=== PATIENT | female | born 1950 | race Caucasian/White ===

== ENCOUNTER 2017-09-02 15:36 | Emergency (ER) | payer MEDICARE, OTHER, SELFPAY ==
[2017-09-02 15:37] VITALS: BP 150/110; PULSE 162; RESP 16; TEMP 36.7; O2SAT 99; BMI 34.2
--- NOTE | 2017-09-02 15:49 | EKG12_ITS ---
Test Reason : Blood Pressure : / mmHG Vent. Rate : 087 BPM Atrial Rate : 087 BPM P-R Int : 168 ms QRS Dur : 088 ms QT Int : 362 ms P-R-T Axes : 056 -29 034 degrees QTc Int : 435 ms Normal sinus rhythm Normal ECG Confirmed by RADHA MELGOZA, MACKENZIE ([id number]), photo editor SARAHI RODRIGUEZ ([id number]) on 09/05/2017 1:41:24 PM Referred By: JOSE Confirmed By:MACKENZIE GARCIA MD
[2017-09-02] MEDS: Adenosine 6 MG/2 ML Syringe IV (16:01)
[2017-09-02] MEDS: Adenosine 6 MG/2 ML Syringe 12 MG IV (16:07)
[2017-09-02 16:14] VITALS: BP 166/142; PULSE 160
[2017-09-02 16:30] LABS: Anion Gap 10 (5-15); BUN 24 mg/dL (7-18); BUN/Creat Ratio 28.7 RATIO (10-20); Calcium,Total 9.4 mg/dL (8.5-10.1); Chloride 102 mmol/L (98-107); Creatinine, Serum 0.84 mg/dL (0.55-1.02); EST Glomerular Filtration Rate 73 mL/min (>60); Est Glom Filt Rate - Afr Amer 88 mL/min (>60); Estimated Creatinine Clearance 52.81 ml/min; Glucose 106 mg/dL (74-106); Potassium 4.7 mmol/L (3.5-5.1); Sodium Level 135 mmol/L (136-145)
[2017-09-02 16:52] VITALS: BP 162/90; PULSE 95; RESP 21; O2SAT 97
--- NOTE | 2017-09-02 16:57 | EKG12_ITS ---
Test Reason : Blood Pressure : / mmHG Vent. Rate : 162 BPM Atrial Rate : 166 BPM P-R Int : 000 ms QRS Dur : 120 ms QT Int : 284 ms P-R-T Axes : 000 -16 073 degrees QTc Int : 466 ms Supraventricular tachycardia Nonspecific ST and T wave abnormality Abnormal ECG Confirmed by ORTIZ MELGOZA, RUBY ([id number]), city editor SARAHI RODRIGUEZ ([id number]) on 09/08/2017 1:32:21 PM Referred By: JAMIE Confirmed By:RUBY ALCANTAR MD
[2017-09-02 17:09] VITALS: BP 147/85; PULSE 86; RESP 14; O2SAT 99
--- NOTE | 2017-09-02 17:11 | ED.VISSUMM ---
- ER Visit Summary Date of Service: 09/02/17 Chief Complaint: Palpitations that started 2-1/2 hours prior to presentation. History of Present Illness: The patient is a 67 F with palpitations. She has had this in the past. She states she has had a history of PSVT and atrial fibrillation. She is on no anticoagulant. She denies fever, chills night sweats. She denies heat or cold intolerance. She denies shortness of breath or difficulty breathing. She denies any chest discomfort of any type. She denies nausea vomiting. She denies diaphoresis. Denies orthostatic symptoms. She denies any urologic symptoms. Past medical history of arthritis, depression and PSVT Physical Examination: Blood pressure is 150/110 heart rate 162. BMI is 34.2. Head is atraumatic normocephalic. Pupils are equal round reactive. Extraocular muscles are intact. TMs are pearly white with landmarks noted. Nares patent with no drainage. Posterior pharynx without erythema or exudate. Uvula is midline. There is no dysphonia or dysphasia. Trachea is midline. There is no stridor with auscultation of the neck. Heart is regular with a normal S1 and S2. There is no murmur, gallop or rub. Heart rate is normal. Abdomen is soft nontender. There is no palpable pulsatile mass or abdominal bruit. Neuro exam is nonfocal. Test Results: BMP is unremarkable. The narrow complex tachycardia question of atrial flutter versus PSVT. Monitor revealed no flutter waves when she was given adenosine. There was a short period where she slowed down. She did not break with 6 or 12 mg of adenosine. Emergency Department Course and Treatment: AG was obtained which reveals a narrow complex tachycardia uncertain whether this represents a flutter versus PSVT. (Narrow complex reentry tachycardia) electrode panel was obtained. Since patient did not convert with adenosine she was consented for procedural sedation with propofol and cardioversion. After patient signed consent form she spontaneously converted to sinus rhythm. Repeat EKG reveals a sinus rhythm 87 and normal. Treatment Plan: To home with outpatient cardiac follow-up, Dr. Boo Centeno Disposition: Discharge to home in stable improved condition Impression: Narrow complex tachycardia, reentry This note was generated with [employer] software. It may contain incorrect words, spelling, and punctuation that were not noted in review of the chart prior to signing ED Disposition - Plan for ED Patient: Disposition: Home or Assisted Living Chief Complaint: Chest Pain Instructions: ED Tachycardia Pat PSVT Referrals: Annamarie Ho MD [Primary Care Provider] - Boo Centeno MD [STAFF PHYSICIAN] - 3-5 Days
--- NOTE | 2017-09-02 17:21 | ED.RN ---
1610 PT WAS GIVEN 2 DOSES ADENOSINE, NO CHANGE IN RHYTHM. PT AMBULATED TO BATHROOM AT THIS TIME PRIOR TO SYNCHRONIZED CONVERSION. ON RETURN PT CONVERTED TO SR BY SELF.
== END 2017-09-02 17:40 | disposition home or self-care (01) ==
PROVIDERS: Emergency Provider Emergency Medicine; Family Provider Internal Medicine; PCP Internal Medicine
DX: I47.1 Supraventricular tachycardia (principal); I10 Essential (primary) hypertension; M19.90 Unspecified osteoarthritis, unspecified site; F32.9 Major depressive disorder, single episode, unspecified; E66.9 Obesity, unspecified; Z68.34 Body mass index [BMI] 34.0-34.9, adult; Z79.899 Other long term (current) drug therapy
CPT/HCPCS: 80048; 93005; 96374; 99284; J7030; A4216; J0153

== ENCOUNTER 2017-12-18 10:11 | Emergency (ER) | payer MEDICARE, OTHER, SELFPAY ==
[2017-12-18 10:14] VITALS: BP 109/87; PULSE 167; RESP 16; TEMP 35.9; O2SAT 99; BMI 34.0
--- NOTE | 2017-12-18 10:28 | EKG12_ITS ---
Test Reason : PALPITATIONS Blood Pressure : / mmHG Vent. Rate : 158 BPM Atrial Rate : 150 BPM P-R Int : 000 ms QRS Dur : 132 ms QT Int : 292 ms P-R-T Axes : 000 -19 061 degrees QTc Int : 473 ms Supraventricular tachycardia Abnormal ECG Confirmed by RADHA MELGOZA, MACKENZIE ([id number]), staff editor SARAHI RODRIGUEZ ([id number]) on 12/24/2017 1:34:23 PM Referred By: JOSH Confirmed By:MACKENZIE GARCIA MD
--- NOTE | 2017-12-18 10:30 | RAD_ITS ---
STUDY: X-RAY CHEST REASON FOR EXAM: Female, 67 years old. Palpitations. Asthma. TECHNIQUE: Single AP portable view of the chest. COMPARISON: Comparison is made with prior examination dated November 14, 2009. FINDINGS: The lungs are clear and expanded. There is no demonstrated pleural abnormality. Normal size heart. Normal mediastinum and malini. Normal visualized pulmonary arteries. Normal visualized aortic arch and descending thoracic aorta. There are degenerative changes of the visualized thoracic spine. There is degenerative osteoarthritis of the bilateral shoulders. Findings suggestive of a hiatal hernia. RAD/Chest 1 View (Portable) IMPRESSION: No acute abnormality is seen. Electronically Signed: Rowdy Arizmendi MD at 11:00 EDT Tel [phone], Service support ,
[2017-12-18] MEDS: Adenosine 6 MG/2 ML Syringe IV (10:59)
[2017-12-18] MEDS: dilTIAZem 25 MG/5 ML Vial 20 MG IV BOLUS (10:59)
[2017-12-18] MEDS: 0.9% Normal Saline 1,000 ML 150 ML IV (10:59)
[2017-12-18 11:00] LABS: Absolute Lymphocyte Count 1.43 X10^3/ul (0.83-4.51); Absolute Neutrophil Count 5.6 X10^3/uL (2.0-7.7); Basophil# 0.05 X10^3/uL; Basophil% 0.6 % (0-1); Eosinophil# 0.23 X10^3/uL; Eosinophils% 2.9 % (0-5); Hematocrit 38.1 % (37-47); Hemoglobin 12.4 g/dl (12.0-15.0); Lymphocyte # 1.43 X10^3/ul (4.0); Lymphocyte % 17.9 % (19-41); Mean Corp Hgb Conc 32.5 g/gl (32-36); Mean Corpuscular Hgb 31.5 pg (27.0-32.0); Mean Corpuscular Volume 96.7 fL (81-99); Mean Platelet Vol. 9.6 fl (6.2-12.0); Monocyte# 0.66 X10^3/uL; Monocyte% 8.3 % (0-10); Neutrophil # 5.59 X10^3/uL (2.7-7.7); Platelet Count 237 K/mm3 (150-450); RBC Distribution Width CV 13.2 % (11.6-14.6); RBC Distribution Width SD 46.3 fl (35.1-43.9); Red Blood Count 3.94 M/mm3 (4.2-5.4)
[2017-12-18 11:03] LABS: POSITIVE COUNT NO; POSITIVE DIFFERENTIAL NO; POSITIVE MORPHOLOGY NO
[2017-12-18 11:06] VITALS: BP 128/78; PULSE 84; RESP 17; O2SAT 94
--- NOTE | 2017-12-18 11:11 | ED.RN ---
DR TIWARI NOTIFIED HR=84 AFTER 1/2ML OF CARDIZEM. EKG ORDERED
--- NOTE | 2017-12-18 11:15 | EKG12_ITS ---
Test Reason : REPEAT Blood Pressure : / mmHG Vent. Rate : 084 BPM Atrial Rate : 084 BPM P-R Int : 164 ms QRS Dur : 084 ms QT Int : 368 ms P-R-T Axes : 029 -20 022 degrees QTc Int : 434 ms Normal sinus rhythm Leftward axis Low voltage QRS Confirmed by RADHA MELGOZA, MACKENZIE ([id number]), editorial project manager SARAHI RODRIGUEZ ([id number]) on 12/24/2017 2:01:08 PM Referred By: JOSH Confirmed By:MACKENZIE GARCIA MD
[2017-12-18 11:19] LABS: Anion Gap 7 (5-15); BUN 28 mg/dL (7-18); BUN/Creat Ratio 28.3 RATIO (10-20); Calcium,Total 9.2 mg/dL (8.5-10.1); Chloride 108 mmol/L (98-107); Creatinine, Serum 0.99 mg/dL (0.55-1.02); EST Glomerular Filtration Rate 60 mL/min (>60); Est Glom Filt Rate - Afr Amer 72 mL/min (>60); Estimated Creatinine Clearance 44.81 ml/min; Glucose 107 mg/dL (74-106); Potassium 4.7 mmol/L (3.5-5.1); Sodium Level 138 mmol/L (136-145)
[2017-12-18] MEDS: Adenosine 6 MG/2 ML Syringe 12 MG IV (11:27)
--- NOTE | 2017-12-18 12:37 | ED.VISSUMM ---
- ER Visit Summary Date of Service: 12/18/17 Chief Complaint: [Tachycardia] History of Present Illness: The patient is a 67 F [presents the emergency department with racing heart that she states started sometime last night. Patient felt nauseated and just kind of feels out of it. Patient had similar episode about 4 months ago and was seen in the emergency department at that time. Patient subsequently wore a Holter monitor and is currently scheduled to follow-up with airplane electrician at [facility] to have an ablation done on January 14. Patient not on any blood thinners. Patient denies any chest pain. Patient denies recent illness.] Physical Examination: [HEENT-PERRLA, EOMI. Cranial nerves II through XII grossly intact. TMs clear. Mucous membranes moist. No adenopathy. Cardiovascular-regular and tachycardic. No murmurs. Lungs-clear to auscultation, chest wall stable without crepitus or subcu emphysema Abdomen-normoactive bowel sounds, soft, nontender, no rebound or rigidity, no peritoneal signs. Extremities-intact ?4, normal range of motion, normal pulses, atraumatic] Test Results: [EKG obtained showed supraventricular tachycardia with a ventricular rate of 158 bpm difficult to state if this is fib flutter or SVT. CBC with differential was normal. Chemistries unremarkable. Troponin was less than 0.015. Chest x-ray showed nothing acute.] Emergency Department Course and Treatment: Patient initially given adenosine 6 mg IV bolus and no resolution in her tachycardia. Patient was given a 12 mg IV bolus of adenosine and she slow down into the 120s however I did not appreciate any flutter waves and patient immediately back up into the 150s. Patient received Cardizem 20 mg IV bolus and patient converted to normal sinus rhythm with a heart rate in the 80s. [] Treatment Plan: [Patient case discussed with Dr. Boo Centeno who is patient's township clerk of record who asked that we increase her Coreg to 1-1/2 tablets twice a day and have her call the office tomorrow.] Disposition: [Discharged home in stable condition] Impression: [Supraventricular tachycardia] This note was generated with [employer] software. It may contain incorrect words, spelling, and punctuation that were not noted in review of the chart prior to signing ED Disposition - Plan for ED Patient: Chief Complaint: Palpitations Referrals: Annamarie Ho MD [Primary Care Provider] -
--- NOTE | 2017-12-18 12:40 | ED.DCSUM_ITS ---
- ER Visit Summary Date of Service: 12/18/17 Chief Complaint: [Tachycardia] History of Present Illness: The patient is a 67 F [presents the emergency department with racing heart that she states started sometime last night. Patient felt nauseated and just kind of feels out of it. Patient had similar episode about 4 months ago and was seen in the emergency department at that time. Patient subsequently wore a Holter monitor and is currently scheduled to follow-up with slots manager at [facility] to have an ablation done on January 14. Patient not on any blood thinners. Patient denies any chest pain. Patient denies recent illness.] Physical Examination: [HEENT-PERRLA, EOMI. Cranial nerves II through XII grossly intact. TMs clear. Mucous membranes moist. No adenopathy. Cardiovascular-regular and tachycardic. No murmurs. Lungs-clear to auscultation, chest wall stable without crepitus or subcu emphysema Abdomen-normoactive bowel sounds, soft, nontender, no rebound or rigidity, no peritoneal signs. Extremities-intact ?4, normal range of motion, normal pulses, atraumatic] Test Results: [EKG obtained showed supraventricular tachycardia with a ventricular rate of 158 bpm difficult to state if this is fib flutter or SVT. CBC with differential was normal. Chemistries unremarkable. Troponin was less than 0.015. Chest x-ray showed nothing acute.] Emergency Department Course and Treatment: Patient initially given adenosine 6 mg IV bolus and no resolution in her tachycardia. Patient was given a 12 mg IV bolus of adenosine and she slow down into the 120s however I did not appreciate any flutter waves and patient immediately back up into the 150s. Patient received Cardizem 20 mg IV bolus and patient converted to normal sinus rhythm with a heart rate in the 80s. [] Treatment Plan: [Patient case discussed with Dr. Boo Centeno who is patient' s high school math teacher of record who asked that we increase her Coreg to 1-1/2 tablets twice a day and have her call the office tomorrow.] Disposition: [Discharged home in stable condition] Impression: [Supraventricular tachycardia] This note was generated with [employer] software. It may contain incorrect words, spelling, and punctuation that were not noted in review of the chart prior to signing ED Disposition - Plan for ED Patient: Chief Complaint: Palpitations Referrals: Annamarie Ho MD [Primary Care Provider] -
--- NOTE | 2017-12-18 12:40 | ED.DEP ---
ED Disposition - Plan for ED Patient: Chief Complaint: Palpitations Instructions: ED Tachycardia Pat PSVT Referrals: Annamarie Ho MD [Primary Care Provider] - Additional Instructions: increase Coreg to 1 1/2 tablets twice per day and call Dr. Gutiérrez's office tomorrow for an update
[2017-12-18 12:50] VITALS: BP 122/84; PULSE 75; RESP 16; O2SAT 98
== END 2017-12-18 12:54 | disposition home or self-care (01) ==
PROVIDERS: Emergency Provider Emergency Medicine; Family Provider Internal Medicine; PCP Internal Medicine
DX: I47.1 Supraventricular tachycardia (principal); Z79.899 Other long term (current) drug therapy
CPT/HCPCS: 71045; 80048; 84484; 85025; 93005; 96361; 96374; 96375; 99284; J7030; A4216; J0153

== ENCOUNTER 2017-12-27 13:14 | Emergency (ER) | payer MEDICARE, OTHER, SELFPAY ==
[2017-12-27 13:15] VITALS: BP 117/68; PULSE 65; RESP 16; TEMP 36.2; O2SAT 96; BMI 34.3
[2017-12-27 13:43] VITALS: BP 135/66; PULSE 67; RESP 18
--- NOTE | 2017-12-27 14:00 | EKG12_ITS ---
Test Reason : DIZZINESS Blood Pressure : / mmHG Vent. Rate : 058 BPM Atrial Rate : 058 BPM P-R Int : 168 ms QRS Dur : 094 ms QT Int : 454 ms P-R-T Axes : 045 -20 016 degrees QTc Int : 445 ms Sinus bradycardia with occasional Premature ventricular complexes Otherwise normal ECG Confirmed by GREG CHAMPION ([id number]), material expeditor SARAHI RODRIGUEZ ([id number]) on 01/05/2018 6:01:08 PM Referred By: CATY Confirmed By:GREG CHAMPION
[2017-12-27] MEDS: 0.9% Normal Saline 1,000 ML 1000 ML IV (14:16)
[2017-12-27 14:21] LABS: Absolute Lymphocyte Count 0.76 X10^3/ul (0.83-4.51); Absolute Neutrophil Count 4.9 X10^3/uL (2.0-7.7); Basophil# 0.02 X10^3/uL; Basophil% 0.3 % (0-1); Eosinophil# 0.16 X10^3/uL; Eosinophils% 2.5 % (0-5); Hematocrit 34.5 % (37-47); Hemoglobin 11.2 g/dl (12.0-15.0); Lymphocyte # 0.76 X10^3/ul (4.0); Lymphocyte % 11.7 % (19-41); Mean Corp Hgb Conc 32.5 g/gl (32-36); Mean Corpuscular Hgb 31.3 pg (27.0-32.0); Mean Corpuscular Volume 96.4 fL (81-99); Mean Platelet Vol. 9.3 fl (6.2-12.0); Monocyte# 0.62 X10^3/uL; Monocyte% 9.6 % (0-10); Neutrophil # 4.91 X10^3/uL (2.7-7.7); Neutrophil % 75.7 % (47-70); Platelet Count 207 K/mm3 (150-450); RBC Distribution Width CV 13.1 % (11.6-14.6); RBC Distribution Width SD 45.8 fl (35.1-43.9); Red Blood Count 3.58 M/mm3 (4.2-5.4); White Blood Count 6.5 K/mm3 (4.4-11.0)
[2017-12-27 14:22] LABS: POSITIVE COUNT NO; POSITIVE DIFFERENTIAL NO; POSITIVE MORPHOLOGY NO
[2017-12-27 14:32] LABS: Bacteria 0 SEEN /hpf (None Seen); Mucous, Urine 0 SEEN /hpf (<or=2+); Red Blood Cells-Urine 0 SEEN /hpf (0-5); Squamous Epithelial Cells - UA 0 SEEN /hpf (5-10)
[2017-12-27 14:34] LABS: Color, Urine Yellow (Yellow); Glucose, Dipstick Normal (Normal); Ketone-Dipstick Negative (Negative); Leukocyte Esterase-Dipstick 25 /ul (Negative); Nitrite-Dipstick Negative (Negative); Occult Blood-Urine Negative /ul (Negative); Protein-Dipstick 100 mg/dl (Negative); Urine Clarity Clear (Clear); Urine Urobilinogen Normal (Normal)
[2017-12-27 14:35] LABS: Urine Bilirubin Dipstick 1 mg/dL (Negative)
[2017-12-27 14:41] LABS: White Blood Cells 0-5 SEEN /hpf (0-5)
[2017-12-27 14:43] LABS: Anion Gap 6 (5-15); BUN 40 mg/dL (7-18); BUN/Creat Ratio 30.1 RATIO (10-20); Calcium,Total 9.1 mg/dL (8.5-10.1); Chloride 106 mmol/L (98-107); Creatinine, Serum 1.33 mg/dL (0.55-1.02); EST Glomerular Filtration Rate 42 mL/min (>60); Est Glom Filt Rate - Afr Amer 51 mL/min (>60); Estimated Creatinine Clearance 33.35 ml/min; Glucose 124 mg/dL (74-106); Potassium 4.9 mmol/L (3.5-5.1); Sodium Level 137 mmol/L (136-145); Thyroid Stim Hormone (TSH) 3.22 uIU/mL (0.358-3.74)
[2017-12-27 14:47] VITALS: BP 138/59; BP 142/66; BP 144/66; PULSE 61; PULSE 64
[2017-12-27 15:57] VITALS: BP 142/70; PULSE 65; RESP 18
--- NOTE | 2017-12-27 16:04 | ED.VISSUMM ---
- ER Visit Summary Date of Service: 12/27/17 Chief Complaint: [Low blood pressure] History of Present Illness: The patient is a 67 F [presents to the emergency department with low blood pressure. She states it has been going on for the last 2 days. She is felt just generally weak and fatigued. She went to work this morning and took her blood pressure and was 88 systolic and 99 systolic. She was not dizzy or lightheaded she had no chest pain or shortness of breath. She has not been febrile she has no cough she has no abdominal pain nausea vomiting bowel movements have been normal urine is normal. She was seen in the emergency department a week ago for SVT and her Coreg was increased from 12.5 to 18 mg twice a day. I Physical Examination: [] Test Results: [] Emergency Department Course and Treatment: [EKG is sinus at a rate of 58 with a PVC no acute ischemic changes. Screening labs show anemia with a hemoglobin of 11.2 troponin is normal. Creatinine is 1.33 which is up slightly from previous. Patient's blood pressures in the emergency department was normal she was not orthostatic. Urine was normal. This time I do think the patient can likely be discharged home. He will stop her losartan. I will contact her quality analyst for follow-up. She will monitor her blood pressures daily. Will touch base with him on Friday.] Treatment Plan: [] Disposition: [Discharge] Impression: [Hypotension] This note was generated with [employer] dictation software. It may contain incorrect words, spelling, and punctuation that were not noted in review of the chart prior to signing ED Disposition - Plan for ED Patient: Chief Complaint: Hypotension Referrals: Annamarie Ho MD [Primary Care Provider] -
--- NOTE | 2017-12-27 16:11 | ED.DCSUM_ITS ---
- ER Visit Summary Date of Service: 12/27/17 Chief Complaint: [Low blood pressure] History of Present Illness: The patient is a 67 F [presents to the emergency department with low blood pressure. She states it has been going on for the last 2 days. She is felt just generally weak and fatigued. She went to work this morning and took her blood pressure and was 88 systolic and 99 systolic. She was not dizzy or lightheaded she had no chest pain or shortness of breath. She has not been febrile she has no cough she has no abdominal pain nausea vomiting bowel movements have been normal urine is normal. She was seen in the emergency department a week ago for SVT and her Coreg was increased from 12.5 to 18 mg twice a day. I Physical Examination: [] Test Results: [] Emergency Department Course and Treatment: [EKG is sinus at a rate of 58 with a PVC no acute ischemic changes. Screening labs show anemia with a hemoglobin of 11.2 troponin is normal. Creatinine is 1.33 which is up slightly from previous. Patient's blood pressures in the emergency department was normal she was not orthostatic. Urine was normal. This time I do think the patient can likely be discharged home. He will stop her losartan. I will contact her geological engineer for follow-up. She will monitor her blood pressures daily. Will touch base with him on Friday.] Treatment Plan: [] Disposition: [Discharge] Impression: [Hypotension] This note was generated with [employer]box dictation software. It may contain incorrect words, spelling, and punctuation that were not noted in review of the chart prior to signing ED Disposition - Plan for ED Patient: Chief Complaint: Hypotension Referrals: Annamarie Ho MD [Primary Care Provider] -
--- NOTE | 2017-12-27 16:16 | ED.DEP ---
ED Disposition - Plan for ED Patient: Chief Complaint: Hypotension Instructions: ED Hypotension All Causes Referrals: Boo Centeno MD [STAFF PHYSICIAN] - 12/29/17 Additional Instructions: stop Losartan
[2017-12-27 16:24] VITALS: BP 142/70; PULSE 65; RESP 18
== END 2017-12-27 16:25 | disposition home or self-care (01) ==
PROVIDERS: Emergency Provider Emergency Medicine; Family Provider Internal Medicine; PCP Internal Medicine
DX: I95.9 Hypotension, unspecified (principal); I48.91 Unspecified atrial fibrillation; I47.1 Supraventricular tachycardia; Z79.891 Long term (current) use of opiate analgesic; Z79.899 Other long term (current) drug therapy
CPT/HCPCS: 80048; 81001; 84443; 84484; 85025; 93005; 96360; 96361; 99285; J7030; A4216

== ENCOUNTER 2019-01-23 09:33 | Emergency (ER) | payer MEDICARE, OTHER, SELFPAY ==
[2018-07-02 14:19] VITALS: BMI 34.2
[2019-01-23 09:34] VITALS: BP 155/91; PULSE 77; RESP 16; TEMP 36.7; O2SAT 95; BMI 34.0
--- NOTE | 2019-01-23 10:08 | RAD_ITS ---
STUDY: X-RAY - RIGHT FOOT CLINICAL: Female, 68 years old. Surgery November 09, pain and swelling TECHNIQUE: 3 view(s) of the foot. COMPARISON: None. FINDINGS: Arthrodesis fixation hardware of the hindfoot without evidence of obvious hardware loosening. There is diffuse osteopenia. Normal metatarsi. Normal metatarsophalangeal joint of the great toe. Normal tibial and fibular sesamoid bones. Normal interphalangeal joint of the great toe. Normal phalanges of the great toe. Normal second through fifth metatarsophalangeal joints. Normal interphalangeal joints and phalanges of the lesser toes. Nonspecific soft tissue swelling of the forefoot extending into the base of the toes. RAD/Foot min 3 Views IMPRESSION: 1. No acute fracture. Operative changes/fusion of the hindfoot. 2. Soft tissue swelling of the forefoot/toes. Electronically Signed: Zhao Hyde MD at 10:38 EDT , Service support ,
--- NOTE | 2019-01-23 10:40 | ED.DCSUM_ITS ---
History of Present Illness Chief Complaint: Lower Extremity Injury Informant: Patient Onset: Today Context: Sudden Onset Timing: Continuous Quality: Pain Location: Right lateral foot Current Severity: Mild Maximum Severity: Moderate Worsened by: Attempted movement, weightbearing and touch Relieved by: Nothing Associated Symptoms: No associated symptoms Narrative: Patient is an elderly woman status post fusion of her right ankle by Dr. Cory valero a gis consultant who practices at [facility] 2 months ago. She presents after traumatic injury to the right foot yesterday. She is localizing pain to the lateral right foot over the fifth metatarsal. She denies ankle pain. She denies paresthesia or anesthesia. She denies fever or chills. Prior similar symptoms: No Recent Illness/Hospitalization: No Past Medical History - Allergies and Home Meds Allergies/Adverse Reactions: Allergies loratadine [From Claritin-D] Adverse Reaction (Verified 01/23/19 09:34) HYPERTENSION pseudoephedrine [From Claritin-D] Adverse Reaction (Verified 01/23/19 09:34) HYPERTENSION Primary Care Physician: Annamarie Ho MD [Primary Care Provider] - Prior records reviewed: Yes - Reviewed records from [facility] Surgical History: - - Fusion right ankle Lives: Spouse/ Significant Other Smoking Status: Never smoker Alcohol: None Review of Systems General: Denies: Chills, Fever, Malaise, Sweats Musculoskeletal: Reports: Extremity Pain. Denies: Myalgias, Arthralgias, Neck pain, Back pain, Swelling Skin: Denies: Rash, Wounds Neurological: Denies: Parasthesia, Numbness Hematologic: Denies: Easy bruising, Easy bleeding Allergy: Denies: Uticaria, Swelling of the mouth Physical Exam Vital Signs/Narrative: Vital Signs Temp Pulse Resp BP Pulse Ox 01/23/19 09:34 98.1 F 77 16 155/91 H 95 Inital Vital Signs reviewed: Yes General: Well nourished, Well developed, Obese, No Acute Distress Head: Normocephalic, Atraumatic Eyes: Perrl, EOMI Cardiovascular: Regular rate, Regular rhythm, No murmurs Respiratory: No distress Extremities: No edema, Tenderness, - - There is pain to palpation over the fifth metatarsal. Incisions are well-healed without evidence of infection. There is no pain palpation over the lateral malleolus.. Negative for: Nontender, Edema Skin: Normal color, No rash, No Trauma Neurological: Alert, Oriented x3, Cranial nerves II-XII grossly intact, Normal Strength, Normal Sensation Psychological: Normal affect, Normal Mood Diagnostic/Tx/Re-eval Chest X-Ray - ED: Read by ED Physician Three-view x-ray of the foot reveals fusion of the ankle with hardware noted. There is no evidence of fracture of the fifth metatarsal. There is no evidence of fracture to the tarsal bones. The joint space looks appropriate. - Medical Decision Making X-ray was ordered to evaluate for fracture of the fifth metatarsal. Patient requested an MRI. Patient was informed she has theron-criteria for MRI. She asked if an x-ray would visualize tendons and bones. She was informed the answer is no. She then asked if she may have a CAT scan. She was told since her history of trauma as the cause of the pain first radiologic study is an x- ray. Based on my experience patient's history she is not meet criteria for an emergent CAT scan of her foot. ED Disposition - Plan for ED Patient: Disposition: Home or Assisted Living Diagnosis: Contusion of right foot, initial encounter, Right foot strain Instructions: CONTUSION, Foot, Sprain Foot Prescriptions: Naproxen [Naprosyn] 500 mg PO BID #14 tab Prescription Printed Referrals: Annamarie Ho MD [Primary Care Provider] - Additional Instructions: If you have no improvement in 3 to 5 days follow-up with Dr. Crandall your gis consultant/surgeon.
== END 2019-01-23 11:22 | disposition home or self-care (01) ==
PROVIDERS: Emergency Provider Emergency Medicine; Family Provider Internal Medicine; PCP Internal Medicine
DX: S96.911A Strain of unspecified muscle and tendon at ankle and foot level, right foot, initial encounter (principal); S90.31XA Contusion of right foot, initial encounter; X58.XXXA Exposure to other specified factors, initial encounter; Y93.9 Activity, unspecified; Y92.9 Unspecified place or not applicable; Y99.9 Unspecified external cause status; Z79.899 Other long term (current) drug therapy; Z98.1 Arthrodesis status
CPT/HCPCS: 73630; 99282

== ENCOUNTER 2019-03-02 08:04 | Emergency (ER) | payer MEDICARE, OTHER, SELFPAY ==
[2019-03-02 08:05] VITALS: BP 136/86; PULSE 72; RESP 16; TEMP 36.7; O2SAT 97; BMI 32.2
--- NOTE | 2019-03-02 08:29 | ED.DCSUM_ITS ---
History of Present Illness Chief Complaint: GI Bleed Informant: Patient, Family - Nausea/Vomiting/Emesis GI Symptom: Nausea, Vomiting Onset: Yesterday Quality: Blood streaks - Diarrhea/Melena/Hematochezia GI Symptom: Hematochezia. Negative for: Diarrhea, Melena Onset: Yesterday Associated Symptoms: Negative for: Dysuria, Frequency, Hematuria, Urgency Narrative: Patient states she has been constipated for the past week. Last night, she did a suppository and she used her finger to help take herself out from her rectum, she had some rectal bleeding subsequently and has not had any since except for a small amount of blood when she wipes after urinating. She is not urinating any blood. Last night she states she also had hematemesis, and it was more than just streaking, maybe 1/4 cup of blood. She had some right lower quadrant pain for 20 minutes this morning that was not severe but that is gone. She feels malaise but no lightheadedness or near syncope. No chest pain or shortness of breath. She has a history of paroxysmal atrial fibrillation but states she takes no antiplatelet or anticoagulant, including aspirin. She recently was put on Vistaril and mirtazapine, no other new medications. She had a routine colonoscopy within the last couple years as well as an EGD, she states other than diverticulosis nothing else was found. - Past Medical History (1) Anxiety and depression Status: Chronic Past Medical History - Allergies and Home Meds Allergies/Adverse Reactions: Allergies loratadine [From Claritin-D] Adverse Reaction (Verified 01/23/19 09:34) HYPERTENSION pseudoephedrine [From Claritin-D] Adverse Reaction (Verified 01/23/19 09:34) HYPERTENSION Primary Care Physician: Annamarie Ho MD [Primary Care Provider] - Surgical History: - - Fusion right ankle Lives: Spouse/ Significant Other Smoking Status: Never smoker Drugs: None Review of Systems General: Reports: Malaise. Denies: Chills, Fever, Sweats Eyes: Denies: Visual changes - bilaterally, Diplopia ENT: Denies: Rhinorrhea, Sore throat Cardiovascular: Denies: Chest pain, Palpitations Respiratory: Denies: Dyspnea, Cough, Dyspnea on exertion Gastrointestinal: Reports: Abdominal pain - Resolved, Nausea, Vomiting, Constipation, Hematochezia. Denies: Diarrhea, Melena Genitourinary: Denies: Dysuria, Hematuria, Frequency Musculoskeletal: Denies: Back pain, Extremity Pain Skin: Denies: Rash, Wounds Neurological: Denies: Headache, Weakness, Numbness Physical Exam Vital Signs/Narrative: Vital Signs Temp Pulse Resp BP Pulse Ox 03/02/19 08:05 98.1 F 72 16 136/86 H 97 Inital Vital Signs reviewed: Yes General: Well nourished, Well developed, Obese, No Acute Distress Head: Normocephalic, Atraumatic Eyes: Perrl, EOMI ENT: Moist mucous membranes, No rhinorrhea Neck: Supple, Nontender Cardiovascular: Regular rate, Regular rhythm, No murmurs. Negative for: Tachycardia Respiratory: No distress, CTA bilaterally, Chest nontender Abdomen: Soft, Nontender, Nondistended, Normal bowel sounds Rectal: Nontender, - - Several nonthrombosed nontender external hemorrhoids. Digital rectal exam unremarkable, no tenderness, no bright red blood, light brown stool present. Back: Nontender, Normal Inspection Extremities: Nontender, No edema Skin: Normal color, No rash Neurological: Alert, Oriented x3, Cranial nerves II-XII grossly intact, Normal Strength, Normal Sensation Psychological: Normal affect, Normal Mood Diagnostic/Tx/Re-eval Laboratory Tests 03/02/19 03/02/19 03/02/19 Range/Units 10:35 08:35 08:35 WBC (4.4-11.0) K/mm3 RBC (4.2-5.4) M/mm3 Hgb (12.0-15.0) g/dL Hct (37-47) % MCV (81-99) fL MCH (27.0-32.0) pg MCHC (32-36) g/dL RDW Std Deviation (35.1-43.9) fl RDW Coeff of Eder (11.6-14.6) % Plt Count (150-450) K/mm3 MPV (6.2-12.0) fl Immature Gran % (Auto) (0.0-0.9) % Neut % (Auto) (47-70) % Lymph % (Auto) (19-41) % [place] % (Auto) (0-10) % Eos % (Auto) (0-5) % Baso % (Auto) (0-1) % Absolute Neuts (auto) (2.0-7.7) X10^3/uL Absolute Lymphs (auto) (0.83-4.51) X10^3/uL Nucleated RBC % (0-5) % Sodium 133 L (136-145) mmol/L Potassium 4.3 (3.5-5.1) mmol/L Chloride 100 (98-107) mmol/L Carbon Dioxide 26.0 (21.0-32.0) mmol/L Anion Gap 7 (5-15) BUN 15 (7-18) mg/dL Creatinine 1.03 H (0.55-1.02) mg/dL Estim Creat Clear Calc 38.07 ml/min Est GFR (MDRD) Af Amer 69 (>60) mL/min Est GFR (MDRD) Non-Af 57 L (>60) mL/min BUN/Creatinine Ratio 14.6 (10-20) RATIO Glucose 99 (74-106) mg/dL Calcium 9.5 (8.5-10.1) mg/dL Urine Color Yellow (Yellow) Urine Clarity Clear (Clear) Urine pH 7.0 (5.0 - 8.0) Ur Specific [place] 1.010 (1.002-1.030) Urine Protein Negative (Negative) mg/dl Urine Glucose (UA) Normal (Normal) mg/dl Urine Ketones Negative (Negative) mg/dl Urine Occult Blood Negative (Negative) /ul Urine Nitrite Negative (Negative) Urine Bilirubin Negative (Negative) mg/dL Urine Urobilinogen Normal (Normal) mg/dl Ur Leukocyte Esterase Negative (Negative) /ul Urine RBC 0 SEEN (0-5) /hpf Urine WBC 0 SEEN (0-5) /hpf Ur Squamous Epith Cells 0 SEEN (5-10) /hpf Urine Bacteria 0 SEEN (None Seen) /hpf Urine Mucus 0 SEEN (<or=2+) /hpf Blood Type A POSITIVE Antibody Screen NEGATIVE 03/02/19 Range/Units 08:35 WBC 6.6 (4.4-11.0) K/mm3 RBC 4.16 L (4.2-5.4) M/mm3 Hgb 12.7 (12.0-15.0) g/dL Hct 37.3 (37-47) % MCV 89.7 (81-99) fL MCH 30.5 (27.0-32.0) pg MCHC 34.0 (32-36) g/dL RDW Std Deviation 43.4 (35.1-43.9) fl RDW Coeff of Eder 13.1 (11.6-14.6) % Plt Count 214 (150-450) K/mm3 MPV 9.0 (6.2-12.0) fl Immature Gran % (Auto) 0.500 (0.0-0.9) % Neut % (Auto) 71.9 H (47-70) % Lymph % (Auto) 14.0 L (19-41) % [place] % (Auto) 10.5 H (0-10) % Eos % (Auto) 2.3 (0-5) % Baso % (Auto) 0.8 (0-1) % Absolute Neuts (auto) 4.7 (2.0-7.7) X10^3/uL Absolute Lymphs (auto) 0.92 (0.83-4.51) X10^3/uL Nucleated RBC % 0 (0-5) % Sodium (136-145) mmol/L Potassium (3.5-5.1) mmol/L Chloride (98-107) mmol/L Carbon Dioxide (21.0-32.0) mmol/L Anion Gap (5-15) BUN (7-18) mg/dL Creatinine (0.55-1.02) mg/dL Estim Creat Clear Calc ml/min Est GFR (MDRD) Af Amer (>60) mL/min Est GFR (MDRD) Non-Af (>60) mL/min BUN/Creatinine Ratio (10-20) RATIO Glucose (74-106) mg/dL Calcium (8.5-10.1) mg/dL Urine Color (Yellow) Urine Clarity (Clear) Urine pH (5.0 - 8.0) Ur Specific [place] (1.002-1.030) Urine Protein (Negative) mg/dl Urine Glucose (UA) (Normal) mg/dl Urine Ketones (Negative) mg/dl Urine Occult Blood (Negative) /ul Urine Nitrite (Negative) Urine Bilirubin (Negative) mg/dL Urine Urobilinogen (Normal) mg/dl Ur Leukocyte Esterase (Negative) /ul Urine RBC (0-5) /hpf Urine WBC (0-5) /hpf Ur Squamous Epith Cells (5-10) /hpf Urine Bacteria (None Seen) /hpf Urine Mucus (<or=2+) /hpf Blood Type Antibody Screen - Medical Decision Making Hemoglobin of 12.7, patient is not anemic. Furthermore she does not have uremia or even an elevated BUN to suggest an acute upper GI source. Her rectal bleeding could easily have been caused by her manually manipulating her anal rectal area with her finger/hand, with a minor mucosal tear. There is no bleeding grossly on exam now. She is clinically and hemodynamically stable. She was given a Protonix here. Her urinalysis is normal and shows no hematuria. I think she is stable to be discharged on Protonix and follow-up. We also discussed outpatient management of external hemorrhoids and constipation. She is comfortable with this plan all questions answered at the bedside. ED Disposition - Plan for ED Patient: Disposition: Home or Assisted Living Diagnosis: Rectal bleeding, Hematemesis of unknown cause Instructions: RECTAL BLEED, Stable, GI BLEED, Upper (Stable) Prescriptions: Pantoprazole Sodium [Protonix] 40 mg PO DAILY #30 tab Prescription Printed Referrals: Annamarie Ho MD [Primary Care Provider] - 1 Week if not improving
[2019-03-02 08:41] LABS: Absolute Lymphocyte Count 0.92 X10^3/uL (0.83-4.51); Absolute Neutrophil Count 4.7 X10^3/uL (2.0-7.7); Basophil# 0.05 X10^3/uL; Basophil% 0.8 % (0-1); Eosinophil# 0.15 X10^3/uL; Eosinophils% 2.3 % (0-5); Hematocrit 37.3 % (37-47); Hemoglobin 12.7 g/dL (12.0-15.0); Lymphocyte # 0.92 X10^3/ul (4.0); Mean Corpuscular Hgb 30.5 pg (27.0-32.0); Mean Corpuscular Volume 89.7 fL (81-99); Monocyte# 0.69 X10^3/uL; Monocyte% 10.5 % (0-10); NRBC Flagged by Analyzer 0 % (0-5); Neutrophil # 4.72 X10^3/uL (2.7-7.7); Neutrophil % 71.9 % (47-70); Platelet Count 214 K/mm3 (150-450); RBC Distribution Width CV 13.1 % (11.6-14.6); RBC Distribution Width SD 43.4 fl (35.1-43.9); Red Blood Count 4.16 M/mm3 (4.2-5.4); White Blood Count 6.6 K/mm3 (4.4-11.0)
[2019-03-02 08:55] LABS: Anion Gap 7 (5-15); BUN 15 mg/dL (7-18); BUN/Creat Ratio 14.6 RATIO (10-20); Calcium,Total 9.5 mg/dL (8.5-10.1); Chloride 100 mmol/L (98-107); Creatinine, Serum 1.03 mg/dL (0.55-1.02); EST Glomerular Filtration Rate 57 mL/min (>60); Est Glom Filt Rate - Afr Amer 69 mL/min (>60); Estimated Creatinine Clearance 38.07 ml/min; Glucose 99 mg/dL (74-106); Potassium 4.3 mmol/L (3.5-5.1); Sodium Level 133 mmol/L (136-145)
[2019-03-02] MEDS: 0.9% Normal Saline 1,000 ML 125 ML IV (09:06)
[2019-03-02] MEDS: Pantoprazole Sodium 40 MG Tablet PO (09:07)
[2019-03-02 10:04] VITALS: BP 117/43; PULSE 64; RESP 16; O2SAT 100
[2019-03-02 10:37] LABS: Bacteria 0 SEEN /hpf (None Seen); Mucous, Urine 0 SEEN /hpf (<or=2+); Red Blood Cells-Urine 0 SEEN /hpf (0-5); Squamous Epithelial Cells - UA 0 SEEN /hpf (5-10); White Blood Cells 0 SEEN /hpf (0-5)
[2019-03-02 10:38] LABS: Color, Urine Yellow (Yellow); Glucose, Dipstick Normal (Normal); Ketone-Dipstick Negative (Negative); Leukocyte Esterase-Dipstick Negative /ul (Negative); Nitrite-Dipstick Negative (Negative); Occult Blood-Urine Negative /ul (Negative); Protein-Dipstick Negative (Negative); Urine Bilirubin Dipstick Negative (Negative); Urine Clarity Clear (Clear); Urine Urobilinogen Normal (Normal)
[2019-03-02 11:18] VITALS: BP 146/60; PULSE 63; RESP 16; O2SAT 99
== END 2019-03-02 11:19 | disposition home or self-care (01) ==
PROVIDERS: Emergency Provider Emergency Medicine; Family Provider Internal Medicine; PCP Internal Medicine
DX: K92.0 Hematemesis (principal); K92.1 Melena; K64.4 Residual hemorrhoidal skin tags; K59.00 Constipation, unspecified; R10.31 Right lower quadrant pain; I48.0 Paroxysmal atrial fibrillation; F32.9 Major depressive disorder, single episode, unspecified; F41.9 Anxiety disorder, unspecified; Z79.899 Other long term (current) drug therapy
CPT/HCPCS: 80048; 81001; 85025; 86850; 86900; 96360; 96361; 99284; J7030; A4216

== ENCOUNTER 2019-03-07 17:18 | Emergency (ER) | payer MEDICARE, OTHER, SELFPAY ==
[2019-03-07 17:18] VITALS: BP 119/76; PULSE 68; RESP 19; TEMP 36.1; O2SAT 99; BMI 31.6
--- NOTE | 2019-03-07 17:38 | ED.DCSUM_ITS ---
- ER Visit Summary Date of Service: 03/07/19 Chief Complaint: Constipation History of Present Illness: The patient is a 69 F history of prior A. fib with prior ablation and hypertension. Patient was seen in the ER about 5 days ago. At that time had a negative work-up. States she has had issues with const ipation and took magnesium citrate and had loose stools and now feels constipated again. She denies any melena. Said she just feels full. Denies any fever or dysuria. Physical Examination: Older female no acute distress. Vital signs are stable and afebrile. H EENT exam unremarkable. Moist wheeze members. Neck nontender. Lungs clear to auscultation bilaterally. Heart regular rhythm no murmur. Abdomen is soft. Nondistended. Normal bowel sounds. No peritoneal signs. No signs of obstruction. No hernia or masses. No pulsatile mass. Patient is moving all 4 extremities. Right lower leg has an orthotic boot on. Neurologically she is awake alert with no focal motor deficits. Test Results: KUB shows no acute abnormality. Increased bowel gas. No obstruction. No significant amount of stool. Emergency Department Course and Treatment: Abdominal exam is benign. Single view x-rays being obtained. The x-ray with patient and her . On repeat exam at 1815 p.m. she is doing well. Abdomen is benign. Nondistended. No peritoneal signs. Patient is obviously anxious. Discussed with her repeating her labs and obtaining a CT even if clinically I do not feel that is necessary they are comfortable with the plan of not doing any other additional testing since she had a full evaluation 5 days ago and they will follow-up as needed. Treatment Plan: Plenty of fluids and increase diet slowly as tolerated. Follow- up with your doctor as needed. Disposition: Discharge Impression: Recent diarrhea and constipation resolved This note was generated with [employer] dictation software. It may contain incorrect words, spelling, and punctuation that were not noted in review of the chart prior to signing ED Disposition - Plan for ED Patient: Referrals: Annamarie Ho MD [Primary Care Provider] -
--- NOTE | 2019-03-07 17:42 | RAD_ITS ---
HISTORY:CONSTIPATION, ABDOMINAL PAIN CONSTIPATION, ABDOMINAL PAIN EXAMINATION/TECHNIQUE: XR Abdomen 1 View: COMPARISON: None FINDINGS: BOWEL GAS PATTERN: Non-obstructive. No bowel or stomach distention. FREE AIR: Not assessed on a single supine view. ORGANOMEGALY: Borderline hepatomegaly CALCIFICATIONS: No abnormal calcifications observed. LOWER CHEST: Left basilar atelectasis BONES AND SOFT TISSUES: Degenerative changes seen within the lumbar spine. There is levoscoliosis RAD/Abdomen Single View (Portable) IMPRESSION: Non-obstructive bowel gas pattern. Borderline hepatomegaly Degenerative changes of the lumbar spine at 1826 Reported and signed by: Светлана Henley DO Electronically Signed: Светлана Henley DO at 18:25 EDT Tel , Service support ,
--- NOTE | 2019-03-07 18:21 | ED.DEP ---
ED Disposition - Plan for ED Patient: Disposition: Home or Assisted Living Referrals: Annamarie Ho MD [Primary Care Provider] - 3-5 Days if not improving Additional Instructions: Fluids and rest. Increase your diet slowly as tolerated. Follow-up with your doctor if not improving.
== END 2019-03-07 18:26 | disposition home or self-care (01) ==
PROVIDERS: Emergency Provider Emergency Medicine; Family Provider Internal Medicine; PCP Internal Medicine
DX: K59.00 Constipation, unspecified (principal); R19.7 Diarrhea, unspecified; I48.91 Unspecified atrial fibrillation; I10 Essential (primary) hypertension; F41.9 Anxiety disorder, unspecified; Z79.899 Other long term (current) drug therapy
CPT/HCPCS: 74018; 99282

== ENCOUNTER 2019-03-09 11:30 | Emergency (ER) | payer MEDICARE, OTHER, SELFPAY ==
[2019-03-09 11:30] VITALS: BP 154/82; PULSE 63; RESP 17; TEMP 36.4; O2SAT 98; BMI 31.6
--- NOTE | 2019-03-09 12:04 | RAD_ITS ---
STUDY: X-RAY - ABDOMEN/PELVIS REASON FOR EXAM: Female, 69 years old. 5 day history of constipation. TECHNIQUE: Single AP view of the abdomen / pelvis. COMPARISON: Comparison is made with prior study dated March 07, 2019. FINDINGS: Normal visualized lung bases. There is an abundance of fecal material throughout the colon. The visualized liver, spleen and kidneys are grossly normal in size and morphology. Normal soft tissue structures. There are diffuse degenerative changes of the visualized lumbar spine. Levoscoliosis. RAD/Abdomen Single View IMPRESSION: A large amount of fecal material is seen throughout the colon. Electronically Signed: Rowdy Arizmendi, at 12:23 EDT , Service support ,
--- NOTE | 2019-03-09 12:41 | ED.VISSUMM ---
- ER Visit Summary Date of Service: 03/09/19 Chief Complaint: Constipation History of Present Illness: The patient is a 69 F who presents the emergency department stating that she is constipated. States she has not had a bowel movement for 5 days. Patient was seen in the emergency department and she took magnesium citrate. Apparently the magnesium citrate worked and she started having some diarrhea however then she took Imodium and took one Imodium and now is having constipation. She states she took some MiraLAX. She states she has some cramping on the right side of her abdomen. She is been passing gas. She tells me that she is able to eat food but that she eats food she cannot drink water but if she drinks water that she can eat food. States that whenever she ingests something she feels bloated. Physical Examination: Afebrile vital signs stable Gen: Well-nourished well-developed Head: Normocephalic atraumatic Eyes: Perrl EOMI ENT: TMs clear no rhinorrhea moist mucous membranes Neck: Supple no lymphadenopathy no JVD nontender CVS: Regular rate rhythm no murmurs normal S1-S2 Respiratory: No distress clear to auscultation bilaterally chest nontender Abdomen: Soft nontender nondistended normal bowel sounds no masses Back: Nontender Extremity: Nontender no edema Skin: Normal color no rash Neuro: alert orientated ?3 CN II-XII intact normal strength sensation reflexes gait cerebellar Psych: Normal affect normal mood Test Results: There is stool in the colon. No obvious impaction Emergency Department Course and Treatment: She does believe has become very fixated on her stool. She is clearly at a point where she is an imbalance. I recommend that she not take significant laxatives at this time. I recommend increasing the water in her diet which she then tells me that she cannot because she will be able to eat. She basically is having one small meal in the morning and a meal at night. Nothing in between. Told her to get a 32 ounce bottle of water and drink this throughout the day. She then asked if she only needs 32 ounces of water each day and no other liquid. I informed her know that is not what I was saying. I recommend that she try some apple juice or prune juice and a daily Colace. I do not think drinking large amounts of magnesium citrate or MiraLAX and essentially giving a colon prep is the answer for her. I recommend that she follow-up with primary care. Impression: 1. Constipation This note was generated with [employer] dictation software. It may contain incorrect words, spelling, and punctuation that were not noted in review of the chart prior to signing ED Disposition - Plan for ED Patient: Disposition: Home or Assisted Living Instructions: CONSTIPATION (Adult) Referrals: Annamarie Ho MD [Primary Care Provider] - 3-5 Days
== END 2019-03-09 12:53 | disposition home or self-care (01) ==
PROVIDERS: Emergency Provider Emergency Medicine; Family Provider Internal Medicine; PCP Internal Medicine
DX: K59.00 Constipation, unspecified (principal); I48.91 Unspecified atrial fibrillation; J45.909 Unspecified asthma, uncomplicated; F31.9 Bipolar disorder, unspecified; K21.9 Gastro-esophageal reflux disease without esophagitis; Z79.899 Other long term (current) drug therapy
CPT/HCPCS: 74018; 99282

== ENCOUNTER 2019-03-12 18:20 | Emergency (ER) | payer MEDICARE, OTHER, SELFPAY ==
[2019-03-12 18:21] VITALS: BP 137/78; PULSE 64; RESP 18; TEMP 36.1; O2SAT 98; BMI 31.2
--- NOTE | 2019-03-12 19:15 | CT_ITS ---
STUDY: CT ABDOMEN AND PELVIS WITH CONTRAST REASON FOR EXAM: Female, 69 years old. Pain. Constipation. RADIATION DOSAGE (If Supplied By Facility): CTDIvol = ( 13.48 ) mGy, DLP = ( 1694.24 ) mGycm TECHNIQUE: Transaxial images were obtained from the dome of the diaphragm to the symphysis pubis without oral contrast. 100ML IV/Oral Isovue 300 was administered. Sagittal and coronal images were reconstructed. Individualized dose optimization techniques were used for this CT. COMPARISON: None. FINDINGS: The visualized lung bases are unremarkable. The visualized portions of the heart are within normal limits. Motion artifact degrades anatomic detail. Normal liver. Normal gallbladder and extrahepatic biliary system. Normal spleen. Normal pancreas. Normal bilateral adrenal glands. Normal right kidney. Normal left kidney. There is a moderate to large hiatal hernia. Normal small intestine. There are multiple colonic diverticula consistent with diverticulosis. There is a moderate amount of stool throughout the colon. The appendix is visualized and appears normal. Normal abdominal aorta. Normal inferior vena cava. Normal retroperitoneum. Normal urinary bladder. Normal abdominal wall. There are diffuse degenerative changes of the visualized lumbar spine. There is a levoscoliosis of the lumbar spine. CT/Abdomen/Pelvis WITH Contrast IMPRESSION: Moderate amount of stool throughout the colon. Colonic diverticulosis. Hiatal hernia. Degenerative changes of the lumbar spine. Electronically Signed: Sybil Hill MD at 21:22 EDT Tel , Service support ,
[2019-03-12 19:35] LABS: Bacteria 0 SEEN /hpf (None Seen); Mucous, Urine 0 SEEN /hpf (<or=2+); Red Blood Cells-Urine 0 SEEN /hpf (0-5); Squamous Epithelial Cells - UA 0 SEEN /hpf (5-10)
[2019-03-12 19:38] LABS: Color, Urine Straw (Yellow); Glucose, Dipstick Normal (Normal); Ketone-Dipstick Negative (Negative); Leukocyte Esterase-Dipstick 25 /ul (Negative); Nitrite-Dipstick Negative (Negative); Occult Blood-Urine Negative /ul (Negative); Protein-Dipstick Negative (Negative); Urine Bilirubin Dipstick Negative (Negative); Urine Clarity Clear (Clear); Urine Urobilinogen Normal (Normal)
[2019-03-12] MEDS: 0.9% Normal Saline 1,000 ML 1000 ML IV (19:42)
[2019-03-12 19:48] LABS: White Blood Cells 0-5 SEEN /hpf (0-5)
[2019-03-12 19:55] LABS: Absolute Lymphocyte Count 1.69 X10^3/uL (0.83-4.51); Basophil# 0.03 X10^3/uL; Basophil% 0.5 % (0-1); Eosinophil# 0.16 X10^3/uL; Eosinophils% 2.5 % (0-5); Hematocrit 37.9 % (37-47); Hemoglobin 12.7 g/dL (12.0-15.0); Lymphocyte # 1.69 X10^3/ul (4.0); Lymphocyte % 25.9 % (19-41); Mean Corp Hgb Conc 33.5 g/dL (32-36); Mean Corpuscular Hgb 30.2 pg (27.0-32.0); Mean Platelet Vol. 8.9 fl (6.2-12.0); Monocyte# 0.66 X10^3/uL; Monocyte% 10.1 % (0-10); NRBC Flagged by Analyzer 0 % (0-5); Neutrophil # 3.95 X10^3/uL (2.7-7.7); Neutrophil % 60.5 % (47-70); Platelet Count 210 K/mm3 (150-450); RBC Distribution Width SD 42.8 fl (35.1-43.9); Red Blood Count 4.21 M/mm3 (4.2-5.4); White Blood Count 6.5 K/mm3 (4.4-11.0)
[2019-03-12 20:04] LABS: ALB/GLOB Ratio 1.3 RATIO (0.9-2.4); AST(SGOT) 12 U/L (15-37); Alanine Aminotransfer ALT/SGPT 16 U/L (13-56); Albumin, Serum 4.1 g/dL (3.2-5.0); Alkaline Phosphatase 76 U/L (45-117); Anion Gap 6 (5-15); BUN 14 mg/dL (7-18); BUN/Creat Ratio 13.9 RATIO (10-20); Calcium,Total 9.5 mg/dL (8.5-10.1); Chloride 96 mmol/L (98-107); Creatinine, Serum 1.01 mg/dL (0.55-1.02); EST Glomerular Filtration Rate 58 mL/min (>60); Est Glom Filt Rate - Afr Amer 70 mL/min (>60); Estimated Creatinine Clearance 38.82 ml/min; Globulin 3.1 g/dL (2.2-4.2); Glucose 95 mg/dL (74-106); Lipase 90 U/L (73-393); Potassium 3.9 mmol/L (3.5-5.1); Protein, Total 7.2 g/dL (6.4-8.2); Sodium Level 129 mmol/L (136-145)
--- NOTE | 2019-03-12 21:37 | ED.VISSUMM ---
- ER Visit Summary Date of Service: 03/12/19 Chief Complaint: Constipation History of Present Illness: The patient is a 69 F who presents with constipation that is been constant for the past 3 days. Patient states she feels like she has bloating and cramping in her abdomen. Patient states that this is worse over the lower abdomen. Patient states nothing seems to make it better or worse. Patient denies any vomiting. Patient admits to some mild nausea. Patient denies any urinary complaints. Patient states she has taken prune juice and MiraLAX with no improvement. Physical Examination: Vital signs are stable. Patient is afebrile. Patient is in no acute distress. Oral mucosa is pink and moist. Neck is supple. Trachea is midline. There is no JVD noted. Heart was regular rate and rhythm. Lungs are clear and equal bilateral. Abdomen is soft. Bowel sounds are normal. There is mild lower abdominal tenderness. There is no guarding noted. Skin is warm dry. Cranial nerves II through XII are intact. There are no focal motor or sensory deficits noted. The remaining physical exam is within normal limits. Test Results: CBC was normal. Basic metabolic profile showed slightly low sodium of 129 and chloride of 96. Urinalysis was normal. CT scan of the abdomen and pelvis shows moderate amount of stool. There is diverticulosis but no diverticulitis. Emergency Department Course and Treatment: Patient was given IV fluids. Patient was instructed to increase her MiraLAX until she has a bowel movement. Patient was requesting an enema. Patient was given a fleets enema to take at home. Patient was instructed to follow-up with her primary care physician in 3 to 5 days for further evaluation. Patient understood and was agreeable with the plan. All questions were answered. Disposition: Discharge home Impression: Constipation This note was generated with [email or web address] dictation software. It may contain incorrect words, spelling, and punctuation that were not noted in review of the chart prior to signing ED Disposition - Plan for ED Patient: Disposition: Home or Assisted Living Diagnosis: Constipation Instructions: CONSTIPATION (Adult) Referrals: Annamarie Ho MD [Primary Care Provider] - 3-5 Days Additional Instructions: Increase the frequency of your MiraLAX until you have a bowel movement then stop.
[2019-03-12] MEDS: Fleet Enema 1 ML RECTAL (22:03)
[2019-03-12 22:04] VITALS: RESP 14
== END 2019-03-12 22:04 | disposition home or self-care (01) ==
PROVIDERS: Emergency Provider Emergency Medicine; Family Provider Internal Medicine; PCP Internal Medicine
DX: K59.00 Constipation, unspecified (principal); K57.30 Diverticulosis of large intestine without perforation or abscess without bleeding; I48.91 Unspecified atrial fibrillation; E66.9 Obesity, unspecified; Z79.899 Other long term (current) drug therapy
CPT/HCPCS: 74177; 80053; 81001; 83690; 85025; 96360; 96361; 99284; J7030; Q9967

== ENCOUNTER 2019-03-19 16:51 | Emergency (ER) | payer MEDICARE, OTHER, SELFPAY ==
[2019-03-19 16:52] VITALS: BP 142/89; PULSE 66; RESP 18; TEMP 37.1; O2SAT 96; BMI 31.2
--- NOTE | 2019-03-19 17:30 | RAD_ITS ---
STUDY: X-RAY - ACUTE ABDOMINAL SERIES REASON FOR EXAM: Female, 69 years old. Constipation TECHNIQUE: Single view of the chest. Supine, 2 view(s) of the abdomen were obtained. COMPARISON: 12 March 2019 FINDINGS: The lungs are clear and expanded. Cardiac size is normal. There is no pneumothorax, pulmonary edema or pleural effusions. There is left lower lobe atelectasis. There is likely chronic left humeral fracture. This is evaluated in the limited fashion. There is no intestinal obstruction with normal distribution of gas and stool throughout the abdomen. There are degenerative changes and scoliosis in the lumbar spine. RAD/Acute Abdomen Inc Chest IMPRESSION: 1. No intestinal obstruction. 2. Unremarkable chest radiography. Electronically Signed: Stone Giles, at 17:49 EDT Tel , Service support ,
--- NOTE | 2019-03-19 19:00 | ED.VISSUMM ---
- ER Visit Summary Date of Service: 03/19/19 Chief Complaint: Constipation History of Present Illness: The patient is a [address] Ho and Keily Cabrales. She reports that she has had constipation off and on for the past 2 months. She is seeing her primary care physician and been in the emergency department multiple times for this. Reports that she has been taking MiraLAX and that her last dose was 2 days ago. Reports her last bowel movement was 2 days ago as well. She denies any blood in her stools or black tarry stools. She reports that she has cramping left upper quadrant pain that is 9 out of 10 at worst an 8 out of 10 currently. Is worsened by food and relieved by having a bowel movement. She has been nauseated, has not vomited. Patient reports that she had a colonoscopy earlier this year by Dr. Lazaro. She reports that she is tried multiple different medications for her constipation over the course of the past 2 months and has not found anything that has led her back to her typical bowel habits of going daily. She denies being on any opiate-based medications. Physical Examination: Vitals: Stable. Afebrile. General: Well-nourished and well-developed. Head: Normocephalic atraumatic. Neck: Supple, no lymphadenopathy. No JVD. Nontender. Cardiovascular: Regular rate and rhythm. No murmurs. Respiratory: No respiratory distress. Clear to auscultation bilaterally. Abdominal: Soft, mild left upper quadrant tenderness to palpation, nondistended, normal bowel sounds. No guarding, rebound, or peritoneal signs. Back: Nontender. Extremities: Nontender, no edema. Skin: Normal color, no rash. Neurologic: Alert and oriented ?3. Cranial nerves II through XII are intact. Normal strength and sensation. Psych: Normal affect. Test Results: Three-view of the abdomen shows a nonspecific bowel gas pattern. There is no evidence of a fecal impaction. Emergency Department Course and Treatment: I had a prolonged discussion the patient at this time I do not have an explanation for the change in her bowel habits. I offered to do a CT and labs. She refused this. Treatment Plan: Patient will be discharged with magnesium citrate. Instructed to follow-up with her primary care physician in 1 to 2 days if not improving. Return to the emergency department for any worsening symptoms. Disposition: To home in improved and stable condition. Impression: 1. Abdominal pain, uncertain cause. This note was generated with [employer] dictation software. It may contain incorrect words, spelling, and punctuation that were not noted in review of the chart prior to signing ED Disposition - Plan for ED Patient: Disposition: Home or Assisted Living Instructions: CONSTIPATION (Adult) Prescriptions: Magnesium Citrate [Citrate Of Magnesia] 300 ml PO X1 #1 bottle Prescription Printed Referrals: Annamarie Ho MD [Primary Care Provider] - 1-2 Days if not improving
[2019-03-19 19:23] VITALS: BP 181/88; PULSE 64; RESP 16; O2SAT 96
== END 2019-03-19 19:24 | disposition home or self-care (01) ==
LOC: ED 17:58
PROVIDERS: Emergency Provider Emergency Medicine; Family Provider Internal Medicine; PCP Internal Medicine
DX: R10.12 Left upper quadrant pain (principal); K59.00 Constipation, unspecified; I48.91 Unspecified atrial fibrillation; I10 Essential (primary) hypertension; Z79.899 Other long term (current) drug therapy
CPT/HCPCS: 74022; 99282

== ENCOUNTER 2019-03-28 18:00 | Emergency (ER) | payer MEDICARE, OTHER, SELFPAY ==
[2019-03-28 18:01] VITALS: BP 110/83; PULSE 71; RESP 18; TEMP 35.8; O2SAT 95; BMI 32.2
--- NOTE | 2019-03-28 19:00 | RAD_ITS ---
STUDY: X-RAY - ABDOMEN/PELVIS REASON FOR EXAM: Female, 69 years old. Low back pain and constipation. TECHNIQUE: 2 frontal images of the abdomen were obtained. COMPARISON: March 19, 2019 FINDINGS: Normal visualized lung bases. There is an unremarkable bowel gas pattern. There is no demonstrated free abdominal air. Normal soft tissue structures. There are diffuse degenerative changes of the visualized lumbar spine. RAD/Abdomen Single View IMPRESSION: Nonspecific bowel gas pattern. Electronically Signed: Sybil Hill MD at 19:59 EDT Tel , Service support ,
--- NOTE | 2019-03-28 20:21 | ED.DCSUM_ITS ---
History of Present Illness Chief Complaint: Back Detail of Chief Complaint: Back pain and constipation Informant: Patient Onset: Today Narrative: Patient has a history of chronic constipation. She took magnesium citrate 3 days ago and had diarrhea all day. Today she twisted while sitting in her chair and noted pain on the right side of her lower back. Later this evening she got some cramping in the left lower back. She states that she feels some pressure on her bladder and think she might be constipated again. Past Medical History - Allergies and Home Meds Allergies/Adverse Reactions: Allergies loratadine [From Claritin-D] Adverse Reaction (Verified 03/28/19 18:00) HYPERTENSION pseudoephedrine [From Claritin-D] Adverse Reaction (Verified 03/28/19 18:00) HYPERTENSION Primary Care Physician: Annamarie Ho MD [Primary Care Provider] - Prior records reviewed: Yes Past Medical History: - - Reviewed Surgical History: - - Fusion right ankle Smoking Status: Never smoker Review of Systems General: Denies: Chills, Fever Eyes: Denies: Visual changes - bilaterally ENT: Denies: Bilateral ear pain Cardiovascular: Denies: Chest pain Respiratory: Denies: Dyspnea Gastrointestinal: Reports: Abdominal pain - Pressure in lower abdomen, Constipation. Denies: Nausea, Vomiting, Diarrhea Genitourinary: Denies: Dysuria Musculoskeletal: Reports: Back pain, Extremity Pain - Recent right foot surgery Skin: Denies: Rash Physical Exam Vital Signs/Narrative: Vital Signs Temp Pulse Resp BP Pulse Ox 03/28/19 18:01 96.4 F L 71 18 110/83 H 95 Inital Vital Signs reviewed: Yes General: Well nourished, Well developed Head: Normocephalic ENT: Moist mucous membranes Cardiovascular: Regular rate, Regular rhythm Respiratory: No distress, CTA bilaterally Abdomen: Soft, Nontender, Normal bowel sounds Back: - - Mild tenderness in the left lower lumbar paraspinal region. No midline tenderness. Extremities: Nontender, - - Right foot in walking boot. Skin: Normal color, No rash Neurological: Alert, Oriented x3 Psychological: Normal affect Diagnostic/Tx/Re-eval Impressions KUB X-Ray 03/28/19 19:00 IMPRESSION: Nonspecific bowel gas pattern. Electronically Signed: Sybil Hill MD at 19:59 EDT Tel , Service support , 03/28/19 19:00 Abdomen Single View [RAD] Stat - Medical Decision Making I advised the patient did not want to give her anything stronger for her back pain would make her more constipated. I wrote a very low-dose Valium to help with muscle spasm but patient refused it here being concerned that she would not be awake enough to be able to make it to the bathroom. I advised her at this time the x-ray does not show a significant amount of stool. She is very romana rned and thinks that she might need an enema. I recommended that she continue her MiraLAX at home. I advised her to take Tylenol at home for her back pain. ED Disposition - Plan for ED Patient: Disposition: Home or Assisted Living Diagnosis: Back strain Instructions: BACK SPASM, No Trauma Referrals: Annamarie Ho MD [Primary Care Provider] - 5-7 Days
[2019-03-28 20:36] VITALS: BP 162/67; PULSE 74; RESP 16; O2SAT 96
== END 2019-03-28 20:37 | disposition home or self-care (01) ==
PROVIDERS: Emergency Provider Emergency Medicine; Family Provider Internal Medicine; PCP Internal Medicine
DX: S39.012A Strain of muscle, fascia and tendon of lower back, initial encounter (principal); X50.1XXA Overexertion from prolonged static or awkward postures, initial encounter; Y93.9 Activity, unspecified; Y92.9 Unspecified place or not applicable; Y99.9 Unspecified external cause status; K59.09 Other constipation; Z79.899 Other long term (current) drug therapy
CPT/HCPCS: 74018; 99283

== ENCOUNTER 2019-06-18 11:36 | Outpatient (RCR) | payer MEDICARE, OTHER, SELFPAY | END 2019-06-26 23:59 | LOC: WC 11:36 | PROVIDERS: Family Provider Internal Medicine; PCP Internal Medicine; Visit Provider Family Medicine | DX: Z09 Encounter for follow-up examination after completed treatment for conditions other than malignant neoplasm (principal) ==

== ENCOUNTER → 2019-12-28 05:49 | Outpatient (CLI) | payer MEDICARE, OTHER, SELFPAY ==
[2019-12-16 13:32] VITALS: BMI 36.1
--- NOTE | 2019-12-28 09:35 | STRESSREP_ITS ---
Stress Test Report Date: 12-28-2019 Procedure: Pharmacologic stress nuclear imaging study Indications: Chest pain; shortness of breath/dyspnea; SVT; status post EPS/RFA Consent: Per the patient Procedure: The patient underwent pharmacologic (Regadenoson) evaluation with a peak heart rate of 83 beats per minute (54 %predicted maximal heart rate) and a peak blood pressure of 132/84 mmHg. The baseline ECG demonstrated normal sinus rhythm. The peak pharmacologic ECG demonstrated somatic/motion artifact with no obvious ECG changes. There was a rare PVC during recovery. There was no complaint of chest discomfort during pharmacologic infusion or recovery. The examination was discontinued secondary to completion of protocol. Impression: 1. Pharmacologic (Regadenoson) evaluation 2. Peak pharmacologic ECG with somatic/motion artifact with no obvious ECG changes. 3. There was a rare PVC during recovery. 4. Nuclear images pending Myocardial perfusion imaging study: Technique: The patient was injected with 11.0 millicuries of technetium 99m Cardiolite and subsequently rest SPECT Cardiolite nuclear imaging was obtained in the horizontal long, vertical long, and short axis views. The patient underwent pharmacologic (Regadenoson) evaluation with a peak heart rate of 83 beats per minute (54 % percent predicted maximal heart rate) and a peak blood pressure of 132/84 mmHg. The patient was injected with 33.0 millicuries of technetium 99m Cardiolite and subsequently stress SPECT Cardiolite nuclear imaging was obtained in the horizontal long, vertical long, and short axis views. A gated Cardiolite study at peak stress was obtained. Interpretation: Rest and stress SPECT Cardiolite nuclear imaging status post realignment, normalization, and attenuation correction demonstrate relative uniform tracer uptake and myocardial perfusion appearing within normal limits. There are no myocardial perfusion deficits appreciated on the resting or stress polar map images. There is end systolic thickening and brightening. The gated Cardiolite study demonstrates myocardial thickening and inward wall motion. The reported LVEF is 43 %. Impression: 1. Rest and stress SPECT Cardiolite nuclear imaging demonstrate relative uniform tracer uptake and myocardial perfusion appearing within normal limits. 2. The gated Cardiolite study reports an LVEF of 43 %. This note was generated with [employer] software. It may contain incorrect words, spelling, and punctuation that were not noted in checking the note before signing.
== END ==
PROVIDERS: PCP Internal Medicine; Referring Provider Internal Medicine Cardiovascular Disease; Visit Provider Internal Medicine Cardiovascular Disease
DX: R07.9 Chest pain, unspecified (principal); R06.09 Other forms of dyspnea; I47.1 Supraventricular tachycardia; I42.8 Other cardiomyopathies; I10 Essential (primary) hypertension; R00.2 Palpitations; Z98.890 Other specified postprocedural states
CPT/HCPCS: 78452; 93017; 93225; 93226; A9500; A4216; J2785

== ENCOUNTER → 2020-03-17 17:58 | Outpatient (CLI) | payer MEDICARE, OTHER, SELFPAY ==
[2019-12-16 13:32] VITALS: BMI 36.1
== END ==
PROVIDERS: PCP Internal Medicine; Referring Provider Otolaryngology; Visit Provider Otolaryngology
DX: Z20.828 Contact with and (suspected) exposure to other viral communicable diseases (principal)
CPT/HCPCS: 87635; 94799; U0003

== ENCOUNTER → 2020-03-28 21:00 | Outpatient (CLI) | payer MEDICARE, OTHER, SELFPAY ==
[2019-12-16 13:32] VITALS: BMI 36.1
== END ==
PROVIDERS: PCP Internal Medicine; Referring Provider Internal Medicine; Visit Provider Internal Medicine
DX: G47.33 Obstructive sleep apnea (adult) (pediatric) (principal); G47.10 Hypersomnia, unspecified; I10 Essential (primary) hypertension; R53.83 Other fatigue
CPT/HCPCS: 95811

== ENCOUNTER → 2020-07-07 09:24 | Outpatient (CLI) | payer MEDICARE, OTHER, SELFPAY ==
[2020-06-28 13:20] VITALS: BMI 36.8
--- NOTE | 2020-07-07 14:42 | PFTCOMP ---
COMPLETE PULMONARY FUNCTION TEST INTERPRETATION Brief HPI: Patient is a 70 year old female, currently under the care of Dr. Rodriguez, who presents to [facility] for complete pulmonary function tests secondary to diagnosis of dyspnea. Respiratory therapist reports good effort and reproducible results. Interpretation: Forced expiration spirometry shows no large airways obstructive ventilatory defect with an FEV1 of 81% predicted. There is no significant bronchodilator response by strict ATS criteria. Spirograms are of good quality and plateau normally. The respiratory flow volume loop shows a normal pattern. Lung volumes by body plethysmography show a decreased total lung capacity at 3.46 L, 78% predicted. All other lung volumes are reduced symmetrically. Diffusion capacity by carbon monoxide is at the lower limit of normal at 70% predicted. The airway resistance is slightly elevated. No previous pulmonary function tests were available for review. Impression: Mild restrictive ventilatory defect with symmetric reduction diffusion capacity.
== END ==
PROVIDERS: PCP Internal Medicine; Referring Provider Internal Medicine Cardiovascular Disease; Visit Provider Internal Medicine Cardiovascular Disease
DX: R06.00 Dyspnea, unspecified (principal)
CPT/HCPCS: 94060; 94726; 94729

== ENCOUNTER → 2020-09-04 12:13 | Outpatient (CLI) | payer MEDICARE, OTHER, SELFPAY ==
[2020-06-28 13:20] VITALS: BMI 36.8
[2020-09-04 12:43] VITALS: PULSE 67; PULSE 70; PULSE 84; PULSE 85; PULSE 88; PULSE 89; PULSE 90; O2SAT 93; O2SAT 94; O2SAT 95; O2SAT 96; O2SAT 97
--- NOTE | 2020-09-05 08:13 | PCM.PSN.6M ---
PSN 6 Minute Walk Test - 6 Minute Walk Test 6 Minute Walk Test: 6 Minute Walk Test PSN:6-Minute Walk Test Start: 09/04/20 12:42 Freq: Status: Active Protocol: [id number].6MINW Document 09/04/20 12:43 GRETEL (Rec: 09/04/20 12:47 GRETEL [id number]) 6 Minute Walk Test Date Performed 09/04/20 Time Performed 12:30 Height 5 ft 2 in Weight: 185 lb Weight in Pounds 185.[address]: Sarath Lott Assistive device used: Cane Pre-test Oxygen Delivery Method Room Air Pulse Ox (%) 96 Pulse Rate (60-100 beats/min) 67 Dyspnea Julio Scale (0-10) 0 Exertion Julio Scale (6-20) 6 1st minute Oxygen Delivery Method Room Air Pulse Ox (%) 96 Pulse Rate (60-100 beats/min) 84 2nd minute Oxygen Delivery Method Room Air Pulse Ox (%) 96 Pulse Rate (60-100 beats/min) 85 3rd minute Oxygen Delivery Method Room Air Pulse Ox (%) 93 Pulse Rate (60-100 beats/min) 88 4th minute Oxygen Delivery Method Room Air Pulse Ox (%) 94 Pulse Rate (60-100 beats/min) 89 5th minute Oxygen Delivery Method Room Air Pulse Ox (%) 94 Pulse Rate (60-100 beats/min) 90 6th minute Oxygen Delivery Method Room Air Pulse Ox (%) 95 Pulse Rate (60-100 beats/min) 90 Dyspnea Julio Scale (0-10) 4 Exertion Julio Scale (6-20) 13 Post-test Oxygen Delivery Method Room Air Pulse Ox (%) 97 Pulse Rate (60-100 beats/min) 70 Full Laps Walked 12 Partial Lap, Number of Tiles Walked 0 Total Distance Walked (ft) 708 - Interpretation Interpretation: The patient ambulated 708 feet over the course of 6 minutes beginning on room air with the use of a cane. Pretesting oxygen saturation was noted to be 96% on room air. With ambulation, the donaldo oxygen saturation was 93%. Although there was evidence of impaired walk distance, there was no significant exertional oxygen desaturation. - Recommendations Recommendations: There is no indication for the use of supplemental oxygen at this time.
== END ==
PROVIDERS: PCP Internal Medicine; Referring Provider Internal Medicine Critical Care Medicine; Visit Provider Internal Medicine Critical Care Medicine
DX: J98.4 Other disorders of lung (principal)
CPT/HCPCS: 94618

== ENCOUNTER 2020-10-03 11:20 | Outpatient (RCR) | payer MEDICARE, SELFPAY ==
[2020-09-14 14:14] VITALS: BMI 35.8
[2020-10-03] MEDS: COVID-19 VACC, MRNA(PFIZER)/PF 30 MCG/0.3 ML SYRINGE IM (17:13)
[2020-10-24] MEDS: COVID-19 VACC, MRNA(PFIZER)/PF 30 MCG/0.3 ML SYRINGE IM (17:07)
== END 2021-01-02 23:59 ==
LOC: IMMUN 11:20
PROVIDERS: PCP Internal Medicine; Referring Provider Family Medicine; Visit Provider Family Medicine
DX: Z23 Encounter for immunization (principal)
CPT/HCPCS: 0001A; 0002A; 91300

== ENCOUNTER → 2020-10-23 14:42 | Outpatient (CLI) | payer MEDICARE, OTHER, SELFPAY ==
[2020-09-14 14:14] VITALS: BMI 35.8
[2020-10-23 17:49] LABS: Absolute Lymphocyte Count 1.13 X10^3/uL (0.83-4.51); Absolute Neutrophil Count 6.6 X10^3/uL (2.0-7.7); Basophil# 0.04 X10^3/uL; Basophil% 0.5 % (0-1); Eosinophil# 0.16 X10^3/uL; Eosinophils% 1.8 % (0-5); Hematocrit 35.8 % (37-47); Hemoglobin 10.9 g/dL (12.0-15.0); Lymphocyte # 1.13 X10^3/ul (4.0); Mean Corp Hgb Conc 30.4 g/dL (32-36); Mean Corpuscular Volume 101.7 fL (81-99); Mean Platelet Vol. 9.9 fl (6.2-12.0); Monocyte# 0.67 X10^3/uL; Monocyte% 7.7 % (0-10); NRBC Flagged by Analyzer 0 % (0-5); Neutrophil # 6.64 X10^3/uL (2.7-7.7); Neutrophil % 76.7 % (47-70); Platelet Count 241 K/mm3 (150-450); RBC Distribution Width CV 13.6 % (11.6-14.6); RBC Distribution Width SD 50.8 fl (35.1-43.9); Red Blood Count 3.52 M/mm3 (4.2-5.4); White Blood Count 8.7 K/mm3 (4.4-11.0)
[2020-10-23 17:58] LABS: Erythrocyte Sedimentation Rate 10 mm/hr (0-30)
[2020-10-23 18:05] LABS: ALB/GLOB Ratio 1.2 RATIO (0.9-2.4); AST(SGOT) 13 U/L (15-37); Alanine Aminotransfer ALT/SGPT 22 U/L (13-56); Albumin, Serum 4.1 g/dL (3.2-5.0); Alkaline Phosphatase 56 U/L (45-117); Anion Gap 5 (5-15); BUN 30 mg/dL (7-18); BUN/Creat Ratio 21.3 RATIO (10-20); CRP 4.77 mg/L (0.0-3.0); Calcium,Total 9.1 mg/dL (8.5-10.1); Chloride 107 mmol/L (98-107); Creatinine, Serum 1.41 mg/dL (0.55-1.02); EST Glomerular Filtration Rate 39 mL/min (>60); Est Glom Filt Rate - Afr Amer 48 mL/min (>60); Globulin 3.4 g/dL (2.2-4.2); Glucose 94 mg/dL (74-106); Potassium 5.2 mmol/L (3.5-5.1); Protein, Total 7.5 g/dL (6.4-8.2); Rheumatoid Factor < 10.0 IU/mL (<15); Sodium Level 138 mmol/L (136-145)
[2020-10-24 08:58] LABS: Hepatitis B Surface Antibody Non-Reactive; Hepatitis B Surface Antigen Non-Reactive (Nonreactive); Hepatitis C Antibody Non-Reactive (Nonreactive)
[2020-10-28 03:07] LABS: QNTFERON TB Mitogen Value > 10.00 IU/mL (.); QNTFERON TB Nil Value 0.02 IU/mL (.); QNTFERON TB1+ Ag Value 0.03 IU/mL (.); QNTFERON TB2+ Ag Value 0.02 IU/mL (.)
[2020-10-28 07:51] LABS: CCP IgG Antibodies 2 units (0-19); QNTIFERON TB Positive Criteria Negative (Negative)
== END ==
PROVIDERS: PCP Internal Medicine; Referring Provider Internal Medicine Rheumatology; Visit Provider Internal Medicine Rheumatology
DX: M06.09 Rheumatoid arthritis without rheumatoid factor, multiple sites (principal); M79.7 Fibromyalgia; M19.071 Primary osteoarthritis, right ankle and foot; M19.272 Secondary osteoarthritis, left ankle and foot; M19.041 Primary osteoarthritis, right hand; M19.042 Primary osteoarthritis, left hand; M48.061 Spinal stenosis, lumbar region without neurogenic claudication; I10 Essential (primary) hypertension; I48.0 Paroxysmal atrial fibrillation; I47.1 Supraventricular tachycardia; J45.909 Unspecified asthma, uncomplicated; F31.9 Bipolar disorder, unspecified; G47.33 Obstructive sleep apnea (adult) (pediatric); M81.0 Age-related osteoporosis without current pathological fracture; K21.9 Gastro-esophageal reflux disease without esophagitis; K44.9 Diaphragmatic hernia without obstruction or gangrene; I42.8 Other cardiomyopathies; Z86.79 Personal history of other diseases of the circulatory system; Z87.19 Personal history of other diseases of the digestive system
CPT/HCPCS: 36415; 80053; 85025; 85652; 86140; 86200; 86431; 86480; 86706; 86803; 87340

== ENCOUNTER → 2020-12-20 12:10 | Outpatient (CLI) | payer MEDICARE, OTHER, SELFPAY ==
[2020-12-20 11:17] VITALS: BMI 36.0
--- NOTE | 2020-12-20 12:20 | RAD_ITS ---
STUDY: X-RAY CHEST REASON FOR EXAM: Female, 70 years old. Dyspnea on exertion TECHNIQUE: PA and lateral views of the chest. COMPARISON: None. FINDINGS: There is hyperinflation of the lungs consistent with chronic obstructive lung disease (COPD). There is no demonstrated pleural abnormality. Normal size heart. There is large retrocardiac hiatal hernia. Normal visualized pulmonary arteries. Normal visualized aortic arch and descending thoracic aorta. There is a dextroscoliosis of the thoracic spine. There is degenerative change of the spine. There is stable healed left proximal humerus fracture. There is no demonstrated abnormality of the visualized soft tissue structures of the upper abdomen. RAD/Chest PA and Lateral IMPRESSION: Degenerative changes, as described above. No demonstrated acute cardiopulmonary process. Electronically Signed: Blu Hancock MD at 19:17 EDT [phone] This report is pending additional review. Service support ,
== END ==
PROVIDERS: PCP Internal Medicine; Referring Provider Physician Assistant Medical; Visit Provider Physician Assistant Medical
DX: R06.00 Dyspnea, unspecified (principal); I10 Essential (primary) hypertension; Z98.890 Other specified postprocedural states
CPT/HCPCS: 71046

== ENCOUNTER → 2020-12-27 14:12 | Outpatient (CLI) | payer MEDICARE, OTHER, SELFPAY ==
[2020-12-20 11:17] VITALS: BMI 36.0
[2020-12-27 17:41] LABS: Absolute Lymphocyte Count 0.65 X10^3/uL (0.83-4.51); Absolute Neutrophil Count 5.9 X10^3/uL (2.0-7.7); Basophil# 0.04 X10^3/uL; Basophil% 0.6 % (0-1); Eosinophil# 0.03 X10^3/uL; Eosinophils% 0.4 % (0-5); Hematocrit 36.3 % (37-47); Hemoglobin 11.4 g/dL (12.0-15.0); Lymphocyte # 0.65 X10^3/ul (0.83-4.51); Lymphocyte % 9.2 % (19-41); Mean Corp Hgb Conc 31.4 g/dL (32-36); Mean Corpuscular Hgb 30.4 pg (27.0-32.0); Mean Corpuscular Volume 96.8 fL (81-99); Mean Platelet Vol. 9.4 fl (6.2-12.0); Monocyte# 0.39 X10^3/uL; Monocyte% 5.5 % (0-10); NRBC Flagged by Analyzer 0 % (0-5); Neutrophil # 5.91 X10^3/uL (2.7-7.7); Neutrophil % 83.5 % (47-70); Platelet Count 231 K/mm3 (150-450); RBC Distribution Width CV 13.2 % (11.6-14.6); RBC Distribution Width SD 47.6 fl (35.1-43.9); Red Blood Count 3.75 M/mm3 (4.2-5.4); White Blood Count 7.1 K/mm3 (4.4-11.0)
[2020-12-27 18:01] LABS: ALB/GLOB Ratio 1.4 RATIO (0.9-2.4); AST(SGOT) 14 U/L (15-37); Alanine Aminotransfer ALT/SGPT 23 U/L (13-56); Albumin, Serum 4.1 g/dL (3.2-5.0); Alkaline Phosphatase 39 U/L (45-117); Anion Gap 9 (5-15); BUN 23 mg/dL (7-18); BUN/Creat Ratio 20.5 RATIO (10-20); Calcium,Total 8.9 mg/dL (8.5-10.1); Chloride 97 mmol/L (98-107); Creatinine, Serum 1.12 mg/dL (0.55-1.02); EST Glomerular Filtration Rate 51 mL/min (>60); Est Glom Filt Rate - Afr Amer 62 mL/min (>60); Globulin 2.9 g/dL (2.2-4.2); Glucose 103 mg/dL (74-106); Potassium 4.8 mmol/L (3.5-5.1); Sodium Level 132 mmol/L (136-145)
[2020-12-27 18:50] LABS: Prothrombin Time (Protime)PT. 12.8 SECONDS (11.7-14.9)
== END ==
PROVIDERS: Physician Assistant Medical; PCP Internal Medicine; Referring Provider Internal Medicine Rheumatology; Visit Provider Internal Medicine Rheumatology
DX: M06.09 Rheumatoid arthritis without rheumatoid factor, multiple sites (principal); M79.7 Fibromyalgia; M19.279 Secondary osteoarthritis, unspecified ankle and foot; M19.041 Primary osteoarthritis, right hand; M19.071 Primary osteoarthritis, right ankle and foot; M48.061 Spinal stenosis, lumbar region without neurogenic claudication; I47.1 Supraventricular tachycardia; G47.33 Obstructive sleep apnea (adult) (pediatric); M81.0 Age-related osteoporosis without current pathological fracture; I42.8 Other cardiomyopathies; I10 Essential (primary) hypertension; R06.00 Dyspnea, unspecified; Z98.890 Other specified postprocedural states; Z79.899 Other long term (current) drug therapy; Z86.79 Personal history of other diseases of the circulatory system
CPT/HCPCS: 36415; 80053; 85025; 85610

== ENCOUNTER 2021-01-16 07:48 | Day surgery (SDC) | payer MEDICARE, OTHER, SELFPAY ==
[2020-12-20 11:17] VITALS: BMI 36.0
[2021-01-15 09:13] VITALS: BMI 36.0
--- NOTE | 2021-01-15 17:04 | HP.PCM_ITS ---
History and Physical Date of Admission: 01/16/21 [facility] 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 It appears that her EPS/RFA procedure was performed at [facility] nt in 2018 as noted. 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 Pt still notes that she has SOB with exertion. She feels that this has gotten worse over the last 4-5 months. She feels that it has gotten worse since her stress test. Sometimes she does have chest pain with this. She did see pulmonary for this. 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 Accompanied by: None Is patient in pain?: No Allergies loratadine [From Claritin-D] Adverse Reaction (Verified 12/20/20 11:21) HYPERTENSION pseudoephedrine [From Claritin-D] Adverse Reaction (Verified 12/20/20 11:21) HYPERTENSION Medications acetaminophen 500 - 1,000 mg PO Q6H PRN PRN 09/02/17 [History Confirmed 12/20/20] hydroxychloroquine 200 mg PO BID 09/02/17 [History Confirmed 12/20/20] celecoxib 200 mg PO BID 12/27/17 [History Confirmed 12/20/20] mirtazapine 15 mg PO QHS 03/02/19 [History Confirmed 12/20/20] pantoprazole 40 mg PO DAILY #30 tab 03/02/19 [Rx Confirmed 12/20/20] denosumab 60 mg/mL subcutaneous syringe 60 mg SC [id number] 12/14/19 [History Confirmed 12/20/20] prednisone 10 mg tablet 10 mg PO DAILY PRN 12/16/19 [History Confirmed 12/20/20] quetiapine 200 mg tablet 100 mg PO QHS tab 12/16/19 [History Confirmed 12/20/20] tramadol 50 mg tablet 50 mg PO TID PRN tab 12/16/19 [History Confirmed 12/20/20] albuterol sulfate 90 mcg/actuation aerosol inhaler 2 puff INHALATION Q4H PRN #18 g 12/19/20 [Rx Confirmed 12/20/20] fluticasone furoate 100 mcg-vilanterol 25 mcg/dose inhalation powder 1 inh INHALATION DAILY #60 ea 12/19/20 [Rx Confirmed 12/20/20] carvedilol 12.5 mg tablet 12.5 mg PO TID tab 12/20/20 [History Confirmed 12/20/20] clopidogrel 75 mg tablet 75 mg PO DAILY #30 tab 12/20/20 [Rx Confirmed 12/20/20] gabapentin 100 mg capsule 300 mg PO QHS cap 12/20/20 [History Confirmed 12/20/20] Ejection fraction %: 55 to 59 PFSH Medical History (Updated 12/20/20 @ 11:46 by Pat COLLINS, PA) RODRIGUEZ (dyspnea on exertion) Essential hypertension Fibromyalgia GERD (gastroesophageal reflux disease) Nonischemic cardiomyopathy Osteoarthritis SVT (supraventricular tachycardia) Surgical History History of ankle surgery History of cardiac radiofrequency ablation (~01/14/18) History of tonsillectomy History of tubal ligation Family History Father Myocardial infarction CAD (coronary artery disease) Grandfather Cerebral embolism Sister Hypertension Social History Smoking Status: Never smoker alcohol intake: never substance use type: does not use caffeine: Yes Type: carbonated beverages Number of servings: 2 and coffee Number of servings: 2 ROS Const Const: Positive for fatigue (Hgb has been low, had labs yesterday); Negative for weakness, headache(s), frequent falls, difficulty sleeping or excessive sweating Eyes Eyes: Negative for loss of peripheral vision, transient loss of vision, blurry vision, double vision or tunnel vision ENT ENT: Positive for balance problems; Negative for headache(s), dizziness or Nosebleed/epistaxis Cardio Chest Pain: No Palpitations: Yes (Occasionally) feels like its: fast Edema: Bilateral Muscle aches with walking: None Resp Respiratory: Positive for SOB with activity; Negative for SOB at rest, SOB orthopnea\SOB lying down, Cough or paroxysmal nocturnal dyspnea GI GI: Negative nausea, vomiting, heartburn or black,tarry stools : Negative for hematuria Musc Musc: Positive for balance problems; Negative for muscle aches/ myalgia, muscle weakness or joint pain Skin Skin: Negative non-healing lesions, rash or unusual bruising Neuro Neuro: Positive for lightheadedness (Occasionally); Negative for dizziness, near syncope, syncope, frequent falls, headache(s), weakness, blurry vision, double vision or lack of coordination Ellis Hematologic/Lymphatic: Negative for easy bleeding or easy bruising Endo Endo: Positive for fatigue (Hgb has been low, had labs yesterday); Negative for excessive sweating or increased thirst/drinking Psych Psych: Negative for anxiety or depression Allergy Allergy/Immunology: Negative for hives and Negative for rash Cardiology Exam Const Appearance: cooperative, no acute distress and well developed Orientation: alert, awake and oriented x3 Head Head: normocephalic and atraumatic Mouth: moist mucous membranes Eyes General: appearance normal, both eyes and all related structures Conjunctivae: conjunctivae normal Pupils: PERRL EOM: EOM intact bilaterally Neck Neck: normal visual inspection, no lymphadenopathy and no JVD Carotids: Negative bruit Neck Mass: Negative Neck mass Chest Chest inspection: normal inspection of the chest and symmetric chest movement Auscultation: Bilateral: Clear to Auscultation Cardio Palpation: normal PMI Rate: regular rate Rhythm: regular rhythm Heart sounds: S1 normal and S2 normal; Negative rub, gallop or murmur GI GI: normal to inspection, soft, no hepatosplenomegaly and bowel sounds present; Negative tender Neuro General: patient alert, patient awake, patient oriented x3, CN's II-XI intact bilaterally and moves all extremities Extremities Pulses: Normal: Right Posterior Tibial Pulse, Left Posterior Tibial Pulse, Right Radial Pulse and Left Radial Pulse Lower Extremity Edema: None: Bilateral Psych Psychological: normal affect Assessment and Plan Assessment and Plan (1) Essential hypertension: Status: Chronic Orders: Orders: 12 Lead EKG performed by BMS Today Basic Metabolic Profile (BMP) Today Prothrombin Time w/INR Today CBC W/Diff, Automated Today Chest PA and Lateral Today Plan - Pat COLLINS PA: Blood pressure is well controlled on current medications, we do not recommend any changes at this time. (2) History of cardiac radiofrequency ablation: Status: Resolved Comment: AVNRT 01/14/18 Orders: Orders: 12 Lead EKG performed by BMS Today Basic Metabolic Profile (BMP) Today Prothrombin Time w/INR Today CBC W/Diff, Automated Today Chest PA and Lateral Today Plan - Pat COLLINS PA: Patient has not had any symptoms of arrhythmias. She will continue with her current rate limiting medication. (3) RODRIGUEZ (dyspnea on exertion): Status: Acute Orders: Orders: 12 Lead EKG performed by BMS Today Basic Metabolic Profile (BMP) Today Prothrombin Time w/INR Today CBC W/Diff, Automated Today Chest PA and Lateral Today Plan - Pat COLLINS PA: Patient continues to have symptoms of dyspnea with exertion. She does feel that this is worsened since she has had her stress test. Concerned that this could be an anginal equivalent as she underwent a pulmonary work-up and this was felt to be normal and stress test was normal. Would like to proceed with a diagnostic heart catheterization to further assess. Patient is agreeable with this. Patient Instructions: I will call you with the date an time of your heart cath Nothing to eat or drink after midnight. 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 In the morning with a small sip of water take: Carvedilol, hydroxychloroquine, pantoprazole, i will let you know if he wants to start a blood thinner prior to you heart cath. I will look for your labs at [facility] to see if they are what we need, you need to get a chest XRAY Plan Details Other Medications: New: clopidogrel (Plavix) 75 mg PO DAILY 30 tabs 3RF Follow Up: 9 Months (PFM) 12/20/20 (please obtain recent labs from [facility] and put in my box) Coding Level of Care Code Off vis,est,level 4 Diagnoses Essential hypertension I10 History of cardiac radiofrequency ablation Z98.890 RODRIGUEZ (dyspnea on exertion) R06.00 Coding Level of Care Code Off vis,est,level 4 Diagnoses Essential hypertension I10 History of cardiac radiofrequency ablation Z98.890 RODRIGUEZ (dyspnea on exertion) R06.00 Supplemental Info Supplemental Information Stress Test Report: Echocardiogram:Date: 08-24-2018: [facility] Left ventricle normal with an LVEF of 56% Left atrium moderately dilated Trivial TR Trivial to mild IA Estimated RV systolic pressure of 27 mmHg Date: 06/05/2017 Procedure: Pharmacologic stress nuclear imaging study Indications: Chest pain Consent: Per the patient Procedure: The patient underwent pharmacologic (Regadenoson) evaluation with a peak heart rate of 99 bpm (63% predicted maximal heart rate) with a peak blood pressure 166/90 mmHg. The baseline ECG demonstrated normal sinus rhythm. The peak pharmacologic ECG demonstrated no obvious ECG changes. There was a rare PVC during infusion and recovery. There was no report of chest discomfort during pharmacologic infusion or recovery. The examination was discontinued secondary to completion of protocol. Impression: 1. Pharmacologic (Regadenoson) evaluation 2. Peak pharmacologic ECG with no obvious ECG changes 3. Rare PVC during infusion and recovery 4. Nuclear images pending Myocardial perfusion imaging study: Technique: The patient was injected with 10.8 mCi of technetium 99m Cardiolite and subsequently rest SPECT Cardiolite nuclear imaging was obtained in the horizontal long, vertical long, and short axis views. The patient underwent pharmacologic (Regadenoson) evaluation with a peak heart rate of 99 bpm (63% predicted maximal heart rate) with a peak blood pressure 166/90 mmHg here the patient was injected with 32.6 mCi of technetium 99m Cardiolite and subsequently stress SPECT cardio light nuclear imaging was obtained in the horizontal long, vertical long, and short axis views. A gated Cardiolite study at peak stress was obtained. Interpretation: Rest and stress SPECT Cardiolite nuclear imaging is post realignment, normalization, and attenuation correction demonstrates the appearance of relative uniform tracer uptake and myocardial perfusion appearing within normal limits. There is end systolic thickening and brightening. The gated Cardiolite study demonstrates myocardial thickening and inward wall motion. The reported LVEF is 45%. Impression: 1. Rest and stress SPECT Cardiolite nuclear imaging demonstrate the appearance of relative uniform tracer uptake and myocardial perfusion appearing within normal limits. 2. The gated Cardiolite study reports an LVEF of 45%. Stress Test Report Date: 12-28-2019 Procedure: Pharmacologic stress nuclear imaging study Indications: Chest pain; shortness of breath/dyspnea; SVT; status post EPS/RFA Consent: Per the patient Procedure: The patient underwent pharmacologic (Regadenoson) evaluation with a peak heart rate of 83 beats per minute (54 %predicted maximal heart rate) and a peak blood pressure of 132/84 mmHg. The baseline ECG demonstrated normal sinus rhythm. The peak pharmacologic ECG demonstrated somatic/motion artifact with no obvious ECG changes. There was a rare PVC during recovery. There was no complaint of chest discomfort during pharmacologic infusion or recovery. The examination was discontinued secondary to completion of protocol. Impression: 1. Pharmacologic (Regadenoson) evaluation 2. Peak pharmacologic ECG with somatic/motion artifact with no obvious ECG changes. 3. There was a rare PVC during recovery. 4. Nuclear images pending Myocardial perfusion imaging study: Technique: The patient was injected with 11.0 millicuries of technetium 99m Cardiolite and subsequently rest SPECT Cardiolite nuclear imaging was obtained in the horizontal long, vertical long, and short axis views. The patient underwent pharmacologic (Regadenoson) evaluation with a peak heart rate of 83 beats per minute (54 % percent predicted maximal heart rate) and a peak blood pressure of 132/84 mmHg. The patient was injected with 33.0 millicuries of technetium 99m Cardiolite and subsequently stress SPECT Cardiolite nuclear imaging was obtained in the horizontal long, vertical long, and short axis views. A gated Cardiolite study at peak stress was obtained. Interpretation: Rest and stress SPECT Cardiolite nuclear imaging status post realignment, normalization, and attenuation correction demonstrate relative uniform tracer uptake and myocardial perfusion appearing within normal limits. There are no myocardial perfusion deficits appreciated on the resting or stress polar map images. There is end systolic thickening and brightening. The gated Cardiolite study demonstrates myocardial thickening and inward wall motion. The reported LVEF is 43 %. Impression: 1. Rest and stress SPECT Cardiolite nuclear imaging demonstrate relative uniform tracer uptake and myocardial perfusion appearing within normal limits. 2. The gated Cardiolite study reports an LVEF of 43 %. Holter monitor: 8-29-2017: Sinus rhythm; PACs; PVCs 30-day event monitor: August to September 2017: [facility]: Sinus rhythm; sinus bradycardia; rare isolated atrial and ventricular premature complexes; no SVT, atrial fibrillation, or complex ventricular arrhythmia; no pauses observed Labs: No Data to Display Diagnostics: Electrocardiogram Chest X-Ray Pulmonary: Pulmonary Function Test Pulmonary Exercise Test 12/20/20 1342<Electronically signed by Pat COLLINS>Date Pat COLLINS Cosigner Signature:Date (if applicable) CC: Dr. Annamarie Ho MD~ I have re-examined the patient. There are no clinical changes since date of exam.
--- NOTE | 2021-01-16 10:42 | PCM.OP.PRO ---
Procedure Report Date of Procedure: 01/16/21 Procedure performed; IFR of distal RCA. Preprocedure diagnosis 70-year-old patient, underwent cardiac catheterization today by primary automatic beading lathe operator Dr. Higgins Patient had symptoms of shortness of breath and a mild history of bronchial asthma Patient had episode of SVT/AV and RT and underwent ablation in [facility] 2018 since then she does not have any recurrence of the SVT according to history however she had symptoms of shortness of breath and had inconclusive nuclear stress test and based on clinical presentation underwent evaluation by cardiac catheterization. Her echocardiographic evaluation LV function is preserved Review of the selective cholangiography left and right coronary artery revealed intermediate lesion in the distal large dominant RCA with no significant coronary atherosclerosis noted on the left coronary system. Based on the clinical presentation and abnormal finding of the intermediate lesion in the distal RCA we proceed with IFR of the distal RCA to assess for significant coronary atherosclerosis and decide on myocardial revascularization. Consent; Risk and benefit of the procedure explained in detail to the patient she elected to proceed informed consent obtained. Access right common femoral artery approach; 1. 6 Amharic JR4 guide 2. IFR wire 3. Heparin total of 7000 units of heparin was given Patient already has been on Plavix. Heparin a total of 6000 units was given intravenously. Procedure in detail; Under fluoroscopic guidance we proceed with 6 Amharic JR4, advanced to the ascending aorta, cannulated the right coronary ostium, multiple views GABINO, BURROWS cranial and caudal views reviewed and we proceed with the IFR wire normalized and then crossed the distal RCA lesion without difficulty Finding of IFR normal, delete delete [0.93?0.94] which is normal Following this selective right common femoral artery angiography obtained and a Perclose used to close arteriotomy site with no complication in the Senior Hardware Design Engineer. Conclusion; this patient has nonobstructive/intermediate lesion involving the distal RCA with some haziness and symptoms of shortness of breath And also patient had inconclusive results of nuclear stress test The evaluation by IFR is normal Recommendations; Medical treatment. Figueroa Swartz MD,FACC,[facility]
--- NOTE | 2021-01-18 12:31 | CL.D_ITS ---
Patient Name: TAYO FELIX Study Date: 01/16/2021 Performing: Chris Rodriguez MD Ht: 61.81 inches 157 cm : 1950 Wt: 196.21 lbs 89 kg Age: 70 Gender: female BSA: 1.89 PROCEDURE(S) PERFORMED GC75-HPI/COR [id number], CORONARY OR GRAFT, INITIAL VESSEL CLINICAL PROFILE AND INDICATIONS Indications: Suspected CAD Heart Failure: None Stress/Imaging Date: 12/28/2019 Angina Classification Anginal Classification w/in 2 Weeks: Anginal Equivalent Dyspnea CAD Presentations: Other: dyspnea on exertion: angina pectoris equivalent CONCLUSIONS [place] Multivessel CAD RECOMMENDATIONS Risk factor modification Medical therapy Staged for FFR DESCRIPTION OF PROCEDURE The patient arrived to the procedure lab. The risks and benefits of the procedure as well as a full d escription of our services here and current unavailability of surgical backup were fully explained to the patient and/or their significant other prior to the catheterization. The Timeout was completed, verifying the correct patient and procedure. The patient's procedural site was prepped and draped in the usual fashion. Local anesthetic was given subcutaneously to right radial region with Lidocaine 2% . Local anesthetic was given subcutaneously to right groin region with Lidocaine 2%. Using a modified Seldinger technique, arterial access was obtained via the right radial artery, a 6Fr sheath was inse rted., arterial access was obtained via the right femoral artery, a 6Fr sheath was inserted. Left Co ronary Artery selective angiography was performed in multiple views using a 5 Fr. 4.0 [place] catheter. Right Coronary Artery selective angiography was then performed in multiple views using a 5 Fr. 4.0 [place] catheter.Contrast was injected through the sheath and the Right Iliac and Femoral art ulises were assessed for possible closure device.The arterial sheath was pulled and a Perclose closure d evice was deployed for hemostasis. The arterial sheath was pulled and a TR Band was applied for hemos tasis w/ 12ml air CORONARY ANGIOGRAPHY DOMINANCE: Right Dominant LEFT HEART ASSESSMENT Left Ventricular Ejection Fraction: Not assessed LEFT MAIN: Angiographically normal LEFT ANTERIOR DESCENDING ARTERY: Mild luminal irregularities CIRCUMFLEX ARTERY: Mild luminal irregularities RAMUS: Angiographically normal RIGHT CORONARY ARTERY: Mild luminal irregularities DISTAL RCA: eccentric: hazy: 50 - 75 % Stenosis COMPLICATIONS No Complications PROCEDURE MEDICATIONS Versed 1 mg IV Fentanyl 50 mcg IV Versed 1 mg IV Fentanyl 50 mcg IV Oxygen: 2 L/min via nasal cannula Heparin given IA 01/16/2021 09:52:56 Heparin 6000 unit(s) IV 01/16/2021 10:13:37 Verapamil 2.5mg, Ntg 100mcgs, 3000 units of Heparin given IA 01/16/2021 09:52:56 SUMMARY OF HEMODYNAMIC DATA Time AIR REST ECG 08:25:28 AO 138/70 (98) SA 09:55:54 Signed By Chris Rodriguez MD On 01/16/2021 11:35:11 Chris Rodriguez MD
== END 2021-01-16 12:48 | disposition home or self-care (01) ==
LOC: CLSP 07:49
PROVIDERS: PCP Internal Medicine; Referring Provider Internal Medicine Cardiovascular Disease; Visit Provider Internal Medicine Cardiovascular Disease
DX: I25.119 Atherosclerotic heart disease of native coronary artery with unspecified angina pectoris (principal); I10 Essential (primary) hypertension; M79.7 Fibromyalgia; K21.9 Gastro-esophageal reflux disease without esophagitis; M19.90 Unspecified osteoarthritis, unspecified site; R93.1 Abnormal findings on diagnostic imaging of heart and coronary circulation; Z79.899 Other long term (current) drug therapy; Z79.1 Long term (current) use of non-steroidal anti-inflammatories (NSAID)
CPT/HCPCS: 93454; 93458; 93571; 99152; 99153; J7040; C1760; C1769; C1887; C1894; Q9967

== ENCOUNTER → 2021-01-22 14:16 | Outpatient (CLI) | payer MEDICARE, OTHER, SELFPAY ==
[2020-12-20 11:17] VITALS: BMI 36.0
[2021-01-15 09:13] VITALS: BMI 36.0
--- NOTE | 2021-01-22 14:19 | MRI_ITS ---
STUDY: MRI LUMBAR SPINE WITHOUT CONTRAST REASON FOR EXAM: Female, 70 years old. DDD, RADICULOPATHY TECHNIQUE: Standardized fat and water weighted pulse sequences were obtained in the sagittal and axial planes. COMPARISON: 10/14/2011 FINDINGS: T12-L1: Normal endplates. Normal disc height, hydration and morphology. Normal bilateral facet joints. Normal central canal and bilateral lateral recesses. Normal bilateral intervertebral neural foramina. Normal lumbar lordosis. Mild levoscoliosis centered at L3/L4. Normal conus medullaris that terminates at the L1/L2. L1-2: No change in the mild bilobed disc protrusion produces mild spinal stenosis and mild bilateral neural foraminal stenosis. L2-3: Mild bilateral facet hypertrophy and ligament flavum hypertrophy. No change in the mild bilobed disc protrusion which produces mild spinal stenosis and mild bilateral neural foraminal stenosis. L3-4: Mild bilateral facet hypertrophy and ligament flavum hypertrophy. Loss of disc height with a mild bilobed disc protrusion produces mild spinal stenosis and mild bilateral neural foraminal stenosis similar to the prior study. L4-5: Mild bilateral facet hypertrophy and ligament flavum hypertrophy. No change in the 2 mm retrolisthesis of L4 and L5 with a mild broad disc protrusion which produces mild spinal stenosis and mild bilateral neural foraminal stenosis. L5-S1: No change in the mild broad disc protrusion which produces mild spinal stenosis and moderate bilateral neural foraminal stenosis with abutment of the L5 nerve roots bilaterally. Normal visualized sacral ala. Mild friction related edema of the posterior subcutaneous fat. MRI/Spine Lumbar (Routine) IMPRESSION: No change from 10/14/2011. Electronically Signed: Elliott Baron MD at 17:53 EDT Tel , Service support ,
== END ==
PROVIDERS: PCP Internal Medicine; Referring Provider Nurse Practitioner Family; Visit Provider Nurse Practitioner Family
DX: M51.17 Intervertebral disc disorders with radiculopathy, lumbosacral region (principal)
CPT/HCPCS: 72148

== ENCOUNTER → 2021-02-16 14:53 | Outpatient (CLI) | payer MEDICARE, OTHER, SELFPAY ==
[2021-01-15 09:13] VITALS: BMI 36.0
[2021-02-16 17:19] LABS: Absolute Lymphocyte Count 0.83 X10^3/uL (0.83-4.51); Absolute Neutrophil Count 5.3 X10^3/uL (2.0-7.7); Basophil# 0.04 X10^3/uL; Basophil% 0.6 % (0-1); Eosinophil# 0.07 X10^3/uL; Hematocrit 34.6 % (37-47); Hemoglobin 10.7 g/dL (12.0-15.0); Lymphocyte # 0.83 X10^3/ul (0.83-4.51); Lymphocyte % 11.7 % (19-41); Mean Corp Hgb Conc 30.9 g/dL (32-36); Mean Corpuscular Hgb 30.5 pg (27.0-32.0); Mean Corpuscular Volume 98.6 fL (81-99); Mean Platelet Vol. 9.9 fl (6.2-12.0); Monocyte# 0.76 X10^3/uL; Monocyte% 10.7 % (0-10); NRBC Flagged by Analyzer 0 % (0-5); Neutrophil # 5.34 X10^3/uL (2.7-7.7); Neutrophil % 75.4 % (47-70); Platelet Count 245 K/mm3 (150-450); RBC Distribution Width CV 13.8 % (11.6-14.6); RBC Distribution Width SD 50.4 fl (35.1-43.9); Red Blood Count 3.51 M/mm3 (4.2-5.4); White Blood Count 7.1 K/mm3 (4.4-11.0)
[2021-02-16 17:39] LABS: ALB/GLOB Ratio 1.4 RATIO (0.9-2.4); AST(SGOT) 17 U/L (15-37); Alanine Aminotransfer ALT/SGPT 22 U/L (13-56); Albumin, Serum 4.2 g/dL (3.2-5.0); Alkaline Phosphatase 47 U/L (45-117); Anion Gap 6 (5-15); BUN 29 mg/dL (7-18); Calcium,Total 8.6 mg/dL (8.5-10.1); Chloride 107 mmol/L (98-107); Creatinine, Serum 1.26 mg/dL (0.55-1.02); EST Glomerular Filtration Rate 45 mL/min (>60); Est Glom Filt Rate - Afr Amer 54 mL/min (>60); Globulin 2.9 g/dL (2.2-4.2); Glucose 87 mg/dL (74-106); Potassium 4.2 mmol/L (3.5-5.1); Protein, Total 7.1 g/dL (6.4-8.2); Sodium Level 140 mmol/L (136-145)
== END ==
PROVIDERS: PCP Internal Medicine; Referring Provider Internal Medicine Rheumatology; Visit Provider Internal Medicine Rheumatology
DX: M06.09 Rheumatoid arthritis without rheumatoid factor, multiple sites (principal); M79.7 Fibromyalgia; M19.279 Secondary osteoarthritis, unspecified ankle and foot; M19.041 Primary osteoarthritis, right hand; M19.071 Primary osteoarthritis, right ankle and foot; I10 Essential (primary) hypertension; I48.0 Paroxysmal atrial fibrillation; I47.1 Supraventricular tachycardia; G47.33 Obstructive sleep apnea (adult) (pediatric); J45.909 Unspecified asthma, uncomplicated; M81.0 Age-related osteoporosis without current pathological fracture; K21.9 Gastro-esophageal reflux disease without esophagitis; Z79.899 Other long term (current) drug therapy; Z86.79 Personal history of other diseases of the circulatory system; Z87.19 Personal history of other diseases of the digestive system
CPT/HCPCS: 36415; 80053; 85025

== ENCOUNTER 2021-08-23 13:22 | Outpatient (CLI) | payer MEDICARE, OTHER, SELFPAY ==
[2021-08-23 15:10] LABS: Absolute Lymphocyte Count 0.82 X10^3/uL (0.83-4.51); Absolute Neutrophil Count 6.3 X10^3/uL (2.0-7.7); Basophil# 0.06 X10^3/uL; Basophil% 0.8 % (0-1); Eosinophil# 0.11 X10^3/uL; Eosinophils% 1.4 % (0-5); Hematocrit 35.2 % (37-47); Lymphocyte # 0.82 X10^3/ul (0.83-4.51); Lymphocyte % 10.4 % (19-41); Mean Corp Hgb Conc 31.3 g/dL (32-36); Mean Corpuscular Hgb 30.1 pg (27.0-32.0); Mean Corpuscular Volume 96.2 fL (81-99); Mean Platelet Vol. 10.1 fl (6.2-12.0); Monocyte# 0.53 X10^3/uL; Monocyte% 6.7 % (0-10); NRBC Flagged by Analyzer 0 % (0-5); Neutrophil % 80.1 % (47-70); Platelet Count 229 K/mm3 (150-450); RBC Distribution Width CV 14.3 % (11.6-14.6); RBC Distribution Width SD 50.7 fl (35.1-43.9); Red Blood Count 3.66 M/mm3 (4.2-5.4); White Blood Count 7.9 K/mm3 (4.4-11.0)
[2021-08-23 15:53] LABS: AST(SGOT) 18 U/L (15-37); Alanine Aminotransfer ALT/SGPT 20 U/L (13-56); Albumin, Serum 3.6 g/dL (3.2-5.0); Alkaline Phosphatase 53 U/L (45-117); Anion Gap 7 (5-15); BUN 27 mg/dL (7-18); BUN/Creat Ratio 19.3 RATIO (10-20); Calcium,Total 9.2 mg/dL (8.5-10.1); Chloride 103 mmol/L (98-107); EST Glomerular Filtration Rate 40 mL/min (>60); Est Glom Filt Rate - Afr Amer 48 mL/min (>60); Globulin 3.5 g/dL (2.2-4.2); Glucose 99 mg/dL (74-106); Potassium 4.7 mmol/L (3.5-5.1); Protein, Total 7.1 g/dL (6.4-8.2); Sodium Level 136 mmol/L (136-145)
== END 2021-08-23 23:59 | disposition short-term general hospital (02) ==
LOC: MTLAB 13:23
PROVIDERS: PCP Internal Medicine; Referring Provider Internal Medicine Rheumatology; Visit Provider Internal Medicine Rheumatology
DX: M06.09 Rheumatoid arthritis without rheumatoid factor, multiple sites (principal); I42.8 Other cardiomyopathies; F31.9 Bipolar disorder, unspecified; I48.0 Paroxysmal atrial fibrillation; I47.1 Supraventricular tachycardia; M79.7 Fibromyalgia; M19.279 Secondary osteoarthritis, unspecified ankle and foot; M19.041 Primary osteoarthritis, right hand; M19.071 Primary osteoarthritis, right ankle and foot; M48.061 Spinal stenosis, lumbar region without neurogenic claudication; I10 Essential (primary) hypertension; J45.909 Unspecified asthma, uncomplicated; G47.33 Obstructive sleep apnea (adult) (pediatric); M81.0 Age-related osteoporosis without current pathological fracture; K21.9 Gastro-esophageal reflux disease without esophagitis; K44.9 Diaphragmatic hernia without obstruction or gangrene; Z79.899 Other long term (current) drug therapy; Z86.79 Personal history of other diseases of the circulatory system; Z87.19 Personal history of other diseases of the digestive system
CPT/HCPCS: 36415; 80053; 85025

== ENCOUNTER 2021-11-13 10:11 | Outpatient (CLI) | payer MEDICARE, OTHER, SELFPAY ==
[2021-11-13 12:20] LABS: Absolute Lymphocyte Count 0.85 X10^3/uL (0.83-4.51); Absolute Neutrophil Count 2.8 X10^3/uL (2.0-7.7); Basophil# 0.05 X10^3/uL; Basophil% 1.1 % (0-1); Eosinophil# 0.18 X10^3/uL; Hematocrit 32.8 % (37-47); Hemoglobin 10.3 g/dL (12.0-15.0); Lymphocyte # 0.85 X10^3/ul (0.83-4.51); Lymphocyte % 19.1 % (19-41); Mean Corp Hgb Conc 31.4 g/dL (32-36); Mean Corpuscular Hgb 29.6 pg (27.0-32.0); Mean Corpuscular Volume 94.3 fL (81-99); Mean Platelet Vol. 10.4 fl (6.2-12.0); Monocyte% 13.5 % (0-10); NRBC Flagged by Analyzer 0 % (0-5); Neutrophil # 2.76 X10^3/uL (2.7-7.7); Neutrophil % 61.9 % (47-70); Platelet Count 188 K/mm3 (150-450); RBC Distribution Width CV 14.6 % (11.6-14.6); RBC Distribution Width SD 50.4 fl (35.1-43.9); Red Blood Count 3.48 M/mm3 (4.2-5.4); White Blood Count 4.5 K/mm3 (4.4-11.0)
[2021-11-13 12:28] LABS: AST(SGOT) 19 U/L (15-37); Alanine Aminotransfer ALT/SGPT 20 U/L (13-56); Albumin, Serum 3.4 g/dL (3.2-5.0); Alkaline Phosphatase 60 U/L (45-117); Anion Gap 8 (5-15); BUN 24 mg/dL (7-18); BUN/Creat Ratio 19.5 RATIO (10-20); Calcium,Total 9.3 mg/dL (8.5-10.1); Chloride 105 mmol/L (98-107); Creatinine, Serum 1.23 mg/dL (0.55-1.02); EST Glomerular Filtration Rate 46 mL/min (>60); Est Glom Filt Rate - Afr Amer 56 mL/min (>60); Globulin 3.5 g/dL (2.2-4.2); Glucose 106 mg/dL (74-106); Potassium 4.3 mmol/L (3.5-5.1); Protein, Total 6.9 g/dL (6.4-8.2); Sodium Level 138 mmol/L (136-145)
== END 2021-11-13 23:59 | disposition home or self-care (01) ==
LOC: MTLAB 10:13
PROVIDERS: PCP Internal Medicine; Referring Provider Internal Medicine Rheumatology; Visit Provider Internal Medicine Rheumatology
DX: M06.00 Rheumatoid arthritis without rheumatoid factor, unspecified site (principal); F31.9 Bipolar disorder, unspecified; I48.0 Paroxysmal atrial fibrillation; I47.1 Supraventricular tachycardia; M79.7 Fibromyalgia; M19.279 Secondary osteoarthritis, unspecified ankle and foot; M19.041 Primary osteoarthritis, right hand; M19.071 Primary osteoarthritis, right ankle and foot; M48.061 Spinal stenosis, lumbar region without neurogenic claudication; I10 Essential (primary) hypertension; J45.909 Unspecified asthma, uncomplicated; G47.33 Obstructive sleep apnea (adult) (pediatric); M81.0 Age-related osteoporosis without current pathological fracture; K21.9 Gastro-esophageal reflux disease without esophagitis; Z79.899 Other long term (current) drug therapy; Z86.79 Personal history of other diseases of the circulatory system
CPT/HCPCS: 36415; 80053; 85025

== ENCOUNTER 2021-11-19 15:13 | Emergency (ER) | payer MEDICARE, OTHER, SELFPAY ==
[2021-11-19 15:14] VITALS: BP 168/81; PULSE 77; RESP 19; TEMP 37.1; O2SAT 93; BMI 40.2
--- NOTE | 2021-11-19 16:03 | EDS_ITS ---
HPI History of Present Illness Chief Complaint: Shortness of Breath Informant: patient Onset/Context/Timing Onset: Month(s) (1) Context: Gradual Onset Timing: Continuous Quality: Swelling Location: Generalized Worsened by: Walking, especially uphill Relieved by: Nothing Narrative Narrative: Patient presents with shortness of breath and swelling that has been constant for the past month. Patient states it is gradually getting worse. Patient states her breathing is worse with walking especially walking uphill. Patient states that her swelling is generalized. Patient states it is in her arms and legs and face. Patient states nothing makes it better. Patient admits to occasional chest pain. Patient states she had this evaluated by Dr. Rodriguez and it was noncardiac. Patient also states that she has occasional episodes of heart racing palpitations. Patient also admits to some mild back pain. [facility] Medical History Atherosclerotic heart disease of [place] coronary artery without angina pectoris RODRIGUEZ (dyspnea on exertion) Essential hypertension Fibromyalgia GERD (gastroesophageal reflux disease) Nonischemic cardiomyopathy Osteoarthritis SVT (supraventricular tachycardia) Home Medications acetaminophen 500 - 1,000 mg PO Q6H PRN PRN 09/02/17 [History Last Taken Unkn own] hydroxychloroquine 200 mg PO BID 09/02/17 [History Last Taken 12/27/17] celecoxib 200 mg capsule 200 mg PO BID 12/27/17 [History Last Taken 12/27/17] pantoprazole 40 mg PO DAILY #30 tab 03/02/19 [Rx Last Taken Unknown] quetiapine 200 mg tablet 100 mg PO QHS tab 12/16/19 [History Last Taken Unknown] tramadol 50 mg tablet 50 mg PO TID PRN tab 12/16/19 [History Last Taken Unknown] albuterol sulfate 90 mcg/actuation aerosol inhaler 2 puff INHALATION Q4H PRN #18 g 12/19/20 [Rx Last Taken Unknown] gabapentin 100 mg capsule 300 mg PO QHS cap 12/20/20 [History Last Taken Unknown] pravastatin 20 mg tablet 20 mg PO QHS #30 tab 02/09/21 [Rx Last Taken Unknown] amlodipine 5 mg tablet 5 mg PO DAILY #30 tab 08/10/21 [Rx Last Taken Unknown] carvedilol 25 mg tablet 25 mg PO BID #60 tab 08/22/21 [Rx Last Taken Unknown] fluticasone furoate 200 mcg-vilanterol 25 mcg/dose inhalation powder 1 inh INHALATION QDAY #60 ea 11/08/21 [Rx Last Taken Unknown] hydrochlorothiazide 12.5 mg PO DAILY 11/19/21 [History Last Taken Unknown] leflunomide 10 mg PO DAILY 11/19/21 [History Last Taken Unknown] Allergy/AdvReac Type Severity Reaction Status Date / Time atorvastatin AdvReac Severe Severe Verified 11/19/21 15:16 diarrhea loratadine [From Claritin-D] AdvReac HYPERTENSIO Verified 11/19/21 15:16 N pseudoephedrine AdvReac HYPERTENSIO Verified 11/19/21 15:16 [From Claritin-D] N Family History (Reviewed 07/11/21 @ 14:15 by Dunia Roland ENVIRONMENTAL RESOURCE SPECIALIST, ENVIRONMENTAL RESOURCE SPECIALIST-C) Father Myocardial infarction CAD (coronary artery disease) Grandfather Cerebral embolism Sister Hypertension Surgical History History of ankle surgery History of cardiac radiofrequency ablation (~01/14/18) History of left heart catheterization (LHC) (~01/16/21) History of tonsillectomy History of tubal ligation Social History Smoking Status: Never smoker alcohol intake: never substance use type: does not use caffeine: Yes Type: carbonated beverages Number of servings: 2 and coffee Number of servings: 2 ROS ROS ED Constitutional Constitutional ED: Denies chills or fever(s) Eyes Eyes: Denies blurry vision or change in vision ENT ENT ED: Denies rhinorrhea or sore throat Cardiovascular Cardiovascular: Reports chest pain and racing heartbeat Respiratory/Chest Respiratory/Chest: Reports dyspnea; Denies cough Gastrointestinal Gastrointestinal: Denies nausea or vomiting Genitourinary Genitourinary ED: Denies dysuria or hematuria Musculoskeletal Musculoskeletal: Reports back pain; Denies neck pain Integumentary Denies abscess or rash Neurologic Neurologic: Denies headache(s) or weakness Allergic/Immunologic Allergic/Immunologic ED: Denies mouth swelling or urticaria EXAM Physical Exam Const Vital Signs: 11/19/21 15:14 11/19/21 15:11/19/21 17:19 Temperature 98.8 F Temperature Source Temporal Pulse Rate 77 78 Respiratory Rate 19 H 22 H Respiratory Effort Normal Respiratory Depth Normal Blood Pressure 168/81 H Blood Pressure Mean 110 Pulse Ox 93 95 Oxygen Delivery Method Room Air Room Air Positive well nourished and well developed General Appearance ED: well developed and NAD HEENT Reports moist mucous membranes Neck supple and no JVD Resp normal respiratory effort and clear to auscultation bilaterally Cardio regular rate, regular rhythm and no murmurs GI normal to inspection, nondistended, normoactive bowel sounds and non-tender Palpation: soft Extremity normal to inspection General Extremety ED: Yes edema; Negative for tenderness General Extremity: edema Neuro oriented x3, CN's II-XII intact bilaterally and no sensory deficits noted Sensorium / Orientation: alert Motor Exam: strength 5/5 throughout Psych mental status grossly normal Skin no rashes or lesions noted MDM MDM MDM Narrative Medical decision making narrative: EKG was obtained. On my interpretation, it showed a normal sinus rhythm with a rate of 71. NC interval, QRS interval, and QTc intervals were all normal. Pax was normal. There are no acute ST or T wave changes. CBC shows a mild anemia with a hemoglobin of 10.6 and hematocrit of 34.2. Comprehensive metabolic profile shows a slightly elevated BUN of 28 and creatinine of 1.42. BNP was normal. High-sensitivity troponin was normal. Urinalysis does not show any evidence of urinary tract infection. Portable 1 view chest x-ray was obtained. On my interpretation, lung العلي are clear. There is normal cardiac silhouette. Bony thorax is normal. There is no acute process noted. Radiologist also interpreted the x-ray and agrees. D-dimer was slightly elevated at 1.90. Because of this CTA of the chest was obtained. There is no evidence of pulmonary embolism. There is no aortic dissection noted. Because of the elevated BUN and creatinine and need for CTA of the chest, patient was given IV fluid bolus. Patient was instructed to follow-up with her primary care physician in 5 to 7 days. Patient understood and was agreeable with the plan. All questions were answered. Lab Data Labs: Laboratory Results - last 24 hr 11/19/21 11/19/21 11/19/21 16:14 16:15 16:15 WBC 5.2 RBC 3.62 L Hgb 10.6 L Hct 34.2 L MCV 94.5 MCH 29.3 MCHC 31.0 L RDW Std Deviation 49.7 H RDW Coeff of Eder 14.2 Plt Count 220 MPV 9.9 Immature Gran % (Auto) 0.800 Neut % (Auto) 69.8 Lymph % (Auto) 13.8 L [place] % (Auto) 10.6 H Eos % (Auto) 4.0 Baso % (Auto) 1.0 Absolute Neuts (auto) 3.6 Absolute Lymphs (auto) 0.72 L Nucleated RBC % 0 D-Dimer Quant (PE/DVT) 1.90 H* Sodium Potassium Chloride Carbon Dioxide Anion Gap BUN Creatinine Estim Creat Clear Calc Est GFR (MDRD) Af Amer Est GFR (MDRD) Non-Af BUN/Creatinine Ratio Glucose Calcium Total Bilirubin AST ALT Alkaline Phosphatase Troponin I High Sens B-Natriuretic Peptide Total Protein Albumin Globulin Albumin/Globulin Ratio Urine Color Straw Urine Clarity Clear Urine pH 6.0 Ur Specific Raymond 1.010 Urine Protein Negative Urine Glucose (UA) Normal Urine Ketones Negative Urine Occult Blood Negative Urine Nitrite Negative Urine Bilirubin Negative Urine Urobilinogen Normal Ur Leukocyte Esterase 25 H Urine RBC 0 SEEN Urine WBC 0-5 SEEN Ur Squamous Epith Cells 0-5 SEEN Urine Bacteria 0 SEEN Urine Mucus 0 SEEN 11/19/21 11/19/21 16:15 16:15 WBC RBC Hgb Hct MCV MCH MCHC RDW Std Deviation RDW Coeff of Eder Plt Count MPV Immature Gran % (Auto) Neut % (Auto) Lymph % (Auto) [place] % (Auto) Eos % (Auto) Baso % (Auto) Absolute Neuts (auto) Absolute Lymphs (auto) Nucleated RBC % D-Dimer Quant (PE/DVT) Sodium 138 Potassium 4.6 Chloride 106 Carbon Dioxide 26.0 Anion Gap 6 BUN 28 H Creatinine 1.42 H Estim Creat Clear Calc 29.57 Est GFR (MDRD) Af Amer 47 L Est GFR (MDRD) Non-Af 39 L BUN/Creatinine Ratio 19.7 Glucose 127 H Calcium 9.4 Total Bilirubin 0.30 AST 19 ALT 20 Alkaline Phosphatase 66 Troponin I High Sens 8 B-Natriuretic Peptide 51.9 Total Protein 6.8 Albumin 3.5 Globulin 3.3 Albumin/Globulin Ratio 1.1 Urine Color Urine Clarity Urine pH Ur Specific Raymond Urine Protein Urine Glucose (UA) Urine Ketones Urine Occult Blood Urine Nitrite Urine Bilirubin Urine Urobilinogen Ur Leukocyte Esterase Urine RBC Urine WBC Ur Squamous Epith Cells Urine Bacteria Urine Mucus Radiography Chest X-Ray - ED: 1 View, Read by ED Physician, Read by Radiologist and No Acute Disease Diagnostic Testing: Clinical Impression(s) from Imaging Studies Chest X-Ray 11/19/21 16:20 IMPRESSION: Degenerative changes, as described above. No demonstrated acute cardiopulmonary process. Electronically Signed: Farshad Hylton MD at 16:42 EDT , Chest CTA 11/19/21 16:52 IMPRESSION: No demonstrated PE, or thoracic aortic aneurysm or dissection. However, the contrast bolus within the distal pulmonary arteries is not optimal, and a subtle filling defect could be present and overlooked. No acute pulmonary process, there is compressive atelectasis in the right lung base due to a large hiatal hernia. Calcified coronary vessels Degenerative bony changes Electronically Signed: Farshad Hylton MD at 17:54 EDT , Discharge Plan Triage Chief Complaint: Shortness of Breath ED Provider: Devan Magana Dx/Rx/DC Orders Clinical Impression: Edema, peripheral, Dyspnea Instructions: ED Dyspnea Prescriptions: No Action quetiapine [Seroquel] 200 mg tablet 100 mg PO QHS RF: 0 albuterol sulfate [Ventolin HFA] 90 mcg/actuation HFA aerosol inhaler 2 puff INHALATION Q4H PRN (Reason: shortness of breath or wheezing) Qty: 18 RF: 6 acetaminophen 500 MG tablet 500 - 1,000 mg PO Q6H PRN PRN (Reason: Pain) RF: 0 hydroxychloroquine 200 MG tablet 200 mg PO BID RF: 0 tramadol 50 mg tablet 50 mg PO TID PRN (Reason: Pain) RF: 0 celecoxib 200 MG capsule 200 mg PO BID RF: 0 Hold Instructions: On plavix for cath 01/16/21 gabapentin 100 mg capsule 300 mg PO QHS RF: 0 pantoprazole 40 MG tablet 40 mg PO DAILY Qty: 30 RF: 0 leflunomide 10 mg tablet 10 mg PO DAILY RF: 0 hydrochlorothiazide 12.5 mg capsule 12.5 mg PO DAILY RF: 0 pravastatin 20 mg tablet 20 mg PO QHS Qty: 30 RF: 11 amlodipine 5 mg tablet 5 mg PO DAILY Qty: 30 RF: 12 carvedilol 25 mg tablet 25 mg PO BID Qty: 60 RF: 11 Breo Ellipta 200-25 mcg/dose blister with device 1 inh inhalation QDAY Qty: 60 RF: 6 Primary Care Provider: Annamarie Ho Referrals: Annamarie Ho MD [Primary Care Provider] - 3-5 Days Disposition Disposition: Home, Self Care
--- NOTE | 2021-11-19 16:07 | EKG12_ITS ---
Test Reason : SOB Blood Pressure : / mmHG Vent. Rate : 071 BPM Atrial Rate : 071 BPM P-R Int : 174 ms QRS Dur : 098 ms QT Int : 414 ms P-R-T Axes : 041 -21 033 degrees QTc Int : 449 ms Normal sinus rhythm Normal ECG Confirmed by RADHA MELGOZA, MACKENZIE ([id number]), general expeditor KAITLYNN SABA ([id number]) on 11/20/2021 11:17:26 AM Referred By: GEORGE Confirmed By:MACKENZIE GARCIA MD
--- NOTE | 2021-11-19 16:20 | RAD_ITS ---
STUDY: X-RAY CHEST REASON FOR EXAM: Female, 71 years old. Chest pain/pressure TECHNIQUE: 2 AP portable views COMPARISON: 12/20/2020 FINDINGS: There are interstitial fibrotic changes of the lungs. There is no demonstrated pleural abnormality. Normal size heart. Normal mediastinum and malini. Normal visualized pulmonary arteries. Normal visualized aortic arch and descending thoracic aorta. There are diffuse degenerative changes of the visualized thoracic spine. There is degenerative osteoarthritis of the bilateral shoulders. Old healed left humeral fracture Stable retrocardiac hiatal hernia RAD/Chest 1 View (Portable) IMPRESSION: Degenerative changes, as described above. No demonstrated acute cardiopulmonary process. Electronically Signed: Farshad Hylton MD at 16:42 EDT ,
[2021-11-19 16:30] LABS: Bacteria 0 SEEN /hpf (None Seen); Mucous, Urine 0 SEEN /hpf (<or=2+); Red Blood Cells-Urine 0 SEEN /hpf (0-5)
[2021-11-19 16:36] LABS: Color, Urine Straw (Yellow); Glucose, Dipstick Normal (Normal); Ketone-Dipstick Negative (Negative); Leukocyte Esterase-Dipstick 25 /ul (Negative); Nitrite-Dipstick Negative (Negative); Occult Blood-Urine Negative /ul (Negative); Protein-Dipstick Negative (Negative); Urine Bilirubin Dipstick Negative (Negative); Urine Clarity Clear (Clear); Urine Urobilinogen Normal (Normal)
[2021-11-19 16:40] LABS: Absolute Lymphocyte Count 0.72 X10^3/uL (0.83-4.51); Absolute Neutrophil Count 3.6 X10^3/uL (2.0-7.7); Basophil# 0.05 X10^3/uL; Eosinophil# 0.21 X10^3/uL; Hematocrit 34.2 % (37-47); Hemoglobin 10.6 g/dL (12.0-15.0); Lymphocyte # 0.72 X10^3/ul (0.83-4.51); Lymphocyte % 13.8 % (19-41); Mean Corpuscular Hgb 29.3 pg (27.0-32.0); Mean Corpuscular Volume 94.5 fL (81-99); Mean Platelet Vol. 9.9 fl (6.2-12.0); Monocyte# 0.55 X10^3/uL; Monocyte% 10.6 % (0-10); NRBC Flagged by Analyzer 0 % (0-5); Neutrophil # 3.64 X10^3/uL (2.7-7.7); Neutrophil % 69.8 % (47-70); Platelet Count 220 K/mm3 (150-450); RBC Distribution Width CV 14.2 % (11.6-14.6); RBC Distribution Width SD 49.7 fl (35.1-43.9); Red Blood Count 3.62 M/mm3 (4.2-5.4); White Blood Count 5.2 K/mm3 (4.4-11.0)
--- NOTE | 2021-11-19 16:52 | CT_ITS ---
STUDY: CTA CHEST REASON FOR EXAM: Female, 71 years old. Elevated D-dimer, atypical chest pain RADIATION DOSAGE (If Supplied By Facility): CTDIvol = ( 11 ) mGy, DLP = ( 468.71 ) mGycm TECHNIQUE: The examination was performed with the intravenous administration of IV 100mL Isovue-370. Post-processing of the angiographic images was performed, with multiplanar reformation and 3D reconstruction. Individualized dose optimization techniques were used for this CT. COMPARISON: None. FINDINGS: Normal enhancement of the main pulmonary artery and right and left pulmonary arteries. There is limited enhancement of the bilateral peripheral pulmonary arteries. There is no demonstrated pulmonary embolism however, the contrast bolus within the distal pulmonary arteries is not optimal and a subtle filling defect could be present overlooked in the distal vessels.. Normal thoracic aorta and visualized great vessels. There is no demonstrated aortic dissection. Normal heart and pericardium. Punctate coronary artery calcifications noted. Normal mediastinum. Normal hilar regions. There is peribronchial thickening. The lungs are well expanded. No acute pulmonary process, there is compressive atelectasis in the right lung base due to a large hiatal hernia Normal pleura. Normal chest wall structures. There are degenerative changes of thoracic spine. CT/CTA Chest W/WO Contrast IMPRESSION: No demonstrated PE, or thoracic aortic aneurysm or dissection. However, the contrast bolus within the distal pulmonary arteries is not optimal, and a subtle filling defect could be present and overlooked. No acute pulmonary process, there is compressive atelectasis in the right lung base due to a large hiatal hernia. Calcified coronary vessels Degenerative bony changes Electronically Signed: Farshad Hylton MD at 17:54 EDT ,
[2021-11-19 16:56] LABS: ALB/GLOB Ratio 1.1 RATIO (0.9-2.4); AST(SGOT) 19 U/L (15-37); Alanine Aminotransfer ALT/SGPT 20 U/L (13-56); Albumin, Serum 3.5 g/dL (3.2-5.0); Alkaline Phosphatase 66 U/L (45-117); Anion Gap 6 (5-15); BUN 28 mg/dL (7-18); BUN/Creat Ratio 19.7 RATIO (10-20); Calcium,Total 9.4 mg/dL (8.5-10.1); Chloride 106 mmol/L (98-107); Creatinine, Serum 1.42 mg/dL (0.55-1.02); EST Glomerular Filtration Rate 39 mL/min (>60); Est Glom Filt Rate - Afr Amer 47 mL/min (>60); Estimated Creatinine Clearance 29.57 ml/min; Globulin 3.3 g/dL (2.2-4.2); Glucose 127 mg/dL (74-106); Potassium 4.6 mmol/L (3.5-5.1); Protein, Total 6.8 g/dL (6.4-8.2); Sodium Level 138 mmol/L (136-145); Troponin-I HS 8 pg/mL (3.0-54.0)
[2021-11-19 17:14] LABS: BNP,B-Type NATRIURETIC PEPTIDE 51.9 pg/mL (0-100)
[2021-11-19 17:19] VITALS: PULSE 78; RESP 22; O2SAT 95
[2021-11-19 17:20] LABS: Squamous Epithelial Cells - UA 0-5 SEEN /hpf (5-10); White Blood Cells 0-5 SEEN /hpf (0-5)
[2021-11-19] MEDS: 0.9% Normal Saline 1,000 ML 1000 ML IV (19:19)
--- NOTE | 2021-11-21 14:53 | CASEMGMT ---
NEEMA WANG ED f/u call: ED visit: 11/19/21 Complaint: SOB Call to pt. Pt sates she is still feeling SOB some, mostly when she is up walking around. She does state, It doesn't seem as bad as it was. Pt states she has not made appt w/PCP, as she thought PCP's office was to contact her. NEEMA WANG informed her ED visit notes will be faxed to her PCP's office, but that PCP's typically wait for the pt to call and schedule the appt. NEEMA WANG instructed pt to call PCP's office to schedule an appt to be seen this week. She voices understanding and states she will do this. She denies having any questions or concerns. Mary COTA RN, CM
== END 2021-11-19 20:33 | disposition home or self-care (01) ==
PROVIDERS: Emergency Provider Emergency Medicine; PCP Internal Medicine; Visit Provider Emergency Medicine
DX: R60.0 Localized edema (principal); R06.02 Shortness of breath; I25.10 Atherosclerotic heart disease of native coronary artery without angina pectoris; I10 Essential (primary) hypertension; K21.9 Gastro-esophageal reflux disease without esophagitis; M79.7 Fibromyalgia; Z79.899 Other long term (current) drug therapy
CPT/HCPCS: 71045; 71275; 80053; 81001; 83880; 84484; 85025; 85379; 87428; 93005; 96360; 99285; J7030; Q9967; A4216

== ENCOUNTER → 2022-01-23 | Outpatient (CLI) | payer MEDICARE, OTHER, SELFPAY ==
[2022-01-23 13:01] VITALS: PULSE 70; PULSE 71; PULSE 85; PULSE 89; PULSE 91; PULSE 92; O2SAT 87; O2SAT 91; O2SAT 94; O2SAT 96; O2SAT 97
--- NOTE | 2022-01-23 13:04 | CPS ---
Patient does not wear any oxygen at home. Resting room air reading is 96%. Patient does not have the most stable gait and was able to walk about 115 feet before needing a break. Patient stated she probably does not walk much more than that, at any one time, at home. Room air reading while walking that distance is 87%. Patient took a break and I placed her on 2 lpm O2 nasal cannula. Patient recovered quickly when she sat down. SpO2 reading on 2 lpm was 97%. Patient then walked the same distance that she walked on room air and was able to maintain an SpO2 of 91%. Patient states that she has an appointment with Dunia Roland NP on 01/30/22.
--- NOTE | 2022-01-24 07:30 | PCM.PSN.6M ---
PSN 6 Minute Walk Test 6 Minute Walk Test 6 Minute Walk Test: 6 Minute Walk Test PSN:6-Minute Walk Test Start: 01/23/22 13:00 Freq: Status: Active Protocol: [id number].6MINW Document 01/23/22 13:01 NAVICYRUS (Rec: 01/23/22 13:09 GRETEL [id number]) 6 Minute Walk Test Date Performed 01/23/22 Time Performed 12:30 Height 5 ft 2 in Weight: 220 lb Weight in Pounds 220.[address]: Sarath Lott Assistive device used: None Pre-test Oxygen Delivery Method Room Air Pulse Ox (%) 96 Pulse Rate (60-100 beats/min) 71 Dyspnea Julio Scale (0-10) 0 Exertion Julio Scale (6-20) 6 1st minute Oxygen Delivery Method Room Air Pulse Ox (%) 91 Pulse Rate (60-100 beats/min) 85 2nd minute Oxygen Delivery Method Room Air Pulse Ox (%) 87 Pulse Rate (60-100 beats/min) 91 Dyspnea Julio Scale (0-10) 4 3rd minute Oxygen Flow Rate (L/min) (L/min) 2 Oxygen Delivery Method Nasal Cannula Pulse Ox (%) 94 Pulse Rate (60-100 beats/min) 89 4th minute Oxygen Flow Rate (L/min) (L/min) 2 Oxygen Delivery Method Nasal Cannula Pulse Ox (%) 91 Pulse Rate (60-100 beats/min) 92 Dyspnea Julio Scale (0-10) 3 Post-test Oxygen Flow Rate (L/min) (L/min) 2 Oxygen Delivery Method Nasal Cannula Pulse Ox (%) 97 Pulse Rate (60-100 beats/min) 70 Full Laps Walked 4 Partial Lap, Number of Tiles Walked 0 Total Distance Walked (ft) 236 01/23/22 13:04 Cardiopulmonary Services by Hayde Le Patient does not wear any oxygen at home. Resting room air reading is 96%. Patient does not have the most stable gait and was able to walk about 115 feet before needing a break. Patient stated she probably does not walk much more than that, at any one time, at home. Room air reading while walking that distance is 87%. Patient took a break and I placed her on 2 lpm O2 nasal cannula. Patient recovered quickly when she sat down. SpO2 reading on 2 lpm was 97%. Patient then walked the same distance that she walked on room air and was able to maintain an SpO2 of 91%. Patient states that she has an appointment with Dunia Roland NP on 01/30/22. Initialized on 01/23/22 13:04 - END OF NOTE Interpretation Interpretation: The patient ambulated 236 feet over the course of 6 minutes beginning on room air without assistive devices. Pretesting oxygen saturation was noted to be 96% on room air. With ambulation, the patient desaturated to 87%. She was placed on 2 L/min of supplemental oxygen. Due to limited endurance, the patient was unable to ambulate for the last 2 minutes of the test. Recommendations Recommendations: 2 L/min of supplemental oxygen should be utilized with exertion.
== END | disposition home or self-care (01) ==
LOC: PSN 12:22
PROVIDERS: PCP Internal Medicine; Referring Provider Internal Medicine Critical Care Medicine; Visit Provider Internal Medicine Critical Care Medicine
DX: J45.909 Unspecified asthma, uncomplicated (principal)
CPT/HCPCS: 94618

== ENCOUNTER → 2022-01-24 | Outpatient (CLI) | payer MEDICARE, OTHER, SELFPAY ==
--- NOTE | 2022-01-25 06:54 | PFT ---
INTRODUCTION: The patient is a 71-year-old female that presents for pulmonary function studies secondary to a diagnosis of asthma. Respiratory therapy reported good patient effort. Bronchodilators were used during testing. INTERPRETATION: Forced expiration spirometry demonstrates no evidence of a large airways obstructive ventilatory defect. There was no significant response to aerosolized bronchodilators. Spirograms are of good quality and plateau normally. Body plethysmography was performed and revealed a decreased TLC to 3.09 L, 70% of predicted, indicative of a mild restrictive ventilatory impairment. Diffusing capacity by single breath CO is moderately reduced at 58% of predicted. IMPRESSION: Mild restrictive ventilatory impairment with moderate reduction in diffusing capacity.
== END | disposition home or self-care (01) ==
LOC: PSN 10:39
PROVIDERS: PCP Internal Medicine; Referring Provider Internal Medicine Critical Care Medicine; Visit Provider Internal Medicine Critical Care Medicine
DX: J45.909 Unspecified asthma, uncomplicated (principal)
CPT/HCPCS: 94060; 94726; 94729

== ENCOUNTER → 2022-01-29 | Outpatient (CLI) | payer MEDICARE, OTHER, SELFPAY ==
--- NOTE | 2022-01-29 13:49 | ECHOD_ITS ---
Reason For Study: DYSPENA/SOB Procedure This was a 2D Doppler, Color Flow transthoracic echocardiogram. The study was technically difficult. Exam performed in department. Left Ventricle Normal LV size. Left ventricular systolic function is normal. The estimated ejection fraction is 60 %. There is evidence of diastolic dysfunction. No regional wall motion abnormalities noted. Right Ventricle Normal RV size. Normal systolic function. Atria The left atrium is mildly enlarged. Normal right atrium. No doppler evidence for ASD. Mitral Valve There is no mitral annular calcification. Normal mitral valve. Trivial mitral valve insufficiency. Tricuspid Valve Normal tricuspid valve. Mild tricuspid valve insufficiency. Unable to estimate RV systolic pressure/pulmonary artery pressure due to technically difficult study. Aortic Valve Trisinus/trileaflet aortic valve. Normal aortic valve. Pulmonic Valve The pulmonic valve is not well visualized. Trivial pulmonic valve insufficiency. Great Vessels Normal sized aortic root. Pericardium/Pleural No pericardial effusion. Epicardial fat. MMode/2D Measurements & Calculations LVIDd: 5.7 cm IVSd: 0.72 cm Ao root diam: 3.1 cm LVPWd: 0.98 cm LVAd ap4: 30.4 cm2 SV(MOD-sp4): 51.6 ml SV(sp4-el): 54.8 ml LVLd ap4: 8.8 cm EDV(MOD-sp4): 87.3 ml EDV(sp4-el): 88.8 ml LVAs ap4: 17.4 cm2 LVLs ap4: 7.6 cm ESV(MOD-sp4): 35.7 ml ESV(sp4-el): 33.9 ml EF(MOD-sp4): 59.1 % EF(sp4-el): 61.8 % LA A4 area: 22.1 cm2 LA dimension(2D): 3.7 cm RA A4 area: 13.0 cm2 Doppler Measurements & Calculations MV E max rich: 79.3 cm/sec Lat Peak E' Rich: 7.7 cm/sec Med Peak E' Rich: 5.0 cm/sec MV A max rich: 115.9 cm/sec E/E' lat: 10.3 E/E' med: 16.0 MV E/A: 0.68 Ao V2 max: 135.9 cm/sec LV V1 max: 109.3 cm/sec PA V2 max: 93.3 cm/sec Ao max P.4 mmHg LV V1 max P.8 mmHg PI dec slope: 234.5 cm/sec2 ECHO/Echo Complete Interpretation Summary The study was technically difficult. Left ventricular systolic function is normal. The estimated ejection fraction is 60 %. The left atrium is mildly enlarged. Trivial mitral valve insufficiency. Mild tricuspid valve insufficiency. Trivial pulmonic valve insufficiency. Epicardial fat. Unable to estimate RV systolic pressure/pulmonary artery pressure due to techni melita difficult study. There is evidence of diastolic dysfunction. Ordering Physician: Chris Rodriguez Referring Physician: Chris Rodriguez Performed By: Katarzyna Smith RCS
== END | disposition home or self-care (01) ==
LOC: CVS 13:48
PROVIDERS: PCP Internal Medicine; Referring Provider Internal Medicine Cardiovascular Disease; Visit Provider Internal Medicine Cardiovascular Disease
DX: I42.8 Other cardiomyopathies (principal); R06.02 Shortness of breath; R60.9 Edema, unspecified
CPT/HCPCS: 93306

== ENCOUNTER 2022-02-22 16:29 | Outpatient (CLI) | payer MEDICARE, OTHER, SELFPAY ==
[2022-02-22 16:39] LABS: Pathologist Comment May follow
[2022-02-22 19:10] LABS: AUTO B FLUID DILUENT BKGD CT WBC <0.1 RBC <0.01 (W<.1,R<.01); Source- Body Fluid SYNOVIAL
[2022-02-22 19:11] LABS: Appearance /Synovial Fluid Sl hazy (CLEAR); Color / Synovial Fluid Yellow (Pale Yellow); Source / Synovial Fluid RT KNEE
[2022-02-22 19:13] LABS: RBC /Synovial Fluid 0.002 10^6/uL (0)
[2022-02-22 19:14] LABS: Synovial Fld Mononuclear WBC % 78.5 %; Synovial Fld Polynuclear WBC # 0.119 10^3/uL; Synovial Fld Polynuclear WBC % 21.5 %
[2022-02-22 19:15] LABS: Lymph 11 %; Monocyte /Synovial Fluid 61 %; Neutrophil 28 % (0-25); Synovial Fld Mononuclear WBC # 0.434 10^3/ul
[2022-02-22 19:16] LABS: Body Fluid QC Type(s) BF1Q,BF2Q
[2022-02-25 13:04] LABS: Pathologist Review Reviewed
== END 2022-02-22 23:59 | disposition home or self-care (01) ==
LOC: LABSPEC 16:34
PROVIDERS: PCP Internal Medicine; Referring Provider Physician Assistant Surgical; Visit Provider Physician Assistant Surgical
DX: M17.11 Unilateral primary osteoarthritis, right knee (principal)
CPT/HCPCS: 87070; 87075; 87205; 89050; 89051; 89060

== ENCOUNTER → 2022-04-04 | Outpatient (CLI) | payer MEDICARE, OTHER, SELFPAY ==
[2022-04-04 18:01] LABS: Absolute Lymphocyte Count 0.84 X10^3/uL (0.83-4.51); Absolute Neutrophil Count 3.9 X10^3/uL (2.0-7.7); Basophil# 0.08 X10^3/uL; Basophil% 1.4 % (0-1); Eosinophil# 0.12 X10^3/uL; Eosinophils% 2.1 % (0-5); Hematocrit 32.1 % (37-47); Hemoglobin 10.4 g/dL (12.0-15.0); Lymphocyte # 0.84 X10^3/ul (0.83-4.51); Lymphocyte % 14.7 % (19-41); Mean Corp Hgb Conc 32.4 g/dL (32-36); Mean Corpuscular Volume 92.5 fL (81-99); Mean Platelet Vol. 9.5 fl (6.2-12.0); Monocyte# 0.74 X10^3/uL; NRBC Flagged by Analyzer 0 % (0-5); Neutrophil # 3.91 X10^3/uL (2.7-7.7); Neutrophil % 68.4 % (47-70); Platelet Count 212 K/mm3 (150-450); RBC Distribution Width CV 14.5 % (11.6-14.6); RBC Distribution Width SD 48.9 fl (35.1-43.9); Red Blood Count 3.47 M/mm3 (4.2-5.4); White Blood Count 5.7 K/mm3 (4.4-11.0)
[2022-04-04 18:23] LABS: AST(SGOT) 21 U/L (15-37); Alanine Aminotransfer ALT/SGPT 22 U/L (13-56); Albumin, Serum 3.4 g/dL (3.2-5.0); Alkaline Phosphatase 87 U/L (45-117); Anion Gap 8 (5-15); BUN 28 mg/dL (7-18); BUN/Creat Ratio 23.1 RATIO (10-20); Chloride 94 mmol/L (98-107); Creatinine, Serum 1.21 mg/dL (0.55-1.02); EST Glomerular Filtration Rate 47 mL/min (>60); Est Glom Filt Rate - Afr Amer 57 mL/min (>60); Globulin 3.5 g/dL (2.2-4.2); Glucose 86 mg/dL (74-106); Potassium 3.6 mmol/L (3.5-5.1); Protein, Total 6.9 g/dL (6.4-8.2); Sodium Level 132 mmol/L (136-145)
== END | disposition home or self-care (01) ==
LOC: MTLAB 14:45
PROVIDERS: PCP Internal Medicine; Referring Provider Internal Medicine Rheumatology; Visit Provider Internal Medicine Rheumatology
DX: M06.00 Rheumatoid arthritis without rheumatoid factor, unspecified site (principal); I42.8 Other cardiomyopathies; F31.9 Bipolar disorder, unspecified; I48.0 Paroxysmal atrial fibrillation; I47.1 Supraventricular tachycardia; M79.7 Fibromyalgia; M19.279 Secondary osteoarthritis, unspecified ankle and foot; M18.11 Unilateral primary osteoarthritis of first carpometacarpal joint, right hand; M19.071 Primary osteoarthritis, right ankle and foot; M48.061 Spinal stenosis, lumbar region without neurogenic claudication; I10 Essential (primary) hypertension; J45.909 Unspecified asthma, uncomplicated; G47.33 Obstructive sleep apnea (adult) (pediatric); M81.0 Age-related osteoporosis without current pathological fracture; K21.9 Gastro-esophageal reflux disease without esophagitis; K44.9 Diaphragmatic hernia without obstruction or gangrene; Z79.899 Other long term (current) drug therapy; Z86.79 Personal history of other diseases of the circulatory system; Z87.19 Personal history of other diseases of the digestive system
CPT/HCPCS: 36415; 80053; 85025

== ENCOUNTER → 2022-04-25 | Outpatient (CLI) | payer MEDICARE, OTHER, SELFPAY ==
--- NOTE | 2022-04-25 10:51 | VDLE_ITS ---
Reason For Study: Pain RLE RIGHT GSV is normal. CFV is compressible, spontaneous, phasic, competent and demonstrates normal augmentation. FV is compressible, spontaneous, phasic, competent and demonstrates normal augmentation. POP V is compressible, spontaneous, phasic, competent and demonstrates normal augmentation. T/P Trunk is compressible. RT PerV is compressible. Acute deep vein thrombosis is noted in the right posterior tibial vein. Nonvascularized structure noted in thr right popliteal fossa to mid calf that measures 16.9 cm. Procedure This is a venous duplex using B-mode, color flow and spectral Doppler. Exam performed in department. A preliminary report was called and/or faxed to Ortho: Tamara, PCP: Ana. VL/Venous Duplex US, Unilateral Interpretation Summary Acute deep venous thrombosis right posterior tibial vein. Nonvascular structure right popliteal fossa to mid calf measuring 16.9 cm in [facility]. Clinical correlation would be appropriate. Patent and compressible right great saphenous vein Ordering Physician: Brian Agosto Referring Physician: Annamarie Ho M.D. Performed By: Johana Mcgowan RVT
== END | disposition home or self-care (01) ==
LOC: CVS 10:47
PROVIDERS: PCP Internal Medicine; Referring Provider Orthopaedic Surgery; Visit Provider Orthopaedic Surgery
DX: I82.441 Acute embolism and thrombosis of right tibial vein (principal); M17.11 Unilateral primary osteoarthritis, right knee
CPT/HCPCS: 93971

== ENCOUNTER 2022-04-28 12:59 | Emergency (ER) | payer MEDICARE, OTHER, SELFPAY ==
[2022-04-28 13:01] VITALS: BP 103/64; PULSE 73; RESP 18; TEMP 36.6; O2SAT 94; BMI 40.8
--- NOTE | 2022-04-28 13:20 | RAD_ITS ---
STUDY: X-RAY - RIGHT KNEE REASON FOR EXAM: Female, 72 years old. FALL X 2 DAYS PAIN, DIFFICULT TO STAND TECHNIQUE: 4 view(s) of the knee. COMPARISON: X-ray of the right knee dated NOVEMBER 27, 2015 FINDINGS: Normal visualized distal femur. Normal visualized proximal tibia and fibula. Normal proximal tibiofibular articulation. There is no demonstrated fracture. Normal medial femorotibial compartment. There is severe degenerative arthrosis of the lateral femorotibial compartment with severe joint space narrowing. There is mild degenerative arthrosis of the patellofemoral articulation. There is a soft tissue prominence in the suprapatellar region suggesting a small volume joint effusion. The soft tissue structures are unremarkable. RAD/Knee 4 or More Views IMPRESSION: 1. Degenerative arthrosis and small joint effusion. Electronically Signed: Joe Jacobs MD at 14:11 EDT ,
--- NOTE | 2022-04-28 13:20 | EX.ED.DYSGE1 ---
HPI <RAFIQ Mckeon - Last Filed: 04/28/22 14:33> History of Present Illness Chief Complaint: Lower Extremity Injury Narrative Narrative: 72-year-old female with history of arthritis, obesity, hypertension, acid reflux presents to the emergency department with ongoing right knee pain. Patient is currently seeing [facility] for her right knee, she received injections, other intervention that has not helped. Patient was told that she needs to have surgery, however during preop testing, patient does have a DVT to the right calf, she is placed on Eliquis outpatient, this is 2 days into treatment. Patient states 2 days ago, she slipped from her wheelchair to the couch. She states that she had to crawl on her knees to lift her self up. She has worsening pain to her knee, right hip. She denies any other injury. She has not missed any doses of her Eliquis, she denies any head or neck injury. [facility] <RAFIQ Mckeon - Last Filed: 04/28/22 14:33> [facility] Medical History Atherosclerotic heart disease of [place] coronary artery without angina pectoris RODRIGUEZ (dyspnea on exertion) Essential hypertension Fibromyalgia GERD (gastroesophageal reflux disease) Nonischemic cardiomyopathy Osteoarthritis SVT (supraventricular tachycardia) Home Medications acetaminophen 500 mg tablet 500 - 1,000 mg PO Q6H PRN PRN Pain 09/02/17 [History Last Taken Unknown] hydroxychloroquine 200 mg tablet 200 mg PO BID 09/02/17 [History Last Taken 12/27/17] celecoxib 200 mg capsule 200 mg PO BID 12/27/17 [History Last Taken 12/27/17] pantoprazole 40 mg tablet,delayed release 40 mg PO DAILY #30 tabs 03/02/19 [Rx Last Taken Unknown] quetiapine 200 mg tablet (Seroquel) 100 mg PO QHS 12/16/19 [History Last Taken Unknown] tramadol 50 mg tablet 50 mg PO TID PRN Pain 12/16/19 [History Last Taken Unknown] albuterol sulfate 90 mcg/actuation aerosol inhaler (Ventolin HFA) 2 puff inhalation Q4H PRN shortness of breath or wheezing #18 grams 12/19/20 [Rx Last Taken Unknown] amlodipine 5 mg tablet 5 mg PO DAILY #30 tabs 08/10/21 [Rx Last Taken Unknown] fluticasone furoate 200 mcg-vilanterol 25 mcg/dose inhalation powder (Breo Ellipta) 1 inh inhalation QDAY #60 ea 11/08/21 [Rx Last Taken Unknown] leflunomide 10 mg tablet 10 mg PO DAILY 11/19/21 [History Last Taken Unknown] gabapentin 100 mg capsule 300 mg PO TID 01/11/22 [History Last Taken Unknown] carvedilol 25 mg tablet 25 mg PO BID for next fill , pt picked up RX today #60 tabs 01/18/22 [Rx Last Taken Unknown] clotrimazole 1 % topical cream 1 applic topical 01/25/22 [History Last Taken Unknown] escitalopram oxalate 10 mg tablet 10 mg PO 01/25/22 [History Last Taken Unknown] hydrocortisone 2.5 % topical cream with perineal applicator 1 applic UT 01/25/22 [History Last Taken Unknown] ketoconazole 2 % shampoo 1 applic topical 01/25/22 [History Last Taken Unknown] ketoconazole 2 % topical cream 1 applic topical 01/25/22 [History Last Taken Unknown] sennosides 8.6 mg tablet (senna) 8.6 mg PO 01/25/22 [History Last Taken Unknown] trazodone 50 mg tablet 50 mg PO QHS 01/25/22 [History Last Taken Unknown] furosemide 20 mg tablet 20 mg PO DAILY 02/05/22 [History Last Taken Unknown] pravastatin 20 mg tablet 20 mg PO QHS #30 tabs 02/05/22 [Rx Last Taken Unknown] Allergy/AdvReac Type Severity Reaction Status Date / Time atorvastatin AdvReac Severe Severe Verified 04/28/22 13:00 diarrhea loratadine [From Claritin-D] AdvReac HYPERTENSIO Verified 04/28/22 13:00 N pseudoephedrine AdvReac HYPERTENSIO Verified 04/28/22 13:00 [From Claritin-D] N Family History (Reviewed 01/30/22 @ 14:00 by Dunia Roland ENVIRONMENTAL EDUCATION SPECIALIST, ENVIRONMENTAL EDUCATION SPECIALIST-C) Father Myocardial infarction CAD (coronary artery disease) Grandfather Cerebral embolism Sister Hypertension Surgical History (Reviewed 01/30/22 @ 14:00 by Dunia Roland ENVIRONMENTAL EDUCATION SPECIALIST, ENVIRONMENTAL EDUCATION SPECIALIST-C) History of ankle surgery History of cardiac radiofrequency ablation (~01/14/18) History of left heart catheterization (LHC) (~01/16/21) History of tonsillectomy History of tubal ligation Social History Smoking Status: Never smoker alcohol intake: never substance use type: does not use caffeine: Yes Type: carbonated beverages Number of servings: 2 and coffee Number of servings: 2 ROS <RAFIQ Mckeon - Last Filed: 04/28/22 14:33> ROS ED ROS Narrative Constitutional: Negative for fever, chills, weight loss, weakness Eyes: Negative for vision loss, vision change, double vision ENT: Negative for any sore throat, ear pain, congestion Cardiovascular: Negative for any chest pain, tightness, palpitations Respiratory: Negative for any cough, sputum production, hemoptysis, dyspnea, dyspnea on exertion, orthopnea Gastrointestinal: Negative for any abdominal pain, nausea, vomiting, diarrhea, constipation, blood in stool, blood in vomit : Negative for any urinary frequency, dysuria, retention, blood in urine Muscle skeletal: Negative for any muscle joint pain, stiffness, myalgias, arthralgias, neck pain, back pain. Positive right knee pain Neurological: Negative for any headache, syncope, numbness or tingling, dizziness Skin: Negative for any rashes, lumps, itching, abrasions, lacerations Psychiatric: Negative for any depression, anxiety, stress, suicidal ideation, homicidal ideation Hematologic: Negative for any easy bruising, excessive bruising, easy bleeding Allergies: Negative for any eczema, hives, rash EXAM <RAFIQ Mckeon - Last Filed: 04/28/22 14:33> Physical Exam Narrative Exam Narrative: Vital signs reviewed. Extremities: No peripheral edema, no signs of gross trauma or deformity. Active full range of motion of all extremities. Patient has intact extensor mechanism to the right knee, is able to passively flex and extend the right hip with no pain. Patient does have pain on palpation to the posterior knee, worsening with flexion and extension. Negative for any ecchymosis, negative for any deformity Neuro: Cranial nerves II through XII intact, no focal neurological deficits. Skin: Clean dry and intact with no rash, purpura, petechiae, vesicles or pustules. Backs/flank: No CVA tenderness, no midline spinal tenderness, no deformity. Psych: Normal mood and affect. No SI, HI or acute psychosis. Const Vital Signs: 04/28/22 13:01 Temperature 97.8 F Temperature Source Temporal Pulse Rate 73 Respiratory Rate 18 Blood Pressure 103/64 Blood Pressure Mean 77 Pulse Ox 94 Oxygen Delivery Method Room Air <Dr. Linwood Hoover MD - Last Filed: 04/28/22 14:29> Physical Exam Const Vital Signs: 04/28/22 13:01 Temperature 97.8 F Temperature Source Temporal Pulse Rate 73 Respiratory Rate 18 Blood Pressure 103/64 Blood Pressure Mean 77 Pulse Ox 94 Oxygen Delivery Method Room Air MDM <RAFIQ Mckeon - Last Filed: 04/28/22 14:33> [facility] Radiography Diagnostic Testing: Clinical Impression(s) from Imaging Studies Knee X-Ray 04/28/22 13:20 IMPRESSION: 1. Degenerative arthrosis and small joint effusion. Electronically Signed: Joe Jacobs MD at 14:11 EDT Reading Location ID and State: [facility] / [place] , Service support , Treatment and Re-Evaluation Narrative: Patient appears well, patient appears nontoxic, vital signs are stable. Patient presents to the emergency department with right knee pain following a fall on an already injured knee. Patient physical examination showed no deformity. Patient's x-ray of the right knee shows degenerative arthrosis, small joint effusion. Patient is already have a wheelchair at home, she will continue to use ice and Tylenol. She instructed to follow-up with her orthopedic as well as to continue her Eliquis as prescribed for her DVT. Patient is happy with the plan of care and is stable for discharge <Dr. Linwood Hoover MD - Last Filed: 04/28/22 14:29> [facility] Narrative Medical decision making narrative: I have personally performed a face to face assessment of the patient and have reviewed the ADRIENNE Note. I performed a substantive portion of the visit including all aspects of the following. My madera findings include: History is [72-year-old female known meniscal tear to her right knee. Seeing orthopedics. Currently on Lovenox for clots in her right leg. She took a fall on Friday. Denies hitting her head. Complaining of pain to her right knee.] Exam is [72-year-old no acute distress vital signs stable afebrile. HEENT exam unremarkable atraumatic. Lungs clear. Heart regular rhythm. Abdomen soft. Chest were nontender. Pelvic girdle intact. Right knee swelling. Tender. She is able do flexion extension. She can lift her leg off the bed. Extensor mechanism intact. Right foot dorsi plantarflexion intact. Hips nontender. Left lower extremity nontender. Upper extremities nontender. Neurologically she is awake and alert.] Medical Decision Making [x-ray obtained. No fracture. No dislocation. Small effusion. Will be discharged home. Ice and Tylenol. She has pain medication at home. She has a wheelchair at home. She will follow-up with her orthopedic physician. Her surgery is on hold at this time due to the blood clots.] Other additions or changes: [None] Radiography Diagnostic Testing: Clinical Impression(s) from Imaging Studies Knee X-Ray 04/28/22 13:20 IMPRESSION: 1. Degenerative arthrosis and small joint effusion. Electronically Signed: Joe Jacobs MD at 14:11 EDT Reading Location ID and State: [address] [place] [address] , Service support , Discharge Plan Triage Chief Complaint: Lower Extremity Injury ED Midlevel Provider: Chris Quach ED Provider: Linwood Hoover Dx/Rx/DC Orders Clinical Impression: Fall, Contusion of knee, Chronic anticoagulation Instructions: ED Contusion, Lower Extremity Prescriptions: No Action quetiapine [Seroquel] 200 mg tablet 100 mg PO QHS albuterol sulfate [Ventolin HFA] 90 mcg/actuation HFA aerosol inhaler 2 puff INHALATION Q4H PRN (Reason: shortness of breath or wheezing) Qty: 18 6RF clotrimazole 1 % cream 1 applic topical Label Comments: Apply 1 application to affected area twice daily. trazodone 50 mg tablet 50 mg PO QHS escitalopram oxalate 10 mg tablet 10 mg PO Label Comments: TAKE 1 TABLET BY MOUTH DAILY hydrocortisone 2.5 % cream with perineal applicator 1 applic UT Label Comments: apply rectally TWICE DAILY ketoconazole 2 % cream 1 applic topical ketoconazole 2 % shampoo 1 applic topical Label Comments: APPLY TO THE AFFECTED AREA(S) DAILY NEEDED. Lather and rinse after 2 (TWO) to 5 (FIVE) MINUTES sennosides [senna] 8.6 mg tablet 8.6 mg PO Label Comments: Take 1-2 tablets by mouth once daily as needed. acetaminophen 500 MG tablet 500 - 1,000 mg PO Q6H PRN PRN (Reason: Pain) hydroxychloroquine 200 MG tablet 200 mg PO BID Label Comments: tramadol 50 mg tablet 50 mg PO TID PRN (Reason: Pain) Label Comments: TAKE 1 TABLET BY MOUTH EVERY 4 HOURS NEEDED celecoxib 200 MG capsule 200 mg PO BID Hold Instructions: On plavix for cath 01/16/21 gabapentin 100 mg capsule 300 mg PO TID pantoprazole 40 MG tablet 40 mg PO DAILY Qty: 30 0RF leflunomide 10 mg tablet 10 mg PO DAILY Label Comments: TAKE 1 TABLET BY MOUTH ONCE DAILY amlodipine 5 mg tablet 5 mg PO DAILY Qty: 30 12RF Breo Ellipta 200-25 mcg/dose blister with device 1 inh inhalation QDAY Qty: 60 6RF Rx Instructions: after inhalation, rinse mouth with water and spit out; do not swallow carvedilol 25 mg tablet 25 mg PO BID Qty: 60 11RF furosemide 20 mg tablet 20 mg PO DAILY pravastatin 20 mg tablet 20 mg PO QHS Qty: 30 11RF Primary Care Provider: Annamarie Ho Referrals: Annamarie Ho MD [Primary Care Provider] - Activity Restrictions/Additional Instructions: Please ice, elevate, follow-up with orthopedics Disposition Disposition: Home, Self Care
[2022-04-28 14:34] VITALS: BP 134/78; PULSE 76; RESP 18; O2SAT 97
== END 2022-04-28 14:36 | disposition home or self-care (01) ==
PROVIDERS: Emergency Provider Emergency Medicine; PCP Internal Medicine; Visit Provider Emergency Medicine
DX: S80.01XA Contusion of right knee, initial encounter (principal); I82.461 Acute embolism and thrombosis of right calf muscular vein; Z68.41 Body mass index [BMI] 40.0-44.9, adult; W05.0XXA Fall from non-moving wheelchair, initial encounter; Y93.89 Activity, other specified; Y99.8 Other external cause status; I25.10 Atherosclerotic heart disease of native coronary artery without angina pectoris; I10 Essential (primary) hypertension; M79.7 Fibromyalgia; E66.9 Obesity, unspecified; Z79.01 Long term (current) use of anticoagulants; Z79.899 Other long term (current) drug therapy
CPT/HCPCS: 73564; 99282

== ENCOUNTER 2022-05-22 06:50 | Emergency (ER) | payer MEDICARE, OTHER, SELFPAY ==
[2022-05-22 06:51] VITALS: BP 153/71; PULSE 77; RESP 17; TEMP 36.3; O2SAT 94; BMI 41.0
--- NOTE | 2022-05-22 07:23 | VDLE_ITS ---
Reason For Study: Pain RIGHT LEFT GSV is normal. GSV is normal. CFV is compressible, spontaneous, phasic, CFV is compressible, spontaneous, phasic, competent and demonstrates normal competent, and demonstrates normal augmentation. augmentation. FV is compressible, spontaneous, phasic, FV is compressible, spontaneous, phasic, competent and demonstrates normal competent and demonstrates normal augmentation. augmentation. POP V is compressible, spontaneous, phasic, POP V is compressible, spontaneous, phasic, competent and demonstrates normal competent and demonstrates normal augmentation. augmentation. T/P Trunk is compressible. T/P Trunk is compressible. RT PerV is compressible. PTV is compressible. Acute deep vein thrombosis is noted in the LT PerV is compressible. right posterior tibial vein. Compared to 04/25/2022, no significant change. Nonvascularized structure noted in thr right popliteal fossa to mid calf. Procedure This is a venous duplex using B-mode, color flow and spectral Doppler. Exam performed portable in ED. A preliminary report was called and/or faxed to ED. VL/Venous Duplex US - Jacoby Extrem Interpretation Summary Acute deep vein thrombosis is noted in the right posterior tibial vein. Negativ e for propagation Deep veins of the left lower extremity are patent and compressible segmentally. There is no evidence of left lower extremity deep vein thrombosis. The bilateral great saphenous veins appear patent Nonvascularized structure noted in the right popliteal fossa to mid calf. Ordering Physician: Nessa Sanders Referring Physician: Annamarie Ho M.D. Performed By: Johana Mcgowan RVT
--- NOTE | 2022-05-22 07:25 | EDS_ITS ---
HPI History of Present Illness Chief Complaint: Lower Extremity Injury Detail of Chief Complaint: Patient presents with discomfort of the right leg that started last night. Informant: patient and spouse/S.O. Narrative Narrative: Patient presents the emergency department with pain in the right leg since last night. Patient has a history of a known DVT in the right leg for the last month. Patient has been on Eliquis and has been compliant with the medication. She denies any chest pain or shortness of breath. She denies any injury to the leg. Patient states she normally does not stand very well and yesterday was cooking chili and was standing longer than she was accustomed to. Patient also tells me that her vascular surgeon had recently ordered ultrasound of both lower extremities to evaluate the clot further and she has not heard back from the office to schedule that yet. Patient is concerned about the blood clot propagating as she continues have swelling in the right leg that has been there over the last month. Patient does not feel this is sciatic-like pain and describes pain mostly in the lower leg that at times shoots up towards the right hip. Patient describes it is more of a cramping and muscle spasm/charley horse. [facility] Medical History Atherosclerotic heart disease of [place] coronary artery without angina pectoris RODRIGUEZ (dyspnea on exertion) Essential hypertension Fibromyalgia GERD (gastroesophageal reflux disease) Nonischemic cardiomyopathy Osteoarthritis SVT (supraventricular tachycardia) Home Medications acetaminophen 500 mg tablet 500 - 1,000 mg PO Q6H PRN PRN Pain 09/02/17 [History Last Taken Unknown] hydroxychloroquine 200 mg tablet 200 mg PO BID 09/02/17 [History Last Taken 12/27/17] celecoxib 200 mg capsule 200 mg PO BID 12/27/17 [History Last Taken 12/27/17] pantoprazole 40 mg tablet,delayed release 40 mg PO DAILY #30 tabs 03/02/19 [Rx Last Taken Unknown] quetiapine 200 mg tablet (Seroquel) 100 mg PO QHS 12/16/19 [History Last Taken Unknown] tramadol 50 mg tablet 50 mg PO TID PRN Pain 12/16/19 [History Last Taken Unknown] albuterol sulfate 90 mcg/actuation aerosol inhaler (Ventolin HFA) 2 puff inhalation Q4H PRN shortness of breath or wheezing #18 grams 12/19/20 [Rx Last Taken Unknown] fluticasone furoate 200 mcg-vilanterol 25 mcg/dose inhalation powder (Breo Ellipta) 1 inh inhalation QDAY #60 ea 11/08/21 [Rx Last Taken Unknown] leflunomide 10 mg tablet 10 mg PO DAILY 11/19/21 [History Last Taken Unknown] gabapentin 100 mg capsule 300 mg PO TID 01/11/22 [History Last Taken Unknown] carvedilol 25 mg tablet 25 mg PO BID for next fill , pt picked up RX today #60 tabs 01/18/22 [Rx Last Taken Unknown] escitalopram oxalate 10 mg tablet 10 mg PO 01/25/22 [History Last Taken Unknown] hydrocortisone 2.5 % topical cream with perineal applicator 1 applic LA 01/25/22 [History Last Taken Unknown] ketoconazole 2 % shampoo 1 applic topical 01/25/22 [History Last Taken Unknown] ketoconazole 2 % topical cream 1 applic topical 01/25/22 [History Last Taken Unknown] sennosides 8.6 mg tablet (senna) 8.6 mg PO 01/25/22 [History Last Taken Unknown] trazodone 50 mg tablet 50 mg PO QHS 01/25/22 [History Last Taken Unknown] furosemide 20 mg tablet 20 mg PO DAILY 02/05/22 [History Last Taken Unknown] pravastatin 20 mg tablet 20 mg PO QHS #30 tabs 02/05/22 [Rx Last Taken Unknown] amlodipine 5 mg tablet 2.5 mg PO DAILY 05/16/22 [History Last Taken Unknown] apixaban 5 mg tablet 5 mg PO BID 05/16/22 [History Last Taken Unknown] clopidogrel 75 mg tablet 75 mg PO DAILY 05/16/22 [History Last Taken Unknown] methylprednisolone 4 mg tablets in a dose pack (Medrol (Dick)) 4 mg PO DAILY #21 tabs 05/22/22 [Rx Last Taken Unknown] oxycodone-acetaminophen 5 mg-325 mg tablet (Percocet) 1 tab PO Q6H PRN pain 3 days #14 tabs 05/22/22 [Rx Last Taken Unknown] Allergy/AdvReac Type Severity Reaction Status Date / Time atorvastatin AdvReac Severe Severe Verified 05/22/22 06:54 diarrhea loratadine [From Claritin-D] AdvReac HYPERTENSIO Verified 05/22/22 06:54 N pseudoephedrine AdvReac HYPERTENSIO Verified 05/22/22 06:54 [From Claritin-D] N Family History Father Myocardial infarction CAD (coronary artery disease) Grandfather Cerebral embolism Sister Hypertension Surgical History History of ankle surgery History of cardiac radiofrequency ablation (~01/14/18) History of left heart catheterization (LHC) (~01/16/21) History of tonsillectomy History of tubal ligation Social History Smoking Status: Never smoker alcohol intake: never substance use type: does not use caffeine: Yes Type: carbonated beverages Number of servings: 2 and coffee Number of servings: 2 ROS ROS ED Review of Systems ROS Unobtainable: other Constitutional Constitutional ED: Reports lethargy; Denies chills, fever(s), sweats or weight loss Eyes Eyes: Denies blurry vision, change in vision or diplopia ENT ENT ED: Denies rhinorrhea or sore throat Cardiovascular Cardiovascular: Reports chest pain and racing heartbeat; Denies orthopnea Respiratory/Chest Respiratory/Chest: Reports dyspnea and dyspnea on exertion; Denies cough, orthopnea or sputum Gastrointestinal Gastrointestinal: Denies abdominal pain, diarrhea, nausea or vomiting Genitourinary Genitourinary ED: Denies dysuria, hematuria or urinary frequency Musculoskeletal Musculoskeletal: Reports other Details: Right leg pain ; Denies arthralgias, back pain, myalgias or neck pain Integumentary Denies abscess, Abrasions or rash Neurologic Neurologic: Denies headache(s) or weakness Psychiatric Psychiatric: Denies anxiety, depression or suicidal thoughts Endocrine Endocrinology: Denies polydipsia, polyphagia or polyuria Hematologic/Lymphatic Hematologic/Lymphatic: Denies easy bleeding, easy bruising or lymphadenopathy Allergic/Immunologic Allergic/Immunologic ED: Denies mouth swelling, tongue swelling or urticaria EXAM Physical Exam Const Vital Signs: 05/22/22 06:51 Temperature 97.4 F L Temperature Source Temporal Pulse Rate 77 Respiratory Rate 17 Blood Pressure 153/71 H Blood Pressure Mean 98 Pulse Ox 94 Oxygen Delivery Method Room Air Positive well nourished and well developed General Appearance ED: well developed and NAD HEENT Reports TM's clear and moist mucous membranes normocephalic and atraumatic; Negative for trauma or tenderness Tympanic Membrane ED: Yes TM's clear Eyes PERRL and EOMs intact bilaterally General Eye ED: Negative for pale conjunctiva or scleral icterus Neck no lymphadenopathy, supple and no JVD General: Negative for tenderness Chest Wall inspection of chest normal and palpation of chest normal Chest: Negative for tenderness Resp normal respiratory effort and clear to auscultation bilaterally Effort and Inspection: Negative for respiratory distress or pain with movement Auscultation: Negative for rhonchi, wheezes or diminished lung sounds Cardio regular rate, regular rhythm, S1 normal heart sound, S2 normal heart sound and no murmurs Peripheral Pulses: pulses 2+ throughout GI normal to inspection, nondistended, normoactive bowel sounds, soft to palpation, non-tender, non-distended and no masses Back/Spine no CVA tenderness and no thoracic nor lumbar tenderness Extremity Extremity Narrative: Evaluation of the right leg reveals +1 edema mostly from the knee to the ankle. Patient with some diffuse tenderness over the right calf although no ropes or cords palpated. Patient has normal femoral, popliteal, dorsal pedal and posterior tibial pulses. The foot is warm to the touch and normal cap refill. General Extremety ED: Negative for edema General Extremity: Negative for edema Neuro oriented x3, CN's II-XII intact bilaterally, no sensory deficits noted and gait normal Sensorium / Orientation: awake, alert, oriented to person, oriented to place and oriented to time Motor Exam: strength 5/5 throughout and strength abnormal Psych mental status grossly normal Skin no rashes or lesions noted and no wounds MDM MDM MDM Narrative Medical decision making narrative: I did obtain chemistries and patient did have a potassium of 3.3 for which I did give her 40 mEq of potassium chloride p.o. Venous Doppler of both lower extremity obtained showed no evidence of clot in the left leg and the right leg continue to have a clot in the tibial vein that really has no significant change from prior study from April 25, 2022. I did give patient 1 Oxy IR tablet p.o. and she did have some relief of her pain. She is now complaining of pain into the right hip. Now she thinks that maybe this could be sciatic type discomfort. She not had any recent falls or injuries to the hip. I feel patient can be discharged home. I will start her on a Medrol Dosepak and write her prescription for oxycodone for pain. She is advised to follow-up with her primary care physician within next 3 to 5 days. There is no evidence of cauda equina. There is no weakness in the extremity. Patient advised to return if worsening pain, weakness in extremity, change in bowel or bladder function, or condition should worsen anyway. Lab Data Attestation: I reviewed the patient's lab results. Labs: Laboratory Results - last 24 hr 05/22/22 07:36 Sodium 129 L Potassium 3.3 L Chloride 91 L Carbon Dioxide 30.0 Anion Gap 8 BUN 35 H Creatinine 1.53 H Estim Creat Clear Calc 27.06 Est GFR (MDRD) Af Amer 43 L Est GFR (MDRD) Non-Af 36 L BUN/Creatinine Ratio 22.9 H Glucose 108 H Calcium 9.4 Discharge Plan Triage Chief Complaint: Lower Extremity Injury ED Provider: Nessa Sanders Dx/Rx/DC Orders Clinical Impression: Sciatica, Acute pain of right lower extremity Instructions: ED Pain, Acute, Uncertain Cause, ED Sciatica Prescriptions: New methylprednisolone [Medrol (Dick)] 4 mg tablets,dose pack 4 mg PO DAILY Qty: 21 0RF oxycodone-acetaminophen [Percocet] 5-325 mg tablet 1 tab PO Q6H PRN (Reason: pain) 3 Days Qty: 14 0RF No Action quetiapine [Seroquel] 200 mg tablet 100 mg PO QHS albuterol sulfate [Ventolin HFA] 90 mcg/actuation HFA aerosol inhaler 2 puff INHALATION Q4H PRN (Reason: shortness of breath or wheezing) Qty: 18 6RF trazodone 50 mg tablet 50 mg PO QHS escitalopram oxalate 10 mg tablet 10 mg PO Label Comments: TAKE 1 TABLET BY MOUTH DAILY hydrocortisone 2.5 % cream with perineal applicator 1 applic LA Label Comments: apply rectally TWICE DAILY ketoconazole 2 % cream 1 applic topical ketoconazole 2 % shampoo 1 applic topical Label Comments: APPLY TO THE AFFECTED AREA(S) DAILY NEEDED. Lather and rinse after 2 (TWO) to 5 (FIVE) MINUTES sennosides [senna] 8.6 mg tablet 8.6 mg PO Label Comments: Take 1-2 tablets by mouth once daily as needed. amlodipine 5 mg tablet 2.5 mg PO DAILY acetaminophen 500 MG tablet 500 - 1,000 mg PO Q6H PRN PRN (Reason: Pain) hydroxychloroquine 200 MG tablet 200 mg PO BID Label Comments: tramadol 50 mg tablet 50 mg PO TID PRN (Reason: Pain) Label Comments: TAKE 1 TABLET BY MOUTH EVERY 4 HOURS NEEDED celecoxib 200 MG capsule 200 mg PO BID Hold Instructions: On plavix for cath 01/16/21 gabapentin 100 mg capsule 300 mg PO TID pantoprazole 40 MG tablet 40 mg PO DAILY Qty: 30 0RF leflunomide 10 mg tablet 10 mg PO DAILY Label Comments: TAKE 1 TABLET BY MOUTH ONCE DAILY Breo Ellipta 200-25 mcg/dose blister with device 1 inh inhalation QDAY Qty: 60 6RF Rx Instructions: after inhalation, rinse mouth with water and spit out; do not swallow carvedilol 25 mg tablet 25 mg PO BID Qty: 60 11RF furosemide 20 mg tablet 20 mg PO DAILY pravastatin 20 mg tablet 20 mg PO QHS Qty: 30 11RF Primary Care Provider: Annamarie Ho Referrals: Annamarie Ho MD [Primary Care Provider] - 3-5 Days Disposition Disposition: Home, Self Care
[2022-05-22] MEDS: oxyCODONE 5 MG Tablet PO (07:31)
[2022-05-22 08:01] LABS: Anion Gap 8 (5-15); BUN 35 mg/dL (7-18); BUN/Creat Ratio 22.9 RATIO (10-20); Calcium,Total 9.4 mg/dL (8.5-10.1); Chloride 91 mmol/L (98-107); Creatinine, Serum 1.53 mg/dL (0.55-1.02); EST Glomerular Filtration Rate 36 mL/min (>60); Est Glom Filt Rate - Afr Amer 43 mL/min (>60); Estimated Creatinine Clearance 27.06 ml/min; Glucose 108 mg/dL (74-106); Potassium 3.3 mmol/L (3.5-5.1); Sodium Level 129 mmol/L (136-145)
[2022-05-22 09:19] VITALS: BP 124/77; PULSE 62; RESP 15; O2SAT 98
[2022-05-22] MEDS: Potassium Chloride Oral Tablet 20 MEQ 40 MEQ PO (09:21)
== END 2022-05-22 09:32 | disposition home or self-care (01) ==
PROVIDERS: Emergency Provider Emergency Medicine; PCP Internal Medicine; Visit Provider Emergency Medicine
DX: I82.441 Acute embolism and thrombosis of right tibial vein (principal); M54.30 Sciatica, unspecified side; I25.10 Atherosclerotic heart disease of native coronary artery without angina pectoris; I10 Essential (primary) hypertension; E87.6 Hypokalemia; M79.7 Fibromyalgia; Z79.01 Long term (current) use of anticoagulants; Z79.02 Long term (current) use of antithrombotics/antiplatelets; Z79.899 Other long term (current) drug therapy
CPT/HCPCS: 36415; 80048; 93970; 99283

== ENCOUNTER → 2022-07-05 | Outpatient (CLI) | payer MEDICARE, OTHER, SELFPAY ==
[2022-07-05 17:36] LABS: Absolute Lymphocyte Count 0.75 X10^3/uL (0.83-4.51); Absolute Neutrophil Count 3.8 X10^3/uL (2.0-7.7); Basophil# 0.06 X10^3/uL; Eosinophil# 0.23 X10^3/uL; Eosinophils% 3.9 % (0-5); Hematocrit 31.1 % (37-47); Hemoglobin 9.6 g/dL (12.0-15.0); Lymphocyte # 0.75 X10^3/ul (0.83-4.51); Lymphocyte % 12.7 % (19-41); Mean Corp Hgb Conc 30.9 g/dL (32-36); Mean Corpuscular Hgb 28.5 pg (27.0-32.0); Mean Corpuscular Volume 92.3 fL (81-99); Monocyte# 1.06 X10^3/uL; Monocyte% 17.9 % (0-10); NRBC Flagged by Analyzer 0 % (0-5); Neutrophil % 64.2 % (47-70); Platelet Count 239 K/mm3 (150-450); RBC Distribution Width CV 14.6 % (11.6-14.6); RBC Distribution Width SD 49.7 fl (35.1-43.9); Red Blood Count 3.37 M/mm3 (4.2-5.4); White Blood Count 5.9 K/mm3 (4.4-11.0)
[2022-07-05 18:02] LABS: ALB/GLOB Ratio 1.3 RATIO (0.9-2.4); AST(SGOT) 16 U/L (15-37); Alanine Aminotransfer ALT/SGPT 19 U/L (13-56); Albumin, Serum 3.7 g/dL (3.2-5.0); Alkaline Phosphatase 89 U/L (45-117); Anion Gap 8 (5-15); BUN 30 mg/dL (7-18); BUN/Creat Ratio 19.9 RATIO (10-20); Chloride 92 mmol/L (98-107); Creatinine, Serum 1.51 mg/dL (0.55-1.02); EST Glomerular Filtration Rate 36 mL/min (>60); Est Glom Filt Rate - Afr Amer 44 mL/min (>60); Globulin 2.9 g/dL (2.2-4.2); Glucose 86 mg/dL (74-106); Potassium 3.8 mmol/L (3.5-5.1); Protein, Total 6.6 g/dL (6.4-8.2); Sodium Level 130 mmol/L (136-145)
== END | disposition home or self-care (01) ==
LOC: MTLAB 15:03
PROVIDERS: PCP Internal Medicine; Referring Provider Internal Medicine Rheumatology; Visit Provider Internal Medicine Rheumatology
DX: Z79.899 Other long term (current) drug therapy (principal); M06.09 Rheumatoid arthritis without rheumatoid factor, multiple sites; I42.8 Other cardiomyopathies; F31.9 Bipolar disorder, unspecified; I48.0 Paroxysmal atrial fibrillation; I47.1 Supraventricular tachycardia; M79.7 Fibromyalgia; M19.279 Secondary osteoarthritis, unspecified ankle and foot; M18.11 Unilateral primary osteoarthritis of first carpometacarpal joint, right hand; M19.071 Primary osteoarthritis, right ankle and foot; M48.061 Spinal stenosis, lumbar region without neurogenic claudication; I10 Essential (primary) hypertension; Z86.79 Personal history of other diseases of the circulatory system; J45.909 Unspecified asthma, uncomplicated; G47.33 Obstructive sleep apnea (adult) (pediatric); M81.0 Age-related osteoporosis without current pathological fracture; K21.9 Gastro-esophageal reflux disease without esophagitis; Z87.19 Personal history of other diseases of the digestive system; K44.9 Diaphragmatic hernia without obstruction or gangrene
CPT/HCPCS: 36415; 80053; 85025

== ENCOUNTER → 2022-07-09 | Outpatient (CLI) | payer MEDICARE, OTHER, SELFPAY ==
[2022-07-09 14:31] LABS: Absolute Lymphocyte Count 0.73 X10^3/uL (0.83-4.51); Absolute Neutrophil Count 4.5 X10^3/uL (2.0-7.7); Basophil# 0.07 X10^3/uL; Basophil% 1.1 % (0-1); Eosinophil# 0.21 X10^3/uL; Eosinophils% 3.4 % (0-5); Hematocrit 31.5 % (37-47); Hemoglobin 10.1 g/dL (12.0-15.0); Lymphocyte # 0.73 X10^3/ul (0.83-4.51); Lymphocyte % 11.7 % (19-41); Mean Corp Hgb Conc 32.1 g/dL (32-36); Mean Corpuscular Hgb 29.8 pg (27.0-32.0); Mean Corpuscular Volume 92.9 fL (81-99); Mean Platelet Vol. 9.5 fl (6.2-12.0); Monocyte% 11.2 % (0-10); NRBC Flagged by Analyzer 0 % (0-5); Neutrophil # 4.51 X10^3/uL (2.7-7.7); Neutrophil % 72.3 % (47-70); Platelet Count 235 K/mm3 (150-450); RBC Distribution Width CV 14.8 % (11.6-14.6); RBC Distribution Width SD 51.1 fl (35.1-43.9); Red Blood Count 3.39 M/mm3 (4.2-5.4); White Blood Count 6.2 K/mm3 (4.4-11.0)
[2022-07-09 14:55] LABS: BNP,B-Type NATRIURETIC PEPTIDE 48.7 pg/mL (0-100)
[2022-07-09 15:28] LABS: BUN 33 mg/dL (7-18); Creatinine, Serum 1.63 mg/dL (0.55-1.02); EST Glomerular Filtration Rate 33 mL/min (>60); Glucose 105 mg/dL (74-106)
[2022-07-09 15:29] LABS: Anion Gap 8 (5-15); BUN/Creat Ratio 20.2 RATIO (10-20); Calcium,Total 9.1 mg/dL (8.5-10.1); Chloride 95 mmol/L (98-107); Est Glom Filt Rate - Afr Amer 40 mL/min (>60); Potassium 3.5 mmol/L (3.5-5.1); Sodium Level 132 mmol/L (136-145)
== END | disposition home or self-care (01) ==
LOC: LAB 13:40
PROVIDERS: PCP Internal Medicine; Referring Provider Nurse Practitioner Gerontology; Visit Provider Nurse Practitioner Gerontology
DX: R06.00 Dyspnea, unspecified (principal)
CPT/HCPCS: 36415; 80048; 83880; 85025

== ENCOUNTER → 2022-07-26 | Outpatient (CLI) | payer MEDICARE, OTHER, SELFPAY ==
--- NOTE | 2022-07-26 14:50 | VDLE_ITS ---
Reason For Study: Swelling RIGHT GSV is normal. CFV is compressible, spontaneous, phasic, competent and demonstrates normal augmentation. FV is compressible, spontaneous, phasic, competent and demonstrates normal augmentation. POP V is compressible, spontaneous, phasic, competent and demonstrates normal augmentation. T/P Trunk is compressible. PTV is compressible. RT PerV is compressible. Hypoechoic, non vascular structure noted Rt medial, prox calf measuring 0.67cm x 3.02cm. Procedure This is a venous duplex using B-mode, color flow and spectral Doppler. Exam performed in department. A preliminary report was called and/or faxed to [facility]. VL/Venous Duplex US, Unilateral Interpretation Summary Deep veins of the right lower extremity are patent and compressible segmentally . There is no evidence of right lower extremity deep vein thrombosis. The right great sapheno us vein appears patent and compressible segmentally. Hypoechoic, non vascular structure noted in medial, proximal calf measuring 0.6 7cm x 3.02cm. Ordering Physician: Era Romero Referring Physician: Annamarie Ho Performed By: Monie Gonzalez, RDCS, RVT
== END | disposition home or self-care (01) ==
LOC: CVS 14:45
PROVIDERS: PCP Internal Medicine; Visit Provider Physician Assistant
DX: I82.409 Acute embolism and thrombosis of unspecified deep veins of unspecified lower extremity (principal); M79.89 Other specified soft tissue disorders
CPT/HCPCS: 93971

== ENCOUNTER 2022-09-12 14:45 | Emergency (ER) | payer MEDICARE, OTHER, SELFPAY ==
[2022-09-12 14:45] VITALS: BP 129/82; PULSE 70; RESP 16; TEMP 36.6; O2SAT 97; BMI 38.7
--- NOTE | 2022-09-12 17:05 | ED.VIS.LOWEX ---
HPI History of Present Illness HPI Narrative: Complaining of right thigh not concern for DVT. Prior history of right lower leg DVT. That was 3 months ago. She is now off her blood thinner medication, Eliquis, due to the cost. Also complaining of left foot swelling. No trauma except that her dog stepped on her foot. The swelling is gotten worse over the last 3 days. Chief Complaint: Lower Extremity Injury Informant: patient Occured/Mechanism Mechanism/Context: No injury Onset/Context/Timing Onset: Days Context: Gradual Onset Timing: Continuous Quality of Pain: Dull Current Severity: Mild Maximum Severity: Mild Associated Symptoms Associated Symptoms: Negative for Parasthesia, Weakness or Loss of Funtion Narrative Narrative: 72-year-old female history of prior DVT 3 months ago in her right leg she was on Eliquis. Recently stopped Eliquis due to expense. She did discuss that with her primary care physician. She also has a history of A-fib with a prior ablation. States since has been off the Eliquis she has noticed a knot in her right lower thigh hamstring region. And has had swelling in her left foot. She is concerned she may have another blood clot. Also states that her dog had stepped on her left foot. She does not know if she could have broken a bone in her left foot. States the swelling is gotten worse last 3 days. Denies any chest pain or shortness of breath. Prior similar symptoms: Yes Recent Illness/Hospitalization: No PFSH PFSH Medical History Atherosclerotic heart disease of [place] coronary artery without angina pectoris RODRIGUEZ (dyspnea on exertion) Essential hypertension Fibromyalgia GERD (gastroesophageal reflux disease) Nonischemic cardiomyopathy Osteoarthritis SVT (supraventricular tachycardia) Home Medications acetaminophen 500 mg tablet 500 - 1,000 mg PO Q6H PRN PRN Pain 09/02/17 [History Last Taken Unknown] hydroxychloroquine 200 mg tablet 200 mg PO BID 09/02/17 [History Last Taken 12/27/17] celecoxib 200 mg capsule 200 mg PO BID 12/27/17 [History Last Taken 12/27/17] pantoprazole 40 mg tablet,delayed release 40 mg PO DAILY #30 tabs 03/02/19 [Rx Last Taken Unknown] quetiapine 200 mg tablet (Seroquel) 100 mg PO QHS 12/16/19 [History Last Taken Unknown] tramadol 50 mg tablet 50 mg PO TID PRN Pain 12/16/19 [History Last Taken Unknown] albuterol sulfate 90 mcg/actuation aerosol inhaler (Ventolin HFA) 2 puff inhalation Q4H PRN shortness of breath or wheezing #18 grams 12/19/20 [Rx Last Taken Unknown] leflunomide 10 mg tablet 10 mg PO DAILY 11/19/21 [History Last Taken Unknown] gabapentin 100 mg capsule 300 mg PO TID 01/11/22 [History Last Taken Unknown] carvedilol 25 mg tablet 25 mg PO BID for next fill , pt picked up RX today #60 tabs 01/18/22 [Rx Last Taken Unknown] escitalopram oxalate 10 mg tablet 10 mg PO 01/25/22 [History Last Taken Unknown] hydrocortisone 2.5 % topical cream with perineal applicator 1 applic [place] 01/25/22 [History Last Taken Unknown] ketoconazole 2 % shampoo 1 applic topical 01/25/22 [History Last Taken Unknown] ketoconazole 2 % topical cream 1 applic topical 01/25/22 [History Last Taken Unknown] sennosides 8.6 mg tablet (senna) 8.6 mg PO 01/25/22 [History Last Taken Unknown] trazodone 50 mg tablet 50 mg PO QHS 01/25/22 [History Last Taken Unknown] pravastatin 20 mg tablet 20 mg PO QHS #30 tabs 02/05/22 [Rx Last Taken Unknown] apixaban 5 mg tablet 5 mg PO BID 05/16/22 [History Last Taken Unknown] clopidogrel 75 mg tablet 75 mg PO DAILY 05/16/22 [History Last Taken Unknown] oxycodone-acetaminophen 5 mg-325 mg tablet (Percocet) 1 tab PO Q6H PRN pain 3 days #14 tabs 05/22/22 [Rx Last Taken Unknown] fluticasone furoate 200 mcg-vilanterol 25 mcg/dose inhalation powder (Breo Ellipta) 1 inh inhalation QDAY #60 ea 07/03/22 [Rx Last Taken Unknown] furosemide 20 mg tablet 40 mg PO DAILY 07/09/22 [History Last Taken Unknown] hydrochlorothiazide 12.5 mg tablet 12.5 mg PO DAILY 07/09/22 [History Last Taken Unknown] amlodipine 5 mg tablet 5 mg PO DAILY #90 tabs 09/09/22 [Rx Last Taken Unknown] Allergy/AdvReac Type Severity Reaction Status Date / Time atorvastatin AdvReac Severe Severe Verified 09/12/22 14:47 diarrhea loratadine [From Claritin-D] AdvReac HYPERTENSIO Verified 09/12/22 14:47 N pseudoephedrine AdvReac HYPERTENSIO Verified 09/12/22 14:47 [From Claritin-D] N Family History Father Myocardial infarction CAD (coronary artery disease) Grandfather Cerebral embolism Sister Hypertension Surgical History History of ankle surgery History of cardiac radiofrequency ablation (~01/14/18) History of left heart catheterization (LHC) (~01/16/21) History of tonsillectomy History of tubal ligation Social History Smoking Status: Never smoker alcohol intake: never substance use type: does not use caffeine: Yes Type: carbonated beverages Number of servings: 2 and coffee Number of servings: 2 ROS ROS ED ROS Narrative Denies recent illness. Review of Systems ROS Unobtainable: Denies due to encephalopathy Constitutional Constitutional ED: Denies chills or fever(s) Eyes Eyes: Denies blurry vision ENT ENT ED: Denies ear pain Cardiovascular Cardiovascular: Denies chest pain Respiratory/Chest Respiratory/Chest: Denies cough or dyspnea Gastrointestinal Gastrointestinal: Denies abdominal pain Genitourinary Genitourinary ED: Denies dysuria or hematuria Musculoskeletal Musculoskeletal: Denies arthralgias Integumentary Denies abscess Neurologic Neurologic: Denies headache(s) Psychiatric Psychiatric: Denies anxiety Endocrine Endocrinology: Denies polydipsia Hematologic/Lymphatic Hematologic/Lymphatic: Denies easy bleeding Allergic/Immunologic Allergic/Immunologic ED: Denies mouth swelling or tongue swelling EXAM Physical Exam Narrative Exam Narrative: 72-year-old female no acute distress. Vital signs stable afebrile. Pulse ox 97% on room air no signs hypoxia. H EENT exam unremarkable. Neck nontender no lymphadenopathy. Lungs clear to auscultation. Heart regular rhythm rate about 70 no murmur. Abdomen soft nontender normal bowel sounds. No peritoneal signs. Moving all 4 extremities. Neurovascular intact. Her right thigh and hamstring region just above the knee there is an area of bruising. It is about 2 inches in length. It is circular. I do not feel an obvious cord. That is her concern in her right leg. Calf is nontender. Not swollen. Right foot is neurovascular intact. She has swelling mild tenderness to her left foot. Bruising about the second toe. No gross bony deformity. Normal DP pulse. No cellulitis. Left calf is nontender trace edema in the lower leg. Neurologically she is awake and alert. Const Vital Signs: 09/12/22 14:45 Temperature 97.8 F Temperature Source Temporal Pulse Rate 70 Respiratory Rate 16 Blood Pressure 129/82 H Blood Pressure Mean 97 Pulse Ox 97 Oxygen Delivery Method Room Air Positive well nourished, well developed and obese; Negative for cachectic, contractures or unkempt General Appearance ED: well developed; Negative for unkempt, cachectic or contractures Nutritional Appearance: obese; Negative for cachectic HEENT Reports moist mucous membranes normocephalic and atraumatic; Negative for trauma or tenderness Eyes PERRL General Eye ED: Negative for other Neck full ROM and supple Thyroid: Negative for tender Lymph Lymphatic: Negative for other Chest Wall inspection of chest normal and palpation of chest normal Chest: Negative for other Resp normal respiratory effort, no retractions and clear to auscultation bilaterally Effort and Inspection: Negative for pain with movement Auscultation: Negative for rales, rhonchi or wheezes Cardio regular rate, regular rhythm, S1 normal heart sound, S2 normal heart sound and no murmurs Rate: Negative for bradycardia Rhythm: Negative for abnormal rhythm Bruits: Negative for other GI non-tender, non-distended and no masses Inspection: Negative for abdominal distention Auscultation: normoactive bowel sounds Palpation: soft; Negative for tender or guarding Back/Spine no CVA tenderness Extremity full ROM; Negative for normal to inspection Extremity Narrative: Left foot mildly swollen and tender. No deformity. Neurovascular intact with normal DP pulse. Able to wiggle her toes. No cellulitis. Bruising about the second toe. Normal touch sensation. Right distal medial thigh and hamstring there is a 2 inch bruise. No cord. Normal strength. General Extremety ED: Yes edema; Negative for cyanosis General Extremity: edema; Negative for cyanosis Neuro oriented x3, CN's II-XII intact bilaterally and moves all extremities Sensorium / Orientation: alert, oriented to person, oriented to place and oriented to time; Negative for orientation impaired, confused, lethargic or stuporous Motor Exam: strength 5/5 throughout Psych mental status grossly normal Appearance: Negative for unkempt Mood & Affect: Negative for anxious Skin no wounds Lesions: no lesions Rashes: no rashes Trauma: Negative for abrasion or laceration MDM MDM MDM Narrative Medical decision making narrative: 72-year-old with prior DVT off of Eliquis due to cost. She has a bruise in her right leg she is concerned she has another blood clot and also has swelling in her left foot she is concerned she has a blood clot there. Ultrasounds of both legs will be obtained. Also an x-ray of the left foot due to possible fracture of the foot or toes. She does not need any labs at this time. Repeat exam patient is doing well at 6:55 PM. I discussed her x-ray results with her. She will be placed in a postop shoe. Ice and elevate her foot. She is actually tolerating the pain well. She can use Tylenol. I explained to her she did not have a blood clot and she has a bruise to her right thigh. She will be discharged home with outpatient follow-up. Radiography Diagnostic Testing: Clinical Impression(s) from Imaging Studies Foot X-Ray 09/12/22 17:10 IMPRESSION: Healing fractures of the second through fourth metatarsals. There is a large amount of soft tissue swelling present. Electronically Signed: David Avila MD at 17:21 EST , Venous Duplex 09/12/22 17:26 IMPRESSION: No sonographic evidence of deep venous thrombosis. There is an echogenic focus in the subcutaneous tissues in the right knee which may represent a subcutaneous hematoma. Electronically Signed: David Avila MD at 18:44 EST , Left foot x-ray, 3 views, interpreted by the radiologist shows healing metatarsal fractures of the second third and fourth metatarsals. Venous duplex studies of both lower extremities show no DVT per the maintenance service technician. There is a small hematoma along the right knee. Discharge Plan Triage Chief Complaint: Lower Extremity Injury ED Provider: Linwood Hoover Dx/Rx/DC Orders Clinical Impression: Hematoma of right lower extremity, Fracture of metatarsal bone of left foot, History of deep vein thrombosis Instructions: ED Fracture, Foot, ED Hematoma Prescriptions: No Action quetiapine [Seroquel] 200 mg tablet 100 mg PO QHS albuterol sulfate [Ventolin HFA] 90 mcg/actuation HFA aerosol inhaler 2 puff INHALATION Q4H PRN (Reason: shortness of breath or wheezing) Qty: 18 6RF trazodone 50 mg tablet 50 mg PO QHS escitalopram oxalate 10 mg tablet 10 mg PO Label Comments: TAKE 1 TABLET BY MOUTH DAILY hydrocortisone 2.5 % cream with perineal applicator 1 applic [place] Label Comments: apply rectally TWICE DAILY ketoconazole 2 % cream 1 applic topical ketoconazole 2 % shampoo 1 applic topical Label Comments: APPLY TO THE AFFECTED AREA(S) DAILY NEEDED. Lather and rinse after 2 (TWO) to 5 (FIVE) MINUTES sennosides [senna] 8.6 mg tablet 8.6 mg PO Label Comments: Take 1-2 tablets by mouth once daily as needed. hydrochlorothiazide 12.5 mg tablet 12.5 mg PO DAILY acetaminophen 500 MG tablet 500 - 1,000 mg PO Q6H PRN PRN (Reason: Pain) hydroxychloroquine 200 MG tablet 200 mg PO BID Label Comments: tramadol 50 mg tablet 50 mg PO TID PRN (Reason: Pain) Label Comments: TAKE 1 TABLET BY MOUTH EVERY 4 HOURS NEEDED celecoxib 200 MG capsule 200 mg PO BID Hold Instructions: On plavix for cath 01/16/21 gabapentin 100 mg capsule 300 mg PO TID pantoprazole 40 MG tablet 40 mg PO DAILY Qty: 30 0RF leflunomide 10 mg tablet 10 mg PO DAILY Label Comments: TAKE 1 TABLET BY MOUTH ONCE DAILY oxycodone-acetaminophen [Percocet] 5-325 mg tablet 1 tab PO Q6H PRN (Reason: pain) 3 Days Qty: 14 0RF carvedilol 25 mg tablet 25 mg PO BID Qty: 60 11RF pravastatin 20 mg tablet 20 mg PO QHS Qty: 30 11RF fluticasone furoate-vilanterol [Breo Ellipta] 200-25 mcg/dose blister with device 1 inh inhalation QDAY Qty: 60 6RF Rx Instructions: after inhalation, rinse mouth with water and spit out; do not swallow furosemide 20 mg tablet 40 mg PO DAILY amlodipine 5 mg tablet 5 mg PO DAILY Qty: 90 3RF Rx Instructions: new dosage Primary Care Provider: Annamarie Ho Referrals: Joseph Cuellar DPM [Med Staff - Active Staff] - As Needed Annamarie Ho MD [Primary Care Provider] - As Needed Activity Restrictions/Additional Instructions: No blood clots in either leg. 3 fractures that are healing in your left foot Bruise to your right thigh. Ice and elevate the foot to decrease pain and swelling. Follow-up with the shaft repairer as needed. Disposition Disposition: Home, Self Care
--- NOTE | 2022-09-12 17:10 | RAD_ITS ---
EXAM: XR LEFT FOOT COMPLETE, 3 OR MORE VIEWS CLINICAL INDICATION: swelling TECHNIQUE: Frontal, lateral and oblique views of the left foot. This report was created using [employer] report generation technology. COMPARISON: 12-10 FINDINGS: BONES/JOINTS: There are fractures of the second third and fourth metatarsals. There is some heterotopic bone around the second and third metatarsals with a represent healing fractures. There is hardware from previous repairs of bilateral malleoli fractures. Preservation of the joint space. No sclerotic or destructive changes observed. SOFT TISSUES: There is soft tissue swelling over the dorsum of foot. No radiopaque foreign body. RAD/Foot min 3 Views IMPRESSION: Healing fractures of the second through fourth metatarsals. There is a large amount of soft tissue swelling present. Electronically Signed: David Avila MD at 17:21 EST ,
--- NOTE | 2022-09-12 17:26 | US_ITS ---
EXAM: US DUPLEX BILATERAL LOWER EXTREMITIES VEINS CLINICAL INDICATION: RT PALP KNOT MEDIAL KNEE AND LT FOOT SWELLING TECHNIQUE: Real-time duplex ultrasound scan of the bilateral lower extremity veins integrating B-mode two-dimensional vascular structure, Doppler spectral analysis, color flow Doppler imaging and compression. This report was created using [employer] report generation technology. COMPARISON: None. FINDINGS: RIGHT DEEP VEINS: Unremarkable. No DVT in the right common femoral, femoral, proximal deep femoral or popliteal veins. The veins demonstrate normal color flow, are normally compressible, with normal phasic flow and/or augmentation response. RIGHT SUPERFICIAL VEINS: Unremarkable. No thrombus in the visualized right great saphenous vein. LEFT DEEP VEINS: Unremarkable. No DVT in the left common femoral, femoral, proximal deep femoral or popliteal veins. The veins demonstrate normal color flow, are normally compressible, with normal phasic flow and/or augmentation response. LEFT SUPERFICIAL VEINS: Unremarkable. No thrombus in the visualized left great saphenous vein. SOFT TISSUES: There is a 1.1 x 0.9 1.9 cm echogenic focus in the subcutaneous tissues of the medial right knee possibly representing a hematoma. No popliteal cyst. US/Venous Duplex Imag/Jacoby Extrem IMPRESSION: No sonographic evidence of deep venous thrombosis. There is an echogenic focus in the subcutaneous tissues in the right knee which may represent a subcutaneous hematoma. Electronically Signed: David Avila MD at 18:44 EST ,
[2022-09-12 19:00] VITALS: PULSE 68; RESP 19; O2SAT 93
== END 2022-09-12 19:20 | disposition home or self-care (01) ==
PROVIDERS: Emergency Provider Emergency Medicine; PCP Internal Medicine; Visit Provider Emergency Medicine
DX: S80.11XA Contusion of right lower leg, initial encounter (principal); S92.302A Fracture of unspecified metatarsal bone(s), left foot, initial encounter for closed fracture; I25.10 Atherosclerotic heart disease of native coronary artery without angina pectoris; E66.9 Obesity, unspecified; Z86.718 Personal history of other venous thrombosis and embolism; X58.XXXA Exposure to other specified factors, initial encounter
CPT/HCPCS: 73630; 93970; 99283

== ENCOUNTER → 2022-09-26 | Outpatient (CLI) | payer MEDICARE, OTHER, SELFPAY ==
[2022-09-26 17:50] LABS: Absolute Lymphocyte Count 0.58 X10^3/uL (0.83-4.51); Absolute Neutrophil Count 5.4 X10^3/uL (2.0-7.7); Basophil# 0.04 X10^3/uL; Basophil% 0.6 % (0-1); Eosinophil# 0.03 X10^3/uL; Eosinophils% 0.4 % (0-5); Hemoglobin 9.2 g/dL (12.0-15.0); Lymphocyte # 0.58 X10^3/ul (0.83-4.51); Lymphocyte % 8.6 % (19-41); Mean Corp Hgb Conc 30.7 g/dL (32-36); Mean Corpuscular Volume 91.5 fL (81-99); Mean Platelet Vol. 9.8 fl (6.2-12.0); Monocyte# 0.71 X10^3/uL; Monocyte% 10.5 % (0-10); NRBC Flagged by Analyzer 0 % (0-5); Neutrophil # 5.39 X10^3/uL (2.7-7.7); Neutrophil % 79.5 % (47-70); POSITIVE DIFFERENTIAL YES; Platelet Count 292 K/mm3 (150-450); RBC Distribution Width CV 14.6 % (11.6-14.6); RBC Distribution Width SD 48.8 fl (35.1-43.9); Red Blood Count 3.28 M/mm3 (4.2-5.4); White Blood Count 6.8 K/mm3 (4.4-11.0)
[2022-09-26 18:18] LABS: ALB/GLOB Ratio 1.1 RATIO (0.9-2.4); AST(SGOT) 19 U/L (15-37); Alanine Aminotransfer ALT/SGPT 16 U/L (13-56); Albumin, Serum 3.6 g/dL (3.2-5.0); Alkaline Phosphatase 82 U/L (45-117); Anion Gap 8 (5-15); BUN 24 mg/dL (7-18); BUN/Creat Ratio 19.7 RATIO (10-20); Calcium,Total 9.1 mg/dL (8.5-10.1); Chloride 96 mmol/L (98-107); Creatinine, Serum 1.22 mg/dL (0.55-1.02); Differential Indicated SCAN CRITERIA MET; EST Glomerular Filtration Rate 46 mL/min (>60); Est Glom Filt Rate - Afr Amer 56 mL/min (>60); Globulin 3.4 g/dL (2.2-4.2); Glucose 110 mg/dL (74-106); Potassium 3.8 mmol/L (3.5-5.1); Sodium Level 131 mmol/L (136-145)
[2022-09-26 18:19] LABS: Differential Comment SCANNED
== END | disposition home or self-care (01) ==
LOC: MTLAB 15:54
PROVIDERS: PCP Internal Medicine; Referring Provider Internal Medicine Rheumatology; Visit Provider Internal Medicine Rheumatology
DX: M06.09 Rheumatoid arthritis without rheumatoid factor, multiple sites (principal); I42.8 Other cardiomyopathies; F31.9 Bipolar disorder, unspecified; I48.0 Paroxysmal atrial fibrillation; I47.1 Supraventricular tachycardia; Z79.899 Other long term (current) drug therapy; M79.7 Fibromyalgia; M19.279 Secondary osteoarthritis, unspecified ankle and foot; M18.11 Unilateral primary osteoarthritis of first carpometacarpal joint, right hand; M19.071 Primary osteoarthritis, right ankle and foot; M48.061 Spinal stenosis, lumbar region without neurogenic claudication; M17.0 Bilateral primary osteoarthritis of knee; Z86.79 Personal history of other diseases of the circulatory system; J45.909 Unspecified asthma, uncomplicated; G47.33 Obstructive sleep apnea (adult) (pediatric); M81.0 Age-related osteoporosis without current pathological fracture; K21.9 Gastro-esophageal reflux disease without esophagitis; Z87.19 Personal history of other diseases of the digestive system; K44.9 Diaphragmatic hernia without obstruction or gangrene; I10 Essential (primary) hypertension
CPT/HCPCS: 36415; 80053; 85025

== ENCOUNTER → 2022-12-09 | Outpatient (CLI) | payer MEDICARE, OTHER, SELFPAY ==
[2022-12-09 15:02] LABS: Absolute Lymphocyte Count 0.71 X10^3/uL (0.83-4.51); Basophil# 0.08 X10^3/uL; Basophil% 1.4 % (0-1); Eosinophil# 0.21 X10^3/uL; Eosinophils% 3.7 % (0-5); Hematocrit 35.6 % (37-47); Lymphocyte # 0.71 X10^3/ul (0.83-4.51); Lymphocyte % 12.4 % (19-41); Mean Corp Hgb Conc 30.9 g/dL (32-36); Mean Corpuscular Hgb 28.8 pg (27.0-32.0); Mean Corpuscular Volume 93.2 fL (81-99); Mean Platelet Vol. 10.3 fl (6.2-12.0); Monocyte# 0.74 X10^3/uL; Monocyte% 12.9 % (0-10); NRBC Flagged by Analyzer 0 % (0-5); Neutrophil # 3.95 X10^3/uL (2.7-7.7); Neutrophil % 69.1 % (47-70); Platelet Count 226 K/mm3 (150-450); RBC Distribution Width CV 16.9 % (11.6-14.6); RBC Distribution Width SD 57.9 fl (35.1-43.9); Red Blood Count 3.82 M/mm3 (4.2-5.4); White Blood Count 5.7 K/mm3 (4.4-11.0)
[2022-12-09 15:26] LABS: Hemoglobin A1c 5.4 % (3.8-5.6)
[2022-12-09 15:34] LABS: BUN 36 mg/dL (7-18); Creatinine, Serum 1.33 mg/dL (0.55-1.02); EST Glomerular Filtration Rate 42 mL/min (>60); Glucose 96 mg/dL (74-106)
[2022-12-09 15:35] LABS: Anion Gap 5 (5-15); BUN/Creat Ratio 27.1 RATIO (10-20); Calcium,Total 9.6 mg/dL (8.5-10.1); Chloride 100 mmol/L (98-107); Est Glom Filt Rate - Afr Amer 51 mL/min (>60); Potassium 4.5 mmol/L (3.5-5.1); Sodium Level 136 mmol/L (136-145)
== END | disposition home or self-care (01) ==
LOC: LAB 14:11
PROVIDERS: PCP Internal Medicine; Referring Provider Physician Assistant Surgical; Visit Provider Physician Assistant Surgical
DX: Z01.812 Encounter for preprocedural laboratory examination (principal); I10 Essential (primary) hypertension; N95.1 Menopausal and female climacteric states
CPT/HCPCS: 36415; 80048; 83036; 85025; 93005

== ENCOUNTER → 2022-12-09 | Outpatient (CLI) | payer MEDICARE, OTHER, SELFPAY ==
--- NOTE | 2022-12-09 13:47 | EKG12_ITS ---
Test Reason : PRE-OP Blood Pressure : / mmHG Vent. Rate : 062 BPM Atrial Rate : 062 BPM P-R Int : 174 ms QRS Dur : 092 ms QT Int : 424 ms P-R-T Axes : 029 -20 009 degrees QTc Int : 430 ms Normal sinus rhythm Normal ECG Confirmed by ORTIZ MELGOZA, RUBY ([id number]), web content editor KAITLYNN SABA ([id number]) on 12/10/2022 8:16:32 AM Referred By: Tacos Solano Confirmed By:RUBY ALCANTAR MD
== END | disposition home or self-care (01) ==
LOC: PSN 13:44
PROVIDERS: PCP Internal Medicine; Referring Provider Specialist; Visit Provider Specialist
DX: Z01.810 Encounter for preprocedural cardiovascular examination (principal)
CPT/HCPCS: 93005

== ENCOUNTER → 2022-12-12 | Outpatient (CLI) | payer MEDICARE, OTHER, SELFPAY ==
--- NOTE | 2022-12-12 08:45 | SYN_PTH ---
PATIENT: TAYO FELIX LOC: [facility] U#:[id number] AGE/SX: 72/F ROOM: RE12/12/[address]: Dr. Tacos Solano MD : [id number] BED: DIS: 12/12/2022 SPEC #: [id number] RECD: 12/12/22 15:15 STATUS: KIRK REFreddy #: [id number] CHAYITO: 12/12/22 08:[address]: Tacos Solano DEPT: SURGICAL PATHOLOGY RECD BY: Papo Valentin ENTERED: 12/13/22 07:28 SP TYPE: SYNOVIUM OTHR DR: Dr. 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 Synovial tissue right knee from grasper, biopsy: Fragments of fibroconnective tissue and synovial tissue with reactive changes, fibrinous exudation and dystrophic calcification. B. Synovial tissue right knee from trap, biopsy: Fragments of fibroconnective tissue, fibrocartilaginous tissue and synovial tissue with reactive changes, fibrinous exudation and dystrophic calcification. See comment. SJ:mike 12/16/2022 COMMENT B. Fragments of bone are also noted. MICROSCOPIC DESCRIPTION Slides are reviewed. GROSS DESCRIPTION A - Received in fixative is one container labeled with the patient's name and designated synovial tissue right knee #1. The specimen consists of multiple irregular fragments of light escalante-white soft tissue that in aggregate measure 2.0 x 1.0 x 0.2 cm. The specimen is totally submitted in one cassette. B - Received in fixative is one container labeled with the patient's name and designated synovial tissue right knee #2. The specimen consists of multiple irregular fragments of light escalante-white soft tissue that in aggregate measure 5.0 x 3.5 x 0.2 cm. The specimen is totally submitted in one cassette. / AM:mike 12/13/2022 TC:5 CPT: 64519 x2
== END | disposition home or self-care (01) ==
LOC: LABSPEC 15:44
PROVIDERS: PCP Internal Medicine; Referring Provider Specialist; Visit Provider Specialist
DX: M17.11 Unilateral primary osteoarthritis, right knee (principal); M67.261 Synovial hypertrophy, not elsewhere classified, right lower leg
CPT/HCPCS: 88305

== ENCOUNTER → 2022-12-25 | Outpatient (CLI) | payer MEDICARE, OTHER, SELFPAY ==
[2022-12-25 17:22] LABS: Absolute Lymphocyte Count 0.76 X10^3/uL (0.83-4.51); Absolute Neutrophil Count 4.8 X10^3/uL (2.0-7.7); Basophil# 0.08 X10^3/uL; Basophil% 1.2 % (0-1); Eosinophils% 4.5 % (0-5); Hematocrit 32.5 % (37-47); Hemoglobin 10.5 g/dL (12.0-15.0); Lymphocyte # 0.76 X10^3/ul (0.83-4.51); Lymphocyte % 11.3 % (19-41); Mean Corp Hgb Conc 32.3 g/dL (32-36); Mean Corpuscular Hgb 29.6 pg (27.0-32.0); Mean Corpuscular Volume 91.5 fL (81-99); Mean Platelet Vol. 9.9 fl (6.2-12.0); Monocyte# 0.78 X10^3/uL; Monocyte% 11.6 % (0-10); NRBC Flagged by Analyzer 0 % (0-5); Neutrophil # 4.79 X10^3/uL (2.7-7.7); Neutrophil % 71.1 % (47-70); Platelet Count 222 K/mm3 (150-450); RBC Distribution Width CV 16.9 % (11.6-14.6); RBC Distribution Width SD 57.3 fl (35.1-43.9); Red Blood Count 3.55 M/mm3 (4.2-5.4); White Blood Count 6.7 K/mm3 (4.4-11.0)
[2022-12-25 18:06] LABS: ALB/GLOB Ratio 1.1 RATIO (0.9-2.4); AST(SGOT) 21 U/L (15-37); Alanine Aminotransfer ALT/SGPT 18 U/L (13-56); Albumin, Serum 3.5 g/dL (3.2-5.0); Alkaline Phosphatase 74 U/L (45-117); Anion Gap 8 (5-15); BUN 40 mg/dL (7-18); BUN/Creat Ratio 26.3 RATIO (10-20); Chloride 99 mmol/L (98-107); Creatinine, Serum 1.52 mg/dL (0.55-1.02); EST Glomerular Filtration Rate 36 mL/min (>60); Est Glom Filt Rate - Afr Amer 43 mL/min (>60); Globulin 3.1 g/dL (2.2-4.2); Glucose 82 mg/dL (74-106); Potassium 4.4 mmol/L (3.5-5.1); Protein, Total 6.6 g/dL (6.4-8.2); Sodium Level 134 mmol/L (136-145)
== END | disposition home or self-care (01) ==
LOC: MTLAB 14:47
PROVIDERS: PCP Internal Medicine; Referring Provider Internal Medicine Rheumatology; Visit Provider Internal Medicine Rheumatology
DX: M06.09 Rheumatoid arthritis without rheumatoid factor, multiple sites (principal); Z79.899 Other long term (current) drug therapy
CPT/HCPCS: 36415; 80053; 85025

== ENCOUNTER → 2023-03-25 | Outpatient (CLI) | payer MEDICARE, OTHER, SELFPAY ==
[2023-03-25 12:17] LABS: Absolute Lymphocyte Count 0.57 X10^3/uL (0.83-4.51); Absolute Neutrophil Count 2.9 X10^3/uL (2.0-7.7); Basophil# 0.06 X10^3/uL; Basophil% 1.4 % (0-1); Eosinophil# 0.18 X10^3/uL; Eosinophils% 4.2 % (0-5); Hematocrit 33.7 % (37-47); Hemoglobin 10.7 g/dL (12.0-15.0); Lymphocyte # 0.57 X10^3/ul (0.83-4.51); Lymphocyte % 13.2 % (19-41); Mean Corp Hgb Conc 31.8 g/dL (32-36); Mean Corpuscular Hgb 30.9 pg (27.0-32.0); Mean Corpuscular Volume 97.4 fL (81-99); Mean Platelet Vol. 10.3 fl (6.2-12.0); Monocyte# 0.63 X10^3/uL; Monocyte% 14.6 % (0-10); NRBC Flagged by Analyzer 0 % (0-5); Neutrophil # 2.87 X10^3/uL (2.7-7.7); Neutrophil % 66.4 % (47-70); POSITIVE DIFFERENTIAL YES; Platelet Count 202 K/mm3 (150-450); RBC Distribution Width CV 14.5 % (11.6-14.6); RBC Distribution Width SD 51.8 fl (35.1-43.9); Red Blood Count 3.46 M/mm3 (4.2-5.4); White Blood Count 4.3 K/mm3 (4.4-11.0)
[2023-03-25 12:21] LABS: Differential Indicated SCAN CRITERIA MET
[2023-03-25 12:46] LABS: ALB/GLOB Ratio 1.1 RATIO (0.9-2.4); AST(SGOT) 14 U/L (15-37); Alanine Aminotransfer ALT/SGPT 16 U/L (13-56); Albumin, Serum 3.6 g/dL (3.2-5.0); Alkaline Phosphatase 74 U/L (45-117); Anion Gap 5 (5-15); BUN 30 mg/dL (7-18); BUN/Creat Ratio 22.7 RATIO (10-20); Calcium,Total 9.3 mg/dL (8.5-10.1); Chloride 103 mmol/L (98-107); Creatinine, Serum 1.32 mg/dL (0.55-1.02); EST Glomerular Filtration Rate 42 mL/min (>60); Est Glom Filt Rate - Afr Amer 51 mL/min (>60); Globulin 3.2 g/dL (2.2-4.2); Glucose 91 mg/dL (74-106); Potassium 4.6 mmol/L (3.5-5.1); Protein, Total 6.8 g/dL (6.4-8.2); Sodium Level 135 mmol/L (136-145)
[2023-03-26 12:52] LABS: Pathologist Review Reviewed
== END | disposition home or self-care (01) ==
LOC: MTLAB 10:55
PROVIDERS: PCP Internal Medicine; Referring Provider Internal Medicine Rheumatology; Visit Provider Internal Medicine Rheumatology
DX: M06.09 Rheumatoid arthritis without rheumatoid factor, multiple sites (principal); Z79.899 Other long term (current) drug therapy
CPT/HCPCS: 36415; 80053; 85025

== ENCOUNTER 2023-04-10 15:00 | Outpatient (RCR) | payer MEDICARE, OTHER, SELFPAY ==
--- NOTE | 2022-12-10 14:00 | HP.PTEVAL_ITS ---
Patient's Visit Information TAYO FELIX is a 72 year old F referred to Physical Therapy by Dr. Tacos Solano MD with a diagnosis of UNILATERAL PRIMARY OSTEOARTHRITIS ,RIGHT KNEE. Date of Evaluation: 12/10/22 Physical Therapist: Usman Mohamud, PT, Cert MDT, OCS - Visit Plan Frequency: 2-3x /Week Duration: 4-6 Weeks Plan: PT INTERVETIONS AQUATIC THERAPY FOR ROM/FLEXABLITY ,STRENGTHENING QUADS/HAMS/HIP ,ENDURANCE PROGRAM AND FUNCTIONAL STRENGTHNEING - Subjective This 72 y/o female presents to physical therapy with right knee pain. Patient has had right knee pain OA for several years . Patient seen Dr Solano then had x-rays showed DJD and MRI showed some tissue abnormality .Thus plan to have biopsy of tissue this . Dr esparza recommend TKR ,but will need to get stronger and use walker. Patient pain is described as a sharp/stabbing pain especially with walking. Patient was in PT prior and walking up 60ft with fww. Patient is unable to squat and kneeling. Patient has difficulty with steps walking side ways. Denies paresthesia/tingling. Patient also sees pain management. Patient has difficulty sleeping at night. Patient live 1 story home with 2 steps , tub/shower with seat. Patient goals to get stronger for TKR. SOCAIL: - Pain Right Knee Pain Intensity (Out of 10): 9 Pain Intensity Range: 10 Comment: walking - Objective POSTURE: forward posture knee valgus with calcaneal valgus of ankle with ER. GAIT: forward trunk posture knee valgus with calcaneal valgus of ankle with ER slow bhargav ~ 40 ft. BALANCE: fair with fww. EDEMA: 1+ edema ankle/calf. AROM: right supine knee flexion 0-105 degrees. FLEXABLITY: hamstrings min tight. MMT( peak force) quads 26.3 ,hamstrings 23.5 ,hip flexion 20.2. STAIRS : one step time with rails - Balance/Special Test Scores Lower Extremity Functional Score: 14 - Goals Goal 1:: Patient to be I with Aquatic Therapy program Goal Time Frame: 4-6 Weeks Goal 2:: Patient to demonstrate 50% improvement with improved function and less pain. Goal Time Frame: 4-6 Weeks Goal 3:: Patient to improve AROM supine knee flexion by 5-10 degrees to improve stairs Goal Time Frame: 4-6 Weeks Goal 4:: Patient to improve peak force quads/hams by 5-10 to improve gait and function. Goal Time Frame: 4-6 Weeks Goal 5:: Patient to improve LFES score by 5 -10 points to improve QOL and function Goal Time Frame: 4-6 Weeks - Rehabilitation Potential Physical Therapy Diagnosis: This patient has DJD right knee needs TKR but patient is weak ,decrease gait with fww along with pain thus needs skilled PT to address these impairments thus benefit from skilled PT Rehabilitation Potential: Good - Anticipated Interventions Patient/Client Instruction: Educate patient on: Condition, Plan of Care For the Purpose of:: To decrease pain, To increase ROM, To improve muscle performance and motor function, To improve ability to perform ADL's, To increase tolerance to activity/condition/position, To improve ability of physical actions for home/community/work/leisure, To improve gait and locomotor functions, To improve health of tissue, To decrease soft tissue restriction, To increase flexibility/ROM, To improve endurance, To improve balance Therapeutic Exercise to Include: Strength training, Endurance training, Balance training, Body mechanics, Postural training, Flexibilty training, In an aquatic setting, Active ROM For the Purpose of:: To decrease pain, To increase ROM, To improve muscle performance and motor function, To improve ability to perform ADL's, To increase tolerance to activity/condition/position, To improve ability of physical actions for home/community/work/leisure, To improve health of tissue, To decrease soft tissue restriction, To increase flexibility/ROM, To prevent re-injury Thank you for the opportunity to evaluate your patient. For Medicare and Medicare HMO plans, please review the plan of care and approve it. It will need to be FAXED BACK to us at [phone] for Medicare purposes. For Medicare only, by signing this I certify the plan of care. Please let me know if there are questions or concerns regarding this plan of care. Physician Signature: Da te:
--- NOTE | 2022-12-10 16:11 | HP.PTEVAL_ITS ---
Patient's Visit Information TAYO FELIX is a 72 year old F referred to Physical Therapy by Dr. Tacos Solano MD with a diagnosis of UNILATERAL PRIMARY OSTEOARTHRITIS ,RIGHT KNEE. Date of Evaluation: 12/10/22 Physical Therapist: Usman Mohamud, PT, Cert MDT, OCS - Visit Plan Frequency: 2-3x /Week Duration: 4-6 Weeks Plan: THERAPIST WILL NEED TO GET IN WATER. PT INTERVETIONS AQUATIC THERAPY FOR ROM/FLEXABLITY ,STRENGTHENING QUADS/HAMS/HIP ,ENDURANCE PROGRAM AND FUNCTIONAL STRENGTHNEING - Subjective This 72 y/o female presents to physical therapy with right knee pain. Patient has had right knee pain OA for several years . Patient seen Dr Solano then had x-rays showed DJD and MRI showed some tissue abnormality .Thus plan to have biopsy of tissue this . Dr esparza recommend TKR ,but will need to get stronger and use walker. Patient pain is described as a sharp/stabbing pain especially with walking. Patient was in PT prior and walking up 60ft with fww. Patient is unable to squat and kneeling. Patient has difficulty with steps walking side ways. Denies paresthesia/tingling. Patient also sees pain management. Patient has difficulty sleeping at night. Patient live 1 story home with 2 steps , tub/shower with seat. Patient goals to get stronger for TKR. SOCAIL: - Pain Right Knee Pain Intensity (Out of 10): 9 Pain Intensity Range: 10 Comment: walking - Objective POSTURE: forward posture knee valgus with calcaneal valgus of ankle with ER. GAIT: forward trunk posture knee valgus with calcaneal valgus of ankle with ER slow bhargav ~ 40 ft. BALANCE: fair with fww. EDEMA: 1+ edema ankle/calf. AROM: right supine knee flexion 0-105 degrees. FLEXABLITY: hamstrings min ti ght. MMT( peak force) quads 26.3 ,hamstrings 23.5 ,hip flexion 20.2. STAIRS : one step time with rails - Balance/Special Test Scores Lower Extremity Functional Score: 14 - Goals Goal 1:: Patient to be I with Aquatic Therapy program Goal Time Frame: 4-6 Weeks Goal 2:: Patient to demonstrate 50% improvement with improved function and less pain. Goal Time Frame: 4-6 Weeks Goal 3:: Patient to improve AROM supine knee flexion by 5-10 degrees to improve stairs Goal Time Frame: 4-6 Weeks Goal 4:: Patient to improve peak force quads/hams by 5-10 to improve gait and function. Goal Time Frame: 4-6 Weeks Goal 5:: Patient to improve LFES score by 5 -10 points to improve QOL and function Goal Time Frame: 4-6 Weeks - Rehabilitation Potential Physical Therapy Diagnosis: This patient has DJD right knee needs TKR but patient is weak ,decrease gait with fww along with pain thus needs skilled PT to address these impairments thus benefit from skilled PT Rehabilitation Potential: Good - Anticipated Interventions Patient/Client Instruction: Educate patient on: Condition, Plan of Care For the Purpose of:: To decrease pain, To increase ROM, To improve muscle performance and motor function, To improve ability to perform ADL's, To increase tolerance to activity/condition/position, To improve ability of physical actions for home/community/work/leisure, To improve gait and locomotor functions, To improve health of tissue, To decrease soft tissue restriction, To increase flexibility/ROM, To improve endurance, To improve balance Therapeutic Exercise to Include: Strength training, Endurance training, Balance training, Body mechanics, Postural training, Flexibilty training, In an aquatic setting, Active ROM For the Purpose of:: To decrease pain, To increase ROM, To improve muscle performance and motor function, To improve ability to perform ADL's, To increase tolerance to activity/condition/position, To improve ability of physical actions for home/community/work/leisure, To improve health of tissue, To decrease soft tissue restriction, To increase flexibility/ROM, To prevent re-injury Thank you for the opportunity to evaluate your patient. For Medicare and Medicare HMO plans, please review the plan of care and approve it. It will need to be FAXED BACK to us at [phone] for Medicare purposes. For Medicare only, by signing this I certify the plan of care. Please let me know if there are questions or concerns regarding this plan of care. Physician Signature: Date:
--- NOTE | 2023-02-07 14:31 | HP.PTREVAL_ITS ---
Re-Evaluation Intro: Dr. Tacos Solano MD, It has been my pleasure to treat TAYO FELIX over the last 12 visits for UNILATERAL PRIMARY OSTEOARTHRITIS ,RIGHT KNEE. Please see the progress note below for an update on the physical therapy plan of care! Subjective Subjective: Seen Dr wanda lee PT .Plan to have surgery ~ 3 months May 21 Objective Objective/Function: POSTURE: forward posture knee valgus with calcaneal valgus of ankle with ER. GAIT: forward trunk posture knee valgus with calcaneal valgus of ankle with ER slow bhargav ~ 50 ft. BALANCE: fair with fww. EDEMA: 1+ edema ankle/calf. AROM: right supine knee flexion 0-107 degrees. FLEXABLITY: hamstrings min tight. MMT( peak force) right quads 28.7 ,hamstrings 30.5 ,hip flexion 27.2. STAIRS : one step time with rails Plan Plan Plan: THERAPIST WILL NEED TO GET IN WATER PT INTERVETIONS AQUATIC THERAPY FOR ROM/FLEXABLITY ,STRENGTHENING QUADS/HAMS/HIP ,ENDURANCE PROGRAM AND FUNCTIONAL STRENGTHNEING Balance/Gait/Functional tests Balance/Special Test Scores Lower Extremity Functional Score: 14 Goals Goals Goal 1:: Patient to be I with Aquatic Therapy program Goal Time Frame: 4-6 Weeks Goal Progress: Progressing Goal 2:: Patient to demonstrate 50% improvement with improved function and less pain. Goal Time Frame: 4-6 Weeks Goal Progress: Progressing Goal 3:: Patient to improve AROM supine knee flexion by 5-10 degrees to improve stairs Goal Time Frame: 4-6 Weeks Goal Progress: Progressing Goal 4:: Patient to improve peak force quads/hams by 5-10 to improve gait and function. Goal Time Frame: 4-6 Weeks Goal Progress: Progressing Goal 5:: Patient to improve LFES score by 5 -10 points to improve QOL and funct ion Goal Time Frame: 4-6 Weeks Goal Progress: Progressing Anticipated Interventions Anticipated Interventions Patient/Client Instruction: Educate patient on: Condition and Plan of Care For the Purpose of:: To decrease pain, To increase ROM, To improve muscle performance and motor function, To improve ability to perform ADL's, To increase tolerance to activity/condition/position, To improve ability of physical actions for home/community/work/leisure, To improve gait and locomotor functions, To improve health of tissue, To decrease soft tissue restriction, To increase flexibility/ROM, To improve endurance and To improve balance Therapeutic Exercise to Include: Strength training, Endurance training, Balance training, Body mechanics, Postural training, Flexibilty training, In an aquatic setting and Active ROM For the Purpose of:: To decrease pain, To increase ROM, To improve muscle performance and motor function, To improve ability to perform ADL's, To increase tolerance to activity/condition/position, To improve ability of physical actions for home/community/work/leisure, To improve health of tissue, To decrease soft tissue restriction, To increase flexibility/ROM and To prevent re-injury Re-Evaluation Ending Re-evaluation ending: Please do not hesitate to contact me at [phone] by phone or if you have questions or concerns regarding this new plan of care! Sincerely, Usman Mohamud, PT, Cert MDT, OCS
--- NOTE | 2023-03-10 15:30 | HP.PTREVAL ---
Re-Evaluation Intro: Dr. Tacos Solano MD, It has been my pleasure to treat TAYO FELIX over the last 20 visits for UNILATERAL PRIMARY OSTEOARTHRITIS ,RIGHT KNEE. Please see the progress note below for an update on the physical therapy plan of care! Subjective Subjective: Plan to schedule May 21 for surgery Objective Objective/Function: POSTURE: forward posture knee valgus with calcaneal valgus of ankle with ER. GAIT: forward trunk posture knee valgus with calcaneal valgus of ankle with ER slow bhagrav ~ 50 ft. BALANCE: fair with fww. EDEMA: 1+ edema ankle/calf. AROM: right supine knee flexion 0-108 degrees. FLEXABLITY: hamstrings min tight. MMT( peak force) right quads 29.0 ,hamstrings 24.2 ,hip flexion 37.5. STAIRS : one step time with rails Plan Plan Plan: THERAPIST WILL NEED TO GET IN WATER PT INTERVETIONS AQUATIC THERAPY FOR ROM/FLEXABLITY ,STRENGTHENING QUADS/HAMS/HIP ,ENDURANCE PROGRAM AND FUNCTIONAL STRENGTHNEING Balance/Gait/Functional tests Balance/Special Test Scores Lower Extremity Functional Score: 14 Goals Goals Goal 1:: Patient to be I with Aquatic Therapy program Goal Time Frame: 4-6 Weeks Goal Progress: Progressing Goal 2:: Patient to demonstrate 50% improvement with improved function and less pain. Goal Time Frame: 4-6 Weeks Goal Progress: Progressing Goal 3:: Patient to improve AROM supine knee flexion by 5-10 degrees to improve stairs Goal Time Frame: 4-6 Weeks Goal Progress: Progressing Goal 4:: Patient to improve peak force quads/hams by 5-10 to improve gait and function. Goal Time Frame: 4-6 Weeks Goal Progress: Progressing Goal 5:: Patient to improve LFES score by 5 -10 points to improve QOL and function Goal Time Frame: 4-6 Weeks Goal Progress: Progressing Anticipated Interventions Anticipated Interventions Patient/Client Instruction: Educate patient on: Condition and Plan of Care For the Purpose of:: To decrease pain, To increase ROM, To improve muscle performance and motor function, To improve ability to perform ADL's, To increase tolerance to activity/condition/position, To improve ability of physical actions for home/community/work/leisure, To improve gait and locomotor functions, To improve health of tissue, To decrease soft tissue restriction, To increase flexibility/ROM, To improve endurance and To improve balance Therapeutic Exercise to Include: Strength training, Endurance training, Balance training, Body mechanics, Postural training, Flexibilty training, In an aquatic setting and Active ROM For the Purpose of:: To decrease pain, To increase ROM, To improve muscle performance and motor function, To improve ability to perform ADL's, To increase tolerance to activity/condition/position, To improve ability of physical actions for home/community/work/leisure, To improve health of tissue, To decrease soft tissue restriction, To increase flexibility/ROM and To prevent re-injury Re-Evaluation Ending Re-evaluation ending: Please do not hesitate to contact me at [phone] by phone or if you have questions or concerns regarding this new plan of care! Sincerely, Usman Mohamud, PT, Cert MDT, OCS
--- NOTE | 2023-04-10 15:25 | HP.PTDCSUM ---
Discharge Summary D/C summary: It has been my pleasure to treat TAYO FELIX referred by Dr. Tacos Solano MD, with the diagnosis of UNILATERAL PRIMARY OSTEOARTHRITIS ,RIGHT KNEE for a total of 28 visit(s). Discharge Date: 04/10/23 Please see the following information for a summary of their discharge status. Subjective Subjective: Pt still sore today. Walked alot yesterday [facility] scheduled May 21 Pain Right Knee: Pain Intensity (Out of 10): 7 Overall Improvement % Improvement: 30 Objective Objective/Function: Objective/Function: POSTURE: forward posture knee valgus with calcaneal valgus of ankle with ER. GAIT: forward trunk posture knee valgus with calcaneal valgus of ankle with ER slow bhargav ~ 30-50 ft. BALANCE: fair with fww. EDEMA: 1+ edema ankle/calf. AROM: right supine knee flexion 0-120 degrees. FLEXABLITY: hamstrings min tight. MMT( peak force) right quads 29.0 ,hamstrings 24.2 ,hip flexion 37.5. STAIRS : one step time with rails Goals Goal 1:: Patient to be I with Aquatic Therapy program Goal Progress: Progressing Goal 2:: Patient to demonstrate 50% improvement with improved function and less pain. Goal Progress: Progressing Goal 3:: Patient to improve AROM supine knee flexion by 5-10 degrees to improve stairs Goal Progress: Progressing Goal 4:: Patient to improve peak force quads/hams by 5-10 to improve gait and function. Goal Progress: Progressing Goal 5:: Patient to improve LFES score by 5 -10 points to improve QOL and function Goal Progress: Progressing Plan Plan: D/C TO [facility] D/C Information d/c sentence: If there are questions or concerns regarding this patient's physical therapy, please feel free to call me at [phone]. Thank you for the referral of this patient. Sincerely, Usman Mohamud, PT, Cert MDT, OCS Balance/Gait/Functional tests Balance/Special Test Scores Lower Extremity Functional Score: 23 Improvement % Improvement: 30
== END 2023-04-10 19:00 | disposition home or self-care (01) ==
LOC: PT 15:00
PROVIDERS: PCP Internal Medicine; Referring Provider Specialist; Visit Provider Specialist
DX: M17.11 Unilateral primary osteoarthritis, right knee (principal)
CPT/HCPCS: 97113; 97162; 97530

== ENCOUNTER → 2023-04-29 | Outpatient (CLI) | payer MEDICARE, OTHER, SELFPAY ==
--- NOTE | 2023-04-29 13:30 | EKG12_ITS ---
Test Reason : PRE OP Blood Pressure : / mmHG Vent. Rate : 066 BPM Atrial Rate : 066 BPM P-R Int : 170 ms QRS Dur : 092 ms QT Int : 396 ms P-R-T Axes : 038 -15 021 degrees QTc Int : 415 ms Normal sinus rhythm Normal ECG Confirmed by ORTIZ MELGOZA, RUBY ([id number]), film editor supervisor ANNE MICHAUD ([id number]) on 05/06/2023 7:08:37 AM Referred By: Tacos Solano Confirmed By:RUBY ALCANTAR MD
--- NOTE | 2023-04-29 13:55 | CT_ITS ---
EXAM: CT RIGHT LOWER EXTREMITY WITHOUT INTRAVENOUS CONTRAST CLINICAL INDICATION: KNEE PAIN TECHNIQUE: Helically acquired images were obtained of the right lower extremity without intravenous contrast. 2-D reformats were performed by the technologist. CTDIvol = ( 18.67 ) mGy, DLP = ( 1414.01 ) mGycm This CT exam was performed using one or more of the following dose reduction techniques: automated exposure control, adjustment of the mA and/or kV according to patient size, and/or use of iterative reconstruction technique. COMPARISON: January 25, 2022 FINDINGS: Tricompartmental osteoarthrosis, worse at the medial femorotibial compartment. Large suprapatellar joint effusion containing nodular calcific densities. This may represent a form synovitis or synovial proliferation. Small subchondral cysts are identified (with possible small erosive changes) at the lateral femorotibial articulation. MRI would be useful for further investigation. Diffuse osteopenia. Extensive postsurgical changes involving the midfoot and hindfoot with ankylosis across the talocalcaneal articulation. Noted alterations. Ankle mortise is intact. Evidence of old injuries involving the medial malleolus and lateral malleolus. Overall mild relative thinning osteoarthrosis for age. Enthesopathy along the greater trochanter. Phleboliths in the pelvis. Bladder is unremarkable. No acute fracture or malalignment. No unusual lytic or sclerotic lesions of bone. No soft tissue hemorrhage or hematoma CT/Extremity Lower without Contra IMPRESSION: 1. Preoperative planning study for presumed total knee arthroplasty. 2. Large suprapatellar joint effusion containing nodular calcific densities. This may represent a form synovitis or synovial proliferation. Small subchondral cysts are identified (with possible small erosive changes) at the lateral femorotibial articulation. MRI would be useful for further investigation. 3. Ancillary findings as above. Electronically Signed: Florentin Tao MD at 1:19 EDT ,
== END | disposition home or self-care (01) ==
LOC: CT 13:28
PROVIDERS: PCP Internal Medicine; Referring Provider Specialist; Visit Provider Specialist
DX: M17.11 Unilateral primary osteoarthritis, right knee (principal)
CPT/HCPCS: 73700; 93005

== ENCOUNTER 2023-05-21 07:19 | Inpatient (IN) | payer MEDICARE, OTHER, SELFPAY ==
[2023-04-29 14:54] LABS: Absolute Lymphocyte Count 0.74 X10^3/uL (0.83-4.51); Absolute Neutrophil Count 3.9 X10^3/uL (2.0-7.7); Basophil# 0.05 X10^3/uL; Basophil% 0.9 % (0-1); Eosinophil# 0.15 X10^3/uL; Eosinophils% 2.7 % (0-5); Hematocrit 33.9 % (37-47); Hemoglobin 10.8 g/dL (12.0-15.0); Lymphocyte # 0.74 X10^3/ul (0.83-4.51); Lymphocyte % 13.4 % (19-41); Mean Corp Hgb Conc 31.9 g/dL (32-36); Mean Corpuscular Hgb 31.3 pg (27.0-32.0); Mean Corpuscular Volume 98.3 fL (81-99); Mean Platelet Vol. 9.8 fl (6.2-12.0); Monocyte# 0.66 X10^3/uL; NRBC Flagged by Analyzer 0 % (0-5); Neutrophil # 3.89 X10^3/uL (2.7-7.7); Neutrophil % 70.6 % (47-70); Platelet Count 192 K/mm3 (150-450); RBC Distribution Width CV 13.8 % (11.6-14.6); RBC Distribution Width SD 49.6 fl (35.1-43.9); Red Blood Count 3.45 M/mm3 (4.2-5.4); White Blood Count 5.5 K/mm3 (4.4-11.0)
[2023-04-29 15:08] LABS: Prothrombin Time (Protime)PT. 13.3 SECONDS (11.7-14.9)
[2023-04-29 15:09] LABS: Partial Thromboplast Time 25.8 Seconds (24.1-36.2)
[2023-04-29 15:16] LABS: Anion Gap 4 (5-15); BUN 26 mg/dL (7-18); BUN/Creat Ratio 20.5 RATIO (10-20); Calcium,Total 9.1 mg/dL (8.5-10.1); Chloride 103 mmol/L (98-107); Creatinine, Serum 1.27 mg/dL (0.55-1.02); EST Glomerular Filtration Rate 44 mL/min (>60); Est Glom Filt Rate - Afr Amer 53 mL/min (>60); Glucose 87 mg/dL (74-106); Potassium 4.6 mmol/L (3.5-5.1); Sodium Level 136 mmol/L (136-145)
[2023-04-29 15:34] LABS: AST(SGOT) 17 U/L (15-37); Alanine Aminotransfer ALT/SGPT 21 U/L (13-56); Albumin, Serum 3.6 g/dL (3.2-5.0); Alkaline Phosphatase 67 U/L (45-117); Bilirubin, Direct 0.12 mg/dL (0.00-0.30); Magnesium 1.8 mg/dL (1.6-2.6); Protein, Total 6.6 g/dL (6.4-8.2)
--- NOTE | 2023-05-13 22:22 | HP.PCM_ITS ---
History and Physical History and Physical? Patient Name: Lydia Katz : 1950 From:? MODESTA BRUNO PA-C? DATE OF PRE-OPERATIVE EXAM: 05/12/2023 DATE OF SURGERY:? 05/21/2023 SCHEDULED PROCEDURE:? Robotic-assisted right total knee arthroplasty HISTORY OF PRESENT ILLNESS: Preoperative history and physical exam was performed on May 12, 2023.? This is a 73-year-old female who is been having ongoing pain for over a year.? Patient has had previous right knee arthroscopy by Dr. Tacos Solano on December 12, 2022 in which biopsy was performed.? Patient's pathology results from the knee arthroscopy showed fibrinous connective tissue and no evidence of malignancy.? Patient has continued to have pain in the right knee.? Her pain is been interm ittent, aching, sharp, stabbing, sore.? Patient is primarily dependent upon the wheelchair and states she only walks approximately 20 feet with use of a walker.? She has been treated with physical therapy and aquatic therapy.? She is dependent upon the wheelchair outside of the home.? She has had limited ambulation secondary to the severe knee pain.? She has fallen secondary to the pain.? She has difficulty with activities of daily living including housework and shopping.? Patient has been on oral medications including Tylenol and tramadol.? She has also been taking Celebrex.? After failing conservative measures and discussing treatment options was Dr. Tacos Solano, the patient does wish to proceed with a right total knee arthroplasty.? We have obtain surgical clearance from the primary care physician Dr. Ho and [facility].? Patient has medical history pertinent for fibromyalgia, hypertension, gastroesophageal reflux disease, sleep apnea with use of CPAP, history of DVT, history of atrial fibrillation, anemia, supraventricular tachycardia, and asthma.? Patient denies recent chest pain, shortness of breath or chills.? She has had past ablation for the atrial fibrillation.? Her past DVT was in May 2022.? She was initially treated with Eliquis but is no longer on any current anticoagulants.? Patient's preoperative lab work does reveal anemia with hemoglobin 10.8/33.9.? She has also had elevated kidney function without diagnosis of kidney disease.? Patient does report that she has required oxygen in the past but currently is not using any.? Patient does have Risk Assessment and Prediction Tool (RAPT) score of 6. REVIEW OF SYSTEMS: Review Of Systems: Constitutional: Reports anxiety, but denies anorexia, change in appetite, fever and weight change,hard of hearing, and vision problems. Cardiovasular: Reports chest pain and cough, but denies heart murmur, irregular heartbeat and peripheral vascular disease. Respiratory: Reports asthma, cough, sleep apnea and shortness of breath, but denies pneumonia, tuberculosis and wheezing. Gastrointestinal: Reports heartburn, but denies constipation, diarrhea, nausea, bloody stools and vomiting, and difficulty swallowing. Genitourinary: Denies incontinence. Musculoskeletal: Reports gait disturbance, leg swelling, pain, trouble walking and weakness. Skin: Denies Raynaud's, history of shingles and tattoo. Neurological: Reports difficulty with balance, dizziness, numbness/tingling and tremor but denies ambulatory dysfunction. Psychiatric: Reports anxiety, insomnia and stress, but denies depression. Hematologic/Lymphatic: Reports anemia, but denies bleeding/bruising tendency and past transfusion. Reviewed, no changes. 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 Right Knee Arthroscopic Diagnostic Biopsy W/ Partial Synovectomy - (12/12/2022) DR. SOLANO @ [facility]? Anesthesia Complications: None Assistive Devices: Wheel Chair, Walker, Cpap Reviewed and updated. SOCIAL HISTORY: Social History: Marital: .Occupation: Retired.Work Status: Retired.Hand Dominance: Left- Handed. Personal Habits:? Tobacco Use: Patient has never smoked.Cigarette Use: Never.Smokeless Tobacco: Never Used Smokeless Tobacco.E-Cigarette Use: Never used.Alcohol: Denies use.Drug Use: Denies Use.Enjoy Exercising: Exercises 1-3 x/month. Reviewed, no changes. VITALS: Ht: 62 Wt: 210lb Wt k.256 BMI: 38.4 BP: 138/74 Pulse: 67 T: 97.5 T: 36.4C Pain Level: 9 O2SatR: 96 ALLERGIES: Sudafed Claritin-D 12 Hour - Raised Blood Pressure Detrol Macrobid Altace Cipro? MEDICATIONS: Mupirocin 2 % use qtip and apply inside each nostril twice a day until the day of surgery, Calcium? 600 mg 2 po qday, Plaquenil 200 mg 2 PO q day, Carvedilol 12.5 mg Take 1 tablet by mouth three times daily., Tylenol Extra Strength 500 mg 2 by mouth every 8 hours PRN, Tramadol HCL 50 mg 1-2 by mouth every 6 hours as needed pain, Celecoxib 200 mg take 1 capsule by mouth twice daily, Vitamin C 500 mg Take 1 tablet by mouth twice daily., Albuterol Inhaler? 2 puffs as needed, Gabapentin 300 mg take 1 capsule by mouth three times daily, Iron (Ferrous Sulfate) 325 (65 Fe) MG 1 PO qdaily, Trazodone HCL 50 mg, Lexapro? once daily at nighttime, Seroquel 50 mg 1 tab by mouth every night at bedtime, Protonix? bid PRE-OP EXAM:? General appearance:NORMAL? ? ? Other: Eyes: Conjunctivae and lids: NORMAL? Pupils: ERR Ears, Nose, Mouth, and Throat: NORMAL? Other: Inspection of lips, teeth and gums: NORMAL? ?Other: Neck: Examination of neck: no masses noted. Respiratory: Assessment of respiratory effort: NORMAL? ?Other: ?Auscultation of lungs: clear to auscultation no wheezes, rhonchi or rales. Cardiovascular:? Auscultation of heart: regular rate and rhythm, positive systolic murmurs PHYSICAL EXAMINATION: Patient presents today in the wheelchair.? Her right knee is without erythema or signs of infection.? Previous arthroscopy incisions are well healed.? She has mild joint effusion.? Range of motion 0 extension to 100 flexion.? Sensation intact to light touch. IMAGING STUDIES: Previous x-rays and MRI show valgus alignment was severe lateral compartment disease with subchondral bony edema and erosion of the lateral compartment.? Previous MRI showed synovial hyperplasia versus metaplasia. Previous pathology results showed fibrinous connective tissue and no evidence of malignancy IMPRESSION: 1.? Severe right knee osteoarthritis 2.? Hypertension 3.? Fibromyalgia 4.? Gastroesophageal reflux disease 5.? Sleep apnea with use of CPAP 6.? History of DVT May 2022 7.? History of atrial fibrillation with previous ablation 8.? Nonischemic cardiomyopathy 9.? Anemia 10.? Asthma 11.? History of supraventricular tachycardia PLAN: Dr. Tacos Solano did discuss and review with the patient all treatment options including surgical versus nonsurgical options.? Patient does wish to proceed with the above-stated procedure.? Potential risks, benefits, and complications of the procedure were discussed in detail including but not limited to , infection, nerve and blood vessel damage, persistent pain, numbness, tingling, paresthesias, blood clot, pulmonary embolism, and requirement for possible further surgery.? The patient expressed full understanding and has no further questions for the doctor.? Patient does agree to proceed with the above-stated procedure and has signed the surgery consent form. POST-OP MEDICATION PLAN: Pain Medications: Patient is currently using Celebrex and tramadol.? Instructed to the patient that postoperatively she will be on a different narcotic and she has never to mix the tramadol with her postoperative narcotic.? She voiced understanding.? Patient does have elevated kidney function and we are reaching out to primary care physician about continuation of nonsteroidal anti- inflammatories.? Preoperatively patient does have anemia in which she is currently taking ferrous sulfate and folic acid.? She will continue with this postoperatively and eventually follow up with primary care physician.? She will also continue with the protein drinks twice daily. Patient does have Risk Assessment and Prediction Tool (RAPT) score of 6. DVT Prophylaxis: Due to patient's past history of DVT we will proceed Xarelto 10 mg once daily for the first 2 weeks.? After 2 weeks she will then be placed on aspirin 81 mg twice daily for an additional 2 weeks. This dictation was created using voice recognition software. Phonetic and/or grammatical errors may exist. ___? I have re-examined the patient.? There are no clinical changes since date of exam. ___? See progress notes for changes. ___? Dictated on admission Date: ? ? ?Time: Signature:
[2023-05-21] VITALS (18 sets, daily range): BP systolic 107–162; BP diastolic 48–106; PULSE 58–86; RESP 16–20; TEMP 36.4–37.1; O2SAT 92–100; BMI 37.9
--- NOTE | 2023-05-21 07:22 | RAD_ITS ---
STUDY: X-RAY - RIGHT KNEE REASON FOR EXAM: Female, 73 years old. Postoperative evaluation after knee replacement. TECHNIQUE: 2 view(s) of the knee. COMPARISON: None. FINDINGS: There is a 3 component total knee arthroplasty in anatomic position. There are expected post-operative findings. There are no complications. No other significant abnormality is identified. RAD/Knee 1 or 2 Views IMPRESSION: Total knee arthroplasty in anatomic alignment without complications. Electronically Signed: Bryan Burris MD at 13:42 EDT ,
[2023-05-21] MEDS: Magnesium 2 GM for ERAS IV (08:45)
[2023-05-21] MEDS: Acetaminophen 500 MG Tablet 1000 MG PO ×3 (08:55→22:10)
[2023-05-21] MEDS: Gabapentin 600 MG Tablet PO (08:55)
[2023-05-21] MEDS: Lactated Ringers 1,000 ML 15 ML IV (08:55)
[2023-05-21] MEDS: Vancomycin HCl 1,500 MG in 0.9% Normal Saline (500mL Bag) 500 ML 250 MG IV (09:27)
[2023-05-21] MEDS: Lactated Ringers 1,000 ML 999 ML IV (10:35)
--- NOTE | 2023-05-21 10:45 | SYN_PTH ---
PATIENT: TAYO FELIX LOC: [facility] U#:[id number] AGE/SX: 73/F ROOM: LA325 RE05/21/[address]: Dr. Tacos Solano MD : 1950 BED: 1 DIS: 05/25/2023 SPEC #: [id number] RECD: 05/21/23 14:51 STATUS: KIRK REFreddy #: [id number] CHAYITO: 05/21/23 10:[address]: Tacos Solano DEPT: SURGICAL PATHOLOGY RECD BY: Betsy Zapata ENTERED: 05/22/23 08:25 SP TYPE: SYNOVIUM OTHR DR: DO Dr. Shanti Barker MD Dr. Ben Weeman, MD Dr. Eric Jopperi, DO Dr. Liza D Talampas, MD Dr. Nicholas F Kotsonis, MD Tissues: A - Synovial tissue of joint, NOS B - Knee, NOS Procedures: Decalcification bone/plaque Surgery Specimen Level IV HEADER OPERATION: PANCHITO, robotic assisted right total knee arthroplasty PRE-OP DIAGNOSIS: Severe right knee osteoarthritis TISSUE SUBMITTED: A - Synovium right knee, B - Bone right knee MICROSCOPIC DIAGNOSIS A. Synovium of right knee, biopsy: Reactive changes. 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 B. Bone of right knee, total joint resection: Severe degenerative joint disease. AM:mike 05/28/2023 MICROSCOPIC DESCRIPTION Slides are reviewed. GROSS DESCRIPTION A - Received in fixative is one container labeled with the patient's name and designated synovium right knee. The specimen consists of multiple irregular fragments of white-pink, rubbery tissue ranging in size from 0.2 to 6.0 cm. Serial sections do not reveal mass lesions. [employer] sections are submitted in two cassettes. B - Received is one container designated bone right knee. The specimen consists of multiple fragments of escalante-yellow bone measuring in aggregate 14.0 x 10.0 x 2.0 cm. Also in the specimen container are multiple fragments of yellow-white soft tissue measuring in aggregate 3.0 x 2.0 x 1.0 cm. A number of bony fragments contain articular surfaces consistent with tibial plateau and femoral condyle and displaying prominent osteophyte formation, eburnation and bone erosion. [employer] sections are submitted in two cassettes as follows: 1 - soft tissue, 2 - bone after decalcification. / AM:mike 05/22/2023 TC:5 CPT: 57649 x2, 51142
[2023-05-21] MEDS: Cefazolin 2 GM in 0.9% Normal Saline (100mL Bag) 100 ML IV (10:50)
[2023-05-21] MEDS: TRANEXAMIC ACID 2,000 MG, 0.9% Normal Saline (100mL Bag) 100 ML OPERA.SITE ×2 (12:20→12:25)
[2023-05-21] MEDS: JPS (Morphine 10mg/ml) OPERA.SITE (12:25)
--- NOTE | 2023-05-21 12:25 | OP.PCM_ITS ---
Report of Operation Date of Procedure: 05/21/23 Pre-Operative Diagnosis: Right knee primary osteoarthritis Post-Operative Diagnosis: Right knee primary osteoarthritis Surgery/Procedure Performed:: Right minimally invasive robotic total knee replacement Description of Surgical Findings:: Stable knee with good patella tracking patient has stage IV osteoarthritis with severe hypoplasia of the lateral femoral condyle. Required a posterior augment. Based on the poor bone quality we did elect to cement stems for the femur and tibia. Surgeon: Tacos Solano neurosurgery research director: Mina Hall Type of Anesthesia: Spinal Anesthesiologist: Devan Borrero Special Medications: 2 g Ancef, 1 g TXA at incision, 1 g TXA closure, 10 mg Decadron, joint cocktail (5 mg Duramorph, 30 mL of 0.5% Ropivicaine, 1000 units of epinephrine, 30 mg of Toradol) Specimen's removed: Bony cuts. Synovial resection. Estimated Blood Loss (mL): 100 Fluids Replaced: 1000 mL crystalloid Description of Procedure: Implants used: 1. Padmini size 3 triathlon total stabilized distal femoral component with 15 x 50 mm cemented stem and 5 mm posterior lateral augment. 2. Padmini size 3 universal tibial baseplate 3. Vinton X3 9 mm PS polyethylene 4. Padmini X3 32 mm asymmetric patella Brief history operative indications: 73-year-old F with history of right knee osteoarthritis with radiographic findings with loss of joint space, osteophyte formation and subchondral sclerosis. Failed conservative measures as mentioned in the H&P. Discussion of total knee arthroplasty as well as risk and benefits were discussed the patient including but not limited to blood loss, DVTs, PEs, neurovascular damage, general risk of anesthesia including loss of life, and stiffness or instability were discussed with patient. Patient demonstrated understanding and was able to sign informed consent. Procedure: On the date of procedure patient's right lower extremity was marked in the preoperative area. The patient was then taken back to the operating room where the patient was placed on the table in the supine position. All bony prominences were identified a well-padded. Anesthesia assumed control of the C-spine and airway and remained controlled throughout the remainder of the procedure. A tourniquet was placed on the right upper thigh and the leg was prepped in a sterile fashion. The surgeon then scrubbed at this time .Upon reentering the room right lower extremity was draped in a standard orthopedic fashion. A timeout was then called and everyone agreed upon the side, the site, the procedure to be performed, patient's identity and antibiotics given. Esmarch bandage was used to exsanguinate the extremity and the tourniquet was placed up to 250 mmHg with the knee in flexion. A midline skin incision was made and sharp dissection was taken down through skin subcutaneous tissue and fat. The standard medial parapatellar incision was made and the patella was subluxed laterally. An Appropriate deep MCL release was done and the fat pad was resected. Based on the patient's previous imaging there was significant florid synovitis. This knee was extended and a complete synovectomy was performed. Our attention was then directed to the patella. The patella was everted and a flat resection was made. The knee was then flexed up in 2 femoral pins were placed inside the incision and 2 tibial pins were placed outside the incision in the medial tibia bicortically. Once this was completed the 2 checkpoints in the femur and tibia were placed. Knee was then flexed up and the bony landmarks were registered. Once this was completed knee was taken through range of motion and manually stressed allowing us to a plan for an appropriate tibial cut. The robotic arm was brought into the field sterilely and checkpoint and saw were registered. Based on the patient's deformity the tibial cut was made neutral to the tibial axis. At this time the tensioner was then placed in the joint and ligament tension was checked at 90 degrees and full extension. Based on the patient's ligamentous tension appropriate adjustments were made to the operative plan and ligament releases were done. Once we were happy with our operative plan with balanced flexion and extension gaps our attention was directed to the femur. The robot was brought into the field sterilely and registered. Posterior condylar cuts, anterior chamfer cuts and anterior cuts were appropriately made for a size 3 femur. In making the posterior condylar cuts with the plan as it was the severe posterior hyperplasia of the posterior lateral condyle required a 5 mm anterior shift with robotics in order to supplement for a 5 mm posterior lateral augment. When these were completed the saws were switched out in the distal femoral and posterior chamfer cuts were made. Protecting the soft tissue throughout this time. A size 3 tibial base plate was selected. the knee was flexed to 90 degrees and the soft tissues and posterior osteophytes were removed from the joint. 40 cc of the periarticular injection was injected into the posterior medial corner of the joint. The appropriate trials were then placed on the femur and tibia. And placed in the trials we did prepped the tibia for a stem and placed a trial with the stem in place. We also made the box cut for the femur and deepened it for the TS implant and used a boss reamer in preparation for the stem. A trial polyethylene was trialed to ensure proper balancing and stability of the knee. The appropriate tibial internal rotation was then marked with a bovie. Our attention was then directed to the patella. The lug holes were drilled and the patella trial was placed. Patellar tracking was checked and deemed appropriate. Final components were verified and opened, and cement was mixed in a vacuum. Nasty Gal Simplex cement was used. The wound was copiously irrigated with normal saline. When the cement was ready the components were cemented into place starting with the tibia, femur and finally press-fit the patella. The trial poly component was placed and the knee was placed in full extension. All excess cement was removed in the process. Once the cement had cured the tracking, alignment and balance were verified and a size 9 mm PS polyethylene component was placed. Once the final components were placed a 3-minute dilute Betadine lavage was performed followed by an Irrisept lavage was performed and the wound was copiously irrigated with normal saline solution and the periarticular injection was given. The wound was closed in a layer carver fashion using #1 vicryl interrupted sutures for the arthrotomy, 2-0 interrupted Vicryl suture for the subcuticular layer and maximilian for final skin closure. A sterile compressive dressing was then placed. The patient was then awakened from anesthesia, transferred to the [facility] and transferred to the PACU for recovery. Post op plan DVT ppx: ASA 81mg BID, thigh high compression stockings Follow up: in office in 2 weeks for wound check PT: to start POD #0 at hospital, outpatient PT should be arranged. My physician assistant wrestling coach was a vital part of this case. He was important in appropriate retraction during the case, and protection of soft tissues during bony cuts. His intimate knowledge of the case and my steps aided in safe and expedient completion of the procedure as well as appropriate position of the leg during the case. He was also vital in assisting with closure under my direct supervision. Due to the complexity of this case robotic arm was used to assist in the surgery to improve accuracy and clinical outcomes. Modifier 22: Based on the complexity of this case there were additional steps taken. We had to take additional steps for stemmed implants based on patient's bone quality as noted above. We had to take additional steps in order to cut for the posterior augment and prepare for the condylar constrained type implant. Finally we took additional steps in order to remove the synovium and synovium was sent for pathology. Based on this there was significant time and effort added to this case. After tourniquet time is 45 minutes this tourniquet time was over 60 this to be taken into consideration and compensation for this case. Complications No intraoperative complications Admit VTE Documentation VTE Present on Admission: No VTE Mechan Device Prophylaxis: SCD's and Thigh High ITZEL Hose VTE Pharm Prophylaxis ordered?: Yes
[2023-05-21 13:06] LABS: Bedside Glucose 92 mg/dL (74-106)
--- NOTE | 2023-05-21 13:55 | SUR.PHASEI ---
Constant dry cough which patient states she has at home. Hx asthma, states she has chronic post-nasal drainage, takes Robitussin CF routinely at home. Lungs clear throughout. Notified Dr Solano via Earl Avila RN, who ordered Robitussin. Also spoke with Dr Wills, anesthesia, Duoneb ordered. Patient also repeatedly c/o back pain which is chronic, Morphine has not been helpful per patient.
[2023-05-21] MEDS: Ipratropium/Albuterol Sulfate 3 ML AMPUL.NEB INHALATION (14:22)
[2023-05-21] MEDS: Lactated Ringers 1,000 ML 125 ML IV (14:35)
[2023-05-21] MEDS: guaiFENesin CF 120 ML PO (15:19)
[2023-05-21] MEDS: oxyCODONE 5 MG Tablet PO (16:01)
[2023-05-21] MEDS: Cefazolin 1 GM/50 ML BAG IV (18:13)
[2023-05-21] MEDS: Ensure Surgery 237 ML LIQUID PO (18:13)
[2023-05-21] MEDS: Albuterol 2.5 MG/3 ML VIAL.NEB. INHALATION ×2 (19:15→23:40)
[2023-05-21] MEDS: Budesonide Respules 0.5 MG/2 ML AMPUL.NEB. INHALATION (19:15)
--- NOTE | 2023-05-21 20:52 | PCM.PN.HOSP ---
Reason for Visit Reason for Visit: Right knee osteoarthritis Subjective Subjective Mrs. Coello is a 73-year-old white female who presented to [facility] for an elective robotic assisted right total knee arthroplasty with Dr. Solano on 05/21/2023. Patient had been having ongoing issues with her right knee for some time with declining functional status and wheelchair dependence. She was only able to walk about 20 feet utilizing a walker. She had failed outpatient conservative therapy and medications and wished to proceed with a right total knee arthroplasty. Past medical history includes fibromyalgia, orbit obesity, hypertension, GERD, SUZETTE with utilization of CPAP, history of DVT, history of atrial fibrillation, chronic anemia and asthma. We have been consulted postoperatively to assist with postoperative medical management of her chronic medical issues. She was evaluated postoperatively in the medical floor. Patient denies any current issues. She does required a couple of nebulizers due to some wheezing she has had. She does request that we make sure she has scheduled laxatives/stool softeners. Objective Data Objective Data Vital Signs: Vital Signs Temp Pulse Resp BP Pulse Ox O2 Del Method O2 Flow Rate 97.9 F 86 18 110/62 96 Nasal Cannula 2 05/21/23 18:47 05/21/23 18:47 05/21/23 18:47 05/21/23 18:47 05/21/23 18:47 05/21/23 18:47 05/21/23 18:47 Oxygen Flow Rate (L/min) 2 Oxygen Delivery Method Nasal Cannula Weight: 94 kg Body Mass Index (BMI) 37.9 Intake & Output: Intake and Output for Last 24 Hours 05/19/23 05/20/23 05/21/23 23:59 23:59 23:59 Intake Total 2944 / 2944 Balance 2944 / 2944 Lab / Micro Data 04/29/23 14:06 04/29/23 14:06 Labs: Laboratory Results - last 24 hr 05/21/23 08:39: POC Glucose 92 Micro: Microbiology 04/29/23 14:06 Swab (Method) Nasal Screen MRSA/MSSA - Final Radiography Diagnostic Testing: Radiology Impression Knee X-Ray 05/21/23 07:22 IMPRESSION: Total knee arthroplasty in anatomic alignment without complications. Electronically Signed: Bryan Burris MD at 13:42 EDT , Physical Exam Const alert, oriented x3, no apparent distress, healthy appearing and well nourished Constitutional Narrative: Obese, white female, lying in bed, appears comfortable, was sleeping on my arrival but awakens easily HEENT head/scalp atraumatic, moist oral mucous membranes and oropharynx normal HEENT Narrative: Mallampati 3, no thrush Resp normal respiratory effort, no retractions and no use of accessory muscles Resp Narrative: Mild diffuse end expiratory wheeze with no signs of respiratory distress Auscultation: wheezes; Negative for rales or rhonchi Cardio regular rate, regular rhythm, S1 normal heart sound, S2 normal heart sound, no murmurs, no rub, no gallops and no clicks GI normal to inspection, nondistended, normoactive bowel sounds, soft to palpation and non-tender Extremity no clubbing, cyanosis or edema Extremity Narrative: Right knee with polar ice in place, bilateral thigh-high ITZEL hose, pedal pulses are 2+ Neuro oriented x3 and no focal motor deficits Speech: speech normal Psych affect normal Psych Narrative: Very pleasant, appropriately interactive Assessment & Plan Assessment/Plan (1) Osteoarthritis of right knee: PLAN: Plan Right knee osteoarthritis -Postop day 0 robotic assisted right total knee arthroplasty with Dr. Solano -Management per primary -PT/OT consultation -Recommend bowel regimen -Aspirin 81 mg p.o. twice daily with thigh-high compression stockings have been recommended for DVT prophylaxis -Patient is weightbearing as tolerated and is to follow-up in 2 weeks in the office for follow-up wound check and imaging History of DVT -Patient is not on chronic anticoagulation -Aspirin twice daily and thigh-high compression stockings have been read for commended for DVT prophylaxis postoperatively Hypertension -Continue home amlodipine -Continue home carvedilol -Continue home Lasix and continue home HCTZ -PCP may want to review this as she is on 2 diuretics and reason for this is unclear Hyperlipidemia -Continue home pravastatin Neuropathy -Continue home gabapentin History of atrial fibrillation -Previous ablation with no recurrence GERD -Continue home PPI Fibromyalgia -patient is on leflunomide and hydroxychloroquine -No documented autoimmune disease found -May need reviewed as an outpatient Obesity -BMI is 37.9 -Complicates treatment, prognosis, outcomes Recommend weight loss Depression/anxiety - continue home medication DVT prophylaxis -Aspirin 81 mg p.o. twice daily per primary Charges/Coding Visit Charges Inpatient E&M: 88872 Subs Hosp L2
[2023-05-21] MEDS: Celecoxib 200 MG Capsule PO (22:05)
[2023-05-21] MEDS: traZODone 50 MG Tablet PO (22:06)
[2023-05-21] MEDS: Hydroxychloroquine 200 MG Tablet PO (22:06)
[2023-05-21] MEDS: Senna/Docusate Sodium 1 Tablet 2 TABLET PO (22:06)
[2023-05-21] MEDS: Pravastatin 20 MG Tablet PO (22:06)
[2023-05-21] MEDS: Carvedilol 12.5 MG Tablet PO (22:06)
[2023-05-21] MEDS: Pantoprazole Sodium 40 MG Tablet PO (22:06)
[2023-05-21] MEDS: QUEtiapine 25 MG Tablet 50 MG PO (22:07)
[2023-05-21] MEDS: Gabapentin 300 MG Capsule PO (22:09)
[2023-05-22] VITALS (9 sets, daily range): BP systolic 122–145; BP diastolic 67–74; PULSE 70–90; RESP 16–20; TEMP 36.6–37.3; O2SAT 94–100
[2023-05-22] MEDS: oxyCODONE 5 MG Tablet PO ×5 (01:24→21:09)
[2023-05-22] MEDS: Cefazolin 1 GM/50 ML BAG IV (03:15)
[2023-05-22] MEDS: Acetaminophen 500 MG Tablet 1000 MG PO ×3 (05:31→21:11)
[2023-05-22] MEDS: Gabapentin 300 MG Capsule PO ×3 (05:31→21:10)
[2023-05-22] MEDS: Rivaroxaban 10 MG Tablet PO (05:32)
[2023-05-22] MEDS: Budesonide Respules 0.5 MG/2 ML AMPUL.NEB. INHALATION ×2 (06:45→19:09)
[2023-05-22] MEDS: Albuterol 2.5 MG/3 ML VIAL.NEB. INHALATION ×3 (06:45→19:09)
[2023-05-22 07:04] LABS: Hematocrit 27.1 % (37-47); Hemoglobin 8.3 g/dL (12.0-15.0); Mean Corp Hgb Conc 30.6 g/dL (32-36); Mean Corpuscular Hgb 30.6 pg (27.0-32.0); Platelet Count 150 K/mm3 (150-450); RBC Distribution Width CV 13.6 % (11.6-14.6); RBC Distribution Width SD 49.1 fl (35.1-43.9); Red Blood Count 2.71 M/mm3 (4.2-5.4); White Blood Count 8.4 K/mm3 (4.4-11.0)
[2023-05-22 07:25] LABS: Anion Gap 5 (5-15); BUN 19 mg/dL (7-18); Calcium,Total 8.2 mg/dL (8.5-10.1); Chloride 100 mmol/L (98-107); Creatinine, Serum 1.27 mg/dL (0.55-1.02); EST Glomerular Filtration Rate 44 mL/min (>60); Est Glom Filt Rate - Afr Amer 53 mL/min (>60); Estimated Creatinine Clearance 32.13 ml/min; Glucose 127 mg/dL (74-106); Potassium 3.6 mmol/L (3.5-5.1); Sodium Level 133 mmol/L (136-145)
[2023-05-22] MEDS: Pantoprazole Sodium 40 MG Tablet PO ×2 (08:09→21:10)
[2023-05-22] MEDS: Leflunomide 10 MG TABLET PO (08:10)
[2023-05-22] MEDS: Senna/Docusate Sodium 1 Tablet 2 TABLET PO ×2 (08:10→21:11)
[2023-05-22] MEDS: Escitalopram Oxalate 10 MG Tablet PO (08:11)
[2023-05-22] MEDS: hydroCHLOROthiazide 12.5mg 12.5 MG PO (08:11)
[2023-05-22] MEDS: Carvedilol 12.5 MG Tablet PO ×2 (08:11→21:10)
[2023-05-22] MEDS: Hydroxychloroquine 200 MG Tablet PO ×2 (08:11→21:10)
[2023-05-22] MEDS: Famotidine 20 MG Tablet PO (08:11)
[2023-05-22] MEDS: amLODIPine 5 MG Tablet PO (08:11)
[2023-05-22] MEDS: Furosemide 20 MG Tablet PO (08:11)
[2023-05-22] MEDS: Celecoxib 200 MG Capsule PO (08:12)
[2023-05-22] MEDS: Ensure Surgery 237 ML LIQUID PO ×3 (08:13→16:30)
[2023-05-22] MEDS: Hydrocortisone 2.5% Crm 1 APPLIC TOPICAL (08:20)
--- NOTE | 2023-05-22 10:26 | CASEMGMT ---
Discharge Planning A list of SNF providers including quality and resource use data and consistent with the patient's preferred geographic region, medical needs, and insurance network was created in CarePort Guide.? This list was provided to the SW. Gauri Lopez Discharge Planning Asst.
--- NOTE | 2023-05-22 10:31 | PN.ORTHO_ITS ---
Subjective Subjective The patient was sitting in bedside chair upon examination. Patient denies any chest pain, shortness of breath, dizziness, lightheadedness, nausea or vomiting, or calf pain. Pain is controlled on medications. No adverse overnight events. Patient is currently on 2 L nasal oxygen. Patient also reports that she does require 3 L nasal oxygen throughout the day and night at home. She has oxygen tank at home. She is not always consistent with wearing her oxygen at home. She denies any chest pain or shortness of breath. Patient had significant limitations preoperatively due to the severe osteoarthritis. She was primarily wheelchair-bound with very little walking. She would walk occasionally approximately 20 feet. Patient has had some drainage with the incision overnight. The distal pin site dressing was changed. She does have history of previous DVT and is currently on Xarelto postoperatively. Patient also states she takes iron 3 times a week per her primary care physician. However this medication is not listed on her medications for home. Objective Data Objective Data Vital Signs: Vital Signs Temp Pulse Resp BP Pulse Ox O2 Del Method O2 Flow Rate 97.9 F 70 18 122/68 H 94 Room Air 1.5 05/22/23 09:21 05/22/23 09:21 05/22/23 09:21 05/22/23 09:21 05/22/23 09:21 05/22/23 09:21 05/22/23 10:19 Oxygen Flow Rate (L/min) 1.5 Oxygen Delivery Method Room Air Weight: 94 kg Body Mass Index (BMI) 37.9 Intake & Output: Intake and Output for Last 24 Hours 05/20/23 05/21/23 05/22/23 23:59 23:59 23:59 Intake Total 3944 / 3944 50 / 50 Balance 3944 / 3944 50 / 50 Lab / Micro Data 05/22/23 06:55 05/22/23 06:55 Labs: Laboratory Results - last 24 hr 05/21/23 08:39: POC Glucose 92 05/22/23 06:55: WBC 8.4, RBC 2.71 L, Hgb 8.3 L, Hct 27.1 L, MCV 100.0 H, MCH 30.6, MCHC 30.6 L, RDW Std Deviation 49.1 H, RDW Coeff of Eder 13.6, Plt Count 150, MPV 9.0, Sodium 133 L, Potassium 3.6, Chloride 100, Carbon Dioxide 28.0, Anion Gap 5, BUN 19 H, Creatinine 1.27 H, Estim Creat Clear Calc 32.13, Est GFR (MDRD) Af Amer 53 L, Est GFR (MDRD) Non-Af 44 L, BUN/Creatinine Ratio 15.0, Glucose 127 H, Calcium 8.2 L Micro: Microbiology 04/29/23 14:06 Swab (Method) Nasal Screen MRSA/MSSA - Final Radiography Diagnostic Testing: Radiology Impression Knee X-Ray 05/21/23 07:22 IMPRESSION: Total knee arthroplasty in anatomic alignment without complications. Electronically Signed: Bryan Burris MD at 13:42 EDT , Physical Exam Narrative Vital signs stable and afebrile. Currently on 1.5 L nasal oxygen SCDs and ITZEL hose are in place bilaterally Patient is able to plantarflex and dorsiflex actively. Sensation is intact to light touch to saphenous, sural, superficial and deep peroneal, and tibial distribution. Minimal drainage over the proximal pin site dressing. Trace drainage susu size over the proximal one third and distal one third. The distal pin site dressing has already been changed and new dressing is without any drainage Negative Homans bilaterally, negative signs and symptoms of DVT. Const alert, oriented x3 and no apparent distress Assessment & Plan Assessment/Plan (1) Status post total right knee replacement: PLAN: 1. S/P right total knee arthroplasty POD #1 2. Continue Pain Medications: Tylenol and oxycodone primarily. Patient takes Celebrex chronically from the primary care physician. We did reach out to the primary care physician due to chronically elevated kidney function lab work. She reports that her kidney function has improved and it is usually related to her hydration status. I do recommend that we hold off of using the Celebrex for the first 2 weeks while patient is currently on Xarelto. After that I would defer her nonsteroidal anti-inflammatory to her primary care physician. Patient also has required tramadol preoperatively which has been prescribed by her primary care physician. I did explain to her that upon discharge she is not to combine our postoperative pain medication with the tramadol at home. She voiced understanding. 3. DVT Prophylaxis: Xarelto 10 mg once daily for 2 weeks postoperatively. After 2 weeks we will switch her over to aspirin 81 mg twice daily for an additional 2 weeks. Patient does have past history of DVT. I also recommended while on the Xarelto she is not to use the Celebrex. 4. PT/OT: Weightbearing as tolerated with walker. Appreciate recommendations from therapy for discharge planning 5. Lab work has been reviewed. Patient has had chronic anemia. She states she takes iron 3 times a week per her primary care physician. However this is not listed on her medications. Preoperatively patient was 10.3/33.9 with hemoglobin/hematocrit. She is currently 8.3/27.1 postoperatively. I do believe there is some acute on chronic anemia secondary to blood loss from surgery. She is asymptomatic. I did place medication in chart for ferrous sulfate 325 mg twice daily. I also recommended to the patient that instead of using her iron 3 times a week I would recommend daily during the postoperative recovery. Ultimately I would have patient follow-up with the primary care physician for continued lab work and management of her acute on chronic anemia. 6. Continue postoperative medical management per medicine: Kidney function lab work has been stable 7. Postoperative hypoxia: Patient does have history of sleep apnea as well as restrictive airway disease. She reports that she is using 3 L nasal oxygen throughout the day and night. However she is not consistent with maintaining the use of the oxygen at home. I did encourage Incentive Spirometry. Patient will most likely require oxygen upon discharge at long term facility. 8. Disposition: Case was discussed with case management. Case management is involved with appropriate and safe discharge planning. She will require a 3 night midnight stay for discharge to long term facility. Preoperatively patient was primarily wheelchair-bound due to the pain with minimal walking of approximately 20 feet occasionally. She has also attempted conservative measures preoperatively which did not provide relief. I do feel patient will require long term facility upon discharge to appropriately rehab patient for her total knee arthroplasty. I did discuss with her her current medications above particularly the Celebrex and continued management with her primary care physician. We will repeat lab work tomorrow. I would appreciate recommendations from physical therapy for discharge planning. I have reviewed the [place] Automated Rx Reporting System (OARRS) report for this patient for refill pattern and other prescriber involvement as part of the appropriate surveillance for the provision of acute and chronic controlled medications. The report was requested and reviewed on the date of this entry and was considered in the prescribing process. This dictation was created using voice recognition software. Phonetic and/or grammatical errors may exist. (2) Restrictive airway disease: (3) Deep vein thrombosis (DVT):
--- NOTE | 2023-05-22 10:47 | CASEMGMT ---
Addendum entered by Ashley Marcos 05/22/23 14:47: NEEMA WANG sent another oxygen verification email to [employer] and they then verified that pt. is in their system for 2 LPM w/ exertion. Addendum entered by Ashley Marcos 05/22/23 12:50: NEEMA WANG contacted Dr. Lott's office to verify oxygen order. They state DME company is [employer]. Oxygen order from 01/30/2022 is 2 LPM with exertion. Original Note: NEEMA WANG Assessment: Face to Face with pt for initial transition planning/care coordination assessment. NEEMA WANG introduced self and role at [facility], pt voices understanding and consents to assessment. Pt is A&O x4 and answers all questions appropriately at this time. Pt. is sitting up in the chair at bedside during he assessment. Care providers, pharmacy, and demographics verified/updated. Admitting Dx: Robotic Assisted Total Right Knee Arthroplasty PCP: Vic Specialists: Pt. states she has seen various providers at [facility], Cali (Corporation Secretary at [facility]), Oren (Dietetic Technician Registered), Jian (Client Project Coordinator) Preferred Pharmacy: [facility] ([facility] Pt. states she formerly also used [facility], which can function as a mail order pharmacy, but they recently stopped servicing her. She asked how she can get established with another one. NEEMA WANG encouraged pt. to contact her insurance plan for further guidance on this. Pt. voiced understanding. Insurance: M[employer] A & B Prescription Benefit: yes LNOK: Haris Katz () Living Will/HCPOA: Pt. states she does not have a LW (she declines to receive information on ADs and is aware she can make an appt. with [facility] to establish a LW if she would like); is her HCPOA Living Arrangements: Pt lives with her in a ranch-style home with SU (there is a basement as well where the laundry is). 3 steps with railing to enter and 10 steps with railing to basement. Prior to this admission, pt. states she had to take the steps very slowly. States she uses a W/C often. Pt. states she is independent in ADLs and uses her W/C to assist her with cleaning dishes and dusting (states at times she does stand to do the cleaning or cooking) assists with other IADLs such as laundry. Transportation: DME: Shower bench, cane, grab bars, hand held shower, walker, W/C, 3 Lpm oxygen PRN (pt. states this is through [employer]. NEEMA WANG sent verification email to [employer] and was informed Pt. is not in their system), and CPAP. Pt. states she feels she could use a nebulizer and a pulse ox. Pt. states she has an upcoming appt. with her administrative court justice and NEEMA WANG encouraged her to discuss a nebulizer at that appt. Pt. informed she can purchase an pulse ox OTC and she states she thinks she can afford this. Pt. declines information on medical alert systems. HHC/SNF: [facility] in 2011 for SNF; [facility] in 2010 Pt states she feels she will need help from PT after discharge and is not sure if she could go home with outpatient therapy (pt. states this is her preference), or if she may need a SNF. Pt states no further concerns/needs. CM to follow. Advised pt to ask CM if any further question/concerns/needs arise, voices understanding. Pt Goal: Home with outpatient PT. Plan: Pt. would prefer to D/C with outpatient therapy but is open to considering SNF if needed. NEEMA WANG spoke with PT and PT stated that they recommend pt. will need placed. NEEMA WANG informed SW of this and SW states she will speak with pt.
[2023-05-22] MEDS: Ferrous Sulfate 325 MG Tablet PO ×2 (11:35→16:30)
[2023-05-22] MEDS: Doxycycline 100 MG CAPSULE PO ×2 (11:35→21:10)
--- NOTE | 2023-05-22 12:37 | CASEMGMT ---
Social Work BEATRIZ met with pt to discuss advance directives. Pt states she has not completed a living will or health care poa. Pt declines completing documents at this time. BEATRIZ educated pt on [facility] abilty to assist pt while in hospital or on an outpatient basis should she change her mind. AD rack card provided. TRACIE Dleaney
--- NOTE | 2023-05-22 12:57 | CASEMGMT ---
Addendum entered by Lindsay Manuel 05/22/23 15:52: Social Work TCU is able to accept pt with anticipated discharge on Friday. Pt updated and agreeable to dc plan. TRACIE Barker Original Note: Social Work SW met with pt and introduced self and role of SW. SW spoke with pt in regards to progress with therapy and recommendations to SNF. Pt agreeable to short term SNF placement. A list of SNF providers including quality and resource use data and consistent with the patient?s preferred geographic region, medical needs, and insurance network were provided from the CarePort Guide. Pt's first choice is [facility] and second choice is [facility]. Referral made to TCU. SW will await determination of acceptance. TRACIE Barker
[2023-05-22] MEDS: QUEtiapine 25 MG Tablet 50 MG PO (21:10)
[2023-05-22] MEDS: traZODone 50 MG Tablet PO (21:11)
[2023-05-22] MEDS: Pravastatin 20 MG Tablet PO (21:11)
[2023-05-23] VITALS (12 sets, daily range): BP systolic 117–150; BP diastolic 56–91; PULSE 75–100; RESP 16–20; TEMP 36.3–37.6; O2SAT 95–100
[2023-05-23] MEDS: Ondansetron 4 MG/2 ML Vial IV (04:36)
[2023-05-23] MEDS: oxyCODONE 5 MG Tablet PO ×3 (04:50→21:43)
[2023-05-23] MEDS: Acetaminophen 500 MG Tablet 1000 MG PO ×3 (04:51→21:44)
[2023-05-23] MEDS: Gabapentin 300 MG Capsule PO ×3 (04:51→21:43)
[2023-05-23] MEDS: Rivaroxaban 10 MG Tablet PO (04:51)
[2023-05-23] MEDS: Bisacodyl 5 MG Tablet 20 MG PO (05:18)
[2023-05-23] MEDS: Albuterol 2.5 MG/3 ML VIAL.NEB. INHALATION ×3 (07:22→19:44)
[2023-05-23] MEDS: Budesonide Respules 0.5 MG/2 ML AMPUL.NEB. INHALATION ×2 (07:22→19:44)
[2023-05-23 07:46] LABS: Hematocrit 24.6 % (37-47); Hemoglobin 7.7 g/dL (12.0-15.0); Mean Corp Hgb Conc 31.3 g/dL (32-36); Mean Corpuscular Hgb 30.4 pg (27.0-32.0); Mean Corpuscular Volume 97.2 fL (81-99); Mean Platelet Vol. 9.6 fl (6.2-12.0); Platelet Count 142 K/mm3 (150-450); RBC Distribution Width CV 13.4 % (11.6-14.6); RBC Distribution Width SD 47.8 fl (35.1-43.9); Red Blood Count 2.53 M/mm3 (4.2-5.4); White Blood Count 3.2 K/mm3 (4.4-11.0)
[2023-05-23] MEDS: Senna/Docusate Sodium 1 Tablet 2 TABLET PO (08:16)
[2023-05-23] MEDS: Famotidine 20 MG Tablet PO (08:16)
[2023-05-23] MEDS: Ferrous Sulfate 325 MG Tablet PO ×2 (08:16→16:33)
[2023-05-23] MEDS: Leflunomide 10 MG TABLET PO (08:16)
[2023-05-23] MEDS: Doxycycline 100 MG CAPSULE PO ×2 (08:17→21:44)
[2023-05-23] MEDS: Hydroxychloroquine 200 MG Tablet PO ×2 (08:17→21:44)
[2023-05-23] MEDS: hydroCHLOROthiazide 12.5mg 12.5 MG PO (08:17)
[2023-05-23] MEDS: Furosemide 20 MG Tablet PO (08:17)
[2023-05-23] MEDS: amLODIPine 5 MG Tablet PO (08:17)
[2023-05-23] MEDS: Escitalopram Oxalate 10 MG Tablet PO (08:17)
[2023-05-23] MEDS: Pantoprazole Sodium 40 MG Tablet PO ×2 (08:17→21:43)
[2023-05-23] MEDS: Carvedilol 12.5 MG Tablet PO ×2 (08:17→21:43)
[2023-05-23] MEDS: Ensure Surgery 237 ML LIQUID PO ×2 (08:32→11:52)
--- NOTE | 2023-05-23 12:22 | PN.ORTHO_ITS ---
Subjective Subjective Patient is s/p right sided total knee arthroplasty with Dr. Solano. Patient resting comfortably in bed. Rates pain 6/ 10 at rest. With movement 7/10. States taking Tylenol and oxycodone as needed and ice help to relieve pain. Patient has been up with therapy. Walking with the assit of a walker. Afebrile, no chest pain, shortness of breath, negative calf pain/ erythema, and no other signs of DVT. Patient also reports that she does require 3 L nasal oxygen throughout the day and night at home. She has oxygen tank at home. today patient's H&H dropped to 7.7. She remains on oxygen. Satting fine. Damaris ins asymptomatic. Objective Data Objective Data Vital Signs: Vital Signs Temp Pulse Resp BP Pulse Ox O2 Del Method O2 Flow Rate 98.1 F 91 20 H 122/62 H 99 Nasal Cannula 2 05/23/23 08:02 05/23/23 08:02 05/23/23 08:02 05/23/23 08:02 05/23/23 10:44 05/23/23 08:02 05/23/23 11:18 FiO2 97 05/23/23 07:21 Oxygen Flow Rate (L/min) 2 Oxygen Delivery Method Nasal Cannula Weight: 94 kg Body Mass Index (BMI) 37.9 Intake & Output: Intake and Output for Last 24 Hours 05/21/23 05/22/23 05/23/23 23:59 23:59 23:59 Intake Total 3944 / 3944 600 / 600 Balance 3944 / 3944 600 / 600 Lab / Micro Data 05/23/23 07:25 05/22/23 06:55 Labs: Laboratory Results - last 24 hr 05/23/23 07:25: WBC 3.2 L, RBC 2.53 L, Hgb 7.7 L, Hct 24.6 L, MCV 97.2, MCH 30.4, MCHC 31.3 L, RDW Std Deviation 47.8 H, RDW Coeff of Eder 13.4, Plt Count 142 L, MPV 9.6 05/23/23 08:56: Blood Type A POSITIVE, Antibody Screen NEGATIVE, Crossmatch See Detail Micro: Microbiology 04/29/23 14:06 Swab (Method) Nasal Screen MRSA/MSSA - Final Physical Exam Narrative 3L O2 nasal canula sitting up in bed. resting comfortably. afebrile incision with dressing inplace. small amounts of drainage from distal portion. small area of drainage of proximal pin site incision. intact to sensation throughout dorsi/plantar flexion 5/5 Assessment & Plan Assessment/Plan (1) Status post total right knee replacement: PLAN: Plan (1) Status post total right knee replacement: PLAN: 1. S/P right total knee arthroplasty POD #2 2. Continue Pain Medications: Tylenol and oxycodone primarily. Patient takes Celebrex chronically from the primary care physician. We did reach out to the primary care physician due to chronically elevated kidney function lab work. She reports that her kidney function has improved and it is usually related to her hydration status. I do recommend that we hold off of using the Celebrex for the first 2 weeks while patient is currently on Xarelto. After that I would defer her nonsteroidal anti-inflammatory to her primary care physician. Patient also has required tramadol preoperatively which has been prescribed by her primary care physician. I did explain to her that upon discharge she is not to combine our postoperative pain medication with the tramadol at home. She voiced understanding. 3. DVT Prophylaxis: Xarelto 10 mg once daily for 2 weeks postoperatively. After 2 weeks we will switch her over to aspirin 81 mg twice daily for an additional 2 weeks. Patient does have past history of DVT. I also recommended while on the Xarelto she is not to use the Celebrex. 4. PT/OT: Weightbearing as tolerated with walker. Appreciate recommendations from therapy for discharge planning 5. Lab work has been reviewed. Patient has had chronic anemia. She states she takes iron 3 times a week per her primary care physician. However this is not listed on her medications. H/H today 7.7/24.6. I do believe there is some acute on chronic anemia second priscila to blood loss from surgery. She is asymptomatic. I did place medication in chart for ferrous sulfate 325 mg twice daily. I also recommended to the patient that instead of using her iron 3 times a week I would recommend daily during the postoperative recovery. Ultimately I would have patient follow-up with the primary care physician for continued lab work and management of her acute on chronic anemia. defer to medicine for further recommendations about anemia this stay as today this is worsening. medicine to transfuse 1-2 units of RBCs today. 6. Continue postoperative medical management per medicine: Kidney function lab work has been stable 7. Postoperative hypoxia: Patient does have history of sleep apnea as well as restrictive airway disease. She reports that she is using 3 L nasal oxygen throughout the day and night. However she is not consistent with maintaining the use of the oxygen at home. I did encourage Incentive Spirometry. Patient will most likely require oxygen upon discharge at fdc facility. 8. Disposition: Case was discussed with case management. Case management is involved with appropriate and safe discharge planning. She will require a 3 night midnight stay for discharge to fdc facility. she has been accepted to [facility]. Preoperatively patient was primarily wheelchair-bound due to the pain with minimal walking of approximately 20 feet occasionally. She has also attempted conservative measures preoperatively which did not provide relief. I do feel patient will require fdc facility upon discharge to appropriately rehab patient for her total knee arthroplasty. I did discuss with her her current medications above particularly the Celebrex and continued management with her primary care physician. We will repeat lab work tomorrow. I would appreciate recommendations from physical therapy for discharge planning.
--- NOTE | 2023-05-23 13:42 | PCM.TXEXTCAR ---
Diet Diet Order/Speech Therapy: 05/21/23 17:19 Diet: Regular - General Routine Orders/Code Status O2 Liters per Minute: 3L NC as needed. O2 sats > 92% Routine Lab Work: CBC (wihtint 1-2 days of discharge. patient anemic and required transfusion. ) Wound(s) RIGHT KNEE: Wound Type: Surgical Incision RIGHT THIGH: Wound Type: Surgical Incision Therapies Weight Bearing: Full weight bearing and Weight bearing as tolerated Physical Therapy: Eval and Treat Occupational Therapy: Eval and Treat Problem/Diagnosis (1) Status post total right knee replacement: Status: Acute Code(s): Z96.651 - Presence of right artificial knee joint Plan (1) Status post total right knee replacement: PLAN: 1. S/P right total knee arthroplasty POD #2 2. Continue Pain Medications: Tylenol and oxycodone primarily. Patient takes Celebrex chronically from the primary care physician. We did reach out to the primary care physician due to chronically elevated kidney function lab work. She reports that her kidney function has improved and it is usually related to her hydration status. I do recommend that we hold off of using the Celebrex for the first 2 weeks while patient is currently on Xarelto. After that I would defer her nonsteroidal anti-inflammatory to her primary care physician. Patient also has required tramadol preoperatively which has been prescribed by her primary care physician. I did explain to her that upon discharge she is not to combine our postoperative pain medication with the tramadol at home. She voiced understanding. 3. DVT Prophylaxis: Xarelto 10 mg once daily for 2 weeks postoperatively. After 2 weeks we will switch her over to aspirin 81 mg twice daily for an additional 2 weeks. Patient does have past history of DVT. I also recommended while on the Xarelto she is not to use the Celebrex. 4. PT/OT: Weightbearing as tolerated with walker. Appreciate recommendations from therapy for discharge planning 5. Lab work has been reviewed. Patient has had chronic anemia. She states she takes iron 3 times a week per her primary care physician. However this is not listed on her medications. H/H today 7.7/.6. I do believe there is some acute on chronic anemia secondary to blood loss from surgery. She is asymptomatic. I did place medication in chart for ferrous sulfate 325 mg twice daily. I also recommended to the patient that instead of using her iron 3 times a week I would recommend daily during the postoperative recovery. Ultimately I would have patient follow-up with the primary care physician for continued lab work and management of her acute on chronic anemia. defer to medicine for further recommendations about anemia this stay as today this is worsening. medicine to transfuse 1-2 units of RBCs today. 6. Continue postoperative medical management per medicine: Kidney function lab work has been stable 7. Postoperative hypoxia: Patient does have history of sleep apnea as well as restrictive airway disease. She reports that she is using 3 L nasal oxygen throughout the day and night. However she is not consistent with maintaining the use of the oxygen at home. I did encourage Incentive Spirometry. Patient will most likely require oxygen upon [facility]. 8. Disposition: Case was discussed with case management. Case management is involved with appropriate and safe discharge planning. She will require a 3 night midnight stay for discharge to [facility]. she has been accepted to [facility]. Preoperatively patient was primarily wheelchair-bound due to the pain with minimal walking of approximately 20 feet occasionally. She has also attempted conservative measures preoperatively which did not provide relief. I do feel patient will require [facility] facility upon discharge to appropriately rehab patient for her total knee arthroplasty. I did discuss with her her current medications above particularly the Celebrex and continued management with her primary care physician. We will repeat lab work tomorrow. I would appreciate recommendations from physical therapy for discharge planning. Allergies/Procedures Done in Hospital Allergies atorvastatin Adverse Reaction (Severe, Verified 05/21/23 08:49) Severe diarrhea loratadine [From Claritin-D] Adverse Reaction (Verified 05/21/23 08:49) HYPERTENSION pseudoephedrine [From Claritin-D] Adverse Reaction (Verified 05/21/23 08:49) HYPERTENSION Type of Care/Length of Stay Estimated LOS: Convalescent Care Less Than 30 days Type of Care Needed: Skilled Rehab Potential: Good Prognosis: Good Additional Orders/Day of Discharge Day of Discharge: 05/24/23 Follow Up Care Please follow up with your Primary Care Physician in: [place] regarding post op anemia and transfusion. When: [facility] in 2 weeks in office as previously scheduled. Discharge Plan Admission Admit Date/Time: 05/21/23 07:19 Attending Provider: Tacos Solano Primary Care Provider: Annamarie Ho Consulting Providers: Jim Natarajan; Reynaldo Chilel; Shanti Vivar; Nadir Gtz; Devan Layne Discharge Orders/Prescriptions Prescriptions: No Action quetiapine [Seroquel] 200 mg tablet 50 mg PO QHS albuterol sulfate [Ventolin HFA] 90 mcg/actuation HFA aerosol inhaler 2 puff INHALATION Q4H PRN (Reason: shortness of breath or wheezing) Qty: 18 6RF escitalopram oxalate 10 mg tablet 10 mg PO DAILY Patient Comments: TAKE 1 TABLET BY MOUTH DAILY hydrocortisone 2.5 % cream with perineal applicator 1 applic NM DAILY Patient Comments: apply rectally TWICE DAILY hydrochlorothiazide 12.5 mg tablet 12.5 mg PO DAILY acetaminophen 500 MG tablet 500 - 1,000 mg PO Q6H PRN PRN (Reason: Pain) hydroxychloroquine 200 MG tablet 200 mg PO BID Patient Comments: tramadol 50 mg tablet 50 mg PO TID PRN (Reason: Pain) Patient Comments: TAKE 1 TABLET BY MOUTH EVERY 4 HOURS NEEDED celecoxib 200 MG capsule 200 mg PO BID Hold Instructions: On plavix for cath 01/16/21 gabapentin 100 mg capsule 300 mg PO TID leflunomide 10 mg tablet 10 mg PO DAILY Patient Comments: TAKE 1 TABLET BY MOUTH ONCE DAILY trazodone 100 mg tablet 50 mg PO QHS Patient Comments: Take 1 Tablet By Oral Route 1 at bedtime pantoprazole 40 MG tablet 40 mg PO BID [id number] 30-10-100 mg/5 mL syrup 5 - 10 ml PO Q6H PRN PRN (Reason: Cough/Congestion) amlodipine 5 mg tablet 5 mg PO DAILY Qty: 90 3RF Rx Instructions: new dosage furosemide 20 mg tablet 20 mg PO DAILY pravastatin 20 mg tablet 20 mg PO QHS Qty: 30 11RF carvedilol 25 mg tablet 12.5 mg PO BID Qty: 90 3RF fluticasone furoate-vilanterol [Breo Ellipta] 200-25 mcg/dose blister with device 1 inh inhalation QDAY Qty: 60 6RF Rx Instructions: after inhalation, rinse mouth with water and spit out; do not swallow Other Ambulatory Orders: 12 Lead EKG (Routine) Timeframe: [id number] Location: None Selected Ordered By: Dr. Tacos Solano Referrals / Follow Up: Annamarie Ho MD [Primary Care Provider] - Mina Hall PA-C [Med Staff - [facility]] - 06/05/23 3:00 pm
--- NOTE | 2023-05-23 13:46 | DCINST_ITS ---
Discharge Instructions Diet Discharge Diet: No restrictions Activity Weight Bearing Status: Weight bearing as tolerated and Full weight bearing Dressing / Incision Call your doctor if your incision/area has: Continuous Slow Oozing, Sudden Increased Bleeding, Increased Pain/ Swelling, Increased Redness, Foul Smelling Discharge and Swelling at the incision site Call your doctor if you observe: Fever of 101 or Higher, Dizziness, Chest pain and Calf discomfort Remove Dressing in: 5 days Cleanse incision/area with: Soap & Water and Keep Dressing Clean & Dry Follow Up Care Test Results: Test results from this visit will be discussed in further detail at your follow- up appointment, if applicable. Discharge Plan Admission Admit Date/Time: 05/21/23 07:19 Attending Provider: Tacos Solano Primary Care Provider: Annamarie Ho Consulting Providers: Jim Natarajan; Reynaldo Chilel; Shanti Vivar; Nadir Gtz; Devan Layne Discharge Orders/Prescriptions Prescriptions: No Action quetiapine [Seroquel] 200 mg tablet 50 mg PO QHS albuterol sulfate [Ventolin HFA] 90 mcg/actuation HFA aerosol inhaler 2 puff INHALATION Q4H PRN (Reason: shortness of breath or wheezing) Qty: 18 6RF escitalopram oxalate 10 mg tablet 10 mg PO DAILY Patient Comments: TAKE 1 TABLET BY MOUTH DAILY hydrocortisone 2.5 % cream with perineal applicator 1 applic ND DAILY Patient Comments: apply rectally TWICE DAILY hydrochlorothiazide 12.5 mg tablet 12.5 mg PO DAILY acetaminophen 500 MG tablet 500 - 1,000 mg PO Q6H PRN PRN (Reason: Pain) hydroxychloroquine 200 MG tablet 200 mg PO BID Patient Comments: tramadol 50 mg tablet 50 mg PO TID PRN (Reason: Pain) Patient Comments: TAKE 1 TABLET BY MOUTH EVERY 4 HOURS NEEDED celecoxib 200 MG capsule 200 mg PO BID Hold Instructions: On plavix for cath 01/16/21 gabapentin 100 mg capsule 300 mg PO TID leflunomide 10 mg tablet 10 mg PO DAILY Patient Comments: TAKE 1 TABLET BY MOUTH ONCE DAILY trazodone 100 mg tablet 50 mg PO QHS Patient Comments: Take 1 Tablet By Oral Route 1 at bedtime pantoprazole 40 MG tablet 40 mg PO BID dolveslllnjcrwj-SN-[id number] 30-10-100 mg/5 mL syrup 5 - 10 ml PO Q6H PRN PRN (Reason: Cough/Congestion) amlodipine 5 mg tablet 5 mg PO DAILY Qty: 90 3RF Rx Instructions: new dosage furosemide 20 mg tablet 20 mg PO DAILY pravastatin 20 mg tablet 20 mg PO QHS Qty: 30 11RF carvedilol 25 mg tablet 12.5 mg PO BID Qty: 90 3RF fluticasone furoate-vilanterol [Breo Ellipta] 200-25 mcg/dose blister with device 1 inh inhalation QDAY Qty: 60 6RF Rx Instructions: after inhalation, rinse mouth with water and spit out; do not swallow Other Ambulatory Orders: 12 Lead EKG (Routine) Timeframe: 20230429 Location: None Selected Ordered By: Dr. Tacos Solano Referrals / Follow Up: Annamarie Ho MD [Primary Care Provider] - Mina Hall PA-C [Med Staff - [facility]] - 06/05/23 3:00 pm
--- NOTE | 2023-05-23 15:20 | CASEMGMT ---
Social Work SW received message from Lizy in TCU that due to a change in bed availability, pt now cannot admit until Friday. SW placed call to Tyron Stuart and updated DENNIS Guzmán of change of discharge date. Pt updated. Plan: TCU, bed available on Friday TRACIE Barker
[2023-05-23] MEDS: QUEtiapine 25 MG Tablet 50 MG PO (21:43)
[2023-05-23] MEDS: traZODone 50 MG Tablet PO (21:43)
[2023-05-23] MEDS: Pravastatin 20 MG Tablet PO (21:43)
[2023-05-24] VITALS (7 sets, daily range): BP systolic 122–147; BP diastolic 57–88; PULSE 78–88; RESP 18; TEMP 36.8–37.3; O2SAT 94–96
[2023-05-24] MEDS: Rivaroxaban 10 MG Tablet PO (04:30)
[2023-05-24] MEDS: Gabapentin 300 MG Capsule PO ×3 (04:30→20:27)
[2023-05-24] MEDS: oxyCODONE 5 MG Tablet PO ×3 (04:30→20:27)
[2023-05-24] MEDS: Acetaminophen 500 MG Tablet 1000 MG PO ×3 (04:30→20:28)
[2023-05-24] MEDS: Albuterol 2.5 MG/3 ML VIAL.NEB. INHALATION ×2 (07:19→13:19)
[2023-05-24] MEDS: Budesonide Respules 0.5 MG/2 ML AMPUL.NEB. INHALATION (07:19)
[2023-05-24 08:39] LABS: Absolute Lymphocyte Count 0.37 X10^3/uL (0.83-4.51); Absolute Neutrophil Count 2.8 X10^3/uL (2.0-7.7); Basophil# 0.02 X10^3/uL; Basophil% 0.5 % (0-1); Eosinophil# 0.15 X10^3/uL; Eosinophils% 3.6 % (0-5); Hematocrit 27.8 % (37-47); Hemoglobin 8.9 g/dL (12.0-15.0); Lymphocyte # 0.37 X10^3/ul (0.83-4.51); Lymphocyte % 8.9 % (19-41); Mean Corpuscular Hgb 30.6 pg (27.0-32.0); Mean Corpuscular Volume 95.5 fL (81-99); Mean Platelet Vol. 9.6 fl (6.2-12.0); Monocyte# 0.83 X10^3/uL; Monocyte% 19.9 % (0-10); NRBC Flagged by Analyzer 0 % (0-5); Neutrophil % 66.9 % (47-70); POSITIVE DIFFERENTIAL YES; Platelet Count 161 K/mm3 (150-450); RBC Distribution Width CV 13.9 % (11.6-14.6); RBC Distribution Width SD 48.8 fl (35.1-43.9); Red Blood Count 2.91 M/mm3 (4.2-5.4); White Blood Count 4.2 K/mm3 (4.4-11.0)
[2023-05-24 08:52] LABS: Differential Indicated SCAN CRITERIA MET
[2023-05-24] MEDS: Hydroxychloroquine 200 MG Tablet PO ×2 (08:53→20:28)
[2023-05-24] MEDS: Doxycycline 100 MG CAPSULE PO ×2 (08:54→20:27)
[2023-05-24] MEDS: Famotidine 20 MG Tablet PO (08:54)
[2023-05-24] MEDS: Carvedilol 12.5 MG Tablet PO ×2 (08:54→20:28)
[2023-05-24] MEDS: Pantoprazole Sodium 40 MG Tablet PO ×2 (08:54→20:28)
[2023-05-24] MEDS: Escitalopram Oxalate 10 MG Tablet PO (08:55)
[2023-05-24] MEDS: hydroCHLOROthiazide 12.5mg 12.5 MG PO (08:55)
[2023-05-24] MEDS: Furosemide 20 MG Tablet PO (08:56)
[2023-05-24] MEDS: Leflunomide 10 MG TABLET PO (08:57)
[2023-05-24] MEDS: amLODIPine 5 MG Tablet PO (08:58)
[2023-05-24] MEDS: 0.9% Saline Lock 10 ML Syringe IV (08:58)
[2023-05-24] MEDS: guaiFENesin CF 120 ML PO ×2 (08:59→20:32)
[2023-05-24 09:05] LABS: Anion Gap 7 (5-15); BUN 19 mg/dL (7-18); BUN/Creat Ratio 17.6 RATIO (10-20); Calcium,Total 8.6 mg/dL (8.5-10.1); Chloride 96 mmol/L (98-107); Creatinine, Serum 1.08 mg/dL (0.55-1.02); EST Glomerular Filtration Rate 53 mL/min (>60); Est Glom Filt Rate - Afr Amer 64 mL/min (>60); Estimated Creatinine Clearance 37.79 ml/min; Glucose 107 mg/dL (74-106); Potassium 3.3 mmol/L (3.5-5.1); Sodium Level 131 mmol/L (136-145)
--- NOTE | 2023-05-24 09:37 | PCM.PN.ORT ---
Subjective Subjective The patient was sitting in bedside chair upon examination. Patient denies any chest pain, shortness of breath, dizziness, lightheadedness, nausea or vomiting, or calf pain. Patient is currently on room air in no distress. She does report pain in the postoperative right knee however the pain is managed on medications. She did receive 1 unit of packed red blood cells yesterday as her hemoglobin dropped to 7.7. Currently today she is 8.9. She denies any dizziness or lightheadedness. Vital signs have been stable. The plan is for patient to go to [facility] transitional care unit tomorrow. Objective Data Objective Data Vital Signs: Vital Signs Temp Pulse Resp BP Pulse Ox O2 Del Method O2 Flow Rate 98.2 F 88 18 145/69 H 95 Room Air 2 05/24/23 09:12 05/24/23 09:12 05/24/23 09:12 05/24/23 09:12 05/24/23 09:12 05/24/23 09:13 05/24/23 07:20 FiO2 97 05/23/23 07:21 Oxygen Flow Rate (L/min) 2 Oxygen Delivery Method Room Air Weight: 94 kg Body Mass Index (BMI) 37.9 Intake & Output: Intake and Output for Last 24 Hours 05/22/23 05/23/23 05/24/23 23:59 23:59 23:59 Intake Total 600 / 600 481 / 481 Balance 600 / 600 481 / 481 Lab / Micro Data 05/24/23 08:24 05/24/23 08:24 Labs: Laboratory Results - last 24 hr 05/23/23 08:56: Blood Type A POSITIVE, Antibody Screen NEGATIVE, Crossmatch See Detail 05/24/23 08:24: WBC 4.2 L, RBC 2.91 L, Hgb 8.9 L, Hct 27.8 L, MCV 95.5, MCH 30.6, MCHC 32.0, RDW Std Deviation 48.8 H, RDW Coeff of Eder 13.9, Plt Count 161, MPV 9.6, Immature Gran % (Auto) 0.200, Neut % (Auto) 66.9, Lymph % (Auto) 8.9 L, [place] % (Auto) 19.9 H, Eos % (Auto) 3.6, Baso % (Auto) 0.5, Absolute Neuts (auto) 2.8, Absolute Lymphs (auto) 0.37 L, Nucleated RBC % 0, Sodium 131 L, Potassium 3.3 L, Chloride 96 L, Carbon Dioxide 28.0, Anion Gap 7, BUN 19 H, Creatinine 1.08 H, Estim Creat Clear Calc 37.79, Est GFR (MDRD) Af Amer 64, Est GFR (MDRD) Non-Af 53 L, BUN/Creatinine Ratio 17.6, Glucose 107 H, Calcium 8.6 Micro: Microbiology 04/29/23 14:06 Swab (Method) Nasal Screen MRSA/MSSA - Final Physical Exam Narrative Vital signs stable and afebrile. SCDs and ITZEL hose are in place bilaterally Patient is able to plantarflex and dorsiflex actively. Sensation is intact to light touch to saphenous, sural, superficial and deep peroneal, and tibial distribution. Minimal drainage over the proximal pin site dressing, stable drainage over the proximal and distal Mepilex, no active drainage from the distal pin site dressing Negative Homans bilaterally, negative signs and symptoms of DVT. Const alert, oriented x3 and no apparent distress Assessment & Plan Assessment/Plan (1) Status post total right knee replacement: PLAN: Plan (1) Status post total right knee replacement: PLAN: 1. S/P right total knee arthroplasty POD #3 2. Continue Pain Medications: Tylenol and oxycodone primarily. Patient takes Celebrex chronically from the primary care physician. We did reach out to the primary care physician due to chronically elevated kidney function lab work. She reports that her kidney function has improved and it is usually related to her hydration status. I do recommend that we hold off of using the Celebrex for the first 2 weeks while patient is currently on Xarelto. After that I would defer her nonsteroidal anti-inflammatory to her primary care physician. Patient also has required tramadol preoperatively which has been prescribed by her primary care physician. I did explain to her that upon discharge she is not to combine our postoperative pain medication with the tramadol at home. She voiced understanding. 3. DVT Prophylaxis: Xarelto 10 mg once daily for 2 weeks postoperatively. After 2 weeks we will switch her over to aspirin 81 mg twice daily for an additional 2 weeks. Patient does have past history of DVT. I also recommended while on the Xarelto she is not to use the Celebrex. 4. PT/OT: Weightbearing as tolerated with walker. Appreciate recommendations from therapy for discharge planning 5. Lab work has been reviewed. Patient has had chronic anemia. She states she takes iron 3 times a week per her primary care physician. However this is not listed on her medications. H/H yesterday was 7.7/24.6. Currently now patient's hemoglobin is 8.9 after receiving 1 unit of packed red blood cells. No signs of increased swelling to the right knee. She is asymptomatic. Patient currently on ferrous sulfate 325 mg twice daily. I also recommended to the patient that instead of using her iron 3 times a week I would recommend daily during the postoperative recovery. Ultimately I would have patient follow-up with the primary care physician for continued lab work and management of her acute on chronic anemia. 6. Continue postoperative medical management per medicine: Kidney function lab work has been stable 7. Postoperative hypoxia: Patient currently on room air at 95% O2 saturation. Patient does have history of sleep apnea as well as restrictive airway disease. She reports that she is using 3 L nasal oxygen throughout the day and night. However she is not consistent with maintaining the use of the oxygen at home. I did encourage Incentive Spirometry. Recommend oxygen only if patient is dropping below 92%. 8. Currently on doxycycline for 2 weeks postoperatively due to staph screening preoperatively. I discussed with the patient potential side effects of doxycycline including sensitivity to the sunlight and increased risk of skin burn. Recommend patient take appropriate precautions. Also recommend patient to take probiotic while on the antibiotic. Patient voiced understanding agreement. 9. Disposition: Per case management patient is not able to go to the [facility] transitional care unit until tomorrow. She has been accepted. At this time we will have her continue to focus and work on exercises with physical therapy today. Appreciate any further input from medicine from their standpoint. Patient did see increase in her hemoglobin after 1 unit packed red blood cells yesterday. She is currently asymptomatic. She is also on room air in no distress. Plan will be for discharge to the transitional care unit tomorrow. Preoperatively patient was primarily wheelchair-bound due to the pain with minimal walking of approximately 20 feet occasionally. She has also attempted conservative measures preoperatively which did not provide relief. I do feel patient will require [facility] upon discharge to appropriately rehab patient for her total knee arthroplasty. This dictation was created using voice recognition software. Phonetic and/or grammatical errors may exist.
--- NOTE | 2023-05-24 10:15 | PCM.PN.HOSP ---
Subjective Subjective Doing, no issues overnight. She did get a unit of blood yesterday as her hemoglobin did drop from 10.8 on the third down to 7.7 yesterday after surgery Objective Data Objective Data Vital Signs: Vital Signs Temp Pulse Resp BP Pulse Ox O2 Del Method O2 Flow Rate 98.2 F 88 18 145/69 H 95 Room Air 2 05/24/23 09:12 05/24/23 09:12 05/24/23 09:12 05/24/23 09:12 05/24/23 09:12 05/24/23 09:13 05/24/23 07:20 FiO2 97 05/23/23 07:21 Oxygen Flow Rate (L/min) 2 Oxygen Delivery Method Room Air Weight: 207 lb 3.752 oz Body Mass Index (BMI) 37.9 Intake & Output: Intake and Output for Last 24 Hours 05/23/23 05/24/23 05/25/23 03:59 03:59 03:59 Intake Total 550 / 550 481 / 481 Balance 550 / 550 481 / 481 Lab / Micro Data 05/24/23 08:24 05/24/23 08:24 Labs: Laboratory Results - last 24 hr 05/23/23 08:56: Blood Type A POSITIVE, Antibody Screen NEGATIVE, Crossmatch See Detail 05/24/23 08:24: WBC 4.2 L, RBC 2.91 L, Hgb 8.9 L, Hct 27.8 L, MCV 95.5, MCH 30.6, MCHC 32.0, RDW Std Deviation 48.8 H, RDW Coeff of Eder 13.9, Plt Count 161, MPV 9.6, Immature Gran % (Auto) 0.200, Neut % (Auto) 66.9, Lymph % (Auto) 8.9 L, [place] % (Auto) 19.9 H, Eos % (Auto) 3.6, Baso % (Auto) 0.5, Absolute Neuts (auto) 2.8, Absolute Lymphs (auto) 0.37 L, Nucleated RBC % 0, Sodium 131 L, Potassium 3.3 L, Chloride 96 L, Carbon Dioxide 28.0, Anion Gap 7, BUN 19 H, Creatinine 1.08 H, Estim Creat Clear Calc 37.79, Est GFR (MDRD) Af Amer 64, Est GFR (MDRD) Non-Af 53 L, BUN/Creatinine Ratio 17.6, Glucose 107 H, Calcium 8.6 Micro: Microbiology 04/29/23 14:06 Swab (Method) Nasal Screen MRSA/MSSA - Final Physical Exam Narrative General: Alert, Oriented x3, Cooperative, No apparent distress HEENT: Atraumatic, PERRLA, EOMI, Normocephalic Oral: Moist Mucosa Neck: Supple, No JVD Lungs: Diminished, Normal air movement, No rhonchi, wheeze, No rales Cardiovascular: Regular rate, Regular Rhythm, Normal S1, Normal S2, No murmurs Abdomen: Soft, Non Tender, Non-Distended, No Hepato-splenomegaly Extremities: No edema, Capillary Refill Less than 3 Seconds Skin: In vision CDI Musculoskeletal: No Tenderness to Palpation of Joints or Extremities Neurological: Cranial nerves II-XII grossly intact, Motor Exam 5/5 strength throughout, Sensory exam intact to light touch and pain Psych/Mental Status: Normal Affect, Appropriate Assessment & Plan Assessment/Plan (1) Osteoarthritis of right knee: PLAN: Plan 1. Right knee osteoarthritis status post right total knee arthroplasty on 05/21/2023/postop bleeding ? Pain management per primary ? PT/OT ? Plan for discharge to TCU tomorrow ? Continue with Xarelto ? Transfused 1 unit yesterday corrected from 7.7 to 8.9 can follow lab work at TCU 2. HTN/HLD/history of A-fib ? She is status post ablation with no recurrence ? Continue home blood pressure medications, will monitor and make adjustments as necessary 3. Fibromyalgia/anxiety/depression ? Stable ? Continue with her home medications 4. GERD ? Stable ? Continue with PPI DVT: Xarelto Medicine will sign off please contact if any questions Charges/Coding Visit Charges Inpatient E&M: 69016 Subs Hosp L2
[2023-05-24 10:29] LABS: Differential Comment SCANNED
[2023-05-24] MEDS: Potassium Chloride Oral Tablet 20 MEQ 60 MEQ PO (11:35)
[2023-05-24] MEDS: Ferrous Sulfate 325 MG Tablet PO ×2 (12:50→16:30)
[2023-05-24] MEDS: QUEtiapine 25 MG Tablet 50 MG PO (20:27)
[2023-05-24] MEDS: Pravastatin 20 MG Tablet PO (20:28)
[2023-05-24] MEDS: traZODone 50 MG Tablet PO (20:28)
[2023-05-25] MEDS: oxyCODONE 5 MG Tablet PO ×3 (02:16→12:04)
[2023-05-25 02:17] VITALS: BP 125/70; PULSE 81; RESP 18; TEMP 36.6; O2SAT 94
[2023-05-25] MEDS: Acetaminophen 500 MG Tablet 1000 MG PO (06:38)
[2023-05-25] MEDS: Rivaroxaban 10 MG Tablet PO (06:38)
[2023-05-25] MEDS: Gabapentin 300 MG Capsule PO (06:38)
[2023-05-25 07:15] VITALS: PULSE 88; RESP 18; O2SAT 90
[2023-05-25] MEDS: Albuterol 2.5 MG/3 ML VIAL.NEB. INHALATION ×2 (07:15→13:13)
[2023-05-25] MEDS: Budesonide Respules 0.5 MG/2 ML AMPUL.NEB. INHALATION (07:15)
[2023-05-25 08:15] VITALS: BP 97/60; PULSE 70; RESP 20; TEMP 36.6; O2SAT 93
[2023-05-25 08:42] LABS: Absolute Lymphocyte Count 0.62 X10^3/uL (0.83-4.51); Absolute Neutrophil Count 2.9 X10^3/uL (2.0-7.7); Basophil# 0.03 X10^3/uL; Basophil% 0.7 % (0-1); Eosinophil# 0.24 X10^3/uL; Eosinophils% 5.2 % (0-5); Hematocrit 25.5 % (37-47); Hemoglobin 7.9 g/dL (12.0-15.0); Lymphocyte # 0.62 X10^3/ul (0.83-4.51); Lymphocyte % 13.5 % (19-41); Mean Corpuscular Hgb 30.4 pg (27.0-32.0); Mean Corpuscular Volume 98.1 fL (81-99); Mean Platelet Vol. 9.8 fl (6.2-12.0); Monocyte# 0.77 X10^3/uL; Monocyte% 16.8 % (0-10); NRBC Flagged by Analyzer 0 % (0-5); Neutrophil % 63.1 % (47-70); Platelet Count 175 K/mm3 (150-450); RBC Distribution Width CV 14.1 % (11.6-14.6); RBC Distribution Width SD 50.5 fl (35.1-43.9); White Blood Count 4.6 K/mm3 (4.4-11.0)
[2023-05-25 08:47] VITALS: O2SAT 93
--- NOTE | 2023-05-25 08:54 | PCM.PN.ORT ---
Subjective Subjective The patient was sitting in bed upon examination. Patient denies any chest pain, shortness of breath, dizziness, lightheadedness, nausea or vomiting, or calf pain. Pain is controlled on medications. No adverse overnight events. Patient has been on room air however at rest and nighttime she does drop with O2 saturation. Patient does report that she will intermittently use oxygen at home. She currently denies shortness of breath. She is also received 1 unit packed red blood cells postoperatively in which yesterday her hemoglobin improved to 8.9. Today it is currently 7.9. No active signs of bleeding with the knee. She is currently on Xarelto. She does have acute on chronic anemia in which preoperatively she came in at 10.3 with hemoglobin. She is currently on iron. Objective Data Objective Data Vital Signs: Vital Signs Temp Pulse Resp BP Pulse Ox O2 Del Method O2 Flow Rate 97.9 F 70 20 H 97/60 93 Room Air 2 05/25/23 08:15 05/25/23 08:15 05/25/23 08:15 05/25/23 08:15 05/25/23 08:15 05/25/23 08:15 05/24/23 07:20 FiO2 97 05/23/23 07:21 Oxygen Flow Rate (L/min) 2 Oxygen Delivery Method Room Air Weight: 94 kg Body Mass Index (BMI) 37.9 Intake & Output: Intake and Output for Last 24 Hours 05/23/23 05/24/23 05/25/23 23:59 23:59 23:59 Intake Total 481 / 481 240 / 240 Balance 481 / 481 240 / 240 Lab / Micro Data 05/25/23 08:00 05/24/23 08:24 Labs: Laboratory Results - last 24 hr 05/24/23 08:24: Differential Comment SCANNED, Diff Path Review November foll, Sodium 131 L, Potassium 3.3 L, Chloride 96 L, Carbon Dioxide 28.0, Anion Gap 7, BUN 19 H, Creatinine 1.08 H, Estim Creat Clear Calc 37.79, Est GFR (MDRD) Af Amer 64, Est GFR (MDRD) Non-Af 53 L, BUN/Creatinine Ratio 17.6, Glucose 107 H, Calcium 8.6 05/25/23 08:00: WBC 4.6, RBC 2.60 L, Hgb 7.9 L, Hct 25.5 L, MCV 98.1, MCH 30.4, MCHC 31.0 L, RDW Std Deviation 50.5 H, RDW Coeff of Eder 14.1, Plt Count 175, MPV 9.8, Immature Gran % (Auto) 0.700, Neut % (Auto) 63.1, Lymph % (Auto) 13.5 L, [place] % (Auto) 16.8 H, Eos % (Auto) 5.2 H, Baso % (Auto) 0.7, Absolute Neuts (auto) 2.9, Absolute Lymphs (auto) 0.62 L, Nucleated RBC % 0 Micro: Microbiology 04/29/23 14:06 Swab (Method) Nasal Screen MRSA/MSSA - Final Physical Exam Narrative Vital signs stable and afebrile. Patient currently on nasal oxygen as overnight she did drop in O2 saturation. SCDs and ITZEL hose are in place bilaterally Patient is able to plantarflex and dorsiflex actively. Sensation is intact to light touch to saphenous, sural, superficial and deep peroneal, and tibial distribution. Dressings have been stable from yesterday with no increased drainage. There is no signs of increased swelling with the right knee. Negative Homans bilaterally, negative signs and symptoms of DVT. Const alert, oriented x3 and no apparent distress Assessment & Plan Assessment/Plan (1) Status post total right knee replacement: PLAN: Plan (1) Status post total right knee replacement: PLAN: 1. S/P right total knee arthroplasty POD #4 2. Continue Pain Medications: Tylenol and oxycodone primarily. Patient takes Celebrex chronically from the primary care physician. We did reach out to the primary care physician due to chronically elevated kidney function lab work. She reports that her kidney function has improved and it is usually related to her hydration status. I do recommend that we hold off of using the Celebrex for the first 2 weeks while patient is currently on Xarelto. After that I would defer her nonsteroidal anti-inflammatory to her primary care physician. Patient also has required tramadol preoperatively which has been prescribed by her primary care physician. I did explain to her that upon discharge she is not to combine our postoperative pain medication with the tramadol at home. She voiced understanding. 3. DVT Prophylaxis: Xarelto 10 mg once daily for 2 weeks postoperatively. After 2 weeks we will switch her over to aspirin 81 mg twice daily for an additional 2 weeks. Patient does have past history of DVT. I also recommended while on the Xarelto she is not to use the Celebrex. 4. PT/OT: Weightbearing as tolerated with walker. Appreciate recommendations from therapy for discharge planning 5. Lab work has been reviewed. Patient has had chronic anemia. Preoperatively patient came in with hemoglobin at 10.3. She states she takes iron 3 times a week per her primary care physician. However this is not listed on her medications. Yesterday hemoglobin was 8.9 after receiving 1 unit of packed red blood cells. Today she did drop to 7.9 with her hemoglobin but clinically is asymptomatic. No signs of increased swelling to the right knee. Patient currently on ferrous sulfate 325 mg twice daily. Case was discussed with medicine and at this time plan to repeat CBC tomorrow while at the transitional care unit. If needed transfusion can occur from the TCU if hemoglobin continues to drop. I also recommended to the patient that instead of using her iron 3 times a week I would recommend daily during the postoperative recovery. Ultimately I would have patient follow-up with the primary care physician for continued lab work and management of her acute on chronic anemia. 6. Continue postoperative medical management per medicine: Kidney function lab work has been stable 7. Postoperative hypoxia: Patient does have history of sleep apnea as well as restrictive airway disease. She reports that she is using 3 L nasal oxygen throughout the day and night. However she is not consistent with maintaining the use of the oxygen at home. I did encourage Incentive Spirometry. Recommend oxygen only if patient is dropping below 92% while at the transitional care unit.. 8. Currently on doxycycline for 2 weeks postoperatively due to staph screening preoperatively. I discussed with the patient potential side effects of doxycycline including sensitivity to the sunlight and increased risk of skin burn. Recommend patient take appropriate precautions. Also recommend patient to take probiotic while on the antibiotic. Patient voiced understanding agreement. 9. Disposition: Again I did discuss case with medicine prior to discharge. Patient has had some acute on chronic anemia with current hemoglobin at 7.9. She has already received 1 unit of packed red blood cells. At this time medicine felt appropriate to monitor the hemoglobin with repeat CBC tomorrow on May 26, 2023. If needed can proceed with transfusion while at the transitional care unit if needed. Otherwise I did discuss all medications with the patient. Patient is aware that she should be following up upon discharge from the hospital with her primary care physician for the continued management of her chronic anemia. I also recommend that she hold off of any Celebrex until she is finished with the Xarelto for DVT prophylaxis. Patient has had elevated kidney functions that has been monitored by the primary care physician and I will ultimately leave it up to the PCP whether she continue on this medication. I did voice my concerns with her elevated kidney function and taking nonsteroidal anti-inflammatories. Patient voiced understanding. She will follow-up per postoperative instructions. Patient will need to be seen in our office for her normal 2-week postoperative follow-up for suture removal and x-rays. Plan will be for discharge to the transitional care unit today. I do also recommend using supplemental nasal oxygen as needed maintaining O2 saturation greater than 92%. Patient has required ongoing oxygen at home in which she states she uses 3 L as needed. I have reviewed the [place] Automated Rx Reporting System (OARRS) report for this patient for refill pattern and other prescriber involvement as part of the appropriate surveillance for the provision of acute and chronic controlled medications. The report was requested and reviewed on the date of this entry and was considered in the prescribing process. This dictation was created using voice recognition software. Phonetic and/or grammatical errors may exist.
[2023-05-25] MEDS: Famotidine 20 MG Tablet PO (09:01)
[2023-05-25] MEDS: Escitalopram Oxalate 10 MG Tablet PO (09:01)
[2023-05-25] MEDS: Pantoprazole Sodium 40 MG Tablet PO (09:01)
[2023-05-25] MEDS: Carvedilol 12.5 MG Tablet PO (09:03)
[2023-05-25] MEDS: Hydroxychloroquine 200 MG Tablet PO (09:03)
[2023-05-25] MEDS: amLODIPine 5 MG Tablet PO (09:04)
[2023-05-25] MEDS: Furosemide 20 MG Tablet PO (09:04)
[2023-05-25] MEDS: Doxycycline 100 MG CAPSULE PO (09:04)
[2023-05-25] MEDS: hydroCHLOROthiazide 12.5mg 12.5 MG PO (09:05)
[2023-05-25] MEDS: Leflunomide 10 MG TABLET PO (09:06)
--- NOTE | 2023-05-25 09:08 | PCM.TXEXTCAR ---
Diet Diet Order/Speech Therapy: 05/21/23 17:19 Diet: Regular - General Routine Orders/Code Status O2 Frequency: PRN (As needed nasal O2 maintaining O2 saturation greater than 92%. Patient uses chronic oxygen at home on intermittent basis.) Keep PO Greater than or Equal to (%): 92 Routine Lab Work: CBC (Repeat CBC on May 26, 2023. Patient has acute on chronic anemia and required transfusion on May 23, 2023. ) Code Status: Full Code Wound(s) RIGHT KNEE: Wound Type: Surgical Incision Dressing Change: Remove dressings on May 27, 2023 RIGHT THIGH: Wound Type: Surgical Incision Therapies Weight Bearing: Weight bearing as tolerated (With walker) Physical Therapy: Eval and Treat Occupational Therapy: Eval and Treat Problem/Diagnosis (1) Status post total right knee replacement: Status: Acute Code(s): Z96.651 - Presence of right artificial knee joint Plan (1) Status post total right knee replacement: PLAN: 1. S/P right total knee arthroplasty POD #4 2. Continue Pain Medications: Tylenol and oxycodone primarily. Patient takes Celebrex chronically from the primary care physician. We did reach out to the primary care physician due to chronically elevated kidney function lab work. She reports that her kidney function has improved and it is usually related to her hydration status. I do recommend that we hold off of using the Celebrex for the first 2 weeks while patient is currently on Xarelto. After that I would defer her nonsteroidal anti-inflammatory to her primary care physician. Patient also has required tramadol preoperatively which has been prescribed by her primary care physician. I did explain to her that upon discharge she is not to combine our postoperative pain medication with the tramadol at home. She voiced understanding. 3. DVT Prophylaxis: Xarelto 10 mg once daily for 2 weeks postoperatively. After 2 weeks we will switch her over to aspirin 81 mg twice daily for an additional 2 weeks. Patient does have past history of DVT. I also recommended while on the Xarelto she is not to use the Celebrex. 4. PT/OT: Weightbearing as tolerated with walker. Appreciate recommendations from therapy for discharge planning 5. Lab work has been reviewed. Patient has had chronic anemia. Preoperatively patient came in with hemoglobin at 10.3. She states she takes iron 3 times a week per her primary care physician. However this is not listed on her medications. Yesterday hemoglobin was 8.9 after receiving 1 unit of packed red blood cells. Today she did drop to 7.9 with her hemoglobin but clinically is asymptomatic. No signs of increased swelling to the right knee. Patient currently on ferrous sulfate 325 mg twice daily. Case was discussed with medicine and at this time plan to repeat CBC tomorrow while at the transitional care unit. If needed transfusion can occur from the TCU if hemoglobin continues to drop. I also recommended to the patient that instead of using her iron 3 times a week I would recommend daily during the postoperative recovery. Ultimately I would have patient follow-up with the primary care physician for continued lab work and management of her acute on chronic anemia. 6. Continue postoperative medical management per medicine: Kidney function lab work has been stable 7. Postoperative hypoxia: Patient does have history of sleep apnea as well as restrictive airway disease. She reports that she is using 3 L nasal oxygen throughout the day and night. However she is not consistent with maintaining the use of the oxygen at home. I did encourage Incentive Spirometry. Recommend oxygen only if patient is dropping below 92% while at the transitional care unit.. 8. Currently on doxycycline for 2 weeks postoperatively due to staph screening preoperatively. I discussed with the patient potential side effects of doxycycline including sensitivity to the sunlight and increased risk of skin burn. Recommend patient take appropriate precautions. Also recommend patient to take probiotic while on the antibiotic. Patient voiced understanding agreement. 9. Disposition: Again I did discuss case with medicine prior to discharge. Patient has had some acute on chronic anemia with current hemoglobin at 7.9. She has already received 1 unit of packed red blood cells. At this time medicine felt appropriate to monitor the hemoglobin with repeat CBC tomorrow on May 26, 2023. If needed can proceed with transfusion while at the transitional care unit if needed. Otherwise I did discuss all medications with the patient. Patient is aware that she should be following up upon discharge from the hospital with her primary care physician for the continued management of her chronic anemia. I also recommend that she hold off of any Celebrex until she is finished with the Xarelto for DVT prophylaxis. Patient has had elevated kidney functions that has been monitored by the primary care physician and I will ultimately leave it up to the PCP whether she continue on this medication. I did voice my concerns with her elevated kidney function and taking nonsteroidal anti-inflammatories. Patient voiced understanding. She will follow-up per postoperative instructions. Patient will need to be seen in our office for her normal 2-week postoperative follow-up for suture removal and x-rays. Plan will be for discharge to the transitional care unit today. I do also recommend using supplemental nasal oxygen as needed maintaining O2 saturation greater than 92%. Patient has required ongoing oxygen at home in which she states she uses 3 L as needed. I have reviewed the [place] Automated Rx Reporting System (OARRS) report for this patient for refill pattern and other prescriber involvement as part of the appropriate surveillance for the provision of acute and chronic controlled medications. The report was requested and reviewed on the date of this entry and was considered in the prescribing process. This dictation was created using voice recognition software. Phonetic and/or grammatical errors may exist. Allergies/Procedures Done in Hospital Allergies atorvastatin Adverse Reaction (Severe, Verified 05/21/23 08:49) Severe diarrhea loratadine [From Claritin-D] Adverse Reaction (Verified 05/21/23 08:49) HYPERTENSION pseudoephedrine [From Claritin-D] Adverse Reaction (Verified 05/21/23 08:49) HYPERTENSION Procedures: Blood transfusion (Received 1 unit packed red blood cells on May 23, 2023) Type of Care/Length of Stay Estimated LOS: Convalescent Care Less Than 30 days Type of Care Needed: Skilled Rehab Potential: Good Prognosis: Good Additional Orders/Day of Discharge Additional Orders: 1. Okay to remove dressings on May 27, 2023. After removal of dressings do not use any adhesives on the skin. Can use ABD underneath the ITZEL hose. Patient is okay to shower and get dressings and incision wet. Day of Discharge: 05/24/23 Follow Up Care Please follow up with your Primary Care Physician in: [place] regarding post op anemia and transfusion. Discharge Plan Admission Admit Date/Time: 05/21/23 07:19 Attending Provider: Tacos Solano Primary Care Provider: Annamarie Ho Consulting Providers: Jim Natarajan; Reynaldo Chilel; Shanti Vivar; Nadir Gtz; Devan Layne Discharge Orders/Prescriptions Prescriptions: New acetaminophen 500 mg Tablet 1,000 mg PO Q8 30 Days Qty: 180 0RF Rx Instructions: Do not take more than 3000 mg Tylenol in a 24-hour period. doxycycline monohydrate 100 mg Capsule 100 mg PO BID 14 Days Qty: 28 0RF Rx Instructions: Continue with doxycycline postoperatively for 2 weeks. Stop date June 04, 2023 ferrous sulfate [FeroSul] 325 mg (65 mg iron) Tablet 325 mg PO 1200,1700 14 Days Qty: 28 0RF Rx Instructions: Continue postoperatively due to chronic anemia. Follow-up with primary care physician upon discharge oxycodone 5 mg Tablet 5 - 10 mg PO Q4H PRN PRN (Reason: Pain Score 4-10) 3 Days Qty: 30 0RF Xarelto 10 mg Tablet 10 mg PO DAILY@0600 14 Days Qty: 0 0RF Rx Instructions: Continue Xarelto 2 weeks postoperatively for DVT prophylaxis with stop date June 04, 2023. After finishing Xarelto at 2 weeks will begin aspirin 81 mg twice daily for an additional 2 weeks Continued quetiapine [Seroquel] 200 mg tablet 50 mg PO QHS albuterol sulfate [Ventolin HFA] 90 mcg/actuation HFA aerosol inhaler 2 puff INHALATION Q4H PRN (Reason: shortness of breath or wheezing) Qty: 18 6RF escitalopram oxalate 10 mg tablet 10 mg PO DAILY Patient Comments: TAKE 1 TABLET BY MOUTH DAILY hydrocortisone 2.5 % cream with perineal applicator 1 applic [place] DAILY Patient Comments: apply rectally TWICE DAILY hydrochlorothiazide 12.5 mg tablet 12.5 mg PO DAILY hydroxychloroquine 200 MG tablet 200 mg PO BID Patient Comments: gabapentin 100 mg capsule 300 mg PO TID leflunomide 10 mg tablet 10 mg PO DAILY Patient Comments: TAKE 1 TABLET BY MOUTH ONCE DAILY trazodone 100 mg tablet 50 mg PO QHS Patient Comments: Take 1 Tablet By Oral Route 1 at bedtime pantoprazole 40 MG tablet 40 mg PO BID [id number] 30-10-100 mg/5 mL syrup 5 - 10 ml PO Q6H PRN PRN (Reason: Cough/Congestion) amlodipine 5 mg tablet 5 mg PO DAILY Qty: 90 3RF Rx Instructions: new dosage furosemide 20 mg tablet 20 mg PO DAILY pravastatin 20 mg tablet 20 mg PO QHS Qty: 30 11RF carvedilol 25 mg tablet 12.5 mg PO BID Qty: 90 3RF fluticasone furoate-vilanterol [Breo Ellipta] 200-25 mcg/dose blister with device 1 inh inhalation QDAY Qty: 60 6RF Rx Instructions: after inhalation, rinse mouth with water and spit out; do not swallow Discontinued acetaminophen 500 MG tablet 500 - 1,000 mg PO Q6H PRN PRN (Reason: Pain) tramadol 50 mg tablet 50 mg PO TID PRN (Reason: Pain) Hold Instructions: for 6 weeks post op Patient Comments: TAKE 1 TABLET BY MOUTH EVERY 4 HOURS NEEDED celecoxib 200 MG capsule 200 mg PO BID Hold Instructions: for 2 weeks. ok to resume when off xarelto and renal functions ok. Other Ambulatory Orders: 12 Lead EKG (Routine) Timeframe: [id number] Location: None Selected Ordered By: Dr. Tacos Solano Referrals / Follow Up: Annamarie Ho MD [Primary Care Provider] - Mina Hall PA-C [Med Staff - [facility] Practice Prof] - 06/05/23 3:00 pm Disposition Disposition (needs filled in before D/C Order can be placed): Intermediate Facility
--- NOTE | 2023-05-25 09:21 | DS.PCM_ITS ---
Providers Date of Admission: 05/21/23 Date of Discharge: 05/25/23 Primary Care Physician: Dr. Annamarie Ho MD Consultations 05/21/23 07:20 Consult: Hospitalist Routine Consulting Provider: [facility] Reason for Consult: post op med management EMERGENT Consult: No MD Notified: Yes Date Notified: 05/21/23 Time Notified: 18:00 Method of Notification: Text Reason For Visit: ROBOTIC ASSISTED RIGHT TOTAL KNEE ARTHROPLASTY Diagnosis Discharge Diagnosis (1) Status post total right knee replacement: Status: Acute Code(s): Z96.651 - Presence of right artificial knee joint Plan (1) Status post total right knee replacement: PLAN: 1. S/P right total knee arthroplasty POD #4 2. Continue Pain Medications: Tylenol and oxycodone primarily. Patient takes Celebrex chronically from the primary care physician. We did reach out to the primary care physician due to chronically elevated kidney function lab work. She reports that her kidney function has improved and it is usually related to her hydration status. I do recommend that we hold off of using the Celebrex for the first 2 weeks while patient is currently on Xarelto. After that I would defer her nonsteroidal anti-inflammatory to her primary care physician. Patient also has required tramadol preoperatively which has been prescribed by her primary care physician. I did explain to her that upon discharge she is not to combine our postoperative pain medication with the tramadol at home. She voiced understanding. 3. DVT Prophylaxis: Xarelto 10 mg once daily for 2 weeks postoperatively. After 2 weeks we will switch her over to aspirin 81 mg twice daily for an addit ional 2 weeks. Patient does have past history of DVT. I also recommended while on the Xarelto she is not to use the Celebrex. 4. PT/OT: Weightbearing as tolerated with walker. Appreciate recommendations from therapy for discharge planning 5. Lab work has been reviewed. Patient has had chronic anemia. Preoperatively patient came in with hemoglobin at 10.3. She states she takes iron 3 times a week per her primary care physician. However this is not listed on her medications. Yesterday hemoglobin was 8.9 after receiving 1 unit of packed red blood cells. Today she did drop to 7.9 with her hemoglobin but clinically is asymptomatic. No signs of increased swelling to the right knee. Patient currently on ferrous sulfate 325 mg twice daily. Case was discussed with medicine and at this time plan to repeat CBC tomorrow while at the transitional care unit. If needed transfusion can occur from the TCU if hemoglobin continues to drop. I also recommended to the patient that instead of using her iron 3 times a week I would recommend daily during the postoperative recovery. Ultimately I would have patient follow-up with the primary care physician for continued lab work and management of her acute on chronic anemia. 6. Continue postoperative medical management per medicine: Kidney function lab work has been stable 7. Postoperative hypoxia: Patient does have history of sleep apnea as well as restrictive airway disease. She reports that she is using 3 L nasal oxygen throughout the day and night. However she is not consistent with maintaining the use of the oxygen at home. I did encourage Incentive Spirometry. Recommend oxygen only if patient is dropping below 92% while at the transitional care unit.. 8. Currently on doxycycline for 2 weeks postoperatively due to staph screening preoperatively. I discussed with the patient potential side effects of doxycycline including sensitivity to the sunlight and increased risk of skin burn. Recommend patient take appropriate precautions. Also recommend patient to take probiotic while on the antibiotic. Patient voiced understanding agreement. 9. Disposition: Again I did discuss case with medicine prior to discharge. Patient has had some acute on chronic anemia with current hemoglobin at 7.9. She has already received 1 unit of packed red blood cells. At this time medicine felt appropriate to monitor the hemoglobin with repeat CBC tomorrow on May 26, 2023. If needed can proceed with transfusion while at the transitional care unit if needed. Otherwise I did discuss all medications with the patient. Patient is aware that she should be following up upon discharge from the hospital with her primary care physician for the continued management of her chronic anemia. I also recommend that she hold off of any Celebrex until she is finished with the Xarelto for DVT prophylaxis. Patient has had elevated kidney functions that has been monitored by the primary care physician and I will ultimately leave it up to the PCP whether she continue on this medication. I did voice my concerns with her elevated kidney function and taking nonsteroidal anti-inflammatories. Patient voiced understanding. She will follow-up per postoperative instructions. Patient will need to be seen in our office for her normal 2-week postoperative follow-up for suture removal and x- rays. Plan will be for discharge to the transitional care unit today. I do also recommend using supplemental nasal oxygen as needed maintaining O2 saturation greater than 92%. Patient has required ongoing oxygen at home in which she states she uses 3 L as needed. I have reviewed the [place] Automated Rx Reporting System (OARRS) report for this patient for refill pattern and other prescriber involvement as part of the appropriate surveillance for the provision of acute and chronic controlled medications. The report was requested and reviewed on the date of this entry and was considered in the prescribing process. This dictation was created using voice recognition software. Phonetic and/or grammatical errors may exist. Medications at Discharge Home Medications hydroxychloroquine 200 mg tablet 200 mg PO BID 09/02/17 quetiapine 200 mg tablet (Seroquel) 50 mg PO QHS 12/16/19 albuterol sulfate 90 mcg/actuation aerosol inhaler (Ventolin HFA) 2 puff inhalation Q4H PRN shortness of breath or wheezing #18 grams 12/19/20 leflunomide 10 mg tablet 10 mg PO DAILY 11/19/21 gabapentin 100 mg capsule 300 mg PO TID 01/11/22 escitalopram oxalate 10 mg tablet 10 mg PO DAILY 01/25/22 hydrocortisone 2.5 % topical cream with perineal applicator 1 applic [place] DAILY 01/25/22 hydrochlorothiazide 12.5 mg tablet 12.5 mg PO DAILY 07/09/22 amlodipine 5 mg tablet 5 mg PO DAILY #90 tabs 09/09/22 furosemide 20 mg tablet 20 mg PO DAILY 01/07/23 pravastatin 20 mg tablet 20 mg PO QHS #30 tabs 02/05/23 carvedilol 25 mg tablet 12.5 mg (1/2 x 25 mg) PO BID #90 tabs 03/03/23 fluticasone furoate 200 mcg-vilanterol 25 mcg/dose inhalation powder (Breo Ellipta) 1 inh inhalation QDAY #60 ea 03/04/23 pantoprazole 40 mg tablet,delayed release 40 mg PO BID 04/25/23 trazodone 100 mg tablet 50 mg PO QHS 04/25/23 ucpqxfemnrpoxvb-GV-afawdsakwqb 30 mg-10 mg-100 mg/5 mL oral syrup 5 - 10 ml PO Q6H PRN PRN Cough/Congestion 05/21/23 acetaminophen 500 mg tablet 1,000 mg (2 x 500 mg) PO Q8 30 days #180 tabs 05/25/23 doxycycline monohydrate 100 mg capsule 100 mg PO BID 14 days #28 caps 05/25/23 ferrous sulfate 325 mg (65 mg iron) tablet (FeroSul) 325 mg PO 1200,1700 14 days #28 tabs 05/25/23 oxycodone 5 mg tablet 5 - 10 mg (1 - 2 x 5 mg) PO Q4H PRN PRN Pain Score 4-10 3 days #30 tabs 05/25/23 rivaroxaban 10 mg tablet (Xarelto) 10 mg PO DAILY@0600 14 days #0 tabs 05/25/23 Hospital Course Operations total knee replacement (Robotic assisted right total knee arthroplasty) Procedures Blood transfusion (Received 1 unit packed red blood cells on May 23, 2023) Summary of Care Provided Hospital Course: Patient is a 73-year-old female who has had ongoing pain in her right knee for over a year. She has had previous right knee arthroscopy. 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 After failing conservative measures, the patient opted to proceed with a robotic assisted right total knee arthroplasty. The patient underwent the above-stated procedure on May 21, 2023. Patient did receive perioperative antibiotics. Intraoperatively was uneventful. For details please see dictated operative note. The patient was placed in thigh-high teds, bilateral SCDs, remained stable in recovery. Patient was admitted to the 3rd floor at [facility]. Medicine was consulted for postoperative assistance with care. Patient did require transfusion on May 23, 2023 with 1 unit of packed red blood cells. Patient preoperatively came in with chronic anemia with her hemoglobin at 10.3. She reports that she takes iron on her own 3 times weekly. Patient's CBC was monitored during her stay. Upon discharge she is currently at 7.9 with her h emoglobin and asymptomatic. Case was discussed with medicine and okay for discharge with continued monitoring of her hemoglobin while at the transitional care unit. If needed consideration of possible transfusion in the future depending upon lab work. Patient is aware that she will need to continue to follow with her primary care physician upon discharge for her chronic anemia. The patient's pain was managed with the use of IV and p.o. pain medications. Patient participated in physical therapy. Patient was discharged on postoperative day #4 to [facility] transitional care unit. Patient will continue with doxycycline 2 weeks postoperatively due to positive staph screening preoperatively. Stop date for the doxycycline should be June 04, 2023. Patient will also continue with as needed supplemental oxygen if her O2 saturation drops below 93%. Patient reports that she uses 3 L nasal oxygen at home intermittently as needed. She is also currently on Xarelto for 2 weeks postoperatively due to past history of DVT. Stop date for the Xarelto will be June 04, 2023. After finishing Xarelto she will then begin aspirin 81 mg twice daily for an additional 2 weeks for DVT prophylaxis. Patient has been taking Celebrex chronically from her primary care physician however she has had some elevated kidney function. I recommend that she not use the Celebrex while on the Xarelto. After finishing with Xarelto I will leave it up to patient's primary care physician whether they want her to continue with this medication due to her elevated kidney function. Patient was given medications stated below. Patient will follow up with [facility] per postop in structions for reassessment. Weight / BMI Weight Weight: 94 kg Body Mass Index (BMI) 37.9 ABG / Lab / Microbiology Data 05/25/23 08:00 05/24/23 08:24 Laboratory: Laboratory Results - last 24 hr 05/24/23 08:24: Differential Comment SCANNED, Diff Path Review November05/25/23 08:00: WBC 4.6, RBC 2.60 L, Hgb 7.9 L, Hct 25.5 L, MCV 98.1, MCH 30.4, MCHC 31.0 L, RDW Std Deviation 50.5 H, RDW Coeff of Eder 14.1, Plt Count 175, MPV 9.8, Immature Gran % (Auto) 0.700, Neut % (Auto) 63.1, Lymph % (Auto) 13.5 L, Mckinley % (Auto) 16.8 H, Eos % (Auto) 5.2 H, Baso % (Auto) 0.7, Absolute Neuts (auto) 2.9, Absolute Lymphs (auto) 0.62 L, Nucleated RBC % 0 Microbiology: Microbiology 04/29/23 14:06 Swab (Method) Nasal Screen MRSA/MSSA - Final D/C Instructions Discharge Diet: No restrictions Weight Bearing Status: Weight bearing as tolerated and Full weight bearing Call your doctor if your incision/area has: Continuous Slow Oozing, Sudden Increased Bleeding, Increased Pain/ Swelling, Increased Redness, Foul Smelling D ischarge and Swelling at the incision site Call your doctor if you observe: Fever of 101 or Higher, Dizziness, Chest pain and Calf discomfort Cleanse incision/area with: Soap & Water and Keep Dressing Clean & Dry Meaningful Use Info Meaningful Use Diagnoses (Choose all that apply): None applicable Discharge Plan Admission Admit Date/Time: 05/21/23 07:19 Attending Provider: Tacos Solano Primary Care Provider: Annamarie Ho Consulting Providers: Jim Natarajan; Reynaldo Chilel; Shanti Vivar; Nadir Gtz; Devan Layne Discharge Orders/Prescriptions Prescriptions: New acetaminophen 500 mg Tablet 1,000 mg PO Q8 30 Days Qty: 180 0RF Rx Instructions: Do not take more than 3000 mg Tylenol in a 24-hour period. doxycycline monohydrate 100 mg Capsule 100 mg PO BID 14 Days Qty: 28 0RF Rx Instructions: Continue with doxycycline postoperatively for 2 weeks. Stop date June 04, 2023 ferrous sulfate [FeroSul] 325 mg (65 mg iron) Tablet 325 mg PO 1200,1700 14 Days Qty: 28 0RF Rx Instructions: Continue postoperatively due to chronic anemia. Follow-up with primary care physician upon discharge oxycodone 5 mg Tablet 5 - 10 mg PO Q4H PRN PRN (Reason: Pain Score 4-10) 3 Days Qty: 30 0RF Xarelto 10 mg Tablet 10 mg PO DAILY@0600 14 Days Qty: 0 0RF Rx Instructions: Continue Xarelto 2 weeks postoperatively for DVT prophylaxis with stop date June 04, 2023. After finishing Xarelto at 2 weeks will begin aspirin 81 mg twice daily for an additional 2 weeks Continued quetiapine [Seroquel] 200 mg tablet 50 mg PO QHS albuterol sulfate [Ventolin HFA] 90 mcg/actuation HFA aerosol inhaler 2 puff INHALATION Q4H PRN (Reason: shortness of breath or wheezing) Qty: 18 6RF escitalopram oxalate 10 mg tablet 10 mg PO DAILY Patient Comments: TAKE 1 TABLET BY MOUTH DAILY hydrocortisone 2.5 % cream with perineal applicator 1 applic [place] DAILY Patient Comments: apply rectally TWICE DAILY hydrochlorothiazide 12.5 mg tablet 12.5 mg PO DAILY hydroxychloroquine 200 MG tablet 200 mg PO BID Patient Comments: gabapentin 100 mg capsule 300 mg PO TID leflunomide 10 mg tablet 10 mg PO DAILY Patient Comments: TAKE 1 TABLET BY MOUTH ONCE DAILY trazodone 100 mg tablet 50 mg PO QHS Patient Comments: Take 1 Tablet By Oral Route 1 at bedtime pantoprazole 40 MG tablet 40 mg PO BID [id number]-VZ-twgzuosyzfz 30-10-100 mg/5 mL syrup 5 - 10 ml PO Q6H PRN PRN (Reason: Cough/Congestion) amlodipine 5 mg tablet 5 mg PO DAILY Qty: 90 3RF Rx Instructions: new dosage furosemide 20 mg tablet 20 mg PO DAILY pravastatin 20 mg tablet 20 mg PO QHS Qty: 30 11RF carvedilol 25 mg tablet 12.5 mg PO BID Qty: 90 3RF fluticasone furoate-vilanterol [Breo Ellipta] 200-25 mcg/dose blister with device 1 inh inhalation QDAY Qty: 60 6RF Rx Instructions: after inhalation, rinse mouth with water and spit out; do not swallow Discontinued acetaminophen 500 MG tablet 500 - 1,000 mg PO Q6H PRN PRN (Reason: Pain) tramadol 50 mg tablet 50 mg PO TID PRN (Reason: Pain) Hold Instructions: for 6 weeks post op Patient Comments: TAKE 1 TABLET BY MOUTH EVERY 4 HOURS NEEDED celecoxib 200 MG capsule 200 mg PO BID Hold Instructions: for 2 weeks. ok to resume when off xarelto and renal functions ok. Other Ambulatory Orders: 12 Lead EKG (Routine) Timeframe: [id number] Location: None Selected Ordered By: Dr. Tacos Solano Referrals / Follow Up: Annamarie Ho MD [Primary Care Provider] - Mina Hall PA-C [Med Staff - [facility]] - 06/05/23 3:00 pm Disposition Disposition (needs filled in before D/C Order can be placed): [facility]
[2023-05-25] MEDS: Ferrous Sulfate 325 MG Tablet PO (11:56)
[2023-05-25 13:15] VITALS: PULSE 89; RESP 18
[2023-05-27 10:05] LABS: Pathologist Review Reviewed
== END 2023-05-25 13:28 | DRG 470 ==
LOC: SDC 16:45 → AC 16:46 → SDC 16:46 → MS3 16:46
PROVIDERS: Anesthesiology; Family Medicine; Admitting Provider Specialist; PCP Internal Medicine; Referring Provider Specialist; Visit Provider Specialist
PROC: 0SRC0JZ Replacement of Right Knee Joint with Synthetic Substitute, Open Approach (ICD-10-PCS; CPT 27447; principal; 2023-05-21 10:15)
DX: M17.11 Unilateral primary osteoarthritis, right knee (principal); D62 Acute posthemorrhagic anemia; Z99.81 Dependence on supplemental oxygen; F32.A Depression, unspecified; I10 Essential (primary) hypertension; F17.220 Nicotine dependence, chewing tobacco, uncomplicated; E78.00 Pure hypercholesterolemia, unspecified; K21.9 Gastro-esophageal reflux disease without esophagitis; M79.7 Fibromyalgia; G47.33 Obstructive sleep apnea (adult) (pediatric); G62.9 Polyneuropathy, unspecified; F41.9 Anxiety disorder, unspecified; E66.9 Obesity, unspecified; Z68.37 Body mass index [BMI] 37.0-37.9, adult; Z79.01 Long term (current) use of anticoagulants; Z79.891 Long term (current) use of opiate analgesic; Z79.899 Other long term (current) drug therapy; Z86.718 Personal history of other venous thrombosis and embolism
CPT/HCPCS: 36415; 73560; 80048; 80076; 82962; 83735; 85025; 85027; 85610; 85730; 86850; 86900; 86901; 86920; 86922; 87077; 87081; 88305; 88311; 94640; 94668; 97110; 97116; 97162; 97166; 97530; 97535; 99252; C1776; J7040; J7120; P9016; A4216; G0463; J2405

== ENCOUNTER 2023-05-25 13:37 | Inpatient (IN) | payer MEDICARE, OTHER, SELFPAY ==
[2023-05-25 13:46] VITALS: BP 128/66; PULSE 80; RESP 16; TEMP 36.8; O2SAT 93; BMI 38.8
[2023-05-25 14:24] VITALS: BMI 38.9
--- NOTE | 2023-05-25 15:35 | RAD_ITS ---
EXAM: XR CHEST, 2 VIEWS CLINICAL INDICATION: cough TECHNIQUE: Frontal and lateral views of the chest. COMPARISON: 11/19/2021 FINDINGS: LUNGS AND PLEURAL SPACES: Unremarkable. No consolidation or edema. No pneumothorax. No effusion. HEART: Enlarged heart. MEDIASTINUM: Hiatal hernia. BONES/JOINTS: Unremarkable. SOFT TISSUES: Unremarkable. RAD/Chest PA and Lateral IMPRESSION: No acute findings in the chest. Electronically Signed: Perze Mosher MD at 16:52 EDT ,
--- NOTE | 2023-05-25 15:37 | NURSING ---
dr strong notified of pt with harsh productive cough, clear thick mucus. pt takes sdntbqzfsyhcxmn-ED-mobndkfdnyn liquid q6hrs PRN. new order for PRN robitussin for cough, chest xray, & test for covid
--- NOTE | 2023-05-25 16:32 | PCM.HP.STD ---
HPI - General General Date of Admission: 05/25/23 Date of Service: 05/26/23 Chief Complaint: Here for rehabilitation. HPI Narrative 05/21/2023 TAYO FELIX, is a 73 Female who presents with following. Admit to [facility]. 05/21/2023 Dr. Solano performs right total knee replacement. 05/21/2023 PT/OT, Pain control, bowel regimen. Aspirin 81mg bid for DVT prophylaxis. 05/22/2023 Sitting in chair, pain controlled Tylenol, Oxycodone. Oxygen 2 liters per nasal cannula, on chronic 3 liters oxygen at home. Wheelchair bound prior to surgery. Xarelto 10mg daily x 2 weeks, then Aspirin 81mg twice daily x 2 weeks for DVT prophylaxis. Ferrous sulfate 325mg bid for anemia. PT/OT for SNF. 05/23/2023 Pain 6/10 at rest, 7/10 with movement. Oxygen 3 liters at home. Hemoglobin 7.7, transfuse 1 unit PRBC. PT/OT for SNF. 05/24/2023 Hemoglobin 8.9. Xarelto for DVT prophylaxis. 05/25/2023 Hemoglobin 7.9, Transfuse as necessary. Doxycycline for ID prophylaxis. 05/25/2023 Admit to TCU with debility, here for rehabilitation, strengthening, prior to discharge home with . [facility] Medical History (Updated 05/25/23 @ 16:[address] Wilberto Muller MD) Anemia Atherosclerotic heart disease of [place] coronary artery without angina pectoris Bipolar disorder Bladder prolapse Cardiology follow-up encounter CPAP (continuous positive airway pressure) dependence Depression RODRIGUEZ (dyspnea on exertion) DVT (deep venous thrombosis) Essential hypertension Fibromyalgia Gastric reflux GERD (gastroesophageal reflux disease) High cholesterol History of atrial fibrillation History of diverticulitis History of echocardiogram History of edema History of hiatal hernia History of Holter monitoring History of scoliosis History of stress test Hypertension Non-smoker Nonischemic cardiomyopathy On home oxygen therapy Osteoarthritis Rheumatoid arthritis Shortness of breath on exertion Sleep apnea SVT (supraventricular tachycardia) Uses wheelchair Home Medications hydroxychloroquine 200 mg tablet 200 mg PO BID Arthritis 09/02/17 [History Last Taken 05/25/23] quetiapine 200 mg tablet (Seroquel) 50 mg PO QHS Mood 12/16/19 [History Last Taken Unknown] albuterol sulfate 90 mcg/actuation aerosol inhaler (Ventolin HFA) 2 puff inhalation Q4H PRN shortness of breath or wheezing #18 grams 12/19/20 [Rx Last Taken Unknown] leflunomide 10 mg tablet 10 mg PO DAILY Arthritis 11/19/21 [History Last Taken 05/25/23] gabapentin 100 mg capsule 300 mg PO TID Neuropathy 01/11/22 [History Last Taken 05/25/23] escitalopram oxalate 10 mg tablet 10 mg PO DAILY Antidepressant 01/25/22 [History Last Taken 05/25/23] hydrocortisone 2.5 % topical cream with perineal applicator 1 applic [place] DAILY Hemorrhoids 01/25/22 [History Last Taken Unknown] hydrochlorothiazide 12.5 mg tablet 12.5 mg PO DAILY Swelling 07/09/22 [History Last Taken 05/25/23] amlodipine 5 mg tablet 5 mg PO DAILY Blood Pressure #90 tabs 09/09/22 [Rx Last Taken 05/25/23] furosemide 20 mg tablet 20 mg PO DAILY Swelling 01/07/23 [History Last Taken 05/25/23] pravastatin 20 mg tablet 20 mg PO QHS Cholesterol #30 tabs 02/05/23 [Rx Last Taken 05/24/23] carvedilol 25 mg tablet 12.5 mg (1/2 x 25 mg) PO BID Blood Pressure #90 tabs 03/03/23 [Rx Last Taken 05/25/23] fluticasone furoate 200 mcg-vilanterol 25 mcg/dose inhalation powder (Breo Ellipta) 1 inh inhalation QDAY Lungs #60 ea 03/04/23 [Rx Last Taken Unknown] pantoprazole 40 mg tablet,delayed release 40 mg PO BID Acid Reflux 04/25/23 [History Last Taken 05/25/23] trazodone 100 mg tablet 50 mg PO QHS Sleep 04/25/23 [History Last Taken 05/24/23] [id number] 30 mg-10 mg-100 mg/5 mL oral syrup 5 - 10 ml PO Q6H PRN PRN Cough/Congestion 05/21/23 [History Last Taken 05/19/23] acetaminophen 500 mg tablet 1,000 mg (2 x 500 mg) PO Q8 Pain 30 days #180 tabs 05/25/23 [Rx Last Taken 05/25/23] doxycycline monohydrate 100 mg capsule 100 mg PO BID Post-op preventative 14 days #28 caps 05/25/23 [Rx Last Taken 05/25/23] ferrous sulfate 325 mg (65 mg iron) tablet (FeroSul) 325 mg PO 1200,1700 Anemia 14 days #28 tabs 05/25/23 [Rx Last Taken 05/24/23] oxycodone 5 mg tablet 5 - 10 mg (1 - 2 x 5 mg) PO Q4H PRN PRN Pain Score 4-10 3 days #30 tabs 05/25/23 [Rx Last Taken 05/25/23] rivaroxaban 10 mg tablet (Xarelto) 10 mg PO DAILY@0600 Blood thinner 14 days #0 tabs 05/25/23 [Rx Last Taken Unknown] Allergy/AdvReac Type Severity Reaction Status Date / Time atorvastatin AdvReac Severe Severe Verified 05/21/23 08:49 diarrhea loratadine [From Claritin-D] AdvReac HYPERTENSIO Verified 05/21/23 08:49 N pseudoephedrine AdvReac HYPERTENSIO Verified 05/21/23 08:49 [From Claritin-D] N Family History Father Myocardial infarction CAD (coronary artery disease) Grandfather Cerebral embolism Sister Hypertension Surgical History History of ankle surgery History of cardiac radiofrequency ablation (~01/14/18) History of colonoscopy History of esophagogastroduodenoscopy (EGD) History of left heart catheterization (LHC) (~01/16/21) History of tonsillectomy History of tubal ligation Social History (Updated 05/25/23 @ 16:[address] Wilberto Muller MD) household members: spouse Smoking Status: Never smoker alcohol intake: never substance use type: does not use caffeine: Yes Type: carbonated beverages Number of servings: 2 and coffee Number of servings: 2 ROS Constitutional Constitutional: Denies chills, fever(s) or weight gain ENT HEENT: Denies headache(s), nasal congestion or nasal discharge Cardiovascular Cardiovascular: Denies chest pain or palpitations Respiratory/Chest Respiratory/Chest: Denies cough, excessive phlegm production or shortness of breath with exertion Gastrointestinal Gastrointestinal: Denies abdominal pain, nausea or vomiting Genitourinary Genitourinary: Denies dysuria Musculoskeletal Musculoskeletal: Denies joint pain or joint swelling Integumentary Integumentary: Denies rash or wounds Neurologic Neurologic: Denies focal weakness, numbness or tingling Psychiatric Psychiatric: Denies anxiety, auditory hallucinations, depression, homicidal ideation or suicidal ideation Vital Signs Vital Signs Vital Signs: 05/25/23 13:46 05/25/23 13:46 Temperature 98.3 F Temperature Source Temporal Pulse Rate 80 Pulse Rhythm Regular Pulse Strength Normal (2+) Respiratory Rate 16 16 Respiratory Effort Normal Non-Labored Respiratory Depth Normal Respiratory Pattern Normal Blood Pressure 128/66 H Blood Pressure Mean 86 Blood Pressure Source Monitor Blood Pressure Position Semi-Fowlers Blood Pressure Location Left Arm Pulse Ox 93 93 Oxygen Delivery Method Room Air Room Air Weight Weight: 96.57 kg Body Mass Index (BMI) 38.9 Physical Exam Const alert General Appearance: cooperative HEENT normocephalic Eyes PERRL and EOMs intact bilaterally Neck supple, no JVD and no carotid bruits Resp normal respiratory effort, normal air movement and clear to auscultation bilaterally Cardio regular rate and regular rhythm GI normal to inspection, nondistended, normoactive bowel sounds, non-tender and non-distended Extremity normal capillary refill General Extremity: Negative for edema Skin no rashes or lesions noted General Skin Exam: no breakdown Psych affect normal Appearance: appropriate Results Lab / Micro Data 05/26/23 05:49 05/26/23 05:49 Micro: Microbiology 05/25/23 15:21 Nasal Secretion SARS-CoV-2 Antigen (Rapid) - Final Assessment & Plan Assessment/Plan (1) Debility: (2) Status post total right knee replacement: (3) Respiratory failure with hypoxia: (4) Postoperative anemia: (5) Fibromyalgia: (6) Hypertension: (7) GERD (gastroesophageal reflux disease): (8) Sleep apnea: (9) Deep vein thrombosis (DVT): (10) Atrial fibrillation: (11) SVT (supraventricular tachycardia): (12) Asthma: QUALIFIERS: Asthma complication type: unspecified Asthma persistence: unspecified Asthma severity: unspecified severity Qualified Code(s): J45.909 - Unspecified asthma, uncomplicated (13) Bipolar disorder: (14) Rheumatoid arthritis: PLAN: Plan 73 year old female with below past medical history underwent right total knee replacement 05/21/[address] Solano, postoperative course complicated by anemia requiring transfusion, acute on chronic respiratory failure with hypoxia, admitted to TCU with debility, here for rehabilitation, strengthening, prior to discharge home with . Debility - PT/OT. Pain - Tylenol 1000mg q8, Oxycodone 5-10mg q4h prn. Bowel - Miralax 17gm daily, Senna/colace 2 tablets bid, Magnesium citrate 300ml daily prn. Adult immunization - Administer pneumonia vaccine, covid19 vaccine, flu vaccine as appropriate. DVT prophylaxis - Xarelto 10mg daily thru 06/04/2023, then Aspirin 81mg twice daily thru 06/19/2023. Asthma - Advair 1 puff q12h, Albuterol MDI 2 puffs q4h prn. Hypertension - Coreg 12.5mg bid, Amlodipine 5mg daily, HCTZ 12.5mg daily. ID prophylaxis - Doxycycline 100mg bid thru 06/04/2023. Depression - Lexapro 10mg daily, stable chronic prison use, GDR not recommended. Iron deficiency anemia - Ferrous sulfate 325mg bid. Edema - Furosemide 20mg daily. Fibromyalgia - Gabapentin 300mg tid. Cough - Robitussin DM 10ml q6h prn. Skin irritation - HC 2.5% topical daily, Calmoseptine topical bid. Rheumatoid arthritis - Plaquenil 200mg bid, Leflunomide 10mg daily. GERD - Pantoprazole 40mg bid. Hyperlipidemia - Pravastatin 20mg qhs. Bipolar disorder - Seroquel 50mg qhs, stable chronic termite technician use, GDR not recommended. Insomnia - Trazodone 50mg qhs, stable chronic termite technician use, GDR not recommended.
[2023-05-25] MEDS: Ferrous Sulfate 325 MG Tablet PO (17:57)
[2023-05-25] MEDS: oxyCODONE 5 MG Tablet PO (18:00)
[2023-05-25] MEDS: guaiFENesin Dm 10 ML UDC PO (18:04)
[2023-05-25 20:45] VITALS: BP 115/76; PULSE 92; RESP 20; TEMP 36.8; O2SAT 95
[2023-05-25] MEDS: Fluticasone/Salmeterol 232-14 Inhaler 1 PUFF INHALATION (21:13)
[2023-05-25] MEDS: Carvedilol 12.5 MG Tablet PO (21:13)
[2023-05-25] MEDS: traZODone 50 MG Tablet PO (21:14)
[2023-05-25] MEDS: Senna/Docusate Sodium 1 Tablet 2 TABLET PO (21:14)
[2023-05-25] MEDS: QUEtiapine 25 MG Tablet 50 MG PO (21:14)
[2023-05-25] MEDS: Pantoprazole Sodium 40 MG Tablet PO (21:15)
[2023-05-25] MEDS: Acetaminophen 500 MG Tablet 1000 MG PO (21:16)
[2023-05-25] MEDS: Doxycycline 100 MG CAPSULE PO (21:16)
[2023-05-25] MEDS: Hydroxychloroquine 200 MG Tablet PO (21:16)
[2023-05-25] MEDS: Pravastatin 20 MG Tablet PO (21:17)
[2023-05-25] MEDS: Gabapentin 300 MG Capsule PO (21:21)
[2023-05-25] MEDS: Menthol/Lanolin/Calamine/Znox 113 GM Tube 1 APPLIC TOPICAL (21:21)
[2023-05-26 06:02] LABS: Absolute Lymphocyte Count 0.96 X10^3/uL (0.83-4.51); Absolute Neutrophil Count 3.5 X10^3/uL (2.0-7.7); Basophil# 0.05 X10^3/uL; Basophil% 0.9 % (0-1); Eosinophil# 0.22 X10^3/uL; Eosinophils% 3.9 % (0-5); Hematocrit 26.8 % (37-47); Hemoglobin 8.5 g/dL (12.0-15.0); Lymphocyte # 0.96 X10^3/ul (0.83-4.51); Lymphocyte % 17.1 % (19-41); Mean Corp Hgb Conc 31.7 g/dL (32-36); Mean Corpuscular Hgb 30.2 pg (27.0-32.0); Mean Corpuscular Volume 95.4 fL (81-99); Mean Platelet Vol. 8.8 fl (6.2-12.0); Monocyte# 0.83 X10^3/uL; Monocyte% 14.8 % (0-10); NRBC Flagged by Analyzer 0 % (0-5); Neutrophil # 3.47 X10^3/uL (2.7-7.7); Neutrophil % 61.7 % (47-70); Platelet Count 207 K/mm3 (150-450); RBC Distribution Width CV 13.9 % (11.6-14.6); RBC Distribution Width SD 49.1 fl (35.1-43.9); Red Blood Count 2.81 M/mm3 (4.2-5.4); White Blood Count 5.6 K/mm3 (4.4-11.0)
[2023-05-26] MEDS: Gabapentin 300 MG Capsule PO ×3 (06:19→20:36)
[2023-05-26] MEDS: Rivaroxaban 10 MG Tablet PO (06:20)
[2023-05-26] MEDS: Acetaminophen 500 MG Tablet 1000 MG PO ×3 (06:20→20:36)
[2023-05-26] MEDS: oxyCODONE 5 MG Tablet PO ×4 (06:24→21:10)
[2023-05-26 06:59] LABS: Anion Gap 5 (5-15); BUN 32 mg/dL (7-18); BUN/Creat Ratio 27.1 RATIO (10-20); Chloride 99 mmol/L (98-107); Creatinine, Serum 1.18 mg/dL (0.55-1.02); EST Glomerular Filtration Rate 48 mL/min (>60); Est Glom Filt Rate - Afr Amer 58 mL/min (>60); Estimated Creatinine Clearance 34.59 ml/min; Glucose 104 mg/dL (74-106); Potassium 3.4 mmol/L (3.5-5.1); Sodium Level 135 mmol/L (136-145)
--- NOTE | 2023-05-26 07:53 | PHA.CONS_ITS ---
TCU RX Drug Regimen Review Subjective/Objective Subjective/Objective: Subjective: 73 year old female with below past medical history underwent right total knee replacement 05/21/[address] Solano, postoperative course complicated by anemia requiring transfusion, acute on chronic respiratory failu re with hypoxia, admitted to TCU with debility, here for rehabilitation, strengthening, prior to discharge home with . Objective: Allergies atorvastatin Adverse Reaction (Severe, Verified 05/21/23 08:49) Severe diarrhea loratadine [From Claritin-D] Adverse Reaction (Verified 05/21/23 08:49) HYPERTENSION pseudoephedrine [From Claritin-D] Adverse Reaction (Verified 05/21/23 08:49) HYPERTENSION Current Medications Generic Name Dose Route Start Last Admin Trade Name Freq PRN Reason Stop Dose Admin Acetaminophen 1,000 mg 05/25/23 22:00 05/26/23 06:20 Acetaminophen 500 Mg Tablet PO 1,000 mg Q8 ABIGAIL Administration Albuterol Sulfate 2 puff 05/25/23 14:30 Albuterol Ih (6.7 Gm) 1 Puff Inhaler INHALATION Q4H PRN shortness of breath or wheezing Amlodipine Besylate 5 mg 05/26/23 10:00 Amlodipine 5 Mg Tablet PO DAILY [facility] Protocol Aspirin 81 mg 06/05/23 10:00 Aspirin 81 Mg Tab.Chew PO 06/19/23 22:00 BID [facility] Calamine/Phenol 1 applic 05/25/23 22:00 05/25/23 21:21 Menthol/Lanolin/Calamine/Znox 113 Gm Tube TOPICAL 1 applic BID ABIGAIL Administration Protocol Carvedilol 12.5 mg 05/25/23 22:00 05/25/23 21:13 Carvedilol 12.5 Mg Tablet PO 12.5 mg BID ABIGAIL Administration Protocol Doxycycline Monohydrate 100 mg 05/25/23 22:00 05/25/23 21:16 Doxycycline 100 Mg Capsule PO 06/04/23 22:00 100 mg BID ABIGAIL Administration Escitalopram Oxalate 10 mg 05/26/23 10:00 Escitalopram Oxalate 10 Mg Tablet PO DAILY [facility] Ferrous Sulfate 325 mg 05/25/23 17:00 05/25/23 17:57 Ferrous Sulfate 325 Mg Tablet PO 325 mg 1200,1700 ABIGAIL Administration Furosemide 20 mg 05/26/23 10:00 Furosemide 20 Mg Tablet PO DAILY [facility] Protocol Gabapentin 300 mg 05/25/23 22:00 05/26/23 06:19 Gabapentin 300 Mg Capsule PO 300 mg TID ABIGAIL Administration Guaifenesin 10 ml 05/25/23 15:25 05/25/23 18:04 Guaifenesin Dm 10 Ml Udc PO 10 ml Q6H PRN PRN Administration COUGH/CONGESTION Hydrochlorothiazide 12.5 mg 05/26/23 10:00 Hydrochlorothiazide 12.5mg PO DAILY [facility] Protocol Hydrocortisone 1 applic 05/26/23 10:00 Hydrocortisone 2.5% Crm TOPICAL DAILY [facility] Hydroxychloroquine Sulfate 200 mg 05/25/23 22:00 05/25/23 21:16 Hydroxychloroquine 200 Mg Tablet PO 200 mg BID [facility] Administration Leflunomide 10 mg 05/26/23 10:00 Leflunomide 10 Mg Tablet PO DAILY [facility] Magnesium Citrate 300 ml 05/25/23 17:04 Magnesium Citrate 300 Ml PO DAILY PRN Constipation Oxycodone HCl 5 - 10 mg 05/25/23 14:18 05/26/23 06:24 Oxycodone 5 Mg Tablet PO 5 mg Q4H PRN PRN Administration Pain Score 4-10 Pantoprazole Sodium 40 mg 05/25/23 22:00 05/25/23 21:15 Pantoprazole Sodium 40 Mg Tablet PO 40 mg BID [facility] Administration Polyethylene Glycol 17 gm 05/26/23 10:00 Polyethylene Glycol 3350 17 Gm Packet PO DAILY [facility] Potassium Chloride 40 meq 05/26/23 08:00 Potassium Chloride Oral Tablet 20 Meq PO 05/26/23 08:01 X1 ONE Pravastatin Sodium 20 mg 05/25/23 22:00 05/25/23 21:17 Pravastatin 20 Mg Tablet PO 20 mg QHS ABIGAIL Administration Quetiapine Fumarate 50 mg 05/25/23 22:00 05/25/23 21:14 Quetiapine 25 Mg Tablet PO 50 mg QHS [facility] Administration Rivaroxaban 10 mg 05/26/23 06:00 05/26/23 06:20 Rivaroxaban 10 Mg Tablet PO 06/04/23 06:00 10 mg DAILY@0600 ABIGAIL Administration Fluticasone/Salmeterol 1 puff 05/25/23 22:00 05/25/23 21:13 Fluticasone/Salmeterol 232-14 Inhaler INHALATION 1 puff Q12 ABIGAIL Administration Senna/Docusate Sodium 2 tablet 05/25/23 22:00 05/25/23 21:14 Senna/Docusate Sodium 1 Tablet PO 1 tablet BID ABIGAIL Administration Trazodone HCl 50 mg 05/25/23 22:00 05/25/23 21:14 Trazodone 50 Mg Tablet PO 50 mg QHS ABIGAIL Administration Tuberculin PPD 0.1 ml 06/02/23 10:00 Tuberculin,Purif.Prot.Deriv. 50 Tu/Ml Vial ID 06/02/23 10:01 X1 ONE Tuberculin PPD 0.1 ml 05/26/23 10:00 Tuberculin,Purif.Prot.Deriv. 50 Tu/Ml Vial ID 05/26/23 10:01 X1 ONE Problem List (Updated 05/25/23 @ 16:[address] Wilberto Muller MD) Rheumatoid arthritis (Acute) Bipolar disorder (Acute) Atrial fibrillation (Acute) Sleep apnea (Acute) Hypertension (Chronic) Fibromyalgia (Acute) Postoperative anemia (Acute) Debility (Acute) Status post total right knee replacement (Acute) Deep vein thrombosis (DVT) (Acute) Respiratory failure with hypoxia (Chronic) Asthma (Acute) GERD (gastroesophageal reflux disease) (Chronic) SVT (supraventricular tachycardia) (Acute) Vital Signs Temp Pulse Resp BP Pulse Ox O2 Del Method 98.3 F 80 16 128/66 H 93 Room Air 05/25/23 13:46 05/25/23 13:46 05/25/23 13:46 05/25/23 13:46 05/25/23 13:46 05/25/23 13:46 Oxygen Delivery Method Room Air Weight: 96.57 kg Body Mass Index (BMI) 38.9 Sodium 135 mmol/L (136-145) L 05/26/23 05:49 Potassium 3.4 mmol/L (3.5-5.1) L 05/26/23 05:49 Chloride 99 mmol/L (98-107) 05/26/23 05:49 Carbon Dioxide 31.0 mmol/L (21.0-32.0) 05/26/23 05:49 Anion Gap 5 (5-15) 05/26/23 05:49 BUN 32 mg/dL (7-18) H 05/26/23 05:49 Creatinine 1.18 mg/dL (0.55-1.02) H 05/26/23 05:49 Est GFR (MDRD) Af Amer 58 mL/min (>60) L 05/26/23 05:49 Est GFR (MDRD) Non-Af 48 mL/min (>60) L 05/26/23 05:49 BUN/Creatinine Ratio 27.1 RATIO (10-20) H 05/26/23 05:49 Glucose 104 mg/dL (74-106) 05/26/23 05:49 Assessment/Plan: 1. Pain: acetaminophen 1000 mg PO Q8H, oxycodone 5-10 mg PO Q4H PRN pain. The patient has used 2 PRN doses of oxycodone so far this admission. Please continue to monitor pain levels, PRN medication usage, LFTs (AST/ALT = 17/21 U/L on 04/29/23), for constipation, drowsiness/dizziness, respiratory depression, and syncope/ataxia/falls. 2. Bowel: polyethylene glycol 17 grams PO daily, senna/docusate 2 tablets PO BID, magnesium citrate 300 mL PO daily PRN constipation. The patient has not required any PRN doses of magnesium citrate so far this admission and her last bowel movement was on 05/24/23. Please continue to monitor PRN medication usage, for diarrhea and for constipation. 3. DVT prophylaxis: rivaroxaban 10 mg PO daily through 06/04/23, then aspirin 81 mg PO BID 06/05/23 - 06/19/23. Please continue to monitor for s/s of a DVT including pain/erythema/swelling in the lower extremity as well as for s/s of bleeding/excessive bruising, hemoglobin levels (Hgb = 8.5 g/dL on 05/26/23), platelet counts (PLT = 207 K/mm3 on 05/26/23), renal function (serum creatinine = 1.18 mg/dL with creatinine clearance ~ 35 mL/min on 05/26/23), and for GI distress that could indicate an ulcer while taking aspirin. If GI distress occurs with aspirin administration please consider administering that medication with food. 4. Asthma: albuterol inhaler 2 puffs Q4H PRN shortness of breath, fluticasone/salmeterol inhaler 1 puff Q12H. The patient has not required any PRN doses of albuterol so far this admission. Please continue to monitor for s/s of an asthma exacerbation such as shortness of breath, respiratory rates (recent range = 16-20 breaths/min), O2 saturation (recent range = 90-95%), heart rates (recent range = 70-92 beats/min), for s/s of thrush, for heart palpitations, for s/s of pneumonia and for headache. To reduce the risk of developing thrush, please rinse the patients mouth out after every use of fluticasone/salmeterol. 5. Hypertension/edema: amlodipine 5 mg PO daily, carvedilol 12.5 mg PO daily, hydrochlorothiazide 12.5 mg PO daily, furosemide 20 mg PO daily. Please continue to monitor blood pressures (recent range = 97-147/57-88 mmHg), heart rates (recent range = 70-92 beats/min), for lower extremity edema/resolution of edema, for fatigue, sodium levels (Na = 135 mmol/L on 05/26/23), potassium levels (K = 3.4 mmol/L on 05/26/23), renal function (serum creatinine = 1.18 mg/dL with creatinine clearance ~ 35 mL/min on 05/26/23), for s/s of dehydration,for skin rash, and for s/s of gout. 6. Infection prophylaxis: doxycycline 100 mg PO BID through 06/04/23. Please continue to monitor for s/s of infection including fever (recent temps = 97.9- 99.4 F), for chills, white blood cell counts (WBC = 5.6 K/mm3 on 05/26/23), for erythema of the area, for photosensitivity, and for GI distress with doxycycline administration. 7. Iron deficiency anemia: ferrous sulfate 325 mg PO daily. Please continue to monitor hemoglobin levels (Hgb = 8.5 g/dL on 05/26/23), iron levels (no recent iron levels documented), and for constipation. Please consider ordering iron levels to assess the patient's repletion status if clinically indicated. 8. Hyperlipidemia: pravastatin 20 mg PO QHS. Please continue to monitor lipid levels (cholesterol = 198 mg/dL with LDL = 90 mg/dL on 09/05/14), LFTs (AST/ALT = 17/21 U/L on 04/29/23), and for myopathies. The patient's last documented lipid levels are from 8 years ago, please consider re-ordering a lipid panel if clinically indicated. 9. Rheumatoid arthritis: hydroxychloroquine 200 mg PO BID, leflunomide 10 mg PO daily. Please continue to monitor for s/s of a rheumatoid flare, blood sugars (BG = 104 mg/dL on 05/26/23), for eye issues, for skin rash, diarrhea, white blood cell count (WBC = 5.6 K/mm3 on 05/26/23), red blood cell counts (RBC = 2.81 M/mm3 on 05/26/23), LFTs (AST/ALT = 17/21 U/L on 04/29/23), renal function (serum creatinine = 1.18 mg/dL with creatinine clearance ~ 35 mL/min on 05/26/23), for s/s of infection such as fever/chills, and for neuropathy. 10. GERD: pantoprazole 40 mg PO BID. Please continue to monitor for s/s of GERD, for diarrhea that could indicate a clostridium difficile infection, and for s/s of bone resorption including bone fractures. 11. Cough: guaifenesin/dextromethorphan 10 mL PO Q6H PRN cough. The patient has used 1 dose of PRN guaifenesin so far this admission. Please continue to monitor for cough, PRN medication usage, for drowsiness, rash, and restlessness. 12. Skin irritation: hydrocortisone 2.5% 1 application daily, calmoseptine 1 application BID. Please continue to monitor for skin irritation. 13. Insomnia: trazodone 50 mg PO QHS. Please continue to monitor for insomnia, for s/s of serotonin syndrome, for s/s of orthostasis, and for SI. Assessment/Plan for indications treated with psychotropic medications: 1. Depression: escitalopram 10 mg PO daily. Please see provider notes regarding stable long-term chronic therapy GDR not recommended. Please continue to monitor for s/s of depression, SI, sodium levels (Na = 135 mmol/L on 05/26/23), for s/s of serotonin syndrome, and for diarrhea and drowsiness. 2. Fibromyalgia: gabapentin 300 mg PO TID. Stable chronic therapy GDR not recommended. Please continue to monitor for nerve pain, renal function (serum creatinine = 1.18 mg/dL with creatinine clearance ~ 35 mL/min on 05/26/23), for respiratory depression, drowsiness, SI, and lower extremity edema. 3. Bipolar disorder: quetiapine 50 mg PO QHS. 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 Please continue to monitor for s/s fo bipolar depression and bipolar hernando, for anticholinergic effects including dry mouth, dry eyes, constipation and delirium, blood glucose levels (BG = 104 mg/dL on 05/26/23), and for s/s of orthostasis. Medical chart and medication regimen reviewed. The following medication irregularities or issues were identified: 1. Iron deficiency anemia: ferrous sulfate 325 mg PO daily. Please consider ordering iron levels to assess the patient's repletion status if clinically indicated. 2. Hyperlipidemia: pravastatin 20 mg PO QHS. The patient's last documented lipid levels are from 8 years ago, please consider re-ordering a lipid panel if clinically indicated. Date Date of Note:: 05/26/23
[2023-05-26] MEDS: Doxycycline 100 MG CAPSULE PO ×2 (10:07→20:35)
[2023-05-26] MEDS: Carvedilol 12.5 MG Tablet PO ×2 (10:08→21:08)
[2023-05-26] MEDS: Hydroxychloroquine 200 MG Tablet PO ×2 (10:08→20:36)
[2023-05-26] MEDS: Senna/Docusate Sodium 1 Tablet 2 TABLET PO (10:08)
[2023-05-26] MEDS: Leflunomide 10 MG TABLET PO (10:08)
[2023-05-26] MEDS: Ferrous Sulfate 325 MG Tablet PO ×2 (10:08→17:02)
[2023-05-26] MEDS: amLODIPine 5 MG Tablet PO (10:08)
[2023-05-26] MEDS: Pantoprazole Sodium 40 MG Tablet PO ×2 (10:08→20:36)
[2023-05-26] MEDS: hydroCHLOROthiazide 12.5mg 12.5 MG PO (10:08)
[2023-05-26] MEDS: Escitalopram Oxalate 10 MG Tablet PO (10:08)
[2023-05-26] MEDS: Furosemide 20 MG Tablet PO (10:08)
[2023-05-26] MEDS: Fluticasone/Salmeterol 232-14 Inhaler 1 PUFF INHALATION ×2 (10:09→20:35)
[2023-05-26] MEDS: Hydrocortisone 2.5% Crm 1 APPLIC TOPICAL (10:09)
[2023-05-26] MEDS: Menthol/Lanolin/Calamine/Znox 113 GM Tube 1 APPLIC TOPICAL ×2 (10:10→20:34)
[2023-05-26] MEDS: Potassium Chloride Oral Tablet 20 MEQ 40 MEQ PO (10:14)
[2023-05-26] MEDS: Tuberculin,Purif.prot.deriv. 50 TU/ML Vial 0.1 ML ID (10:19)
[2023-05-26] MEDS: guaiFENesin Dm 10 ML UDC PO ×2 (10:30→17:04)
--- NOTE | 2023-05-26 11:56 | CASEMGMT ---
Social Work Met with patient to complete initial assessment. Introduced self and role. Verified contacts. Pt wishes to complete advanced directives. SW to complete prior to DC as time allows. Verified code status - full code. Educated to Medicare benefit and copay coverage. Pt's goal is to return home better than PLOF as pt was prohibited from independence d/t knee pain. SW will continue to follow for DC planning. ROCCO DillardW
[2023-05-26 14:28] VITALS: BP 158/76; PULSE 78; RESP 16; TEMP 36.3; O2SAT 95
--- NOTE | 2023-05-26 14:48 | NURSING ---
Biom[employer] Technician Note; Activity Asset; Complete Lydia is independent in her choice of daily activities. She stated she prefers to visit with family only and rest when not in therapy. She has her books, smartphone and her will bring in her word search books and anything else she may need. Staff will remind her of daily activities and offer her in room activities and respect her right to say no.
[2023-05-26] MEDS: traZODone 50 MG Tablet PO (20:35)
[2023-05-26] MEDS: QUEtiapine 25 MG Tablet 50 MG PO (20:36)
[2023-05-26] MEDS: Pravastatin 20 MG Tablet PO (20:36)
[2023-05-26 21:19] VITALS: BP 152/73; PULSE 82
[2023-05-27] MEDS: oxyCODONE 5 MG Tablet PO ×3 (05:36→22:03)
[2023-05-27] MEDS: Gabapentin 300 MG Capsule PO ×3 (05:36→22:05)
[2023-05-27] MEDS: Acetaminophen 500 MG Tablet 1000 MG PO ×3 (05:37→21:57)
[2023-05-27] MEDS: Rivaroxaban 10 MG Tablet PO (05:39)
[2023-05-27] MEDS: guaiFENesin Dm 10 ML UDC PO ×3 (05:48→22:02)
[2023-05-27 05:50] LABS: Hematocrit 26.8 % (37-47); Hemoglobin 8.4 g/dL (12.0-15.0)
[2023-05-27 06:29] LABS: Anion Gap 2 (5-15); BUN 22 mg/dL (7-18); BUN/Creat Ratio 19.8 RATIO (10-20); Calcium,Total 9.1 mg/dL (8.5-10.1); Chloride 98 mmol/L (98-107); Creatinine, Serum 1.11 mg/dL (0.55-1.02); EST Glomerular Filtration Rate 52 mL/min (>60); Est Glom Filt Rate - Afr Amer 62 mL/min (>60); Estimated Creatinine Clearance 36.77 ml/min; Glucose 100 mg/dL (74-106); Potassium 3.2 mmol/L (3.5-5.1); Sodium Level 132 mmol/L (136-145)
[2023-05-27] MEDS: Menthol/Lanolin/Calamine/Znox 113 GM Tube 1 APPLIC TOPICAL ×2 (09:43→22:08)
[2023-05-27] MEDS: Carvedilol 12.5 MG Tablet PO ×2 (09:43→21:58)
[2023-05-27] MEDS: Doxycycline 100 MG CAPSULE PO ×2 (09:44→21:57)
[2023-05-27] MEDS: Fluticasone/Salmeterol 232-14 Inhaler 1 PUFF INHALATION ×2 (09:44→22:09)
[2023-05-27] MEDS: Hydroxychloroquine 200 MG Tablet PO ×2 (09:44→21:58)
[2023-05-27] MEDS: hydroCHLOROthiazide 12.5mg 12.5 MG PO (09:45)
[2023-05-27] MEDS: amLODIPine 5 MG Tablet PO (09:45)
[2023-05-27] MEDS: Leflunomide 10 MG TABLET PO (09:46)
[2023-05-27] MEDS: Furosemide 20 MG Tablet PO (09:46)
[2023-05-27] MEDS: Pantoprazole Sodium 40 MG Tablet PO ×2 (09:47→21:58)
[2023-05-27] MEDS: Senna/Docusate Sodium 1 Tablet 2 TABLET PO (09:47)
[2023-05-27] MEDS: Potassium Chloride Oral Tablet 20 MEQ PO ×2 (09:50→17:20)
[2023-05-27] MEDS: COVID VAC 23-24(12UP)(ANDU)/PF 50 MCG/0.5 ML SYRINGE IM (09:52)
[2023-05-27] MEDS: Ferrous Sulfate 325 MG Tablet PO ×2 (13:27→17:20)
[2023-05-27 14:00] VITALS: BMI 38.0
[2023-05-27 14:43] VITALS: BP 149/73; PULSE 87; RESP 20; TEMP 36.3; O2SAT 94
--- NOTE | 2023-05-27 15:20 | CASEMGMT ---
Social Work SW completed advanced directives with pt. Original and copy provided to pt. Copies placed on chart. Amie Valdez, HEAD OF CYTOGENETICS [employer]TER
[2023-05-27 21:55] VITALS: BP 155/64; PULSE 92; RESP 18; TEMP 36.8; O2SAT 94
[2023-05-27] MEDS: Escitalopram Oxalate 10 MG Tablet PO (21:57)
[2023-05-27] MEDS: Pravastatin 20 MG Tablet PO (21:57)
[2023-05-27] MEDS: traZODone 50 MG Tablet PO (21:57)
[2023-05-27] MEDS: QUEtiapine 25 MG Tablet 50 MG PO (21:57)
[2023-05-28] MEDS: Gabapentin 300 MG Capsule PO ×3 (06:54→22:06)
[2023-05-28] MEDS: Acetaminophen 500 MG Tablet 1000 MG PO ×3 (06:54→22:10)
[2023-05-28] MEDS: oxyCODONE 5 MG Tablet PO ×5 (06:54→23:16)
[2023-05-28] MEDS: Rivaroxaban 10 MG Tablet PO (06:55)
[2023-05-28] MEDS: Potassium Chloride Oral Tablet 20 MEQ PO ×2 (08:45→16:49)
[2023-05-28] MEDS: Carvedilol 12.5 MG Tablet PO ×2 (08:46→22:10)
[2023-05-28] MEDS: Doxycycline 100 MG CAPSULE PO ×2 (08:46→22:11)
[2023-05-28] MEDS: hydroCHLOROthiazide 12.5mg 12.5 MG PO (08:47)
[2023-05-28] MEDS: Fluticasone/Salmeterol 232-14 Inhaler 1 PUFF INHALATION ×2 (08:47→22:12)
[2023-05-28] MEDS: amLODIPine 5 MG Tablet PO (08:50)
[2023-05-28] MEDS: Furosemide 20 MG Tablet PO (08:50)
[2023-05-28] MEDS: Leflunomide 10 MG TABLET PO (08:50)
[2023-05-28] MEDS: Pantoprazole Sodium 40 MG Tablet PO ×2 (08:51→22:11)
[2023-05-28] MEDS: Hydroxychloroquine 200 MG Tablet PO ×2 (08:51→22:10)
[2023-05-28] MEDS: Senna/Docusate Sodium 1 Tablet 2 TABLET PO (08:51)
[2023-05-28] MEDS: Menthol/Lanolin/Calamine/Znox 113 GM Tube 1 APPLIC TOPICAL ×2 (08:52→22:08)
[2023-05-28] MEDS: guaiFENesin Dm 10 ML UDC PO (09:01)
--- NOTE | 2023-05-28 10:28 | CASEMGMT ---
Social Work IDT met with patient and for care plan meeting. Discussed patient's progress in PT/OT/SN. Educated to Medicare benefit and copay coverage. Offered for pt and to notify this worker when pt is ready to DC home. Pt was mainly w/c level prior. SW will continue to follow for DC planning. Amie Valdez, ROCCO PINONW
[2023-05-28] MEDS: Ferrous Sulfate 325 MG Tablet PO ×2 (11:24→16:50)
--- NOTE | 2023-05-28 11:44 | NURSING ---
Patient reports severe pain to right knee, PRN oxycodone 5 mg given after attempts to use ice pack to affected area, distraction, and repositioning.
[2023-05-28 14:22] VITALS: BP 148/77; PULSE 91; RESP 16; TEMP 36.1; O2SAT 95
[2023-05-28] MEDS: Pravastatin 20 MG Tablet PO (22:10)
[2023-05-28] MEDS: traZODone 50 MG Tablet PO (22:11)
[2023-05-28] MEDS: QUEtiapine 25 MG Tablet 50 MG PO (22:11)
[2023-05-28] MEDS: Escitalopram Oxalate 10 MG Tablet PO (22:12)
[2023-05-28 22:26] VITALS: PULSE 88; RESP 16
[2023-05-29] MEDS: oxyCODONE 5 MG Tablet PO ×3 (06:37→21:40)
[2023-05-29] MEDS: Gabapentin 300 MG Capsule PO ×3 (06:37→21:40)
[2023-05-29] MEDS: Rivaroxaban 10 MG Tablet PO (06:39)
[2023-05-29] MEDS: Acetaminophen 500 MG Tablet 1000 MG PO ×3 (06:39→21:31)
[2023-05-29 06:52] VITALS: PULSE 77; RESP 18; O2SAT 95
--- NOTE | 2023-05-29 06:57 | NURSING ---
Adventitious lung sounds auscultated to anterior lower lobes bilat, all other lobes clear/diminished A&P, Spo2 @95% on RA, per patient wears CPAP at home at times but does not like to wear at facility, accepts 2L O2 @[facility]. Slight non-productive cough, no resp distress. No c/o SOB. Written communication left for Dr. Muller.
[2023-05-29 06:59] LABS: Anion Gap 7 (5-15); BUN 24 mg/dL (7-18); Calcium,Total 8.8 mg/dL (8.5-10.1); Chloride 94 mmol/L (98-107); EST Glomerular Filtration Rate 47 mL/min (>60); Est Glom Filt Rate - Afr Amer 57 mL/min (>60); Estimated Creatinine Clearance 34.01 ml/min; Glucose 96 mg/dL (74-106); Potassium 3.8 mmol/L (3.5-5.1); Sodium Level 134 mmol/L (136-145)
--- NOTE | 2023-05-29 08:40 | RAD_ITS ---
STUDY: X-RAY CHEST REASON FOR EXAM: Female, 73 years old. Cough. TECHNIQUE: PA and lateral views of the chest. COMPARISON: Comparison is made with prior study dated May 25, 2003. FINDINGS: Hyperinflation. Scattered calcified granulomas. There is no demonstrated pleural abnormality. Normal size heart. Normal mediastinum and malini. Normal visualized pulmonary arteries. There is atherosclerotic calcification of the aortic arch with tortuosity. There are diffuse degenerative changes of the visualized thoracic spine. Dextroscoliosis There is degenerative osteoarthritis of the bilateral shoulders. Deformity of the left humeral neck suggestive of old injury. Large hiatal hernia. RAD/Chest PA and Lateral IMPRESSION: Hyperinflation. No acute infiltrate is seen. Large hiatal hernia. Electronically Signed: Rowdy Arizmendi MD at 11:11 EDT ,
[2023-05-29] MEDS: amLODIPine 5 MG Tablet PO (09:07)
[2023-05-29] MEDS: Leflunomide 10 MG TABLET PO (09:07)
[2023-05-29] MEDS: Senna/Docusate Sodium 1 Tablet 2 TABLET PO (09:07)
[2023-05-29] MEDS: Carvedilol 12.5 MG Tablet PO ×2 (09:07→21:32)
[2023-05-29] MEDS: Potassium Chloride Oral Tablet 20 MEQ PO ×2 (09:07→16:23)
[2023-05-29] MEDS: Doxycycline 100 MG CAPSULE PO ×2 (09:07→21:31)
[2023-05-29] MEDS: hydroCHLOROthiazide 12.5mg 12.5 MG PO (09:08)
[2023-05-29] MEDS: Furosemide 20 MG Tablet PO (09:08)
[2023-05-29] MEDS: Hydroxychloroquine 200 MG Tablet PO ×2 (09:08→21:31)
[2023-05-29] MEDS: Pantoprazole Sodium 40 MG Tablet PO ×2 (09:08→21:31)
[2023-05-29] MEDS: Fluticasone/Salmeterol 232-14 Inhaler 1 PUFF INHALATION ×2 (09:08→21:32)
[2023-05-29] MEDS: Menthol/Lanolin/Calamine/Znox 113 GM Tube 1 APPLIC TOPICAL ×2 (09:12→21:31)
[2023-05-29 09:14] VITALS: BP 101/57; PULSE 84
[2023-05-29] MEDS: Ferrous Sulfate 325 MG Tablet PO ×2 (11:20→16:23)
[2023-05-29 14:59] VITALS: BP 136/74; PULSE 78; RESP 16; TEMP 36; O2SAT 90
[2023-05-29] MEDS: guaiFENesin Dm 10 ML UDC PO (15:12)
[2023-05-29 16:00] VITALS: BP 136/74; PULSE 78; RESP 16; TEMP 36; O2SAT 90
[2023-05-29] MEDS: QUEtiapine 25 MG Tablet 50 MG PO (21:31)
[2023-05-29] MEDS: traZODone 50 MG Tablet PO (21:31)
[2023-05-29] MEDS: Escitalopram Oxalate 10 MG Tablet PO (21:31)
[2023-05-29] MEDS: Pravastatin 20 MG Tablet PO (21:31)
[2023-05-30 06:14] LABS: Anion Gap 5 (5-15); BUN 24 mg/dL (7-18); BUN/Creat Ratio 21.6 RATIO (10-20); Calcium,Total 8.5 mg/dL (8.5-10.1); Chloride 95 mmol/L (98-107); Creatinine, Serum 1.11 mg/dL (0.55-1.02); EST Glomerular Filtration Rate 52 mL/min (>60); Est Glom Filt Rate - Afr Amer 62 mL/min (>60); Estimated Creatinine Clearance 36.77 ml/min; Glucose 93 mg/dL (74-106); Potassium 3.8 mmol/L (3.5-5.1); Sodium Level 134 mmol/L (136-145)
[2023-05-30] MEDS: Rivaroxaban 10 MG Tablet PO (06:51)
[2023-05-30] MEDS: Acetaminophen 500 MG Tablet 1000 MG PO ×3 (06:51→21:37)
[2023-05-30] MEDS: Gabapentin 300 MG Capsule PO ×3 (06:51→21:35)
[2023-05-30] MEDS: Fluticasone/Salmeterol 232-14 Inhaler 1 PUFF INHALATION ×2 (08:24→21:35)
[2023-05-30] MEDS: Doxycycline 100 MG CAPSULE PO ×2 (08:25→21:38)
[2023-05-30] MEDS: Carvedilol 12.5 MG Tablet PO ×2 (08:25→21:38)
[2023-05-30] MEDS: Pantoprazole Sodium 40 MG Tablet PO ×2 (08:25→21:38)
[2023-05-30] MEDS: Leflunomide 10 MG TABLET PO (08:25)
[2023-05-30] MEDS: Furosemide 20 MG Tablet PO (08:26)
[2023-05-30] MEDS: Hydrocortisone 2.5% Crm 1 APPLIC TOPICAL (08:26)
[2023-05-30] MEDS: amLODIPine 5 MG Tablet PO (08:26)
[2023-05-30] MEDS: Hydroxychloroquine 200 MG Tablet PO ×2 (08:27→21:38)
[2023-05-30] MEDS: Potassium Chloride Oral Tablet 20 MEQ PO ×2 (08:27→17:51)
[2023-05-30] MEDS: hydroCHLOROthiazide 12.5mg 12.5 MG PO (08:28)
[2023-05-30] MEDS: oxyCODONE 5 MG Tablet PO ×3 (09:23→21:35)
[2023-05-30] MEDS: Senna/Docusate Sodium 1 Tablet 2 TABLET PO ×2 (09:23→21:38)
[2023-05-30] MEDS: guaiFENesin Dm 10 ML UDC PO ×2 (09:26→23:57)
[2023-05-30 10:00] VITALS: PULSE 86; RESP 20; O2SAT 96
[2023-05-30] MEDS: Ferrous Sulfate 325 MG Tablet PO ×2 (12:00→17:51)
--- NOTE | 2023-05-30 12:39 | MDS.RN ---
Pain interview for mds completed.
[2023-05-30 15:06] VITALS: BP 130/64; PULSE 79; RESP 16; TEMP 36.7; O2SAT 91
[2023-05-30 15:20] VITALS: PULSE 84; RESP 24; O2SAT 93
[2023-05-30] MEDS: Albuterol 2.5 MG/3 ML VIAL.NEB. INHALATION (15:20)
--- NOTE | 2023-05-30 15:20 | CPS ---
Pt has a continuous cough, has crackles throughout lung العلي. RT discussed pt w/RN. RN will call Dr Muller.
[2023-05-30] MEDS: Furosemide 40 MG Tablet PO (15:53)
--- NOTE | 2023-05-30 16:30 | CASEMGMT ---
Social Work BIMS () and PHQ-2 () completed for MDS assessment. Amie Valdez MSW MEDICAL LABORATORY TECHNICIAN
[2023-05-30] MEDS: Menthol/Lanolin/Calamine/Znox 113 GM Tube 1 APPLIC TOPICAL (21:34)
[2023-05-30] MEDS: Escitalopram Oxalate 10 MG Tablet PO (21:38)
[2023-05-30] MEDS: traZODone 50 MG Tablet PO (21:39)
[2023-05-30] MEDS: QUEtiapine 25 MG Tablet 50 MG PO (21:39)
[2023-05-30] MEDS: Pravastatin 20 MG Tablet PO (21:39)
[2023-05-30 21:44] VITALS: BP 153/74; PULSE 80; RESP 16
[2023-05-31] MEDS: Gabapentin 300 MG Capsule PO ×3 (05:39→21:57)
[2023-05-31] MEDS: oxyCODONE 5 MG Tablet PO ×4 (05:39→22:01)
[2023-05-31] MEDS: Acetaminophen 500 MG Tablet 1000 MG PO ×3 (05:40→21:57)
[2023-05-31] MEDS: Rivaroxaban 10 MG Tablet PO (05:40)
[2023-05-31 07:30] VITALS: O2SAT 94
[2023-05-31] MEDS: Fluticasone/Salmeterol 232-14 Inhaler 1 PUFF INHALATION ×2 (08:45→21:56)
[2023-05-31] MEDS: Potassium Chloride Oral Tablet 20 MEQ PO ×2 (08:45→16:56)
[2023-05-31] MEDS: Carvedilol 12.5 MG Tablet PO ×2 (08:46→22:00)
[2023-05-31] MEDS: hydroCHLOROthiazide 12.5mg 12.5 MG PO (08:46)
[2023-05-31] MEDS: Furosemide 20 MG Tablet PO (08:46)
[2023-05-31] MEDS: Doxycycline 100 MG CAPSULE PO ×2 (08:46→22:00)
[2023-05-31] MEDS: amLODIPine 5 MG Tablet PO (08:46)
[2023-05-31] MEDS: Leflunomide 10 MG TABLET PO (08:46)
[2023-05-31] MEDS: Pantoprazole Sodium 40 MG Tablet PO ×2 (08:47→21:59)
[2023-05-31] MEDS: Hydroxychloroquine 200 MG Tablet PO ×2 (08:47→21:59)
[2023-05-31] MEDS: Senna/Docusate Sodium 1 Tablet 2 TABLET PO (08:47)
[2023-05-31 09:08] VITALS: BP 138/59; PULSE 84
[2023-05-31 09:45] LABS: Anion Gap 7 (5-15); BUN 31 mg/dL (7-18); BUN/Creat Ratio 22.5 RATIO (10-20); Calcium,Total 8.7 mg/dL (8.5-10.1); Chloride 92 mmol/L (98-107); Creatinine, Serum 1.38 mg/dL (0.55-1.02); EST Glomerular Filtration Rate 40 mL/min (>60); Est Glom Filt Rate - Afr Amer 48 mL/min (>60); Estimated Creatinine Clearance 29.57 ml/min; Glucose 137 mg/dL (74-106); Potassium 3.4 mmol/L (3.5-5.1); Sodium Level 133 mmol/L (136-145)
[2023-05-31 10:00] VITALS: O2SAT 96
[2023-05-31] MEDS: Ferrous Sulfate 325 MG Tablet PO ×2 (11:07→16:56)
[2023-05-31] MEDS: Potassium Chloride Oral Tablet 20 MEQ 40 MEQ PO (11:26)
[2023-05-31 14:43] VITALS: BP 107/65; PULSE 75; RESP 16; TEMP 35.7; O2SAT 95
[2023-05-31 15:18] VITALS: PULSE 84; RESP 18
[2023-05-31] MEDS: Albuterol 2.5 MG/3 ML VIAL.NEB. INHALATION (15:18)
[2023-05-31] MEDS: traZODone 50 MG Tablet PO (21:58)
[2023-05-31] MEDS: Pravastatin 20 MG Tablet PO (21:58)
[2023-05-31] MEDS: QUEtiapine 25 MG Tablet 50 MG PO (21:59)
[2023-05-31] MEDS: Escitalopram Oxalate 10 MG Tablet PO (22:00)
[2023-05-31] MEDS: guaiFENesin Dm 10 ML UDC PO (22:09)
[2023-06-01 06:00] VITALS: BMI 37.2
[2023-06-01 06:14] LABS: Anion Gap 8 (5-15); BUN 31 mg/dL (7-18); BUN/Creat Ratio 23.7 RATIO (10-20); Calcium,Total 8.5 mg/dL (8.5-10.1); Chloride 96 mmol/L (98-107); Creatinine, Serum 1.31 mg/dL (0.55-1.02); EST Glomerular Filtration Rate 43 mL/min (>60); Est Glom Filt Rate - Afr Amer 51 mL/min (>60); Estimated Creatinine Clearance 31.15 ml/min; Glucose 99 mg/dL (74-106); Potassium 3.5 mmol/L (3.5-5.1); Sodium Level 137 mmol/L (136-145)
[2023-06-01] MEDS: Acetaminophen 500 MG Tablet 1000 MG PO ×3 (06:17→20:04)
[2023-06-01] MEDS: Gabapentin 300 MG Capsule PO ×3 (06:18→20:05)
[2023-06-01] MEDS: oxyCODONE 5 MG Tablet PO ×3 (06:18→20:05)
[2023-06-01] MEDS: Rivaroxaban 10 MG Tablet PO (06:22)
[2023-06-01] MEDS: Fluticasone/Salmeterol 232-14 Inhaler 1 PUFF INHALATION ×2 (09:02→20:02)
[2023-06-01] MEDS: Petrolatum 33% Tube 1 APPLIC TOPICAL ×2 (09:02→20:09)
[2023-06-01] MEDS: hydroCHLOROthiazide 12.5mg 12.5 MG PO (09:03)
[2023-06-01] MEDS: amLODIPine 5 MG Tablet PO (09:03)
[2023-06-01] MEDS: Senna/Docusate Sodium 1 Tablet 2 TABLET PO (09:03)
[2023-06-01] MEDS: Carvedilol 12.5 MG Tablet PO ×2 (09:03→20:05)
[2023-06-01] MEDS: Potassium Chloride Oral Tablet 20 MEQ PO ×2 (09:03→17:01)
[2023-06-01] MEDS: Doxycycline 100 MG CAPSULE PO ×2 (09:03→20:04)
[2023-06-01] MEDS: Furosemide 20 MG Tablet PO (09:03)
[2023-06-01] MEDS: Hydroxychloroquine 200 MG Tablet PO ×2 (09:03→20:03)
[2023-06-01] MEDS: Pantoprazole Sodium 40 MG Tablet PO ×2 (09:04→20:03)
[2023-06-01] MEDS: Leflunomide 10 MG TABLET PO (09:04)
[2023-06-01] MEDS: Ferrous Sulfate 325 MG Tablet PO ×2 (11:54→17:01)
[2023-06-01 14:57] VITALS: BP 120/68; PULSE 72; RESP 18; TEMP 37.2; O2SAT 93
[2023-06-01 20:00] VITALS: BP 142/67; PULSE 83
[2023-06-01] MEDS: Pravastatin 20 MG Tablet PO (20:03)
[2023-06-01] MEDS: QUEtiapine 25 MG Tablet 50 MG PO (20:03)
[2023-06-01] MEDS: Escitalopram Oxalate 10 MG Tablet PO (20:04)
[2023-06-01] MEDS: traZODone 50 MG Tablet PO (20:04)
[2023-06-02] MEDS: Acetaminophen 500 MG Tablet 1000 MG PO ×3 (05:43→21:32)
[2023-06-02] MEDS: Rivaroxaban 10 MG Tablet PO (05:43)
[2023-06-02] MEDS: Gabapentin 300 MG Capsule PO ×3 (05:44→21:30)
[2023-06-02] MEDS: oxyCODONE 5 MG Tablet PO ×4 (05:44→21:30)
[2023-06-02 05:47] LABS: Absolute Lymphocyte Count 1.43 X10^3/uL (0.83-4.51); Absolute Neutrophil Count 4.2 X10^3/uL (2.0-7.7); Basophil# 0.06 X10^3/uL; Basophil% 0.9 % (0-1); Eosinophil# 0.27 X10^3/uL; Hematocrit 30.6 % (37-47); Hemoglobin 9.4 g/dL (12.0-15.0); Lymphocyte # 1.43 X10^3/ul (0.83-4.51); Lymphocyte % 21.1 % (19-41); Mean Corp Hgb Conc 30.7 g/dL (32-36); Mean Corpuscular Hgb 30.6 pg (27.0-32.0); Mean Corpuscular Volume 99.7 fL (81-99); Mean Platelet Vol. 8.7 fl (6.2-12.0); Monocyte# 0.65 X10^3/uL; Monocyte% 9.6 % (0-10); NRBC Flagged by Analyzer 0 % (0-5); Neutrophil % 61.9 % (47-70); Platelet Count 343 K/mm3 (150-450); RBC Distribution Width CV 14.7 % (11.6-14.6); RBC Distribution Width SD 52.7 fl (35.1-43.9); Red Blood Count 3.07 M/mm3 (4.2-5.4); White Blood Count 6.8 K/mm3 (4.4-11.0)
[2023-06-02 06:41] LABS: Anion Gap 7 (5-15); BUN 28 mg/dL (7-18); BUN/Creat Ratio 20.1 RATIO (10-20); Calcium,Total 8.9 mg/dL (8.5-10.1); Chloride 96 mmol/L (98-107); Creatinine, Serum 1.39 mg/dL (0.55-1.02); EST Glomerular Filtration Rate 40 mL/min (>60); Est Glom Filt Rate - Afr Amer 48 mL/min (>60); Estimated Creatinine Clearance 29.36 ml/min; Glucose 103 mg/dL (74-106); Potassium 3.9 mmol/L (3.5-5.1); Sodium Level 135 mmol/L (136-145)
[2023-06-02 07:33] VITALS: O2SAT 94
--- NOTE | 2023-06-02 08:53 | NURSING ---
Aerodynamics Professor Note; MDS for 06/01/2023 Complete
[2023-06-02] MEDS: amLODIPine 5 MG Tablet PO (09:25)
[2023-06-02] MEDS: Polyethylene Glycol 3350 17 GM PACKET PO (09:25)
[2023-06-02] MEDS: Potassium Chloride Oral Tablet 20 MEQ PO ×2 (09:26→16:38)
[2023-06-02] MEDS: Furosemide 20 MG Tablet PO (09:26)
[2023-06-02] MEDS: Hydroxychloroquine 200 MG Tablet PO ×2 (09:26→21:34)
[2023-06-02] MEDS: Senna/Docusate Sodium 1 Tablet 2 TABLET PO (09:26)
[2023-06-02] MEDS: Pantoprazole Sodium 40 MG Tablet PO ×2 (09:26→21:33)
[2023-06-02] MEDS: Hydrocortisone 2.5% Crm 1 APPLIC TOPICAL (09:27)
[2023-06-02] MEDS: Fluticasone/Salmeterol 232-14 Inhaler 1 PUFF INHALATION ×2 (09:27→21:32)
[2023-06-02] MEDS: Doxycycline 100 MG CAPSULE PO ×2 (09:27→21:32)
[2023-06-02] MEDS: Leflunomide 10 MG TABLET PO (09:27)
[2023-06-02] MEDS: hydroCHLOROthiazide 12.5mg 12.5 MG PO (09:27)
[2023-06-02] MEDS: Carvedilol 12.5 MG Tablet PO ×2 (09:27→21:34)
[2023-06-02] MEDS: Petrolatum 33% Tube 1 APPLIC TOPICAL ×2 (09:34→21:30)
[2023-06-02] MEDS: Tuberculin,Purif.prot.deriv. 50 TU/ML Vial 0.1 ML ID (10:22)
[2023-06-02] MEDS: Ferrous Sulfate 325 MG Tablet PO ×2 (11:12→16:37)
[2023-06-02] MEDS: guaiFENesin Dm 10 ML UDC PO (13:45)
[2023-06-02 14:03] VITALS: BP 131/70; PULSE 70; RESP 20; TEMP 37.1; O2SAT 91
[2023-06-02] MEDS: QUEtiapine 25 MG Tablet 50 MG PO (21:32)
[2023-06-02] MEDS: traZODone 50 MG Tablet PO (21:32)
[2023-06-02] MEDS: Pravastatin 20 MG Tablet PO (21:33)
[2023-06-02] MEDS: Escitalopram Oxalate 10 MG Tablet PO (21:34)
[2023-06-03] MEDS: Acetaminophen 500 MG Tablet 1000 MG PO ×3 (05:41→21:38)
[2023-06-03] MEDS: Gabapentin 300 MG Capsule PO ×3 (05:41→21:36)
[2023-06-03] MEDS: oxyCODONE 5 MG Tablet PO ×5 (05:41→22:54)
[2023-06-03] MEDS: Rivaroxaban 10 MG Tablet PO (05:41)
[2023-06-03] MEDS: Potassium Chloride Oral Tablet 20 MEQ PO ×2 (09:10→17:39)
[2023-06-03] MEDS: Doxycycline 100 MG CAPSULE PO ×2 (09:10→21:38)
[2023-06-03] MEDS: Carvedilol 12.5 MG Tablet PO ×2 (09:10→21:37)
[2023-06-03] MEDS: hydroCHLOROthiazide 12.5mg 12.5 MG PO (09:11)
[2023-06-03] MEDS: Fluticasone/Salmeterol 232-14 Inhaler 1 PUFF INHALATION ×2 (09:11→21:39)
[2023-06-03] MEDS: Petrolatum 33% Tube 1 APPLIC TOPICAL ×2 (09:11→21:36)
[2023-06-03] MEDS: Leflunomide 10 MG TABLET PO (09:16)
[2023-06-03] MEDS: Furosemide 20 MG Tablet PO (09:16)
[2023-06-03] MEDS: Pantoprazole Sodium 40 MG Tablet PO ×2 (09:17→21:37)
[2023-06-03] MEDS: amLODIPine 5 MG Tablet PO (09:17)
[2023-06-03] MEDS: Senna/Docusate Sodium 1 Tablet 2 TABLET PO ×2 (09:17→21:37)
[2023-06-03] MEDS: Hydroxychloroquine 200 MG Tablet PO ×2 (09:17→21:37)
[2023-06-03] MEDS: guaiFENesin Dm 10 ML UDC PO ×2 (09:26→17:40)
[2023-06-03 10:18] VITALS: BMI 37.3
--- NOTE | 2023-06-03 10:45 | MDS.RN ---
Information for the mds was obtained from review of the clinical record, interview of resident, staff, and direct observation of resident's care.
[2023-06-03 12:48] VITALS: BP 105/47; PULSE 79; RESP 16; TEMP 36; O2SAT 96
[2023-06-03] MEDS: Ferrous Sulfate 325 MG Tablet PO ×2 (13:31→17:39)
--- NOTE | 2023-06-03 15:11 | CASEMGMT ---
Social Work SW spoke with pt to discuss request to DC 06/05 prior to f/u appt. IDT agreeable. Confirmed pt would like outpatient PT at [facility] and has no DME needs. to transport. SW faxed referral to [facility] and they will contact pt to schedule appt. Plan: DC home with 06/05, [facility] PT Amie Valdez, ROCCO PINONW
--- NOTE | 2023-06-03 15:41 | DS.PCM_ITS ---
Providers Date of Admission: 05/25/23 Primary Care Physician: Dr. Annamarie Ho MD Reason For Visit: ROBOTIC ASSISTED RIGHT TOTAL KNEE Diagnosis Discharge Diagnosis (1) Debility: Status: Acute Code(s): R53.81 - Other malaise (2) Status post total right knee replacement: Status: Acute Code(s): Z96.651 - Presence of right artificial knee joint (3) Respiratory failure with hypoxia: Status: Chronic Code(s): J96.91 - Respiratory failure, unspecified with hypoxia (4) Postoperative anemia: Status: Acute Code(s): D64.9 - Anemia, unspecified (5) Fibromyalgia: Status: Acute Code(s): M79.7 - Fibromyalgia (6) Hypertension: Status: Chronic Code(s): I10 - Essential (primary) hypertension (7) GERD (gastroesophageal reflux disease): Status: Chronic Code(s): K21.9 - Gastro-esophageal reflux disease without esophagitis (8) Sleep apnea: Status: Acute Code(s): G47.30 - Sleep apnea, unspecified (9) Deep vein thrombosis (DVT): Status: Acute Code(s): I82.409 - Acute embolism and thrombosis of unspecified deep veins of unspecified lower extremity (10) Atrial fibrillation: Status: Acute Code(s): I48.91 - Unspecified atrial fibrillation (11) SVT (supraventricular tachycardia): Status: Acute Code(s): I47.1 - Supraventricular tachycardia (12) Asthma: Status: Acute Code(s): J45.909 - Unspecified asthma, uncomplicated Qualifiers: Asthma severity: unspecified severity Asthma persistence: unspecified Asthma complication type: unspecified Qualified Code(s): J45.909 - Unspecified asthma, uncomplicated (13) Bipolar disorder: Status: Acute Code(s): F31.9 - Bipolar disorder, unspecified (14) Rheumatoid arthritis: Status: Acute Code(s): M06.9 - Rheumatoid arthritis, unspecified Plan 73 year old female with below past medical history underwent right total knee re placement 05/21/[address] Solano, postoperative course complicated by anemia requiring transfusion, acute on chronic respiratory failure with hypoxia, admitted to TCU with debility, here for rehabilitation, strengthening, prior to discharge home with . * Debility - PT/OT. * Pain - Tylenol 1000mg q8, Oxycodone 5-10mg q4h prn. * Bowel - Miralax 17gm daily, Senna/colace 2 tablets bid, Magnesium citrate 300ml daily prn. * Adult immunization - Administer pneumonia vaccine, covid19 vaccine, flu vaccine as appropriate. * DVT prophylaxis - Xarelto 10mg daily thru 06/04/2023, then Aspirin 81mg twice daily thru 06/19/2023. * Asthma - Advair 1 puff q12h, Albuterol MDI 2 puffs q4h prn. * Hypertension - Coreg 12.5mg bid, Amlodipine 5mg daily, HCTZ 12.5mg daily. * ID prophylaxis - Doxycycline 100mg bid thru 06/04/2023. * Depression - Lexapro 10mg daily, stable chronic halfway use, GDR not recomm ended. * Iron deficiency anemia - Ferrous sulfate 325mg bid. * Edema - Furosemide 20mg daily. * Fibromyalgia - Gabapentin 300mg tid. * Cough - Robitussin DM 10ml q6h prn. * Skin irritation - HC 2.5% topical daily, Calmoseptine topical bid. * Rheumatoid arthritis - Plaquenil 200mg bid, Leflunomide 10mg daily. * GERD - Pantoprazole 40mg bid. * Hyperlipidemia - Pravastatin 20mg qhs. * Bipolar disorder - Seroquel 50mg qhs, stable chronic halfway use, GDR not recommended. * Insomnia - Trazodone 50mg qhs, stable chronic termite helper use, GDR not recommended. Medications at Discharge Home Medications hydroxychloroquine 200 mg tablet 200 mg PO BID Arthritis 09/02/17 quetiapine 200 mg tablet (Seroquel) 50 mg PO QHS Mood 12/16/19 albuterol sulfate 90 mcg/actuation aerosol inhaler (Ventolin HFA) 2 puff inhalation Q4H PRN shortness of breath or wheezing #18 grams 12/19/20 leflunomide 10 mg tablet 10 mg PO DAILY Arthritis 11/19/21 gabapentin 100 mg capsule 300 mg PO TID Neuropathy 01/11/22 escitalopram oxalate 10 mg tablet 10 mg PO DAILY Antidepressant 01/25/22 hydrocortisone 2.5 % topical cream with perineal applicator [address] DAILY Hemorrhoids 01/25/22 hydrochlorothiazide 12.5 mg tablet 12.5 mg PO DAILY Swelling 07/09/22 amlodipine 5 mg tablet 5 mg PO DAILY Blood Pressure #90 tabs 09/09/22 furosemide 20 mg tablet 20 mg PO DAILY Swelling 01/07/23 pravastatin 20 mg tablet 20 mg PO QHS Cholesterol #30 tabs 02/05/23 carvedilol 25 mg tablet 12.5 mg (1/2 x 25 mg) PO BID Blood Pressure #90 tabs 03/03/23 fluticasone furoate 200 mcg-vilanterol 25 mcg/dose inhalation powder (Breo Ellipta) 1 inh inhalation QDAY Lungs #60 ea 03/04/23 pantoprazole 40 mg tablet,delayed release 40 mg PO BID Acid Reflux 04/25/23 trazodone 100 mg tablet 50 mg PO QHS Sleep 04/25/23 ddniajqyzhjloka-SI-nhlpgyvmdrb 30 mg-10 mg-100 mg/5 mL oral syrup 5 - 10 ml PO Q6H PRN PRN Cough/Congestion 05/21/23 acetaminophen 500 mg tablet 1,000 mg (2 x 500 mg) PO Q8 Pain 30 days #180 tabs 05/25/23 doxycycline monohydrate 100 mg capsule 100 mg PO BID Post-op preventative 14 days #28 caps 05/25/23 ferrous sulfate 325 mg (65 mg iron) tablet (FeroSul) 325 mg PO 1200,1700 Anemia 14 days #28 tabs 05/25/23 oxycodone 5 mg tablet 5 - 10 mg (1 - 2 x 5 mg) PO Q4H PRN PRN Pain Score 4-10 3 days #30 tabs 05/25/23 rivaroxaban 10 mg tablet (Xarelto) 10 mg PO DAILY@0600 Blood thinner 14 days #0 tabs 05/25/23 acetaminophen 500 mg tablet 1,000 mg (2 x 500 mg) PO Q8 #0 tabs 06/03/23 amlodipine 5 mg tablet 5 mg PO DAILY 30 days #30 tabs 06/03/23 aspirin 81 mg chewable tablet 81 mg PO BID 14 days #0 tabs 06/03/23 dextromethorphan-guaifenesin 10 mg-100 mg/5 mL oral syrup 10 ml PO Q6H PRN PRN COUGH/CONGESTION #0 mL 11/07/23 furosemide 20 mg tablet 20 mg PO DAILY 30 days #30 tabs 06/03/23 hydrochlorothiazide 12.5 mg capsule 12.5 mg PO DAILY 30 days #30 caps 06/03/23 hydrocortisone 2.5 % topical cream 1 applic topical DAILY 30 days #30 grams 06/03/23 oxycodone 5 mg tablet 5 - 10 mg (1 - 2 x 5 mg) PO Q4H PRN PRN Pain Score 4-10 7 days #42 tabs 06/03/23 polyethylene glycol 3350 17 gram oral powder packet 17 g PO DAILY 30 days #30 ea 06/03/23 potassium chloride 20 mEq tablet,extended release(part/cryst) (Klor-Con M) 20 meq PO BIDCM 30 days #60 tabs 06/03/23 sennosides 8.6 mg-docusate sodium 50 mg tablet (Stool Softener-Stimulant La xative) 2 tab PO BID 30 days #120 tabs 06/03/23 Hospital Course Operations total knee replacement (Right.) Procedures None Summary of Care Provided Minutes Spent on Discharge: 35 Hospital Course: 73 year old female with below past medical history underwent right total knee replacement 05/21/[address] Solano, postoperative course complicated by anemia requiring transfusion, acute on chronic respiratory failure with hypoxia, admitted to TCU with debility, here for rehabilitation, strengthening, prior to discharge home with . Discharge home with 06/05/2023, [facility]. Physical Exam Const alert General Appearance: cooperative HEENT normocephalic Eyes PERRL and EOMs intact bilaterally Neck supple, no JVD and no carotid bruits Resp normal respiratory effort, normal air movement and clear to auscultation bilater ally Cardio regular rate and regular rhythm GI normal to inspection, nondistended, normoactive bowel sounds, non-tender and non-distended Extremity normal capillary refill General Extremity: Negative for edema Skin no rashes or lesions noted General Skin Exam: no breakdown Psych affect normal Appearance: appropriate Weight / BMI Weight Weight: 92.76 kg Body Mass Index (BMI) 37.3 ABG / Lab / Microbiology Data 06/02/23 05:39 06/02/23 05:39 Microbiology: Microbiology 05/28/23 06:57 Nasal Secretion SARS-CoV-2 Antigen (Rapid) - Final 05/25/23 15:21 Nasal Secretion SARS-CoV-2 Antigen (Rapid) - Final D/C Instructions Discharge Diet: No restrictions Discharge Activity: Return to Normal Activity, May Shower and Use Walker Weight Bearing Status: Weight bearing as tolerated Call your doctor if you observe: Fever of 101 or Higher, Inability to urinate, Inability to have a bowel movement, Shortness of breath, Dizziness, Fainting spells, Swelling in the ankles, Chest pain and Uncontrolled pain Additional Instructions: Discharge home with 06/05/2023, [facility] PT. Please Follow Up With: Mina Hall PA-C When: As scheduled. Meaningful Use Info Meaningful Use Diagnoses (Choose all that apply): None applicable Discharge Plan Admission Admit Date/Time: 05/25/23 13:37 Primary Reason for Your Visit: Debility. Attending Provider: Wilberto Muller Chi Primary Care Provider: Annamarie Ho Instructions Additional Instructions / Restrictions: Discharge home with 06/05/2023, [facility] PT. Discharge Orders/Prescriptions Prescriptions: New acetaminophen 500 mg Tablet 1,000 mg PO Q8 Qty: 0 0RF amlodipine 5 mg Tablet 5 mg PO DAILY 30 Days Qty: 30 0RF hydrochlorothiazide 12.5 mg Capsule 12.5 mg PO DAILY 30 Days Qty: 30 0RF hydrocortisone 2.5 % Cream 1 applic topical DAILY 30 Days Qty: 30 0RF furosemide 20 mg Tablet 20 mg PO DAILY 30 Days Qty: 30 0RF aspirin 81 mg Tablet,Chewable 81 mg PO BID 14 Days Qty: 0 0RF oxycodone 5 mg Tablet 5 - 10 mg PO Q4H PRN PRN (Reason: Pain Score 4-10) 7 Days Qty: 42 0RF dextromethorphan-guaifenesin 10-100 mg/5 mL Syrup 10 ml PO Q6H PRN PRN (Reason: COUGH/CONGESTION) Qty: 0 0RF polyethylene glycol 3350 17 gram Powder In Packet 17 g PO DAILY 30 Days Qty: 30 0RF sennosides-docusate sodium [Stool Softener-Stimulant Laxat] 8.6-50 mg Tablet 2 tab PO BID 30 Days Qty: 120 0RF potassium chloride [Klor-Con M20] 20 mEq Tablet,Er Particles/Crystals 20 meq PO BIDCM 30 Days Qty: 60 0RF Continued quetiapine [Seroquel] 200 mg tablet 50 mg PO QHS albuterol sulfate [Ventolin HFA] 90 mcg/actuation HFA aerosol inhaler 2 puff INHALATION Q4H PRN (Reason: shortness of breath or wheezing) Qty: 18 6RF escitalopram oxalate 10 mg tablet 10 mg PO DAILY Patient Comments: TAKE 1 TABLET BY MOUTH DAILY hydroxychloroquine 200 MG tablet 200 mg PO BID Patient Comments: gabapentin 100 mg capsule 300 mg PO TID leflunomide 10 mg tablet 10 mg PO DAILY Patient Comments: TAKE 1 TABLET BY MOUTH ONCE DAILY trazodone 100 mg tablet 50 mg PO QHS Patient Comments: Take 1 Tablet By Oral Route 1 at bedtime pantoprazole 40 MG tablet 40 mg PO BID ferrous sulfate [FeroSul] 325 mg (65 mg iron) Tablet 325 mg PO 1200,1700 14 Days Qty: 28 0RF Rx Instructions: Continue postoperatively due to chronic anemia. Follow-up with primary care physician upon discharge pravastatin 20 mg tablet 20 mg PO QHS Qty: 30 11RF carvedilol 25 mg tablet 12.5 mg PO BID Qty: 90 3RF fluticasone furoate-vilanterol [Breo Ellipta] 200-25 mcg/dose blister with device 1 inh inhalation QDAY Qty: 60 6RF Rx Instructions: after inhalation, rinse mouth with water and spit out; do not swallow No Action hydrocortisone 2.5 % cream with perineal applicator [address] DAILY Patient Comments: apply rectally TWICE DAILY hydrochlorothiazide 12.5 mg tablet 12.5 mg PO DAILY rifmjndnantmbgd-QT-vbjjgdvsfwo 30-10-100 mg/5 mL syrup 5 - 10 ml PO Q6H PRN PRN (Reason: Cough/Congestion) acetaminophen 500 mg Tablet 1,000 mg PO Q8 30 Days Qty: 180 0RF Rx Instructions: Do not take more than 3000 mg Tylenol in a 24-hour period. doxycycline monohydrate 100 mg Capsule 100 mg PO BID 14 Days Qty: 28 0RF Rx Instructions: Continue with doxycycline postoperatively for 2 weeks. Stop date June 04, 2023 oxycodone 5 mg Tablet 5 - 10 mg PO Q4H PRN PRN (Reason: Pain Score 4-10) 3 Days Qty: 30 0RF Xarelto 10 mg Tablet 10 mg PO DAILY@0600 14 Days Qty: 0 0RF Rx Instructions: Continue Xarelto 2 weeks postoperatively for DVT prophylaxis with stop date June 04, 2023. After finishing Xarelto at 2 weeks will begin aspirin 81 mg twice daily for an additional 2 weeks amlodipine 5 mg tablet 5 mg PO DAILY Qty: 90 3RF Rx Instructions: new dosage furosemide 20 mg tablet 20 mg PO DAILY Referrals / Follow Up: Annamarie Ho MD [Primary Care Provider] - 06/10/23 11:00 am Mina Hall PA-C [Med Staff - [facility]] - 06/05/23 3:00 pm Disposition Disposition (needs filled in before D/C Order can be placed): Home, Self Care
[2023-06-03] MEDS: QUEtiapine 25 MG Tablet 50 MG PO (21:37)
[2023-06-03] MEDS: Pravastatin 20 MG Tablet PO (21:38)
[2023-06-03] MEDS: Escitalopram Oxalate 10 MG Tablet PO (21:39)
[2023-06-03 21:44] VITALS: BP 137/60; PULSE 89; RESP 16
[2023-06-03] MEDS: traZODone 50 MG Tablet PO (22:54)
[2023-06-04] MEDS: Gabapentin 300 MG Capsule PO ×3 (05:52→21:27)
[2023-06-04] MEDS: Acetaminophen 500 MG Tablet 1000 MG PO ×3 (05:53→21:27)
[2023-06-04] MEDS: Rivaroxaban 10 MG Tablet PO (05:53)
[2023-06-04] MEDS: oxyCODONE 5 MG Tablet PO ×3 (06:11→18:56)
[2023-06-04 06:56] VITALS: O2SAT 95
[2023-06-04] MEDS: Carvedilol 12.5 MG Tablet PO ×2 (08:37→21:27)
[2023-06-04] MEDS: Potassium Chloride Oral Tablet 20 MEQ PO ×2 (08:37→17:25)
[2023-06-04] MEDS: Hydroxychloroquine 200 MG Tablet PO ×2 (08:37→21:27)
[2023-06-04] MEDS: Leflunomide 10 MG TABLET PO (08:37)
[2023-06-04] MEDS: Senna/Docusate Sodium 1 Tablet 2 TABLET PO ×2 (08:37→21:27)
[2023-06-04] MEDS: hydroCHLOROthiazide 12.5mg 12.5 MG PO (08:37)
[2023-06-04] MEDS: Doxycycline 100 MG CAPSULE PO ×2 (08:37→21:27)
[2023-06-04] MEDS: Pantoprazole Sodium 40 MG Tablet PO ×2 (08:38→21:27)
[2023-06-04] MEDS: Furosemide 20 MG Tablet PO (08:38)
[2023-06-04] MEDS: amLODIPine 5 MG Tablet PO (08:38)
[2023-06-04] MEDS: Fluticasone/Salmeterol 232-14 Inhaler 1 PUFF INHALATION ×2 (08:39→21:26)
[2023-06-04] MEDS: Petrolatum 33% Tube 1 APPLIC TOPICAL (08:39)
[2023-06-04 08:42] VITALS: BP 143/70; PULSE 90
[2023-06-04] MEDS: Polyethylene Glycol 3350 17 GM PACKET PO (11:56)
[2023-06-04] MEDS: Ferrous Sulfate 325 MG Tablet PO ×2 (11:56→17:26)
[2023-06-04 12:02] VITALS: PULSE 89; RESP 16
[2023-06-04] MEDS: Albuterol 2.5 MG/3 ML VIAL.NEB. INHALATION (12:02)
[2023-06-04 14:30] VITALS: BP 129/69; PULSE 87; RESP 16; TEMP 36.9; O2SAT 94
[2023-06-04] MEDS: guaiFENesin Dm 10 ML UDC PO (17:30)
[2023-06-04 21:00] VITALS: PULSE 86; RESP 16; O2SAT 94
[2023-06-04] MEDS: Pravastatin 20 MG Tablet PO (21:27)
[2023-06-04] MEDS: QUEtiapine 25 MG Tablet 50 MG PO (21:27)
[2023-06-04] MEDS: Escitalopram Oxalate 10 MG Tablet PO (21:27)
[2023-06-04] MEDS: traZODone 50 MG Tablet PO (21:28)
[2023-06-05] MEDS: Acetaminophen 500 MG Tablet 1000 MG PO ×2 (05:33→13:11)
[2023-06-05] MEDS: Gabapentin 300 MG Capsule PO (05:33)
[2023-06-05] MEDS: oxyCODONE 5 MG Tablet PO ×2 (05:36→14:01)
[2023-06-05 06:09] VITALS: PULSE 73; RESP 16; O2SAT 95
[2023-06-05 08:31] VITALS: PULSE 86; TEMP 35.7; O2SAT 98
[2023-06-05] MEDS: Potassium Chloride Oral Tablet 20 MEQ PO (08:40)
[2023-06-05] MEDS: Carvedilol 12.5 MG Tablet PO (08:40)
[2023-06-05] MEDS: Aspirin 81 MG TAB.CHEW PO (08:40)
[2023-06-05] MEDS: Fluticasone/Salmeterol 232-14 Inhaler 1 PUFF INHALATION (08:41)
[2023-06-05] MEDS: hydroCHLOROthiazide 12.5mg 12.5 MG PO (08:42)
[2023-06-05] MEDS: Furosemide 20 MG Tablet PO (08:43)
[2023-06-05] MEDS: Polyethylene Glycol 3350 17 GM PACKET PO (08:44)
[2023-06-05] MEDS: Leflunomide 10 MG TABLET PO (08:44)
[2023-06-05] MEDS: amLODIPine 5 MG Tablet PO (08:44)
[2023-06-05] MEDS: Pantoprazole Sodium 40 MG Tablet PO (08:45)
[2023-06-05] MEDS: Senna/Docusate Sodium 1 Tablet 2 TABLET PO (08:45)
[2023-06-05] MEDS: Hydroxychloroquine 200 MG Tablet PO (08:45)
[2023-06-05] MEDS: Petrolatum 33% Tube 1 APPLIC TOPICAL (08:46)
[2023-06-05] MEDS: Ferrous Sulfate 325 MG Tablet PO (13:10)
[2023-06-05 14:25] VITALS: BP 119/69; PULSE 98; RESP 18; TEMP 36.2; O2SAT 96
== END 2023-06-05 14:32 | disposition home or self-care (01) | DRG 560 ==
PROVIDERS: Admitting Provider Family Medicine Geriatric Medicine; PCP Internal Medicine; Referring Provider Family Medicine Geriatric Medicine; Visit Provider Family Medicine Geriatric Medicine
DX: Z47.1 Aftercare following joint replacement surgery (principal); I42.8 Other cardiomyopathies; J96.11 Chronic respiratory failure with hypoxia; I47.10 Supraventricular tachycardia, unspecified; F31.9 Bipolar disorder, unspecified; I48.91 Unspecified atrial fibrillation; M06.9 Rheumatoid arthritis, unspecified; D50.9 Iron deficiency anemia, unspecified; I10 Essential (primary) hypertension; J45.909 Unspecified asthma, uncomplicated; E78.00 Pure hypercholesterolemia, unspecified; M79.7 Fibromyalgia; K21.9 Gastro-esophageal reflux disease without esophagitis; G47.30 Sleep apnea, unspecified; I25.10 Atherosclerotic heart disease of native coronary artery without angina pectoris; Z79.01 Long term (current) use of anticoagulants; Z79.51 Long term (current) use of inhaled steroids; Z96.651 Presence of right artificial knee joint; Z79.899 Other long term (current) drug therapy; G47.00 Insomnia, unspecified; Z23 Encounter for immunization
CPT/HCPCS: 36415; 71046; 80048; 85014; 85018; 85025; 87811; 90480; 94640; 97110; 97116; 97162; 97166; 97530; 97535; 97802; 91322

== ENCOUNTER → 2023-06-10 | Outpatient (CLI) | payer MEDICARE, OTHER, SELFPAY ==
[2023-06-10 17:36] LABS: Absolute Lymphocyte Count 0.91 X10^3/uL (0.83-4.51); Absolute Neutrophil Count 2.8 X10^3/uL (2.0-7.7); Basophil# 0.09 X10^3/uL; Eosinophil# 0.23 X10^3/uL; Hematocrit 30.8 % (37-47); Hemoglobin 9.3 g/dL (12.0-15.0); Lymphocyte # 0.91 X10^3/ul (0.83-4.51); Lymphocyte % 19.7 % (19-41); Mean Corp Hgb Conc 30.2 g/dL (32-36); Mean Corpuscular Volume 99.4 fL (81-99); Mean Platelet Vol. 9.5 fl (6.2-12.0); Monocyte# 0.58 X10^3/uL; Monocyte% 12.6 % (0-10); NRBC Flagged by Analyzer 0 % (0-5); Neutrophil # 2.78 X10^3/uL (2.7-7.7); Neutrophil % 60.3 % (47-70); Platelet Count 286 K/mm3 (150-450); RBC Distribution Width CV 14.9 % (11.6-14.6); RBC Distribution Width SD 54.1 fl (35.1-43.9); White Blood Count 4.6 K/mm3 (4.4-11.0)
[2023-06-10 18:20] LABS: AST(SGOT) 16 U/L (15-37); Alanine Aminotransfer ALT/SGPT 17 U/L (13-56); Albumin, Serum 3.3 g/dL (3.2-5.0); Alkaline Phosphatase 77 U/L (45-117); Anion Gap 8 (5-15); BUN 23 mg/dL (7-18); BUN/Creat Ratio 17.4 RATIO (10-20); Calcium,Total 8.9 mg/dL (8.5-10.1); Chloride 100 mmol/L (98-107); Creatinine, Serum 1.32 mg/dL (0.55-1.02); EST Glomerular Filtration Rate 42 mL/min (>60); Est Glom Filt Rate - Afr Amer 51 mL/min (>60); Globulin 3.2 g/dL (2.2-4.2); Glucose 139 mg/dL (74-106); Potassium 3.9 mmol/L (3.5-5.1); Protein, Total 6.5 g/dL (6.4-8.2); Sodium Level 134 mmol/L (136-145)
== END | disposition home or self-care (01) ==
LOC: MTLAB 15:08
PROVIDERS: PCP Internal Medicine; Referring Provider Internal Medicine Rheumatology; Visit Provider Internal Medicine Rheumatology
DX: M06.09 Rheumatoid arthritis without rheumatoid factor, multiple sites (principal); M79.7 Fibromyalgia; Z79.899 Other long term (current) drug therapy
CPT/HCPCS: 36415; 80053; 85025

== ENCOUNTER → 2023-06-11 | Outpatient (CLI) | payer MEDICARE, OTHER, SELFPAY ==
--- NOTE | 2023-06-11 14:25 | VDLE_ITS ---
Reason For Study: Right leg pain RIGHT LEFT GSV is normal. CFV is compressible, spontaneous, phasic, CFV is compressible, spontaneous, phasic, competent, and demonstrates normal competent and demonstrates normal augmentation. augmentation. FV is compressible, spontaneous, phasic, competent and demonstrates normal augmentation. POP V is compressible, spontaneous, phasic, competent and demonstrates normal augmentation. T/P Trunk is compressible. PTV is compressible. RT PerV is compressible. Procedure This is a venous duplex using B-mode, color flow and spectral Doppler. Exam performed in department. A preliminary report was called and/or faxed to Dr. Solano. VL/Venous Duplex US, Unilateral Interpretation Summary There is no evidence of right lower extremity deep vein thrombosis. Right great saphenous vein appears patent and compressible segmentally. Normal flow patterns left common f emoral vein Ordering Physician: Tacos Solano Referring Physician: Annamarie Ho M.D. Performed By: Johana Mcgowan RVT
== END | disposition home or self-care (01) ==
LOC: CVS 14:22
PROVIDERS: PCP Internal Medicine; Referring Provider Specialist; Visit Provider Specialist
DX: M79.661 Pain in right lower leg (principal)
CPT/HCPCS: 93971

== ENCOUNTER → 2023-08-18 | Outpatient (CLI) | payer MEDICARE, OTHER, SELFPAY ==
[2023-08-18 17:51] LABS: Absolute Lymphocyte Count 1.09 X10^3/uL (0.83-4.51); Absolute Neutrophil Count 3.4 X10^3/uL (2.0-7.7); Basophil% 1.7 % (0-1); Eosinophil# 0.25 X10^3/uL; Eosinophils% 4.3 % (0-5); Hematocrit 34.1 % (37-47); Hemoglobin 10.6 g/dL (12.0-15.0); Lymphocyte # 1.09 X10^3/ul (0.83-4.51); Lymphocyte % 18.8 % (19-41); Mean Corp Hgb Conc 31.1 g/dL (32-36); Mean Corpuscular Hgb 29.1 pg (27.0-32.0); Mean Corpuscular Volume 93.7 fL (81-99); Mean Platelet Vol. 10.5 fl (6.2-12.0); Monocyte# 1.01 X10^3/uL; Monocyte% 17.4 % (0-10); NRBC Flagged by Analyzer 0 % (0-5); Neutrophil # 3.35 X10^3/uL (2.7-7.7); Neutrophil % 57.6 % (47-70); Platelet Count 221 K/mm3 (150-450); RBC Distribution Width CV 13.4 % (11.6-14.6); RBC Distribution Width SD 45.9 fl (35.1-43.9); Red Blood Count 3.64 M/mm3 (4.2-5.4); White Blood Count 5.8 K/mm3 (4.4-11.0)
[2023-08-18 18:16] LABS: ALB/GLOB Ratio 1.1 RATIO (0.9-2.4); AST(SGOT) 19 U/L (15-37); Alanine Aminotransfer ALT/SGPT 16 U/L (13-56); Albumin, Serum 3.6 g/dL (3.2-5.0); Alkaline Phosphatase 78 U/L (45-117); Anion Gap 8 (5-15); BUN 38 mg/dL (7-18); BUN/Creat Ratio 22.9 RATIO (10-20); Calcium,Total 8.9 mg/dL (8.5-10.1); Chloride 99 mmol/L (98-107); Creatinine, Serum 1.66 mg/dL (0.55-1.02); EST Glomerular Filtration Rate 32 mL/min (>60); Est Glom Filt Rate - Afr Amer 39 mL/min (>60); Globulin 3.4 g/dL (2.2-4.2); Glucose 78 mg/dL (74-106); Potassium 4.3 mmol/L (3.5-5.1); Sodium Level 133 mmol/L (136-145)
== END | disposition home or self-care (01) ==
LOC: MTLAB 15:34
PROVIDERS: PCP Internal Medicine; Referring Provider Internal Medicine Rheumatology; Visit Provider Internal Medicine Rheumatology
DX: M06.09 Rheumatoid arthritis without rheumatoid factor, multiple sites (principal); M79.7 Fibromyalgia; Z79.899 Other long term (current) drug therapy
CPT/HCPCS: 36415; 80053; 85025

== ENCOUNTER → 2023-10-01 | Outpatient (CLI) | payer MEDICARE, OTHER, SELFPAY ==
[2023-10-01 17:40] LABS: Absolute Lymphocyte Count 0.92 X10^3/uL (0.83-4.51); Absolute Neutrophil Count 3.8 X10^3/uL (2.0-7.7); Basophil# 0.08 X10^3/uL; Basophil% 1.4 % (0-1); Eosinophil# 0.27 X10^3/uL; Eosinophils% 4.7 % (0-5); Hematocrit 33.9 % (37-47); Hemoglobin 10.7 g/dL (12.0-15.0); Lymphocyte # 0.92 X10^3/ul (0.83-4.51); Lymphocyte % 16.1 % (19-41); Mean Corp Hgb Conc 31.6 g/dL (32-36); Mean Corpuscular Hgb 28.9 pg (27.0-32.0); Mean Corpuscular Volume 91.6 fL (81-99); Mean Platelet Vol. 10.1 fl (6.2-12.0); Monocyte# 0.67 X10^3/uL; Monocyte% 11.7 % (0-10); NRBC Flagged by Analyzer 0 % (0-5); Neutrophil # 3.76 X10^3/uL (2.7-7.7); Neutrophil % 65.9 % (47-70); Platelet Count 167 K/mm3 (150-450); RBC Distribution Width CV 14.1 % (11.6-14.6); RBC Distribution Width SD 47.6 fl (35.1-43.9); White Blood Count 5.7 K/mm3 (4.4-11.0)
[2023-10-01 18:17] LABS: Anion Gap 5 (5-15); BUN 29 mg/dL (7-18); BUN/Creat Ratio 19.5 RATIO (10-20); Calcium,Total 9.3 mg/dL (8.5-10.1); Chloride 100 mmol/L (98-107); Creatinine, Serum 1.49 mg/dL (0.55-1.02); EST Glomerular Filtration Rate 37 mL/min (>60); Est Glom Filt Rate - Afr Amer 44 mL/min (>60); Glucose 87 mg/dL (74-106); Potassium 4.5 mmol/L (3.5-5.1); Sodium Level 131 mmol/L (136-145)
== END | disposition home or self-care (01) ==
PROVIDERS: PCP Internal Medicine; Referring Provider Physician Assistant Surgical; Visit Provider Physician Assistant Surgical
DX: Z01.818 Encounter for other preprocedural examination (principal)
CPT/HCPCS: 36415; 80048; 85025

== ENCOUNTER → 2023-11-11 | Outpatient (CLI) | payer MEDICARE, OTHER, SELFPAY ==
[2023-11-11 15:17] LABS: Absolute Lymphocyte Count 0.69 X10^3/uL (0.83-4.51); Absolute Neutrophil Count 3.6 X10^3/uL (2.0-7.7); Basophil# 0.04 X10^3/uL; Basophil% 0.8 % (0-1); Eosinophil# 0.18 X10^3/uL; Eosinophils% 3.5 % (0-5); Hematocrit 33.8 % (37-47); Hemoglobin 10.9 g/dL (12.0-15.0); Lymphocyte # 0.69 X10^3/ul (0.83-4.51); Lymphocyte % 13.3 % (19-41); Mean Corp Hgb Conc 32.2 g/dL (32-36); Mean Corpuscular Hgb 30.1 pg (27.0-32.0); Mean Corpuscular Volume 93.4 fL (81-99); Mean Platelet Vol. 9.7 fl (6.2-12.0); Monocyte# 0.63 X10^3/uL; Monocyte% 12.2 % (0-10); NRBC Flagged by Analyzer 0 % (0-5); Neutrophil # 3.61 X10^3/uL (2.7-7.7); Neutrophil % 69.8 % (47-70); Platelet Count 213 K/mm3 (150-450); RBC Distribution Width CV 15.3 % (11.6-14.6); RBC Distribution Width SD 52.9 fl (35.1-43.9); Red Blood Count 3.62 M/mm3 (4.2-5.4); White Blood Count 5.2 K/mm3 (4.4-11.0)
[2023-11-11 16:08] LABS: ALB/GLOB Ratio 1.1 RATIO (0.9-2.4); AST(SGOT) 18 U/L (15-37); Alanine Aminotransfer ALT/SGPT 18 U/L (13-56); Albumin, Serum 3.4 g/dL (3.2-5.0); Alkaline Phosphatase 81 U/L (45-117); Anion Gap 5 (5-15); BUN 30 mg/dL (7-18); BUN/Creat Ratio 20.4 RATIO (10-20); Calcium,Total 8.7 mg/dL (8.5-10.1); Chloride 101 mmol/L (98-107); Creatinine, Serum 1.47 mg/dL (0.55-1.02); EST Glomerular Filtration Rate 37 mL/min (>60); Est Glom Filt Rate - Afr Amer 45 mL/min (>60); Glucose 106 mg/dL (74-106); Potassium 4.6 mmol/L (3.5-5.1); Protein, Total 6.4 g/dL (6.4-8.2); Sodium Level 133 mmol/L (136-145)
== END | disposition home or self-care (01) ==
LOC: MTLAB 13:38
PROVIDERS: PCP Internal Medicine; Referring Provider Internal Medicine Rheumatology; Visit Provider Internal Medicine Rheumatology
DX: M06.09 Rheumatoid arthritis without rheumatoid factor, multiple sites (principal); M79.7 Fibromyalgia; Z79.899 Other long term (current) drug therapy
CPT/HCPCS: 36415; 80053; 85025

== ENCOUNTER → 2024-01-06 | Outpatient (CLI) | payer MEDICARE, OTHER, SELFPAY ==
[2024-01-06 16:10] LABS: Absolute Lymphocyte Count 0.91 X10^3/uL (0.83-4.51); Absolute Neutrophil Count 3.6 X10^3/uL (2.0-7.7); Basophil# 0.07 X10^3/uL; Basophil% 1.3 % (0-1); Eosinophil# 0.17 X10^3/uL; Eosinophils% 3.1 % (0-5); Hematocrit 36.1 % (37-47); Hemoglobin 11.2 g/dL (12.0-15.0); Lymphocyte # 0.91 X10^3/ul (0.83-4.51); Lymphocyte % 16.4 % (19-41); Mean Corpuscular Hgb 29.9 pg (27.0-32.0); Mean Corpuscular Volume 96.3 fL (81-99); Monocyte# 0.75 X10^3/uL; Monocyte% 13.5 % (0-10); NRBC Flagged by Analyzer 0 % (0-5); Neutrophil # 3.64 X10^3/uL (2.7-7.7); Neutrophil % 65.3 % (47-70); Platelet Count 201 K/mm3 (150-450); RBC Distribution Width CV 14.1 % (11.6-14.6); RBC Distribution Width SD 49.6 fl (35.1-43.9); Red Blood Count 3.75 M/mm3 (4.2-5.4); White Blood Count 5.6 K/mm3 (4.4-11.0)
[2024-01-06 16:37] LABS: BNP,B-Type NATRIURETIC PEPTIDE 36.8 pg/mL (0-100)
[2024-01-06 17:03] LABS: Anion Gap 7 (5-15); BUN 34 mg/dL (7-18); Calcium,Total 9.6 mg/dL (8.5-10.1); Chloride 99 mmol/L (98-107); Creatinine, Serum 1.36 mg/dL (0.55-1.02); EST Glomerular Filtration Rate 41 mL/min (>60); Est Glom Filt Rate - Afr Amer 49 mL/min (>60); Glucose 88 mg/dL (74-106); Magnesium 1.7 mg/dL (1.6-2.6); Potassium 4.7 mmol/L (3.5-5.1); Sodium Level 133 mmol/L (136-145); T4 Free Direct 0.95 ng/dL (0.76-1.46); Thyroid Stim Hormone (TSH) 1.86 uIU/mL (0.358-3.74)
== END | disposition home or self-care (01) ==
LOC: LAB 15:22
PROVIDERS: PCP Internal Medicine; Referring Provider Nurse Practitioner Family; Visit Provider Nurse Practitioner Family
DX: I25.10 Atherosclerotic heart disease of native coronary artery without angina pectoris (principal); R06.09 Other forms of dyspnea; Z98.890 Other specified postprocedural states; R00.2 Palpitations
CPT/HCPCS: 36415; 80048; 83735; 83880; 84439; 84443; 85025

== ENCOUNTER → 2024-02-03 | Outpatient (CLI) | payer MEDICARE, OTHER, SELFPAY ==
--- NOTE | 2024-02-03 17:56 | STRESSREP ---
Stress Test Report Pharmacologic myocardial perfusion stress test. 73-year-old lady with a history of shortness of breath Resting EKG demonstrates sinus rhythm with a rate of 60 bpm. Resting blood pressure is 130/80 mmHg. 0.4 mg of regadenoson was infused per usual protocol followed by rapid intravenous saline flush injection. Continuous EKG monitoring was performed. The maximum heart rate was 89 bpm which was 59% of max impacted heart rate the maximum workload was 1 metabolic equivalent. At rest there were no ST or T wave changes noted to suggest ischemia and at peak infusion nonspecific ST changes were noted which did not meet the criteria for ischemia. No clinical angina is noted. The final blood pressure was 145/66 mmHg. Myocardial perfusion protocol. 11 point mCi of technetium 99m sestamibi was injected at rest. 0.4 mg of regadenoson was infused per usual protocol. At peak infusion 34 point mCi of technetium 99m sestamibi was injected stress images were obtained stress and rest images were reconstructed and compared in the short axis vertical long and horizontal long axis. Gated images were also obtained. Perfusion SPECT analysis: Review of the stress images demonstrate normal uptake of tracer noted in all areas of the myocardium. The resting images similar demonstrated normal uptake of tracer noted in all areas of the myocardium. No areas of reversibility are noted to suggest ischemia and no previous infarct is noted. Gated SPECT analysis: The gated ejection fraction is 66%. Conclusion: Normal pharmacologic myocardial perfusion stress test. Preserved ejection fraction.
== END | disposition home or self-care (01) ==
LOC: CVS 07:12
PROVIDERS: PCP Internal Medicine; Referring Provider Nurse Practitioner Family; Visit Provider Nurse Practitioner Family
DX: R06.00 Dyspnea, unspecified (principal); I25.10 Atherosclerotic heart disease of native coronary artery without angina pectoris
CPT/HCPCS: 78452; 93017; A9500; A4216; J2785

== ENCOUNTER → 2024-02-24 | Outpatient (CLI) | payer MEDICARE, OTHER, SELFPAY ==
[2024-02-24 12:37] LABS: Absolute Lymphocyte Count 0.86 X10^3/uL (0.83-4.51); Absolute Neutrophil Count 2.7 X10^3/uL (2.0-7.7); Basophil# 0.07 X10^3/uL; Basophil% 1.5 % (0-1); Eosinophils% 4.4 % (0-5); Hemoglobin 10.8 g/dL (12.0-15.0); Lymphocyte # 0.86 X10^3/ul (0.83-4.51); Mean Corp Hgb Conc 30.9 g/dL (32-36); Mean Corpuscular Hgb 29.2 pg (27.0-32.0); Mean Corpuscular Volume 94.6 fL (81-99); Mean Platelet Vol. 10.7 fl (6.2-12.0); Monocyte% 15.5 % (0-10); NRBC Flagged by Analyzer 0 % (0-5); Neutrophil # 2.68 X10^3/uL (2.7-7.7); Neutrophil % 59.4 % (47-70); Platelet Count 201 K/mm3 (150-450); RBC Distribution Width CV 13.4 % (11.6-14.6); RBC Distribution Width SD 46.8 fl (35.1-43.9); White Blood Count 4.5 K/mm3 (4.4-11.0)
[2024-02-24 12:46] LABS: AST(SGOT) 20 U/L (15-37); Alanine Aminotransfer ALT/SGPT 19 U/L (13-56); Albumin, Serum 3.5 g/dL (3.2-5.0); Alkaline Phosphatase 88 U/L (45-117); Anion Gap 5 (5-15); BUN 27 mg/dL (7-18); BUN/Creat Ratio 19.3 RATIO (10-20); Calcium,Total 9.4 mg/dL (8.5-10.1); Chloride 102 mmol/L (98-107); EST Glomerular Filtration Rate 39 mL/min (>60); Est Glom Filt Rate - Afr Amer 48 mL/min (>60); Globulin 3.4 g/dL (2.2-4.2); Glucose 98 mg/dL (74-106); Potassium 5.1 mmol/L (3.5-5.1); Protein, Total 6.9 g/dL (6.4-8.2); Sodium Level 135 mmol/L (136-145)
== END | disposition home or self-care (01) ==
LOC: MTLAB 10:09
PROVIDERS: PCP Internal Medicine; Referring Provider Internal Medicine Rheumatology; Visit Provider Internal Medicine Rheumatology
DX: M06.09 Rheumatoid arthritis without rheumatoid factor, multiple sites (principal); M79.7 Fibromyalgia; Z79.899 Other long term (current) drug therapy
CPT/HCPCS: 36415; 80053; 85025

== ENCOUNTER 2024-03-22 16:00 | Outpatient (RCR) | payer MEDICARE, OTHER, SELFPAY ==
--- NOTE | 2024-02-04 16:13 | HP.PTEVAL ---
Patient's Visit Information Visit Information Visit Information: TAYO FELIX is a 73 year old F referred to Physical Therapy by Dr. Tacos Solano MD with a diagnosis of AFTERCARE FOLLOWING JOINT REPLACEMENT SURGERY ,PRESENCE RIGHT TKA. Date of Evaluation: 02/04/24 Physical Therapist: Usman Mohamud, PT, Cert MDT, OCS Visit Plan Frequency: 2x /Week Duration: 4 Weeks Plan: H/O RIGHT TKA MAY 20 2023 PT INTERVENTIONS ROM ,STRENGTHENING EX'S QUADS/HAMS/HIP ,CORE STRENGTHENING ,FUNCTIONAL STRENGTHENING ,AND ENDURANCE PROGRAM Subjective Subjective: This 73 y/o female presents to physical therapy with right MARCIE done on May [address] Solano. Patient has [address] [facility].Most recently seen Dr Solano and recommended Aquatic therapy. Patient is able walk 250 ft with FWW. Patient has no pain just back pain when walking. Denies paresthesia/tingling -. Patient stated knee is doing great but would like to walk without walker and improve condition. Patient lives in [place] 3 [place] with rail. Patient tube/shower with slide tub seat. Patient sleeping okay on right . Patient uses w/c alot at home with cooking but encouraged to use walker at home . Patient condition affects QOL and function/gait . Patient goals to walk without walker.mediaction for back tramodol SOCIAL: VOCATION: retired Pain Right Knee: Pain Intensity (Out of 10): 0 Pain Intensity Range: 10 Objective Objective: POSTURE: trunk flexed forward hps/knees slightly flexed GAIT: ambulates with fww hips/knees flexed slow bhargav ~ 200ft decrease step length BALANCE: fair + with fww PALAPTION: unremarkable EDEMA: absent AROM: right knee supine flexion 0-120 degrees FLEXABILITY: hamstrings min tight MMT: ( peak force) quads right 27.6 ,left 29.3 ,hamstrings 19.1 right ,left 18.2 ,hip flexion right 17.2 ,left 19.9 Balance/Special Test Scores Lower Extremity Functional Score: 19 TUG Test Time Seconds: 28.7 Goals Goal 1:: Patient to be I with Aquatic therapy program Goal Time Frame: 4-6 Weeks Goal 2:: Patient to demonstrate 50% improvement with less pain and improved function. Goal Time Frame: 4-6 Weeks Goal 3:: Patient to improve peak force quads/hams/hip by 5-10 # strength to improve gait and function. Goal Time Frame: 4-6 Weeks Goal 4:: Patient to improve ability to ambulate 400 ft > to improve function with endurance . Goal Time Frame: 4-6 Weeks Rehabilitation Potential Physical Therapy Diagnosis: This patient had Right TKA Apr 2023 along with comorbities and back pain influences patient condition with weakness ,decrease gait and endurance thus benefit from Aquatic therapy Rehabilitation Potential: Good Anticipated Interventions Patient/Client Instruction: Educate patient on: Condition and Plan of Care For the Purpose of:: To decrease pain, To increase ROM, To improve muscle performance and motor function, To improve ability to perform ADL's, To increase tolerance to activity/condition/position, To improve performance and independence with ADL's, To improve ability of physical actions for home/community/work/leisure, To improve health of tissue, To decrease soft tissue restriction, To increase flexibility/ROM, To improve endurance, To improve balance and To improve tolerance to ADL's Therapeutic Exercise to Include: Strength training, Endurance training, Balance training, Flexibilty training, In an aquatic setting, Passive ROM and Active ROM Comment: QUADS/HAMS/HIP For the Purpose of:: To decrease pain, To increase ROM, To improve muscle performance and motor function, To improve ability to perform ADL's, To increase tolerance to activity/condition/position, To improve ability of physical actions for home/community/work/leisure, To improve gait and locomotor functions, To improve health of tissue, To decrease soft tissue restriction, To increase flexibility/ROM, To improve endurance, To improve balance and To improve tolerance to ADL's Text: Thank you for the opportunity to evaluate your patient. For Medicare and Medicare HMO plans, please review the plan of care and approve it. It will need to be FAXED BACK to us at [phone] for Medicare purposes. For Medicare only, by signing this I certify the plan of care. Please let me know if there are questions or concerns regarding this plan of care. Physician Signature: Date:
--- NOTE | 2024-02-23 15:42 | HP.PTREVAL_ITS ---
Re-Evaluation Intro: Dr. Tacos Solano MD, It has been my pleasure to treat TAYO FELIX over the last 7 visits for AFTERCARE FOLLOWING JOINT REPLACEMENT SURGERY ,PRESENCE RIGHT T. Please see the progress note below for an update on the physical therapy plan of care! Subjective Subjective: Received new order to continue with PT Objective Objective/Function: Patient is unsafe to use cane too weak poor balance and u nsteady POSTURE: trunk flexed forward hps/knees slightly flexed GAIT: ambulates with fww hips/knees flexed slow bhargav ~ 200ft decrease step length BALANCE: fair + with fww PALAPTION: unremarkable EDEMA: absent AROM: right knee supine flexion 0-120 degrees FLEXABILITY: hamstrings min tight MMT: ( peak force) quads right 31.7 ,left 29.3 ,hamstrings 20.1 right ,left 21.2 ,hip flexion right 20.2 ,left 19.9 Plan Plan Plan: H/O RIGHT TKA MAY 20 2023 PT INTERVENTIONS ROM ,STRENGTHENING EX'S QUADS/HAMS/HIP ,CORE STRENGTHENING ,FUNCTIONAL STRENGTHENING ,AND ENDURANCE PROGRAM Balance/Gait/Functional tests Balance/Special Test Scores Lower Extremity Functional Score: 19 TUG Test Time Seconds: 28.7 Tug Test: 20-30sec.=variable mobility Goals Goals Goal 1:: Patient to be I with Aquatic therapy program Goal Time Frame: 4-6 Weeks Goal Progress: Progressing Goal 2:: Patient to demonstrate 60% improvement with less pain and improved function. ( NEW GOAL) Goal Time Frame: 4-6 Weeks Goal 3:: Patient to improve peak force quads/hams/hip by 5-10 # strength to improve gait and function. Goal Time Frame: 4-6 Weeks Goal Progress: Progressing Goal 4:: Patient to improve ability to ambulate 400 ft > to improve function with endurance . Goal Time Frame: 4-6 Weeks Goal Progress: Progressing Anticipated Interventions Anticipated Interventions Patient/Client Instruction: Educate patient on: Condition and Plan of Care For the Purpose of:: To decrease pain, To increase ROM, To improve muscle performance and motor function, To improve ability to perform ADL's, To increase tolerance to activity/condition/position, To improve performance and independence with ADL's, To improve ability of physical actions for home/community/work/leisure, To improve health of tissue, To decrease soft tissue restriction, To increase flexibility/ROM, To improve endurance, To improve balance and To improve tolerance to ADL's Therapeutic Exercise to Include: Strength training, Endurance training, Balance training, Flexibilty training, In an aquatic setting, Passive ROM and Active ROM Comment: QUADS/HAMS/HIP For the Purpose of:: To decrease pain, To increase ROM, To improve muscle performance and motor function, To improve ability to perform ADL's, To increase tolerance to activity/condition/position, To improve ability of physical actions for home/community/work/leisure, To improve gait and locomotor functions, To improve health of tissue, To decrease soft tissue restriction, To increase flexibility/ROM, To improve endurance, To improve balance and To improve tolerance to ADL's Re-Evaluation Ending Re-evaluation ending: Please do not hesitate to contact me at [phone] by phone or if you have questions or concerns regarding this new plan of care! Sincerely, Usman Mohamud, PT, Cert MDT, OCS
--- NOTE | 2024-03-22 16:39 | HP.PTDCSUM ---
Discharge Summary D/C summary: It has been my pleasure to treat TAYO FELIX referred by Dr. Tacos Solano MD, with the diagnosis of AFTERCARE FOLLOWING JOINT REPLACEMENT SURGERY ,PRESENCE RIGHT T for a total of 15 visit(s). Discharge Date: 03/22/24 Please see the following information for a summary of their discharge status. Subjective Subjective: No pain in knee and walking better but limited with back pain impairs walking along with balance Plan to see DR for back and balance Pain Right Knee: Pain Intensity (Out of 10): 0 BACK: Pain Intensity (Out of 10): 5 L shoulder: Pain Intensity (Out of 10): 0 Overall Improvement % Improvement: 70 Objective Objective/Function: POSTURE: trunk flexed forward hps/knees slightly flexed GAIT: ambulates with fww hips/knees flexed slow bhargav ~ 200ft decrease step length but needs rest by sitting BALANCE: fair + with fww PALAPTION: unremarkable EDEMA: absent AROM: right knee supine flexion 0-120 degrees FLEXABILITY: hamstrings min tight MMT: ( peak force) quads right 51.7 ,left 42.1 ,hamstrings 37.1 right ,left 28.2 ,hip flexion right 28.2 ,left 24.9 Goals Goal 1:: Patient to be I with Aquatic therapy program Goal Progress: Goal Met Goal 2:: Patient to demonstrate 60% improvement with less pain and improved function. ( NEW GOAL) Goal Progress: Goal Met Goal 3:: Patient to improve peak force quads/hams/hip by 5-10 # strength to improve gait and function. Goal Progress: Goal Met Goal 4:: Patient to improve ability to ambulate 400 ft > to improve function with endurance . limited by back pain Goal Progress: Progressing Plan Plan: D/C TO GYM D/C Information Discharge Comments: Aquatic therapy d/c sentence: If there are questions or concerns regarding this patient's physical therapy, please feel free to call me at [phone]. Thank you for the referral of this patient. Sincerely, Usman Mohamud, PT, Cert MDT, OCS Balance/Gait/Functional tests Balance/Special Test Scores Lower Extremity Functional Score: 36 TUG Test Time Seconds: 28.7 Tug Test: 20-30sec.=variable mobility Improvement % Improvement: 70
== END 2024-03-22 19:00 | disposition home or self-care (01) ==
LOC: PT 16:00
PROVIDERS: PCP Internal Medicine; Visit Provider Specialist
DX: M18.11 Unilateral primary osteoarthritis of first carpometacarpal joint, right hand (principal); G56.01 Carpal tunnel syndrome, right upper limb; M17.11 Unilateral primary osteoarthritis, right knee; Z96.651 Presence of right artificial knee joint; Z47.1 Aftercare following joint replacement surgery
CPT/HCPCS: 97113; 97162; 97530

== ENCOUNTER → 2024-05-20 | Outpatient (CLI) | payer MEDICARE, OTHER, SELFPAY ==
[2024-05-20 11:58] LABS: Absolute Lymphocyte Count 0.79 X10^3/uL (0.83-4.51); Absolute Neutrophil Count 3.1 X10^3/uL (2.0-7.7); Basophil# 0.06 X10^3/uL; Basophil% 1.2 % (0-1); Eosinophil# 0.22 X10^3/uL; Eosinophils% 4.5 % (0-5); Hematocrit 34.9 % (37-47); Hemoglobin 10.9 g/dL (12.0-15.0); Lymphocyte # 0.79 X10^3/ul (0.83-4.51); Lymphocyte % 16.3 % (19-41); Mean Corp Hgb Conc 31.2 g/dL (32-36); Mean Corpuscular Hgb 29.5 pg (27.0-32.0); Mean Corpuscular Volume 94.3 fL (81-99); Mean Platelet Vol. 9.9 fl (6.2-12.0); Monocyte# 0.65 X10^3/uL; Monocyte% 13.4 % (0-10); NRBC Flagged by Analyzer 0 % (0-5); Neutrophil % 64.2 % (47-70); Platelet Count 194 K/mm3 (150-450); RBC Distribution Width CV 13.6 % (11.6-14.6); RBC Distribution Width SD 46.9 fl (35.1-43.9); White Blood Count 4.8 K/mm3 (4.4-11.0)
[2024-05-20 12:21] LABS: Vitamin B12 409 pg/mL (211-911)
[2024-05-20 12:32] LABS: ALB/GLOB Ratio 1.3 RATIO (0.9-2.4); AST(SGOT) 15 U/L (15-37); Alanine Aminotransfer ALT/SGPT 17 U/L (13-56); Albumin, Serum 3.8 g/dL (3.2-5.0); Alkaline Phosphatase 94 U/L (45-117); Anion Gap 7 (5-15); BUN 30 mg/dL (7-18); BUN/Creat Ratio 22.2 RATIO (10-20); Chloride 104 mmol/L (98-107); Creatinine, Serum 1.35 mg/dL (0.55-1.02); EST Glomerular Filtration Rate 41 mL/min (>60); Est Glom Filt Rate - Afr Amer 50 mL/min (>60); Ferritin 33 ng/mL (8-252); Glucose 97 mg/dL (74-106); Iron 73 ug/dL (50-170); Iron Binding Capacity,Total 399 ug/dL (250-450); PERCENT IRON SATURATION 18.3 % (15.0-55.0); Protein, Total 6.8 g/dL (6.4-8.2); Sodium Level 135 mmol/L (136-145)
== END | disposition home or self-care (01) ==
PROVIDERS: PCP Internal Medicine; Referring Provider Internal Medicine; Visit Provider Internal Medicine
DX: M06.09 Rheumatoid arthritis without rheumatoid factor, multiple sites (principal); M79.7 Fibromyalgia; D64.9 Anemia, unspecified; Z79.899 Other long term (current) drug therapy
CPT/HCPCS: 36415; 80053; 82607; 82728; 83540; 83550; 85025

== ENCOUNTER 2024-07-29 11:45 | Emergency (ER) | payer MEDICARE, OTHER, SELFPAY ==
[2024-07-29 11:45] VITALS: BP 110/64; PULSE 62; RESP 16; TEMP 36.4; O2SAT 93
--- NOTE | 2024-07-29 11:49 | RAD_ITS ---
STUDY: X-RAY - LEFT KNEE REASON FOR EXAM: Female, 74 years old. FALL TECHNIQUE: 4 views of the left knee. COMPARISON: None. FINDINGS: Normal visualized distal femur. There is a 1.4 cm region of sclerosis in the proximal medial tibia, which could represent a bone island. Normal visualized proximal fibula. Normal proximal tibiofibular articulation. Normal medial femorotibial compartment. Normal lateral femorotibial compartment. Normal patellofemoral articulation. There is a small knee joint effusion. The soft tissue structures are unremarkable. RAD/Knee 4 or More Views IMPRESSION: Suspected 1.4 cm bone island in the proximal medial tibia. Small knee joint effusion. Electronically Signed: Dickson Elkins MD at 12:44 EST ,
--- NOTE | 2024-07-29 15:11 | EDS_ITS ---
HPI History of Present Illness Chief Complaint: Lower Extremity Injury [facility] Medical History Bipolar disorder Depression Uses wheelchair Rheumatoid arthritis Bladder prolapse Anemia High cholesterol DVT (deep venous thrombosis) History of scoliosis History of hiatal hernia History of diverticulitis Gastric reflux Non-smoker On home oxygen therapy CPAP (continuous positive airway pressure) dependence Sleep apnea Shortness of breath on exertion History of edema Hypertension History of atrial fibrillation History of echocardiogram History of Holter monitoring History of stress test Cardiology follow-up encounter 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 RODRIGUEZ (dyspnea on exertion) Osteoarthritis Fibromyalgia GERD (gastroesophageal reflux disease) SVT (supraventricular tachycardia) Nonischemic cardiomyopathy Essential hypertension Home Medications ?Medication ?Instructions ?Recorded ?Last Taken ?Type hydroxychloroquine 200 mg tablet 200 mg PO BID Arthritis 09/02/17 05/25/23 History quetiapine 200 mg tablet (Seroquel) 50 mg PO QHS Mood 12/16/19 Unknown History albuterol sulfate 90 mcg/actuation 2 puff inhalation Q4H PRN 12/19/20 Unknown Rx aerosol inhaler (Ventolin HFA) shortness of breath or wheezing #18 grams leflunomide 10 mg tablet 10 mg PO DAILY Arthritis 11/19/21 05/25/23 History escitalopram oxalate 10 mg tablet 10 mg PO DAILY Antidepressant 01/25/22 05/25/23 History hydrocortisone 2.5 % topical cream 1 applic SC DAILY Hemorrhoids 01/25/22 Unknown History with perineal applicator fluticasone furoate 200 1 inh inhalation QDAY Lungs #60 ea 03/04/23 Unknown Rx mcg-vilanterol 25 mcg/dose inhalation powder (Breo Ellipta) pantoprazole 40 mg tablet,delayed 40 mg PO BID Acid Reflux 04/25/23 05/25/23 History release acetaminophen 500 mg tablet 1,000 mg (2 x 500 mg) PO Q8 Pain 05/25/23 05/25/23 Rx 30 days #180 tabs dextromethorphan-guaifenesin 10 10 ml PO Q6H PRN PRN 06/03/23 Unknown Rx mg-100 mg/5 mL oral syrup COUGH/CONGESTION #0 mL hydrochlorothiazide 12.5 mg capsule 12.5 mg PO DAILY 30 days #30 caps 06/03/23 Unknown Rx celecoxib 200 mg capsule 200 mg PO BID 12/11/23 Unknown History ferrous sulfate 325 mg (65 mg 325 mg PO MOWEFR Anemia 07/07/23 Unknown History iron) tablet (FeroSul) gabapentin 300 mg capsule 300 mg PO TID 07/07/23 Unknown History trazodone 50 mg tablet 50 mg PO QHS 07/07/23 Unknown History carvedilol 25 mg tablet 25 mg PO BID #180 tabs 08/25/23 Unknown Rx furosemide 20 mg tablet 20 mg PO DAILY #90 tabs 08/25/23 Unknown Rx amlodipine 5 mg tablet 5 mg PO DAILY #90 tabs 09/22/23 Unknown Rx tramadol 50 mg tablet 50 mg PO TID 01/06/24 Unknown History pravastatin 20 mg tablet 20 mg PO QHS Cholesterol #30 tabs 03/01/24 Unknown Rx Allergy/AdvReac Type Severity Reaction Status Date / Time atorvastatin AdvReac Severe Severe Verified 07/29/24 11:49 diarrhea loratadine (From Claritin-D) AdvReac HYPERTENSIO Verified 07/29/24 11:49 N pseudoephedrine (From AdvReac HYPERTENSIO Verified 07/29/24 11:49 Claritin-D) N Family History Father Myocardial infarction CAD (coronary artery disease) Grandfather Cerebral embolism Sister Hypertension Surgical History History of total right knee replacement (~04/2023) History of esophagogastroduodenoscopy (EGD) History of colonoscopy History of left heart catheterization (LHC) (~01/16/21) History of tonsillectomy History of ankle surgery History of tubal ligation History of cardiac radiofrequency ablation (~01/14/18) Social History household members: spouse Smoking Status: Never smoker alcohol intake: never substance use type: does not use caffeine: Yes Type: carbonated beverages Number of servings: 2 and coffee Number of servings: 2 EXAM Physical Exam Const Vital Signs: 07/29/24 11:45 07/29/24 15:45 Temperature 97.5 F L Temperature Source Oral Pulse Rate 62 75 Respiratory Rate 16 18 Blood Pressure 110/64 Blood Pressure Mean 79 Pulse Ox 93 97 Oxygen Delivery Method Room Air Room Air [facility] Narrative Medical decision making narrative: HISTORY OF PRESENT ILLNESS: 74-year-old female presents with left knee pain. Notes she fell into the toilet on [address] and as she was trying to rise from a squatting position she felt pain in her left knee. Notes she injured her left knee. She notes the tramadol and Tylenol 1 hour ago. REVIEW OF SYSTEMS: Pertinent positives: Left knee Pertinent negatives: Leg swelling PHYSICAL EXAM: Nursing triage notes reviewed, Vital signs reviewed Constitutional: please see mdm Extremities: Left knee with slight edema, palpable joint effusion but no warmth. There is slight range of motion decree secondary to pain however the patient has flexion extension left knee. She has no obvious ligamentous laxity. She is intact quadriceps tendon complex. She is intact pulses in the left lower extremity. Her compartments are soft. Neuro: Intact sensation L1-S1 dermatomal distributions. Intact 5/5 strength in hip flexion (T12-L3). Knee extension (L2-L4). Ankle dorsiflexion (L4-L5). Ankle plantar flexion (S1). Great toe extension (L5). 2+ patellar and Achilles DTRs. Skin: No rash or lesions noted MEDICAL DECISION MAKING: Chief Complaint: Left knee pain External records reviewed: Reviewed prior allergies, problem list Factors affecting care: Rheumatoid arthritis, DVT, fibromyalgia Social determinants of health: none History obtained from others: none Consults: none [place] Narrative: The patient was initially hemodynamically stable, afebrile and nontoxic- appearing. Exam with bilateral lower extremity pain but no obvious deformities. X-ray of the left knee was placed per triage. I considered the following differential diagnosis: Knee fracture, dislocation, patellar dislocation, quadriceps tendon rupture ALL IMAGES (IF OBTAINED) HAVE BEEN PERSONALLY REVIEWED AND INTERPRETED BY MYSELF. X-ray was read reviewed personally myself showed no evidence of obvious bony fracture, dislocation, there was a lesion noted in the medial proximal tibia. Radiology notes this is a bone island. Clinical significance is undetermined. There is no evidence of acute fracture dislocation as such no evidence for emergent orthopedic evaluation. Patient had no fever, pain out of portion to exam or significant decreased range of motion to suggest septic arthritis. Her history is more consistent with traumatic mechanism. The patient is already on Tylenol and tramadol at home encouraged to continue this as well as add ibuprofen or other NSAID as needed for further pain control. Orthopedic follow-up was arranged. The patient and/or family, caregivers express understanding. The patient and/or family, caregivers agrees with the plan. Shared decision making: I will have a discussion with the patient and or visitors regarding risk/benefits of further testing or admission. They will be made aware of of the risk/benefits inherent in this decision they will be given the opportunity to voice understanding. Total critical care time today provided was at least 0 minutes. This excludes separately billable procedures. Critical care time (if documented) is secondary to the patient having high probability of clinically significant/life threatening deterioration in the patient's condition which required my urgent intervention. Impression: 1. Acute left knee pain 2. Left knee contusion Dispo: Discharge This note was generated with Intrakr dictation software. It may contain incorrect words, spelling, and punctuation that were not noted in review of the chart prior to signing. Radiography Diagnostic Testing: Clinical Impression(s) from Imaging Studies Knee X-Ray 07/29/24 11:49 IMPRESSION: Suspected 1.4 cm bone island in the proximal medial tibia. Small knee joint effusion. Electronically Signed: Dickson Elkins MD at 12:44 EST , Discharge Plan Triage Chief Complaint: Lower Extremity Injury ED Provider: Jeff Evans Dx/Rx/DC Orders Instructions: ED Knee Sprain Prescriptions: No Action quetiapine [Seroquel] 200 mg tablet 50 mg PO QHS albuterol sulfate [Ventolin HFA] 90 mcg/actuation HFA aerosol inhaler 2 puff INHALATION Q4H PRN (Reason: shortness of breath or wheezing) Qty: 18 6RF escitalopram oxalate 10 mg tablet 10 mg PO DAILY Patient Comments: TAKE 1 TABLET BY MOUTH DAILY hydrocortisone 2.5 % cream with perineal applicator 1 applic SC DAILY Patient Comments: apply rectally TWICE DAILY ferrous sulfate [FeroSul] 325 mg (65 mg iron) tablet 325 mg PO MOWEFR gabapentin 300 mg capsule 300 mg PO TID Patient Comments: TAKE 1 CAPSULE BY MOUTH THREE TIMES DAILY trazodone 50 mg tablet 50 mg PO QHS Patient Comments: TAKE 1 TABLET BY MOUTH DAILY AT BEDTIME celecoxib 200 mg capsule 200 mg PO BID Patient Comments: Take 1 capsule by mouth twice daily. tramadol 50 mg tablet 50 mg PO TID Patient Comments: TAKE 1 TABLET BY MOUTH EVERY DAY IN THE MORNING, THEN TAKE 1 TABLET EVERY DAY IN THE AFTERNOON, AND THEN TAKE 2 TABLETS BY MOUTH EVERY NIGHT AT BEDTIME FOR 90 DAYS. hydroxychloroquine 200 MG tablet 200 mg PO BID Patient Comments: leflunomide 10 mg tablet 10 mg PO DAILY Patient Comments: TAKE 1 TABLET BY MOUTH ONCE DAILY pantoprazole 40 MG tablet 40 mg PO BID acetaminophen 500 mg Tablet 1,000 mg PO Q8 30 Days Qty: 180 0RF Rx Instructions: Do not take more than 3000 mg Tylenol in a 24-hour period. hydrochlorothiazide 12.5 mg Capsule 12.5 mg PO DAILY 30 Days Qty: 30 0RF dextromethorphan-guaifenesin 10-100 mg/5 mL Syrup 10 ml PO Q6H PRN PRN (Reason: COUGH/CONGESTION) Qty: 0 0RF fluticasone furoate-vilanterol [Breo Ellipta] 200-25 mcg/dose blister with device 1 inh inhalation QDAY Qty: 60 6RF Rx Instructions: after inhalation, rinse mouth with water and spit out; do not swallow carvedilol 25 mg tablet 25 mg PO BID Qty: 180 3RF Rx Instructions: must administer with a meal/food furosemide 20 mg tablet 20 mg PO DAILY Qty: 90 3RF amlodipine 5 mg tablet 5 mg PO DAILY Qty: 90 3RF pravastatin 20 mg tablet 20 mg PO QHS Qty: 30 11RF Primary Care Provider: Annamarie Ho Referrals: Ana Jamison MD [Med Staff - Active Staff] - Usman Arriaga DO [Med Staff - Active Staff] - Annamarie Ho MD [Primary Care Provider] - Activity Restrictions/Additional Instructions: Thank you for trusting us with your care today! The x-ray of your left knee did not show evidence of fracture or dislocation Please take Tylenol (2 pills, 650 mg), ibuprofen (2 pills, 400 mg) every 6 hours as needed for pain and fever control. Please continue take your already prescribed tramadol as needed for breakthrough pain Please return to the emergency department if your symptoms change or worsen. Please follow with your primary care physician for further outpatient evaluation and management. Print Language: Kinyarwanda Disposition Disposition: Home, Self Care Discharge Date/Time: 07/29/24 16:04
[2024-07-29 15:45] VITALS: PULSE 75; RESP 18; O2SAT 97
[2024-07-29] MEDS: predniSONE 20 MG Tablet 40 MG PO (15:55)
[2024-07-29] MEDS: oxyCODONE 5 MG Tablet PO (15:55)
== END 2024-07-29 16:04 | disposition home or self-care (01) ==
LOC: ED 15:39
PROVIDERS: Emergency Provider Emergency Medicine; PCP Internal Medicine; Referring Provider Emergency Medicine; Visit Provider Emergency Medicine
DX: S80.02XA Contusion of left knee, initial encounter (principal); W18.39XA Other fall on same level, initial encounter; I25.10 Atherosclerotic heart disease of native coronary artery without angina pectoris; I10 Essential (primary) hypertension; E78.00 Pure hypercholesterolemia, unspecified; Z79.899 Other long term (current) drug therapy
CPT/HCPCS: 73564; 99283

== ENCOUNTER → 2024-09-08 | Outpatient (CLI) | payer MEDICARE, SELFPAY ==
[2024-09-08 12:40] LABS: Absolute Lymphocyte Count 0.93 X10^3/uL (0.83-4.51); Absolute Neutrophil Count 2.3 X10^3/uL (2.0-7.7); Basophil# 0.07 X10^3/uL; Basophil% 1.7 % (0-1); Eosinophil# 0.18 X10^3/uL; Eosinophils% 4.4 % (0-5); Hematocrit 33.9 % (37-47); Hemoglobin 10.7 g/dL (12.0-15.0); Lymphocyte # 0.93 X10^3/ul (0.83-4.51); Lymphocyte % 22.6 % (19-41); Mean Corp Hgb Conc 31.6 g/dL (32-36); Mean Corpuscular Hgb 29.7 pg (27.0-32.0); Mean Corpuscular Volume 94.2 fL (81-99); Mean Platelet Vol. 10.7 fl (6.2-12.0); Monocyte% 14.6 % (0-10); NRBC Flagged by Analyzer 0 % (0-5); Neutrophil # 2.32 X10^3/uL (2.7-7.7); Neutrophil % 56.5 % (47-70); Platelet Count 186 K/mm3 (150-450); RBC Distribution Width CV 14.3 % (11.6-14.6); RBC Distribution Width SD 49.2 fl (35.1-43.9); White Blood Count 4.1 K/mm3 (4.4-11.0)
[2024-09-08 13:18] LABS: ALB/GLOB Ratio 1.2 RATIO (0.9-2.4); AST(SGOT) 17 U/L (15-37); Alanine Aminotransfer ALT/SGPT 17 U/L (13-56); Albumin, Serum 3.6 g/dL (3.2-5.0); Alkaline Phosphatase 84 U/L (45-117); Anion Gap 8 (5-15); BUN 21 mg/dL (7-18); BUN/Creat Ratio 17.4 RATIO (10-20); Calcium,Total 9.7 mg/dL (8.5-10.1); Chloride 101 mmol/L (98-107); Creatinine, Serum 1.21 mg/dL (0.55-1.02); EST Glomerular Filtration Rate 46 mL/min (>60); Est Glom Filt Rate - Afr Amer 56 mL/min (>60); Globulin 3.1 g/dL (2.2-4.2); Glucose 95 mg/dL (74-106); Potassium 4.9 mmol/L (3.5-5.1); Protein, Total 6.7 g/dL (6.4-8.2); Sodium Level 133 mmol/L (136-145)
== END | disposition home or self-care (01) ==
LOC: MTLAB 09:34
PROVIDERS: PCP Internal Medicine; Referring Provider Internal Medicine Rheumatology; Visit Provider Internal Medicine Rheumatology
DX: M06.09 Rheumatoid arthritis without rheumatoid factor, multiple sites (principal); Z79.899 Other long term (current) drug therapy; M79.7 Fibromyalgia
CPT/HCPCS: 36415; 80053; 85025

== ENCOUNTER 2024-10-05 15:00 | Outpatient (RCR) | payer MEDICARE, OTHER, SELFPAY ==
--- NOTE | 2024-05-14 15:47 | HP.PTREVAL ---
Re-Evaluation Intro: Dr. Tacos Solano MD, It has been my pleasure to treat TAYO FELIX over the last 8 visits for LBP. Please see the progress note below for an update on the physical therapy plan of care! Subjective Subjective: I am sore. I am getting getting better with PT Objective Objective/Function: LBP ranges from 6-8/10 L LE radiculopathy is still present, but pt notes it bothers her less then it did prior to PT Pt is able to ambulate 198 feet until needing to rest secondary to LBP Pt has made significant gains with gait tolerance, but still c/o L LE radiculopathy and LBP which limit her ADL's Plan Plan Plan: 05/14/24- Cont with SKTC/DKTC, core strengthening ex's, nustep, and HEP. Try to transition patient to LRD as tolerated with gait. Balance/Gait/Functional tests Balance/Special Test Scores Quick DASH Score: 47.7250 Goals Goals Goal 1:: Decrease LBP x 50% to aid with sleep Goal Time Frame: 4-6 Weeks Goal Progress: Progressing Goal 2:: Decrease L LE radiculopathy x 50% to aid with ambulation Goal Time Frame: 4-6 Weeks Goal Progress: Progressing Goal 3:: Pt will be able to ambulate greater than 200 feet to aid with community ambulation Goal Time Frame: 4-6 Weeks Goal Progress: Progressing Goal 4:: I with HEP Goal Time Frame: 4-6 Weeks Goal Progress: Progressing Anticipated Interventions Anticipated Interventions Patient/Client Instruction: Educate patient on: Condition and Plan of Care For the Purpose of:: To improve self management Therapeutic Exercise to Include: Strength training, Postural training, Flexibilty training, Gait and locomotor training and Dynamic Lumbar Stabilization For the Purpose of:: To decrease pain, To improve muscle performance and motor function and To increase tolerance to activity/condition/position Re-Evaluation Ending Re-evaluation ending: Please do not hesitate to contact me at [phone] by phone or if you have questions or concerns regarding this new plan of care! Sincerely, Perez Billingsley, PT, ATC
--- NOTE | 2024-06-11 15:39 | HP.PTREVAL ---
Re-Evaluation Intro: Dr. Tacos Solano MD, It has been my pleasure to treat TAYO FELIX over the last 16 visits for LBP. Please see the progress note below for an update on the physical therapy plan of care! Subjective Subjective: Pt reports she continues to have LBP Objective Objective/Function: LBP is about the same at this time. 40% better, but still limiting at her worst L LE radiculopathy has improved x 10 % at this time Gait: Pt is able to ambulate 150 feet until needing to rest secondary to fatigue Pt has made significant progress, but continues to be limited with functional gait and mobility at this time. Plan Plan Plan: 06/11/24- Cont with SKTC/DKTC, core strengthening ex's, nustep, and HEP. Try to transition patient to LRD as tolerated with gait. Balance/Gait/Functional tests Balance/Special Test Scores Oswestry Low Back Score: 30 Quick DASH Score: 47.7250 Goals Goals Goal 1:: Decrease LBP x 50% to aid with sleep Goal Time Frame: 4-6 Weeks Goal Progress: Progressing Goal 2:: Decrease L LE radiculopathy x 50% to aid with ambulation Goal Time Frame: 4-6 Weeks Goal Progress: Progressing Goal 3:: Pt will be able to ambulate greater than 200 feet to aid with community ambulation Goal Time Frame: 4-6 Weeks Goal Progress: Progressing Goal 4:: I with HEP Goal Time Frame: 4-6 Weeks Goal Progress: Progressing Goal 5:: Pt will be able to ambulate with a standard cane 100 feet Goal Progress: New goal Anticipated Interventions Anticipated Interventions Patient/Client Instruction: Educate patient on: Condition and Plan of Care For the Purpose of:: To improve self management Therapeutic Exercise to Include: Strength training, Postural training, Flexibilty training, Gait and locomotor training and Dynamic Lumbar Stabilization For the Purpose of:: To decrease pain, To improve muscle performance and motor function and To increase tolerance to activity/condition/position Re-Evaluation Ending Re-evaluation ending: Please do not hesitate to contact me at [phone] by phone or if you have questions or concerns regarding this new plan of care! Sincerely, Perez Billingsley, PT, ATC
--- NOTE | 2024-08-24 15:23 | HP.PTREVAL ---
Re-Evaluation Intro: Dr. Tacos Solano MD, It has been my pleasure to treat TAYO FELIX over the last 26 visits for LBP. Please see the progress note below for an update on the physical therapy plan of care! Subjective Subjective: Pt. reports overall being ~50% better overall. She is still having trouble with her back and trouble walking. Pt. is using FWW, but has been using SPC here in clinic. She reports frequent weakness with her LLE causing difficulty with walking. Objective Objective/Function: TUG: with FWW 27.1sec, with SPC 58.9sec. Pt. required CGA with SPC, SBA with FWW. 30sec sit to stand test 11 with use of UEs. Pt. reports frequent fatigue with BLEs and with lumbar spine gait: pt. ambulated 87feet with SPC, 218feet with FWW. Pt. has marked decreased B step length. Pt. has marked weakness with LLE especially in SLS, this results decreased step length. MMT: RLE: knee ext 4/5, flexion 4/5; hip: flexion 3+/5, abd 3+/5. LLE: knee: ext 3+/5, flexion 4/5; hip: flexion 3+/5, abd 3+/5. Plan Plan Plan: I am extending her POC, focus on gait progression with FWW and with SPC. Add in BLE strengthening and core strengthening. Balance/Gait/Functional tests Balance/Special Test Scores Oswestry Low Back Score: 29 Quick DASH Score: 47.7250 30 Second Chair Rise Test Seconds: 12 Goals Goals Goal 1:: Decrease LBP x 50% to aid with sleep Goal Time Frame: 4-6 Weeks Goal Progress: Goal Met Goal 2:: Decrease L LE radiculopathy x 50% to aid with ambulation Goal Time Frame: 4-6 Weeks Goal Progress: Progressing Goal 3:: Pt will be able to ambulate greater than 200 feet to aid with community ambulation Goal Time Frame: 4-6 Weeks Goal Progress: Progressing Goal 4:: I with HEP Goal Time Frame: 4-6 Weeks Goal Progress: Progressing Goal 5:: Pt will be able to ambulate with a standard cane 100 feet Goal Progress: Progressing Goal 6:: LTG: Pt. to complete TUG with FWW with in 30sec. Goal Time Frame: 4-6 Weeks Goal Progress: Progressing Anticipated Interventions Anticipated Interventions Patient/Client Instruction: Educate patient on: Condition and Plan of Care For the Purpose of:: To improve self management Therapeutic Exercise to Include: Strength training, Postural training, Flexibilty training, Gait and locomotor training and Dynamic Lumbar Stabilization For the Purpose of:: To decrease pain, To improve muscle performance and motor function and To increase tolerance to activity/condition/position Re-Evaluation Ending Re-evaluation ending: Please do not hesitate to contact me at [phone] by phone or if you have questions or concerns regarding this new plan of care! Sincerely, IMANI MercadoT
--- NOTE | 2024-09-17 16:04 | HP.PTREVAL_ITS ---
Re-Evaluation Intro: Dr. Tacos Solano MD, It has been my pleasure to treat TAYO FELIX over the last 33 visits for LBP. Please see the progress note below for an update on the physical therapy plan of care! Subjective Subjective: I am getting better, but I am not there yet Objective Objective/Function: LBP rated at 6/10 L LE radiculopathy is 45% improved Pt is able to ambulate 250 feet with Ww. Plan Plan Plan: 09-17-24-Cont with gait training and LE strengthening Balance/Gait/Functional tests Balance/Special Test Scores Oswestry Low Back Score: 33 Quick DASH Score: 47.7250 TUG Test Time Seconds: 16.46 Tug Test: <20 sec.=mostly independent 30 Second Chair Rise Test Seconds: 13 Goals Goals Goal 1:: Decrease LBP x 50% to aid with sleep Goal Time Frame: 4-6 Weeks Goal Progress: Goal Met Goal 2:: Decrease L LE radiculopathy x 50% to aid with ambulation Goal Time Frame: 4-6 Weeks Goal Progress: Progressing Goal 3:: Pt will be able to ambulate greater than 200 feet to aid with community ambulation Goal Time Frame: 4-6 Weeks Goal Progress: Goal Met Goal 4:: I with HEP Goal Time Frame: 4-6 Weeks Goal Progress: Progressing Goal 5:: Pt will be able to ambulate with a standard cane 100 feet Goal Progress: Progressing Goal 6:: LTG: Pt. to complete TUG with FWW with in 30sec. Goal Time Frame: 4-6 Weeks Goal Progress: Progressing Anticipated Interventions Anticipated Interventions Patient/Client Instruction: Educate patient on: Condition and Plan of Care For the Purpose of:: To improve self management Therapeutic Exercise to Include: Strength training, Postural training, Fl exibilty training, Gait and locomotor training and Dynamic Lumbar Stabilization For the Purpose of:: To decrease pain, To improve muscle performance and motor function and To increase tolerance to activity/condition/position Re-Evaluation Ending Re-evaluation ending: Please do not hesitate to contact me at [phone] by phone or if you have questions or concerns regarding this new plan of care! Sincerely, Perez Billingsley, PT, ATC
== END 2024-10-05 19:00 | disposition home or self-care (01) ==
LOC: PT 15:00
PROVIDERS: PCP Internal Medicine; Referring Provider Specialist; Visit Provider Specialist
DX: M48.061 Spinal stenosis, lumbar region without neurogenic claudication (principal); M47.896 Other spondylosis, lumbar region; M54.16 Radiculopathy, lumbar region; M18.11 Unilateral primary osteoarthritis of first carpometacarpal joint, right hand; G56.01 Carpal tunnel syndrome, right upper limb
CPT/HCPCS: 97110; 97116; 97161; 97530

== ENCOUNTER → 2024-10-27 | Outpatient (CLI) | payer MEDICARE, SELFPAY | END | disposition home or self-care (01) | PROVIDERS: PCP Internal Medicine; Referring Provider Nurse Practitioner Acute Care; Visit Provider Nurse Practitioner Acute Care | DX: J45.909 Unspecified asthma, uncomplicated (principal) | CPT/HCPCS: 94060; 94726; 94729 ==

== ENCOUNTER → 2024-11-18 | Outpatient (CLI) | payer MEDICARE, SELFPAY ==
[2024-11-18 13:46] VITALS: PULSE 65; PULSE 69; PULSE 70; PULSE 76; PULSE 82; PULSE 85; PULSE 92; PULSE 94; O2SAT 93; O2SAT 94; O2SAT 95; O2SAT 96; O2SAT 97
--- NOTE | 2024-11-19 12:15 | PCM.PSN.6M ---
PSN 6 Minute Walk Test 6 Minute Walk Test 6 Minute Walk Test: 6 Minute Walk Test PSN:6-Minute Walk Test Start: 11/18/24 13:46 Freq: Status: Active Protocol: RESP.6MINW Document 11/18/24 13:46 NAVICYRUS (Rec: 11/18/24 13:48 [email or web address] [id number]) 6 Minute Walk Test Date Performed 11/18/24 Time Performed 13:30 Height 5 ft 2 in Weight: 190 lb Weight in Pounds 190.[address]: Dunia Roland STUDENT DEVELOPMENT ADVISOR Assistive device Walker used: Pre-test Oxygen Delivery Room Air Method Pulse Ox (%) 95 Pulse Rate (60-100 65 beats/min) Dyspnea Julio Scale ( 0 0-10) Exertion Julio Scale 6 (6-20) 1st minute Oxygen Delivery Room Air Method Pulse Ox (%) 94 Pulse Rate (60-100 69 beats/min) 2nd minute Oxygen Delivery Room Air Method Pulse Ox (%) 97 Pulse Rate (60-100 76 beats/min) 3rd minute Oxygen Delivery Room Air Method Pulse Ox (%) 94 Pulse Rate (60-100 82 beats/min) Number of Rests 1 Taken 4th minute Oxygen Delivery Room Air Method Pulse Ox (%) 95 Pulse Rate (60-100 85 beats/min) 5th minute Oxygen Delivery Room Air Method Pulse Ox (%) 93 Pulse Rate (60-100 92 beats/min) 6th minute Oxygen Delivery Room Air Method Pulse Ox (%) 93 Pulse Rate (60-100 94 beats/min) Dyspnea Julio Scale ( 3 0-10) Exertion Julio Scale 13 (6-20) Post-test Oxygen Delivery Room Air Method Pulse Ox (%) 96 Pulse Rate (60-100 70 beats/min) Full Laps Walked 7 Partial Lap, Number 65 of Tiles Walked Total Distance 478 Walked (ft) Interpretation Interpretation: The patient ambulated 478 feet over the course of 6 minutes beginning on room air with the use of a walker. Pretesting oxygen saturation was noted to be 95% on room air. With ambulation, the donaldo oxygen saturation was 93%. Although there was evidence of impaired walk distance, there was no significant exertional oxygen desaturation. Recommendations Recommendations: There is no indication for the use of supplemental oxygen at this time.
== END | disposition home or self-care (01) ==
LOC: PSN 13:11
PROVIDERS: PCP Internal Medicine; Referring Provider Nurse Practitioner Acute Care; Visit Provider Nurse Practitioner Acute Care
DX: J98.4 Other disorders of lung (principal)
CPT/HCPCS: 94618

== ENCOUNTER 2024-11-23 15:00 | Outpatient (RCR) | payer MEDICARE, SELFPAY ==
--- NOTE | 2024-10-20 16:00 | HP.PTREVAL ---
Re-Evaluation Intro: Dr. Tacos Solano MD, It has been my pleasure to treat TAYO FELIX over the last 41 visits for LBP. Please see the progress note below for an update on the physical therapy plan of care! Subjective Subjective: Pt reports she feels significantly improved at this time. She is able to ambulate much further with a cane. Objective Objective/Function: TU.62 sec L LE radiculopathy has not been present lately Gait: Pt is able to ambulate 240 ft with WW and CGAx1. Pt is able to ambulate 170' with cane and CGAx1, both until having to sit secondary to pain Pt is showing excellent progress with tolerance for ambulation. Pt is still very unsteady with cane ambulation which she needs for I at home. Plan Plan Plan: 10-20-24 with gait training and LE strengthening Balance/Gait/Functional tests Balance/Special Test Scores Lower Extremity Functional Score: 22 Goals Goals Goal 1:: Perform TUG in under 20 seconds Goal Time Frame: 2-4 Weeks Goal Progress: Progressing Goal 2:: Decrease R LE radiculopathy x 50% to aid with ambulation Goal Time Frame: 2-4 Weeks Goal Progress: Goal Met Goal 3:: I with HEP Goal Time Frame: 2-4 Weeks Goal Progress: Goal Met Goal 4:: Pt will be able to ambulate greater than 340 feet to aid with community ambulation with WW Goal Progress: Goal Met Anticipated Interventions Re-Evaluation Ending Re-evaluation ending: Please do not hesitate to contact me at [phone] by phone or if you have questions or concerns regarding this new plan of care! Sincerely, Perez Billingsley, PT, ATC
--- NOTE | 2024-11-23 15:57 | HP.PTDCSUM ---
Discharge Summary D/C summary: It has been my pleasure to treat TAYO FELIX referred by Dr. Tacos Solano MD, with the diagnosis of LBP for a total of 49 visit(s). Discharge Date: Please see the following information for a summary of their discharge status. Subjective Subjective: Pt reports she has improved a lot. Pt is able to ambulate with a cane now. Balance has improved, but pt still feels like there is room for improvement. Pain LBP: Pain Intensity (Out of 10): 3 Overall Improvement % Improvement: 70 Objective Objective/Function: Pt reports no R LE radiculopathy at this time. Pt is I with HEP TU.73 sec Gait: Pt is able to ambulate 340 feet with WW requiring one rest break in the middle Goals Goal 1:: Perform TUG in under 20 seconds Goal Progress: Progressing Goal 2:: Decrease R LE radiculopathy x 50% to aid with ambulation Goal Progress: Goal Met Goal 3:: I with HEP Goal Progress: Goal Met Goal 4:: Pt will be able to ambulate greater than 340 feet to aid with community ambulation with WW Goal Progress: Goal Met Plan Plan: Discharge to [facility] D/C Information d/c sentence: If there are questions or concerns regarding this patient's physical therapy, please feel free to call me at [phone]. Thank you for the referral of this patient. Sincerely, Perez Billingsley, PT, ATC Balance/Gait/Functional tests Balance/Special Test Scores Lower Extremity Functional Score: 23 TUG Test Time Seconds: 15.16 Tug Test: <20 sec.=mostly independent Improvement % Improvement: 70
== END 2024-11-23 19:00 | disposition home or self-care (01) ==
LOC: PT 15:00
PROVIDERS: PCP Internal Medicine; Referring Provider Specialist; Visit Provider Specialist
DX: M18.11 Unilateral primary osteoarthritis of first carpometacarpal joint, right hand (principal); G56.01 Carpal tunnel syndrome, right upper limb; M48.061 Spinal stenosis, lumbar region without neurogenic claudication; M47.896 Other spondylosis, lumbar region; M54.16 Radiculopathy, lumbar region; M16.12 Unilateral primary osteoarthritis, left hip; M70.72 Other bursitis of hip, left hip
CPT/HCPCS: 97110; 97530

== ENCOUNTER → 2024-11-30 | Outpatient (CLI) | payer MEDICARE, SELFPAY ==
[2024-11-30 17:49] LABS: Absolute Lymphocyte Count 1.03 X10^3/uL (0.83-4.51); Absolute Neutrophil Count 4.9 X10^3/uL (2.0-7.7); Basophil# 0.07 X10^3/uL; Eosinophil# 0.25 X10^3/uL; Eosinophils% 3.5 % (0-5); Hematocrit 33.9 % (37-47); Hemoglobin 10.9 g/dL (12.0-15.0); Lymphocyte # 1.03 X10^3/ul (0.83-4.51); Lymphocyte % 14.4 % (19-41); Mean Corp Hgb Conc 32.2 g/dL (32-36); Mean Corpuscular Hgb 30.8 pg (27.0-32.0); Mean Corpuscular Volume 95.8 fL (81-99); Mean Platelet Vol. 10.2 fl (6.2-12.0); Monocyte% 12.6 % (0-10); NRBC Flagged by Analyzer 0 % (0-5); Neutrophil # 4.87 X10^3/uL (2.7-7.7); Neutrophil % 67.8 % (47-70); Platelet Count 200 K/mm3 (150-450); RBC Distribution Width CV 14.1 % (11.6-14.6); RBC Distribution Width SD 49.8 fl (35.1-43.9); Red Blood Count 3.54 M/mm3 (4.2-5.4); White Blood Count 7.2 K/mm3 (4.4-11.0)
[2024-11-30 19:10] LABS: ALB/GLOB Ratio 1.7 RATIO (0.9-2.4); AST(SGOT) 17 U/L (<=31); Alanine Aminotransfer ALT/SGPT 13 U/L (<=34); Albumin, Serum 4.2 g/dL (3.4-4.8); Alkaline Phosphatase 68 U/L (35-104); Anion Gap 12 (5-15); BUN 26 mg/dL (4-19); BUN/Creat Ratio 20.6 RATIO (10-20); Calcium,Total 9.5 mg/dL (7.6-11.0); Carbon Dioxide 22.6 mmol/L (21.0-32.0); Chloride 97 mmol/L (98-108); Creatinine, Serum 1.26 mg/dL (0.70-1.20); EST Glomerular Filtration Rate 45 (>60); Globulin 2.4 g/dL (2.2-4.2); Glucose 94 mg/dL (70-99); Potassium 5.1 mmol/L (3.3-5.1); Protein, Total 6.6 g/dL (5.9-8.4); Sodium Level 131 mmol/L (133-145); Total Bilirubin 0.34 mg/dL (0.00-1.30)
== END | disposition home or self-care (01) ==
LOC: MTLAB 14:00
PROVIDERS: PCP Internal Medicine; Referring Provider Internal Medicine Rheumatology; Visit Provider Internal Medicine Rheumatology
DX: M06.09 Rheumatoid arthritis without rheumatoid factor, multiple sites (principal); M79.7 Fibromyalgia; Z79.899 Other long term (current) drug therapy
CPT/HCPCS: 36415; 80053; 85025

== ENCOUNTER → 2025-02-14 | Outpatient (CLI) | payer MEDICARE, SELFPAY ==
[2025-02-14 17:53] LABS: Hematocrit 34.3 % (37-47); Hemoglobin 11.2 g/dL (12.0-15.0); Immature Granulocytes Count 0.010 X10^3/uL (0.0-0.0); Mean Corp Hgb Conc 32.7 g/dL (32-36); Mean Corpuscular Volume 94.0 fL (81-99); Mean Platelet Vol. 10.8 fl (6.2-12.0); NRBC Flagged by Analyzer 0 % (0-5); Platelet Count 189 K/mm3 (150-450); RBC Distribution Width CV 12.9 % (11.6-14.6); RBC Distribution Width SD 44.7 fl (35.1-43.9); Red Blood Count 3.65 M/mm3 (4.2-5.4); White Blood Count 4.7 K/mm3 (4.4-11.0)
[2025-02-14 18:03] LABS: AST(SGOT) 23 U/L (<=31); Alanine Aminotransfer ALT/SGPT 15 U/L (<=34); Albumin, Serum 4.4 g/dL (3.4-4.8); Alkaline Phosphatase 59 U/L (35-104); Anion Gap 13 (5-15); BUN 27 mg/dL (4-19); BUN/Creat Ratio 23.6 RATIO (10-20); Calcium,Total 9.4 mg/dL (7.6-11.0); Carbon Dioxide 21.6 mmol/L (21.0-32.0); Chloride 92 mmol/L (98-108); Globulin 2.4 g/dL (2.2-4.2); Glucose 86 mg/dL (70-99); Potassium 5.0 mmol/L (3.3-5.1)
== END | disposition home or self-care (01) ==
LOC: MTLAB 15:26
PROVIDERS: PCP Internal Medicine; Referring Provider Internal Medicine Rheumatology; Visit Provider Internal Medicine Rheumatology
DX: M06.09 Rheumatoid arthritis without rheumatoid factor, multiple sites (principal); M79.7 Fibromyalgia; Z79.899 Other long term (current) drug therapy
CPT/HCPCS: 36415; 80053; 85025

== ENCOUNTER → 2025-02-15 | Outpatient (CLI) | payer MEDICARE, SELFPAY ==
[2025-02-15 10:58] LABS: Cholesterol 173 mg/dL (<=200); Ferritin 57 ng/mL (22-378); Low Density Lipoprotein Calc. 82 mg/dL; Triglycerides 92 mg/dL; Very Low Density Lipoprotein 18 mg/dL (5-40); Vitamin B12 417 pg/mL (180-914); cholesterol:hdl ratio screen 2.40
[2025-02-15 11:28] LABS: Iron 65 ug/dL (50-170); Iron Binding Capacity,Total 343 ug/dL (250-450); Iron Binding Capacity,Unsat 278 ug/dL (228-428)
== END | disposition home or self-care (01) ==
LOC: MTLAB 08:55
PROVIDERS: PCP Internal Medicine; Referring Provider Internal Medicine; Visit Provider Internal Medicine
DX: I10 Essential (primary) hypertension (principal); E53.8 Deficiency of other specified B group vitamins; D64.9 Anemia, unspecified
CPT/HCPCS: 36415; 80061; 82607; 82728; 83540; 83550

== ENCOUNTER → 2025-05-09 | Outpatient (CLI) | payer MEDICARE, SELFPAY ==
[2025-05-09 17:51] LABS: Hematocrit 33.6 % (37-47); Hemoglobin 10.6 g/dL (12.0-15.0); Immature Granulocytes Count 0.020 X10^3/uL (0.0-0.0); Mean Corp Hgb Conc 31.5 g/dL (32-36); Mean Corpuscular Volume 94.4 fL (81-99); Mean Platelet Vol. 10.6 fl (6.2-12.0); NRBC Flagged by Analyzer 0 % (0-5); Platelet Count 212 K/mm3 (150-450); RBC Distribution Width CV 14.0 % (11.6-14.6); RBC Distribution Width SD 48.6 fl (35.1-43.9); Red Blood Count 3.56 M/mm3 (4.2-5.4); White Blood Count 6.3 K/mm3 (4.4-11.0)
[2025-05-09 18:07] LABS: AST(SGOT) 18 U/L (<=31); Alanine Aminotransfer ALT/SGPT 12 U/L (<=34); Albumin, Serum 4.1 g/dL (3.4-4.8); Alkaline Phosphatase 49 U/L (35-104); Anion Gap 12 (5-15); BUN 29 mg/dL (4-19); BUN/Creat Ratio 26.2 RATIO (10-20); Calcium,Total 9.3 mg/dL (7.6-11.0); Carbon Dioxide 20.8 mmol/L (21.0-32.0); Chloride 100 mmol/L (98-108); Globulin 2.6 g/dL (2.2-4.2); Glucose 91 mg/dL (70-99); Potassium 5.5 mmol/L (3.3-5.1)
== END | disposition home or self-care (01) ==
LOC: MTLAB 14:33
PROVIDERS: PCP Internal Medicine; Referring Provider Internal Medicine Rheumatology; Visit Provider Internal Medicine Rheumatology
DX: M06.09 Rheumatoid arthritis without rheumatoid factor, multiple sites (principal); M79.7 Fibromyalgia; Z79.899 Other long term (current) drug therapy
CPT/HCPCS: 36415; 80053; 85025